=== PATIENT | female | born 1940 | race Caucasian/White ===

== ENCOUNTER 2018-02-12 17:56 | Inpatient (IN) | payer MEDICARE, OTHER, SELFPAY ==
[2018-02-12] VITALS (13 sets, daily range): BP systolic 105–141; BP diastolic 67–119; PULSE 105–130; RESP 20–29; TEMP 37.1–37.7; O2SAT 89–95; BMI 38.4; BMI 40.6
--- NOTE | 2018-02-12 18:29 | EKG12_ITS ---
Test Reason : SOB Blood Pressure : / mmHG Vent. Rate : 109 BPM Atrial Rate : 109 BPM P-R Int : 156 ms QRS Dur : 064 ms QT Int : 320 ms P-R-T Axes : 066 011 048 degrees QTc Int : 430 ms Sinus tachycardia Otherwise normal ECG Confirmed by SHELLEY CLEMENTE, PITO ([id number]), editor magazine DESMOND PEDROZA ([id number]) on 02/17/2018 3:36:40 PM Referred By: Francisco Javier Ford Confirmed By:PITO ROSA MD
--- NOTE | 2018-02-12 18:50 | RAD_ITS ---
STUDY: X-RAY CHEST REASON FOR EXAM: Female, 77 years old. Shortness of breath. TECHNIQUE: PA and lateral views of the chest. COMPARISON: Portable AP upright chest x-ray November 23, 2015. FINDINGS: The lungs are not as fully expanded today. The segmental/subsegmental density in the medial right base is mildly more confluent in the frontal view, likely due to crowding. This is difficult to identify on the lateral image, possibly in the anteromedial right middle lobe. Linear/peribronchial scarring and/or subsegmental volume loss in the medial left base grossly unchanged. No new infiltrate There is no demonstrated pleural abnormality. Normal size heart. Normal mediastinum and elio. Normal visualized pulmonary arteries. There is a stable faint atherosclerotic calcification of the aortic arch. There are stable degenerative changes and minor dextroscoliosis of the visualized thoracic spine. Normal visualized ribs, clavicles, and shoulders. There is no demonstrated abnormality of the visualized soft tissue structures of the upper abdomen. RAD/Chest PA and Lateral IMPRESSION: Chronic subsegmental parenchymal changes in the medial lung bases. No acute infiltrate or CHF. Electronically Signed: Miky Hyman MD at 19:05 EST , Service support ,
[2018-02-12 18:58] LABS: Absolute Lymphocyte Count 1.08 X10^3/ul (0.83-4.51); Absolute Neutrophil Count 10.6 X10^3/uL (2.0-7.7); Basophil# 0.01 X10^3/uL; Basophil% 0.1 % (0-1); Eosinophil# 0.02 X10^3/uL; Eosinophils% 0.2 % (0-5); Hemoglobin 14.3 g/dl (12.0-15.0); Lymphocyte # 1.08 X10^3/ul (4.0); Lymphocyte % 8.2 % (19-41); Mean Corp Hgb Conc 33.3 g/gl (32-36); Mean Corpuscular Hgb 31.7 pg (27.0-32.0); Mean Corpuscular Volume 95.3 fL (81-99); Monocyte% 11.4 % (0-10); Neutrophil # 10.58 X10^3/uL (2.7-7.7); Neutrophil % 79.9 % (47-70); Platelet Count 182 K/mm3 (150-450); RBC Distribution Width CV 13.3 % (11.6-14.6); RBC Distribution Width SD 46.8 fl (35.1-43.9); Red Blood Count 4.51 M/mm3 (4.2-5.4); White Blood Count 13.2 K/mm3 (4.4-11.0)
[2018-02-12 18:59] LABS: POSITIVE COUNT NO; POSITIVE DIFFERENTIAL NO; POSITIVE MORPHOLOGY NO
[2018-02-12] MEDS: Ipratropium/Albuterol Sulfate 3 ML AMPUL.NEB INHALATION (19:02)
[2018-02-12] MEDS: Albuterol 2.5 MG/3 ML VIAL.NEB. INHALATION ×3 (19:02→19:21)
[2018-02-12 19:06] LABS: International Normalized Ratio 1.1; Prothrombin Time (Protime)PT. 13.9 SECONDS (11.7-14.9)
[2018-02-12 19:07] LABS: Partial Thromboplast Time 29.2 Seconds (24.1-36.2)
[2018-02-12 19:16] LABS: AST(SGOT) 25 U/L (15-37); Alanine Aminotransfer ALT/SGPT 30 U/L (13-56); Albumin, Serum 3.1 g/dL (3.2-5.0); Alkaline Phosphatase 113 U/L (45-117); Anion Gap 7 (5-15); BUN 17 mg/dL (7-18); BUN/Creat Ratio 22.4 RATIO (10-20); Bilirubin, Direct 0.13 mg/dL (0.00-0.30); Calcium,Total 8.4 mg/dL (8.5-10.1); Chloride 106 mmol/L (98-107); Creatinine, Serum 0.76 mg/dL (0.55-1.02); EST Glomerular Filtration Rate 78 mL/min (>60); Est Glom Filt Rate - Afr Amer 94 mL/min (>60); Estimated Creatinine Clearance 36.08 ml/min; Glucose 104 mg/dL (74-106); Potassium 4.1 mmol/L (3.5-5.1); Protein, Total 7.1 g/dL (6.4-8.2); Sodium Level 139 mmol/L (136-145)
[2018-02-12 19:19] LABS: Lactic Acid 0.7 mmol/L (0.4-2.0)
[2018-02-12 19:26] LABS: BNP,B-Type NATRIURETIC PEPTIDE 34.3 pg/mL (0-100)
--- NOTE | 2018-02-12 20:25 | CT_ITS ---
STUDY: CTA CHEST REASON FOR EXAM: Female, 77 years old. Hypoxia and shortness of breath RADIATION DOSAGE (If Supplied By Facility): CTDIvol = ( 13.37 ) mGy, DLP = ( 539.43 ) mGycm TECHNIQUE: The examination was performed with the intravenous administration of 100 ml of Isovue 370 contrast material. Post-processing of the angiographic images was performed, with multiplanar reformation and 3D reconstruction. Individualized dose optimization techniques were used for this CT. COMPARISON: Chest radiograph of February 12, 2018 FINDINGS: Normal enhancement of the main pulmonary artery and right and left pulmonary arteries. Normal enhancement of the bilateral peripheral pulmonary arteries. There is no demonstrated pulmonary embolism. There is atherosclerotic calcification of the aortic arch with tortuosity. There is no demonstrated aortic dissection. Normal heart and pericardium. Coronary calcifications. Shotty subcentimeter mediastinal lymph nodes. Normal hilar regions. Bronchial thickening most notably in the right upper lobe and bilateral lower lobes. Generalized hyperexpansion. Areas of consolidation and evidence of volume loss in the medial right upper lobe associated with thickened bronchi. Broad band of parenchymal consolidation probably with volume loss in the anterior right upper lobe along the mediastinal border associated with bronchial thickening. Both areas are also associated with small multinodular infiltrates. Paramediastinal atelectasis and bronchial thickening of the right middle lobe. Bronchial thickening of the lower lobe associated with mild primarily linear atelectatic changes of the right lower lobe. Focal dense infiltrate or atelectasis of the lingula. Generalized atelectatic changes and bronchial thickening of the lower lobe but. Small multinodular parenchymal infiltrate in the posterior left lower lobe and anterior left upper lobe. Bolus of the left lower lobe. Negative for substantial pleural effusion. Normal chest wall structures. There are degenerative changes of thoracic spine with demineralized osseous structures and multiple midthoracic vertebral bodies reduced in height resulting in an increased thoracic kyphosis. Normal visualized upper abdomen. CT/CTA Chest W/WO Contrast IMPRESSION: Negative for pulmonary embolus. Atherosclerotic changes of the aorta without aneurysm or dissection. Coronary calcifications. Right upper lobe substantial bronchial thickening with a broad band of consolidation/volume loss in the medial right upper lobe along the border of the mediastinum. Both areas associated with multinodular infiltrates in the adjacent aerated portion of the lung concerning for inflammatory process. Right middle lobe atelectatic lung also bordering the mediastinum associated with bronchial thickening. Right lower lobe bronchial thickening with sporadic smaller areas of parenchymal atelectasis. Left upper lobe small multinodular infiltrate of the anterior left upper lobe. Consolidation/volume loss of the inferior lingula associated with bronchial thickening. Left lower lobe demonstrates generalized bronchial thickening and a small multinodular infiltrate in the posterior left lower lobe concerning for inflammatory disease. Generalized emphysematous and chronic interstitial changes. Negative for pleural effusion. Electronically Signed: Marina De La Garza MD at 21:34 EST , Service support ,
[2018-02-12] MEDS: levoFLOXacin IV 500 MG/100 ML BAG 100 MG IV (20:31)
--- NOTE | 2018-02-12 20:54 | ED.VISSUMM ---
- ER Visit Summary Date of Service: 02/12/18 Chief Complaint: Shortness of breath History of Present Illness: The patient is a 77 F who presents to the emergency department after being referred by the [facility]. Patient states she has had a URI for about 3 weeks. She has had cough congestion and rhinorrhea. She has a history of COPD and is a current smoker. She wears CPAP oxygen at night. For the past 3 days she has been more significantly short of breath. Was noted that her temperature was 100.6 at urgent care. Her pulse ox 88% on room air. Patient notes that ambulating is basically out of the question for her as she gets extremely labored. Physical Examination: Temperature 99.9 heart rate of 106 respirations are 28 pulse ox 88% on room air blood pressure 123/67 Gen: Well-nourished well-developed Head: Normocephalic atraumatic Eyes: Perrl EOMI ENT: TMs clear no rhinorrhea moist mucous membranes Neck: Supple no lymphadenopathy no JVD nontender CVS: Regular rate tachycardic rhythm no murmurs normal S1-S2 Respiratory: Patient is tachypneic. She has inspiratory and expiratory wheezes and rhonchi bilaterally chest nontender Abdomen: Soft nontender nondistended normal bowel sounds no masses Back: Nontender Extremity: Nontender 2+ lower extremity edema Skin: Normal color no rash Neuro: alert orientated ?3 CN II-XII intact normal strength sensation reflexes Psych: Normal affect normal mood Test Results: White count 13.2. Lactic acid is normal. Troponin is negative. BNP 34.3. EKG sinus at a rate of 109. Chest x-ray shows no infiltrate. Emergency Department Course and Treatment: Patient received breathing treatments and supplemental oxygen. Repeat examination patient states she does not really feel significantly improved. She is still Tachypneic. She attempted to ambulate to the bathroom and was immediately hypoxic at 85% on 2 L. She received Solu-Medrol and Levaquin. CTA of the chest was obtained. This demonstrated multiple areas of inflammation in the lungs. Please see the reading below. Patient continues to be tachypneic. The patient will be started on CPAP as she utilizes this at home and if no improvement is made she will be transitioned to BiPAP. Plan is admission into the hospital. Impression: 1. COPD exacerbation 2. Pneumonia 3. Hypoxemia CT/CTA Chest W/WO Contrast IMPRESSION: Negative for pulmonary embolus. Atherosclerotic changes of the aorta without aneurysm or dissection. Coronary calcifications. Right upper lobe substantial bronchial thickening with a broad band of consolidation/volume loss in the medial right upper lobe along the border of the mediastinum. Both areas associated with multinodular infiltrates in the adjacent aerated portion of the lung concerning for inflammatory process. Right middle lobe atelectatic lung also bordering the mediastinum associated with bronchial thickening. Right lower lobe bronchial thickening with sporadic smaller areas of parenchymal atelectasis. Left upper lobe small multinodular infiltrate of the anterior left upper lobe. Consolidation/volume loss of the inferior lingula associated with bronchial thickening. Left lower lobe demonstrates generalized bronchial thickening and a small multinodular infiltrate in the posterior left lower lobe concerning for inflammatory disease. Generalized emphysematous and chronic interstitial changes. Negative for pleural effusion. This note was generated with [employer] dictation software. It may contain incorrect words, spelling, and punctuation that were not noted in review of the chart prior to signing ED Disposition - Plan for ED Patient: Chief Complaint: Shortness of Breath Referrals: Barry Wooten MD [Primary Care Provider] -
--- NOTE | 2018-02-12 20:58 | ED.DCSUM_ITS ---
- ER Visit Summary Date of Service: 02/12/18 Chief Complaint: Shortness of breath History of Present Illness: The patient is a 77 F who presents to the emergency department after being referred by the [facility]. Patient states she has had a URI for about 3 weeks. She has had cough congestion and rhinorrhea. She has a history of COPD and is a current smoker. She wears CPAP oxygen at night. For the past 3 days she has been more significantly short of breath. Was noted that her temperature was 100.6 at urgent care. Her pulse ox 88% on room air. Patient notes that ambulating is basically out of the question for her as she gets extremely labored. Physical Examination: Temperature 99.9 heart rate of 106 respirations are 28 pulse ox 88% on room air blood pressure 123/67 Gen: Well-nourished well-developed Head: Normocephalic atraumatic Eyes: Perrl EOMI ENT: TMs clear no rhinorrhea moist mucous membranes Neck: Supple no lymphadenopathy no JVD nontender CVS: Regular rate tachycardic rhythm no murmurs normal S1-S2 Respiratory: Patient is tachypneic. She has inspiratory and expiratory wheezes and rhonchi bilaterally chest nontender Abdomen: Soft nontender nondistended normal bowel sounds no masses Back: Nontender Extremity: Nontender 2+ lower extremity edema Skin: Normal color no rash Neuro: alert orientated ?3 CN II-XII intact normal strength sensation reflexes Psych: Normal affect normal mood Test Results: White count 13.2. Lactic acid is normal. Troponin is negative. BNP 34.3. EKG sinus at a rate of 109. Chest x-ray shows no infiltrate. Emergency Department Course and Treatment: Patient received breathing treatments and supplemental oxygen. Repeat examination patient states she does not really feel significantly improved. She is still Tachypneic. She attempted to ambulate to the bathroom and was immediately hypoxic at 85% on 2 L. She received Solu-Medrol and Levaquin. CTA of the chest was obtained. This demons trated multiple areas of inflammation in the lungs. Please see the reading below. Patient continues to be tachypneic. The patient will be started on CPAP as she utilizes this at home and if no improvement is made she will be transitioned to BiPAP. Plan is admission into the hospital. Impression: 1. COPD exacerbation 2. Pneumonia 3. Hypoxemia CT/CTA Chest W/WO Contrast IMPRESSION: Negative for pulmonary embolus. Atherosclerotic changes of the aorta without aneurysm or dissection. Coronary calcifications. Right upper lobe substantial bronchial thickening with a broad band of consolidation/volume loss in the medial right upper lobe along the border of the mediastinum. Both areas associated with multinodular infiltrates in the adjacent aerated portion of the lung concerning for inflammatory process. Right middle lobe atelectatic lung also bordering the mediastinum associated with bronchial thickening. Right lower lobe bronchial thickening with sporadic smaller areas of parenchymal atelectasis. Left upper lobe small multinodular infiltrate of the anterior left upper lobe. Consolidation/volume loss of the inferior lingula associated with bronchial thickening. Left lower lobe demonstrates generalized bronchial thickening and a small multinodular infiltrate in the posterior left lower lobe concerning for inflammatory disease. Generalized emphysematous and chronic interstitial changes. Negative for pleural effusion. This note was generated with [employer] dictation software. It may contain incorrect words, spelling, and punctuation that were not noted in review of the chart prior to signing ED Disposition - Plan for ED Patient: Chief Complaint: Shortness of Breath Referrals: Barry Wooten MD [Primary Care Provider] -
[2018-02-12 21:11] LABS: Allen Test POS; Base Excess -1 mmol/L (-2 to +2); Bicarbonate 24.6 mmol/L (22-26); Blood Gas Specimen Type ART; O2 Delivery Device Nasal Can; PO2 68 mmHG (75-100); SITE L Radial; SO2 92 % (95-99); Time Given 2105; Total Carbon Dioxide 26 mmol/L; pCO2 46.5 mmHg (35-45); pH 7.33 (7.35-7.45)
--- NOTE | 2018-02-12 21:47 | PCM.HP.STD ---
Problem List (1) Acute and chronic respiratory failure Status: Acute (2) Sepsis due to pneumonia Status: Acute History of Present Illness Date of Admission: 02/12/18 Chief Complaint: shortness of breath The patient is a 77 year old F with a significant history of COPD; hyperlipidemia; obstructive sleep apnea on home CPAP with 4 L oxygen nightly; who presented because of 3-day history of progressively worsening shortness of breath. Associated with her symptoms is productive cough of thick yellowish green sputum. Her shortness of breath increases with coughing and with exertion. She tried using at home rescue inhalers without any real relief. Further, she has rhinorrhea and wheezes. Also patient has had cold symptoms for 3 weeks. She went to the urgent care where her temperature was found to be 100.3-100.6 F. Also her oxygen saturation was 88% on room air. At the emergency department her highest temperature was 99.3. She had tachycardia and tachypnea and elevated white count. Past Medical History Allergies No Known Allergies Allergy (Verified 02/12/18 18:01) Home Medications: Ambulatory Orders Medication Instructions Recorded Aspirin [Aspirin, Baby] 81 mg PO DAILY@199911/13/15 Furosemide [Lasix] 20 mg PO PRN PRN 11/13/15 Cholecalciferol (VIT D3) [Vitamin 1,000 unit PO DAILY 11/22/15 D] Umeclidinium Brm/Vilanterol Tr 1 puff INHALATION DAILY@0800 11/22/15 [Anoro Ellipta 62.5-25 Mcg INH] Calcium Carbonate 600 mg PO DAILY 02/12/18 Guaifenesin Dm [Robitussin Dm] 10 ml PO Q6H PRN PRN 02/12/18 Lovastatin [Mevacor] 40 mg PO QHS 02/12/18 Surgical History: hysterectomy, - - Tubal ligation; hemorrhoids removal Lives: With Family Smoking Status: Current every day smoker Tobacco Use: Cigarettes - *Family History Maternal Family History: Family History (Last Reviewed 02/13/18 @ 04:20 by Francisco Javier Ford MD) Father Pancreatic cancer Brother Pancreatic cancer Sister Lung cancer Brother Alcohol abuse Review of Systems Constitutional: Reports: Fever. Denies: Chills, Weight Change HEENT: Reports: Nasal Congestion. Denies: Head Aches, Sinus Congestion, Sinus Drainage Cardiovascular: Denies: Chest Pain, Palpitations Respiratory: Reports: Cough, Shortness of Breath, Shortness of breath at rest, Shortness of breath upon exertion, Sputum production Gastrointestinal: Denies: Abdominal Pain, Nausea, Vomiting Genitourinary: Denies: Dysuria Musculoskeletal: Denies: Joint Pain, Joint Tenderness Skin: Denies: Rash, Wounds Neurological: Denies: Numbness, Tingling, Focal weakness Psychiatric: Denies: Anxiety, Depression, Homicidal Ideations, Suicidal Ideations Hematologic/ Lymphatic: Denies: Easy Bruising, Easy Bleeding VTE Information - Inpt Only VTE Present on Admission: No VTE Mechan Device Prophylaxis: None VTE Pharm Prophylaxis ordered?: Yes Patient Problems: Active and Suspected Problems Acute and chronic respiratory failure (Acute) Sepsis due to pneumonia (Acute) - Physical Exam General: Alert, Oriented x3, Cooperative HEENT: Atraumatic, PERRLA, EOMI, Normocephalic Neck: Supple, No JVD, Negative Carotid Bruits Lungs: Rhonchi, Tachypneic, Wheezes Cardiovascular: No murmurs, Tachycardic Abdomen: Bowel Sounds Present, Soft, Non Tender Extremities: No edema, Capillary Refill Less than 3 Seconds Skin: No rashes, No breakdown Musculoskeletal: No Tenderness to Palpation of Joints or Extremities Neurological: Neuro grossly intact Psych/Mental Status: Normal Affect, Appropriate Vital Signs Temp Pulse Resp BP Pulse Ox 99.2 F H 108 H 22 H 121/88 H 92 02/12/18 21:36 02/12/18 21:44 02/12/18 21:44 02/12/18 21:44 02/12/18 21:44 Oxygen Flow Rate (L/min) 4 Oxygen Delivery Method Nasal Cannula Weight: 95.254 kg Body Mass Index (BMI) 38.4 Microbiology Past 72 Hours 02/12/18 19:38 Influenza Types A,B Direct FA (LIMA) - Final Mucosa - Nose Laboratory Tests Past 24 Hrs 02/12/18 02/12/18 02/12/18 18:40 18:40 18:40 WBC 13.2 H RBC 4.51 Hgb 14.3 Hct 43.0 MCV 95.3 MCH 31.7 MCHC 33.3 RDW 13.3 RDW Differential 46.8 H Plt Count 182 MPV 10.0 Immature Gran % (Auto) 0.200 Neut % (Auto) 79.9 H Lymph % (Auto) 8.2 L Bryan % (Auto) 11.4 H Eos % (Auto) 0.2 Baso % (Auto) 0.1 Absolute Neuts (auto) 10.6 H Absolute Lymphs (auto) 1.08 Total Counted Not Reportable PT INR APTT Specimen Type Sample Site pH Bicarbonate Actual POC Total CO2 Base Excess O2 Saturation ABG pCO2 ABG pO2 Edmundo Test O2 Delivery Device Liter Flow Blood Gas Notified Whom Blood Gas Notified Time Sodium 139 Potassium 4.1 Chloride 106 Carbon Dioxide 26.0 Anion Gap 7 BUN 17 Creatinine 0.76 Estim Creat Clear Calc 36.08 Est GFR (MDRD) Af Amer 94 Est GFR (MDRD) Non-Af 78 BUN/Creatinine Ratio 22.4 H Glucose 104 Lactic Acid 0.7 Calcium 8.4 L Total Bilirubin 0.40 Direct Bilirubin 0.13 AST 25 ALT 30 Alkaline Phosphatase 113 Troponin I < 0.015 B-Natriuretic Peptide Total Protein 7.1 Albumin 3.1 L Globulin 4.0 02/12/18 02/12/18 02/12/18 18:40 18:40 21:01 WBC RBC Hgb Hct MCV MCH MCHC RDW RDW Differential Plt Count MPV Immature Gran % (Auto) Neut % (Auto) Lymph % (Auto) Bryan % (Auto) Eos % (Auto) Baso % (Auto) Absolute Neuts (auto) Absolute Lymphs (auto) Total Counted PT 13.9 INR 1.1 APTT 29.2 Specimen Type ART Sample Site L Radial pH 7.33 L Bicarbonate Actual 24.6 POC Total CO2 26 Base Excess -1 O2 Saturation 92 L ABG pCO2 46.5 H ABG pO2 68 L Edmundo Test POS O2 Delivery Device Nasal Can Liter Flow 3.0 Blood Gas Notified Whom ED MD Blood Gas Notified Time 2104 Sodium Potassium Chloride Carbon Dioxide Anion Gap BUN Creatinine Estim Creat Clear Calc Est GFR (MDRD) Af Amer Est GFR (MDRD) Non-Af BUN/Creatinine Ratio Glucose Lactic Acid Calcium Total Bilirubin Direct Bilirubin AST ALT Alkaline Phosphatase Troponin I B-Natriuretic Peptide 34.3 Total Protein Albumin Globulin Assessment/Plan All Active Problems Acute and chronic respiratory failure (Acute) Sepsis due to pneumonia (Acute) The patient is a 77 year old F with a significant history of COPD; hyperlipidemia; obstructive sleep apnea on home CPAP with 4 L oxygen nightly; who presented because of 3-day history of progressively worsening shortness of breath; productive cough and found to have a fever; hypoxia and hypercapnia and with radiographic evidence of acute multilobular infiltrates consistent with sepsis secondary to multilobular pneumonia and with probable COPD exacerbation. Sepsis secondary to multilobular pneumonia Patient meets SIRS criteria with tachycardia, tachypnea and elevated white counts. Patient received Levaquin at emergency department. Due to many adverse effects of Levaquin especially in her age group will transition antibiotics to ceftriaxone and azithromycin. Lactic acid was unremarkable Blood cultures are pending Sputum cultures ordered. Scheduled DuoNeb ordered. Prn Albuterol. Incentives spirometer and acapella ordered Prednisone 40 mg x1. Evaluate for further need of steroids. Rapid influenza screen was negative. Legionella antigen and Streptococcus pneumonia antigen ordered. Mucinex ordered. Flonase for rhinorrhea. Probable COPD exacerbation Management as in sepsis secondary to multilobular pneumonia. Bilateral legs and ankle swelling. Patient takes Lasix as needed. No edema at this time. Lasix held. Obstructive sleep apnea CPAP with oxygen bled in; continued . Tobacco abuse Counseled Patient reported that she has tried Chantix; nicotine patch; and hypnosis without any relief. Patient is declining nicotine patch at this time. DVT prophylaxis Subcutaneous heparin. Code Visit Inpatient E&M: 97437 Init Hosp L3
--- NOTE | 2018-02-12 22:00 | CPS ---
Pt placed on home cpap with 4l bleed in. Pt tolerated well. Spo2 improved, RR, HR both decreased and pt appears to be more relaxed. no further needs at this time.
[2018-02-13] VITALS (13 sets, daily range): BP systolic 115–148; BP diastolic 65–94; PULSE 86–99; RESP 16–26; TEMP 36.4–37.4; O2SAT 91–97
[2018-02-13] MEDS: predniSONE 20 MG Tablet 40 MG PO (00:04)
[2018-02-13] MEDS: Zolpidem Tartrate 5 MG Tablet PO ×2 (00:04→21:48)
[2018-02-13] MEDS: Ceftriaxone 1 GM/50 ML BAG IV ×3 (00:06→21:14)
[2018-02-13] MEDS: 0.9% NaCl Peripheral Flush Adult/Peds IV ×5 (00:06→21:14)
[2018-02-13] MEDS: 0.9% NaCl IVPB Med Flush (250 mL) 15 ML IV (00:13)
[2018-02-13 07:06] LABS: Anion Gap 7 (5-15); BUN 15 mg/dL (7-18); BUN/Creat Ratio 20.8 RATIO (10-20); Calcium,Total 9.1 mg/dL (8.5-10.1); Chloride 109 mmol/L (98-107); Creatinine, Serum 0.72 mg/dL (0.55-1.02); EST Glomerular Filtration Rate 83 mL/min (>60); Est Glom Filt Rate - Afr Amer 100 mL/min (>60); Estimated Creatinine Clearance 36.08 ml/min; Glucose 150 mg/dL (74-106); Potassium 4.8 mmol/L (3.5-5.1); Sodium Level 141 mmol/L (136-145)
[2018-02-13 07:08] LABS: Absolute Lymphocyte Count 0.42 X10^3/ul (0.83-4.51); Absolute Neutrophil Count 11.6 X10^3/uL (2.0-7.7); Basophil# 0.01 X10^3/uL; Basophil% 0.1 % (0-1); Hematocrit 41.9 % (37-47); Hemoglobin 13.7 g/dl (12.0-15.0); Lymphocyte # 0.42 X10^3/ul (4.0); Lymphocyte % 3.4 % (19-41); Mean Corp Hgb Conc 32.7 g/gl (32-36); Mean Corpuscular Hgb 31.7 pg (27.0-32.0); Mean Platelet Vol. 10.6 fl (6.2-12.0); Monocyte# 0.45 X10^3/uL; Monocyte% 3.6 % (0-10); Neutrophil # 11.58 X10^3/uL (2.7-7.7); Neutrophil % 92.7 % (47-70); Platelet Count 173 K/mm3 (150-450); RBC Distribution Width CV 13.4 % (11.6-14.6); RBC Distribution Width SD 46.6 fl (35.1-43.9); Red Blood Count 4.32 M/mm3 (4.2-5.4); White Blood Count 12.5 K/mm3 (4.4-11.0)
[2018-02-13 07:15] LABS: Differential Indicated SCAN CRITERIA MET; POSITIVE COUNT NO; POSITIVE DIFFERENTIAL YES; POSITIVE MORPHOLOGY NO
--- NOTE | 2018-02-13 07:45 | PN_ITS ---
Patient Problems: Active and Suspected Problems Acute and chronic respiratory failure (Acute) Sepsis due to pneumonia (Acute) Subjective: Patient was seen and examined. She feels slightly improved. No fevers. She is on 4L oxygen, wears oxygen at night with her CPAP. Admits to recent URI. Denies worsening SOB, chest pain or fever or chills. Vitals/I&O's: Vital Signs Temp Pulse Resp BP Pulse Ox 99.4 F H 97 26 H 126/68 H 95 02/13/18 03:25 02/13/18 03:30 02/13/18 05:31 02/13/18 03:25 02/13/18 05:31 Oxygen Flow Rate (L/min) 3 Oxygen Delivery Method Nasal Cannula Weight: 100.7 kg Body Mass Index (BMI) 40.6 Intake and Output for Last 24 Hours 02/11/18 02/12/18 02/13/18 23:59 23:59 23:59 Intake Total 412 / 412 Output Total 700 / 700 Balance -288 / -288 General: Alert, Oriented x3, Cooperative, No apparent distress, - - on 4L oxygen HEENT: Atraumatic, PERRLA, EOMI, Normocephalic Oral: Moist Mucosa Neck: Supple, No JVD, Negative Carotid Bruits Lungs: Normal air movement, Diminished Cardiovascular: Regular rate, No murmurs Abdomen: Bowel Sounds Present, Soft, Non Tender, Non-Distended, No Hepato- splenomegaly Extremities: No edema, Capillary Refill Less than 3 Seconds Skin: No rashes, No breakdown Musculoskeletal: No Tenderness to Palpation of Joints or Extremities Lymphatic: No Cervical, Supraclavicular, or Inguinal Adenopathy Neurological: Cranial nerves II-XII grossly intact, Neuro grossly intact Psych/Mental Status: Normal Affect, Appropriate Microbiology Past 72 Hours 02/12/18 18:44 Blood Culture (Wb) #2 - Anticubital Right Blood Culture - Preliminary 02/13/18 03:00 Urine, Clean Catch Legionella Antigen - Final 02/13/18 03:00 Urine, Clean Catch Streptococcus pneumoniae Antigen (M - Final 02/12/18 19:38 Mucosa - Nose Influenza Types A,B Direct FA ([facility]) - Final Laboratory Results 02/12/18 18:40: WBC 13.2 H, RBC 4.51, Hgb 14.3, Hct 43.0, MCV 95.3, MCH 31.7, MCHC 33.3, RDW 13.3, RDW Differential 46.8 H, Plt Count 182, MPV 10.0, Immature Gran % (Auto) 0.200, Neut % (Auto) 79.9 H, Lymph % (Auto) 8.2 L, [place] % (Auto) 11.4 H, Eos % (Auto) 0.2, Baso % (Auto) 0.1, Absolute Neuts (auto) 10.6 H, Absolute Lymphs (auto) 1.08, Total Counted Not Reportable 02/12/18 18:40: Sodium 139, Potassium 4.1, Chloride 106, Carbon Dioxide 26.0, Anion Gap 7, BUN 17, Creatinine 0.76, Estim Creat Clear Calc 36.08, Est GFR (MDRD) Af Amer 94, Est GFR (MDRD) Non-Af 78, BUN/Creatinine Ratio 22.4 H, Glucose 104, Calcium 8.4 L, Total Bilirubin 0.40, Direct Bilirubin 0.13, AST 25, ALT 30, Alkaline Phosphatase 113, Troponin I < 0.015, Total Protein 7.1, Albumin 3.1 L, Globulin 4.0 02/12/18 18:40: Lactic Acid 0.7 02/12/18 18:40: B-Natriuretic Peptide 34.3 02/12/18 18:40: PT 13.9, INR 1.1, APTT 29.2 02/12/18 21:01: Specimen Type ART, Sample Site L Radial, pH 7.33 L, Bicarbonate Actual 24.6, POC Total CO2 26, Base Excess -1, O2 Saturation 92 L, ABG pCO2 46.5 H, ABG pO2 68 L, Edmundo Test POS, O2 Delivery Device Nasal Can, Liter Flow 3.0, Blood Gas Notified Whom ED , Blood Gas Notified Time 8361 02/13/18 06:16: WBC 12.5 H, RBC 4.32, Hgb 13.7, Hct 41.9, MCV 97.0, MCH 31.7, MCHC 32.7, RDW 13.4, RDW Differential 46.6 H, Plt Count 173, MPV 10.6, Immature Gran % (Auto) 0.200, Neut % (Auto) 92.7 H, Lymph % (Auto) 3.4 L, [place] % (Auto) 3.6, Eos % (Auto) 0.0, Baso % (Auto) 0.1, Absolute Neuts (auto) 11.6 H, Absolute Lymphs (auto) 0.42 L, Total Counted Not Reportable 02/13/18 06:16: Sodium 141, Potassium 4.8, Chloride 109 H, Carbon Dioxide 25.0, Anion Gap 7, BUN 15, Creatinine 0.72, Estim Creat Clear Calc 36.08, Est GFR (MDRD) Af Amer 100, Est GFR (MDRD) Non-Af 83, BUN/Creatinine Ratio 20.8 H, Glucose 150 H, Calcium 9.1 Current Medications Acetaminophen (Tylenol) 650 mg PO Q6H PRN PRN PRN Reason: Mild Pain (scale 0-3)/T>100.7 Albuterol Sulfate (Ventolin Aerosols) 2.5 mg INHALATION Q2H PRN PRN PRN Reason: SHORTNESS OF BREATH Albuterol/Ipratropium (Duoneb) 3 ml INHALATION Q4HWA.RT [facility] Aspirin (Aspirin, Baby) 81 mg PO DAILY@2000 [facility] Atorvastatin Calcium (Lipitor) 10 mg PO QHS [facility] Calcium Carbonate (Tums) 500 mg PO DAILY [facility] Cholecalciferol (Vitamin D) 1,000 unit PO DAILY [facility] Fluticasone Propionate (Flonase Nasal [place]) 1 spray NASAL BID [facility] Guaifenesin (Mucinex) 1,200 mg PO BID [facility] Heparin Sodium (Porcine) (Heparin Na) 5,000 unit SC Q12 [facility] Azithromycin 500 mg/ Dextrose 255 mls @ 250 mls/hr IV Q24@2200 [facility] Stop: 02/14/18 23:02 Last Admin: 02/13/18 00:41 Dose: 250 mls/hr Ceftriaxone Sodium (Rocephin) 1 gm in 50 mls @ 100 mls/hr IV Q12 [facility] Last Admin: 02/13/18 00:06 Dose: 100 mls/hr Sodium Chloride () 250 mls @ 15 mls/hr IV .[id number] PRN PRN Reason: SALINE FLUSH Last Admin: 02/13/18 00:13 Dose: 15 mls/hr Magnesium Hydroxide (Milk Of Magnesia) 30 ml PO DAILY PRN PRN PRN Reason: Constipation Non-Formulary Medication (Umeclidinium Brm/Vilanterol Tr) 1 puff INHALATION DAILY@0800 [facility] Sodium Chloride () 5 - 15 ml IV UD PRN PRN Reason: SALINE FLUSH Last Admin: 02/13/18 00:12 Dose: 10 ml Zolpidem Tartrate (Ambien (Generic)) 5 mg PO QHS PRN PRN PRN Reason: SLEEP Last Admin: 02/13/18 00:04 Dose: 5 mg Medical Necessity - Tobacco Use Smoking Status: Current every day smoker Tobacco Use: Cigarettes Assessment/Plan All Active Problems Acute and chronic respiratory failure (Acute) Sepsis due to pneumonia (Acute) 77-year-old female with past medical history of COPD, NELLIE on CPAP with 4 L of oxygen at night, hyperlipidemia comes in with complaints of worsening shortness of breath and productive cough. Patient has had upper respiratory symptoms ongoing for 3 weeks. 1. Acute hypoxic respiratory failure secondary to multilobar pneumonia, patient appears stable, continue on oxygen, encouraged use of incentive spirometer, wean off for SPo2 more than 94%. 2. Sepsis secondary to multilobular pneumonia, preliminary blood culture shows gram-positive cocci in chains, Streptococcus, not-strep pneumo Urine surgical antigen as well as Legionella antigen is negative. Influenza screen is negative, respiratory panel is pending, continue on IV ceftriaxone and azithromycin. Will continue to monitor. Repeat blood cultures 3. COPD, not in acute exacerbation 4. NELLIE on CPAP 5. Nicotine dependence, refused nicotine replacement 6. DVT prophylaxis with heparin subcu Code Visit Inpatient E&M: 12442 Subs Hosp L2
[2018-02-13] MEDS: Ipratropium/Albuterol Sulfate 3 ML AMPUL.NEB INHALATION ×4 (07:46→19:00)
--- NOTE | 2018-02-13 07:50 | CPS ---
Patient has own CPAP unit set-up at bedside at 9 cm h2o with 4lpm bleed-in as at home.
[2018-02-13] MEDS: Calcium Carbonate 500 MG Tablet PO (09:46)
[2018-02-13] MEDS: Fluticasone 0.05% 1 SPRAY NASAL.SRY NASAL ×2 (09:46→21:47)
[2018-02-13] MEDS: guaiFENesin 1,200 MG Tablet 1200 MG PO ×2 (09:46→21:48)
[2018-02-13] MEDS: Heparin Injection (Vial) 5,000 UNIT/ML VIAL 5000 UNIT SC ×2 (09:46→21:48)
--- NOTE | 2018-02-13 11:34 | CM.UR ---
See plater printed circuit board panels. Met face to face with patient. Denies any needs anticipated. Possibly will need to remain on oxygen during day as well as night. Instructed to have the advance directives to be brought so they can be put in medical record. Instructed case management will remain available should any needs arise. Verb understanding. Maria Elena Castro RN, [facility].
--- NOTE | 2018-02-13 15:51 | CPS ---
Patient working on PEP therapy on own.
[2018-02-13 16:09] LABS: M R Staph aureus DNA By PCR Negative (Negative); Probe Check PASS; Specimen Processing Control PASS
[2018-02-13] MEDS: Aspirin 81 MG TAB.CHEW PO (20:11)
[2018-02-13] MEDS: Atorvastatin Calcium 10 MG Tablet PO (21:48)
[2018-02-14] VITALS (10 sets, daily range): BP systolic 128–146; BP diastolic 60–76; PULSE 86–104; RESP 16–20; TEMP 36.5–37.2; O2SAT 88–98
[2018-02-14 06:44] LABS: Absolute Neutrophil Count 6.1 X10^3/uL (2.0-7.7); Basophil# 0.03 X10^3/uL; Basophil% 0.3 % (0-1); Eosinophils% 1.1 % (0-5); Hematocrit 41.6 % (37-47); Hemoglobin 13.4 g/dl (12.0-15.0); Lymphocyte % 18.2 % (19-41); Mean Corp Hgb Conc 32.2 g/gl (32-36); Mean Corpuscular Hgb 31.3 pg (27.0-32.0); Mean Corpuscular Volume 97.2 fL (81-99); Mean Platelet Vol. 10.7 fl (6.2-12.0); Monocyte# 0.99 X10^3/uL; Monocyte% 11.3 % (0-10); Neutrophil # 6.05 X10^3/uL (2.7-7.7); Neutrophil % 68.8 % (47-70); Platelet Count 196 K/mm3 (150-450); RBC Distribution Width CV 13.6 % (11.6-14.6); RBC Distribution Width SD 47.2 fl (35.1-43.9); Red Blood Count 4.28 M/mm3 (4.2-5.4); White Blood Count 8.8 K/mm3 (4.4-11.0)
[2018-02-14 06:50] LABS: BUN 19 mg/dL (7-18); Creatinine, Serum 0.77 mg/dL (0.55-1.02); Estimated Creatinine Clearance 36.08 ml/min; Glucose 101 mg/dL (74-106); POSITIVE COUNT NO; POSITIVE DIFFERENTIAL NO; POSITIVE MORPHOLOGY NO
[2018-02-14 06:51] LABS: Anion Gap 6 (5-15); BUN/Creat Ratio 24.8 RATIO (10-20); Calcium,Total 9.2 mg/dL (8.5-10.1); Chloride 110 mmol/L (98-107); EST Glomerular Filtration Rate 77 mL/min (>60); Est Glom Filt Rate - Afr Amer 93 mL/min (>60); Sodium Level 143 mmol/L (136-145)
[2018-02-14] MEDS: Ipratropium/Albuterol Sulfate 3 ML AMPUL.NEB INHALATION ×4 (07:19→19:30)
--- NOTE | 2018-02-14 10:20 | PN_ITS ---
Patient Problems: Active and Suspected Problems Acute and chronic respiratory failure (Acute) Sepsis due to pneumonia (Acute) Subjective: Patient was seen and examined. Complains of feeling improved. Denied any chest pain or dizziness. Been producing yellowish sputum. Remains on 4 L of oxygen [id number]. Objective: General: Alert, Oriented x3, Cooperative, No apparent distress, - - on 4L oxygen HEENT: Atraumatic, PERRLA, EOMI, Normocephalic Oral: Moist Mucosa Neck: Supple, No JVD, Negative Carotid Bruits Lungs: Normal air movement, Diminished Cardiovascular: Regular rate, No murmurs Abdomen: Bowel Sounds Present, Soft, Non Tender, Non-Distended, No Hepato- splenomegaly Extremities: No edema, Capillary Refill Less than 3 Seconds Skin: No rashes, No breakdown Musculoskeletal: No Tenderness to Palpation of Joints or Extremities Lymphatic: No Cervical, Supraclavicular, or Inguinal Adenopathy Neurological: Cranial nerves II-XII grossly intact, Neuro grossly intact Psych/Mental Status: Normal Affect, Appropriate Vitals/I&O's: Vital Signs Temp Pulse Resp BP Pulse Ox 97.7 F L 95 16 146/76 H 92 02/14/18 05:28 02/14/18 07:19 02/14/18 07:19 02/14/18 05:28 02/14/18 07:26 Oxygen Flow Rate (L/min) 3 Oxygen Delivery Method Nasal Cannula Weight: 100.7 kg Body Mass Index (BMI) 40.6 Intake and Output for Last 24 Hours 02/12/18 02/13/18 02/14/18 23:59 23:59 23:59 Intake Total 1403.5 / 1403.5 Output Total 1350 / 1350 Balance 53.5 / 53.5 Microbiology Past 72 Hours 02/12/18 18:44 Blood Culture (Wb) #2 - Anticubital Right Bacteria Detection (PCR) - Final 02/12/18 18:44 Blood Culture (Wb) #2 - Anticubital Right Blood Culture - Preliminary Strep not Strep pneumo 02/13/18 00:04 Sputum, Expectorated/Coughed Gram Stain - Final 02/13/18 03:00 Urine, Clean Catch Legionella Antigen - Final 02/13/18 03:00 Urine, Clean Catch Streptococcus pneumoniae Antigen (M - Final 02/12/18 19:38 Mucosa - Nose Influenza Types A,B Direct FA ([facility]) - Final Laboratory Results 02/13/18 14:10: MRSA (PCR) Negative 02/14/18 05:25: WBC 8.8, RBC 4.28, Hgb 13.4, Hct 41.6, MCV 97.2, MCH 31.3, MCHC 32.2, RDW 13.6, RDW Differential 47.2 H, Plt Count 196, MPV 10.7, Immature Gran % (Auto) 0.300, Neut % (Auto) 68.8, Lymph % (Auto) 18.2 L, [place] % (Auto) 11.3 H, Eos % (Auto) 1.1, Baso % (Auto) 0.3, Absolute Neuts (auto) 6.1, Absolute Lymphs (auto) 1.60, Total Counted Not Reportable 02/14/18 05:25: Sodium 143, Potassium 4.0, Chloride 110 H, Carbon Dioxide 27.0, Anion Gap 6, BUN 19 H, Creatinine 0.77, Estim Creat Clear Calc 36.08, Est GFR (MDRD) Af Amer 93, Est GFR (MDRD) Non-Af 77, BUN/Creatinine Ratio 24.8 H, Glucose 101, Calcium 9.2 Current Medications Acetaminophen (Tylenol) 650 mg PO Q6H PRN PRN PRN Reason: Mild Pain (scale 0-3)/T>100.7 Albuterol Sulfate (Ventolin Aerosols) 2.5 mg INHALATION Q2H PRN PRN PRN Reason: SHORTNESS OF BREATH Albuterol/Ipratropium (Duoneb) 3 ml INHALATION Q4HWA.RT [facility] Last Admin: 02/14/18 07:19 Dose: 3 ml Aspirin (Aspirin, Baby) 81 mg PO DAILY@1999 [facility] Last Admin: 02/13/18 20:11 Dose: 81 mg Atorvastatin Calcium (Lipitor) 10 mg PO QHS [facility] Last Admin: 02/13/18 21:48 Dose: 10 mg Calcium Carbonate (Tums) 500 mg PO DAILY [facility] Last Admin: 02/13/18 09:46 Dose: 500 mg Cholecalciferol (Vitamin D) 1,000 unit PO DAILY [facility] Last Admin: 02/13/18 09:46 Dose: 1,000 unit Fluticasone Propionate (Flonase Nasal [place]) 1 spray NASAL BID [facility] Last Admin: 02/13/18 21:47 Dose: 1 spray Guaifenesin (Mucinex) 1,200 mg PO BID [facility] Last Admin: 02/13/18 21:48 Dose: 1,200 mg Heparin Sodium (Porcine) (Heparin Na) 5,000 unit SC Q12 [facility] Last Admin: 02/13/18 21:48 Dose: 5,000 unit Azithromycin 500 mg/ Dextrose 255 mls @ 250 mls/hr IV Q24@2200 [facility] Stop: 02/14/18 23:02 Last Admin: 02/13/18 21:48 Dose: 250 mls/hr Ceftriaxone Sodium (Rocephin) 1 gm in 50 mls @ 100 mls/hr IV Q12 [facility] Last Admin: 02/13/18 21:14 Dose: 100 mls/hr Sodium Chloride () 250 mls @ 15 mls/hr IV .[id number] PRN PRN Reason: SALINE FLUSH Last Admin: 02/13/18 00:13 Dose: 15 mls/hr Magnesium Hydroxide (Milk Of Magnesia) 30 ml PO DAILY PRN PRN PRN Reason: Constipation Sodium Chloride () 5 - 15 ml IV UD PRN PRN Reason: SALINE FLUSH Last Admin: 02/13/18 21:14 Dose: 10 ml Zolpidem Tartrate (Ambien (Generic)) 5 mg PO QHS PRN PRN PRN Reason: SLEEP Last Admin: 02/13/18 21:48 Dose: 5 mg Medical Necessity - Tobacco Use Smoking Status: Current every day smoker Tobacco Use: Cigarettes Assessment/Plan All Active Problems Acute and chronic respiratory failure (Acute) Sepsis due to pneumonia (Acute) 77-year-old female with past medical history of COPD, NELLIE on CPAP with 4 L of oxygen at night, hyperlipidemia comes in with complaints of worsening shortness of breath and productive cough. Patient has had upper respiratory symptoms ongoing for 3 weeks. 1. Acute hypoxic respiratory failure secondary to multilobar pneumonia, unchanged, still on 4 L of oxygen [id number], continue on oxygen, encouraged use of incentive spirometer, wean off for SPo2 more than 94%. 2. Sepsis secondary to multilobular pneumonia, likely multifactorial in etiology, Started with an upper respiratory infection, likely etiology is mixed with rhinovirus positive on respiratory panel, also with likely gram-positive and gram-negative organisms, blood cultures times 1 out of 2 Streptococcus, not-strep pneumo, repeat blood cultures pending. No fevers seen here. No worsening leukocytosis Urine streptococcal antigen and Legionella antigen is negative. MRSA PCR is negative Influenza screen is negative, respiratory panel shows rhinovirus Sputum cultures are pending. Continue on IV ceftriaxone and azithromycin( DAY 3). 3. COPD, not in acute exacerbation 4. NELLIE on CPAP 5. Nicotine dependence, refused nicotine replacement 6. DVT prophylaxis with heparin subcu Code Visit Inpatient E&M: 18398 Subs Hosp L2
[2018-02-14] MEDS: Fluticasone 0.05% 1 SPRAY NASAL.SRY NASAL ×2 (11:05→21:56)
[2018-02-14] MEDS: Calcium Carbonate 500 MG Tablet PO (11:05)
[2018-02-14] MEDS: Heparin Injection (Vial) 5,000 UNIT/ML VIAL 5000 UNIT SC ×2 (11:05→21:57)
[2018-02-14] MEDS: guaiFENesin 1,200 MG Tablet 1200 MG PO ×2 (11:05→21:57)
[2018-02-14] MEDS: Ceftriaxone 1 GM/50 ML BAG IV ×2 (12:19→21:56)
--- NOTE | 2018-02-14 12:36 | CPS ---
patient working on PEP therapy on own.
[2018-02-14] MEDS: Aspirin 81 MG TAB.CHEW PO (21:56)
[2018-02-14] MEDS: Atorvastatin Calcium 10 MG Tablet PO (21:57)
[2018-02-14] MEDS: 0.9% NaCl Peripheral Flush Adult/Peds IV ×2 (22:06→22:08)
[2018-02-14] MEDS: Zolpidem Tartrate 5 MG Tablet PO (22:07)
[2018-02-15] VITALS (10 sets, daily range): BP systolic 102–149; BP diastolic 51–75; PULSE 79–98; RESP 18–20; TEMP 36.3–37.2; O2SAT 86–98
[2018-02-15] MEDS: 0.9% NaCl Peripheral Flush Adult/Peds IV (05:56)
[2018-02-15] MEDS: Ipratropium/Albuterol Sulfate 3 ML AMPUL.NEB INHALATION ×3 (07:23→15:14)
[2018-02-15] MEDS: Ceftriaxone 1 GM/50 ML BAG IV (09:09)
[2018-02-15] MEDS: guaiFENesin 1,200 MG Tablet 1200 MG PO (09:10)
[2018-02-15] MEDS: Calcium Carbonate 500 MG Tablet PO (09:10)
[2018-02-15] MEDS: Fluticasone 0.05% 1 SPRAY NASAL.SRY NASAL (09:11)
[2018-02-15] MEDS: Heparin Injection (Vial) 5,000 UNIT/ML VIAL 5000 UNIT SC (09:12)
--- NOTE | 2018-02-15 11:48 | DCINST_ITS ---
- Discharge Diagnoses Current Active Problems: Current Active and Chronic Problems Acute and chronic respiratory failure (Acute) Sepsis due to pneumonia (Acute) You will use the following diet at home:: Cardiac Your food should be the consistency of: Regular Discharge Activity: May Not Drive Call your doctor if you observe: Fever of 101 or Higher, Inability to urinate, Inability to have a bowel movement, Shortness of breath, Fainting spells, Swelling in the ankles, Chest pain, Increased palpitations (irregular heartbeat) Allergies/Adverse Reactions: Allergies No Known Allergies Allergy (Verified 02/12/18 18:01) Medications to take at Discharge Aspirin [Aspirin, Baby] 81 mg PO DAILY@199911/13/15 Furosemide [Lasix] 20 mg PO PRN PRN 11/13/15 Cholecalciferol (VIT D3) [Vitamin D3] 1,000 unit PO DAILY 11/22/15 Umeclidinium Brm/Vilanterol Tr [Anoro Ellipta 62.5-25 Mcg INH] 1 puff INHALATION DAILY@0800 11/22/15 Calcium Carbonate 600 mg PO DAILY 02/12/18 Guaifenesin Dm [Robitussin Dm] 10 ml PO Q6H PRN PRN 02/12/18 Lovastatin [Mevacor] 40 mg PO QHS 02/12/18 Guaifenesin [Mucinex] 1,200 mg PO BID tablet 02/15/18 Levofloxacin [Levaquin] 500 mg PO DAILY #4 tablet 02/15/18 The following prescriptions were given: Levofloxacin [Levaquin] 500 mg PO DAILY #4 tablet Primary Care Physician: Barry Wooten MD [Primary Care Provider] - Please follow up with your Primary Care Physician in: in 1-2 weeks Test Results: Test results from this visit will be discussed in further detail at your follow- up appointment, if applicable. Please Follow Up With: Maurizio Hobbs MD When: in 2 weeks for multilobar pneumonia and hypoxia on 2 L of oxygen
--- NOTE | 2018-02-15 14:00 | CASEMGMT ---
ANGIE GOMEZ received update by nurse the patient qualifies for portable oxygen. Patient has oxygen at night with [facility]. Updated script for portability sent to [facility] and arranged for portable tank to be delivered by [facility] to hospital prior to patient's discharge.
--- NOTE | 2018-02-15 18:36 | PCM.DC.SUM ---
Discharge Date and Diagnosis Date of Admission: 02/12/18 Date of Discharge: 02/15/18 Hospital Course and Treatment Summary of Care Provided: The patient is a 77-year-old female with past medical history of COPD, NELLIE on CPAP with 4 L of oxygen at night, hyperlipidemia comes in with complaints of worsening shortness of breath and productive cough. Patient has had upper respiratory symptoms ongoing for 3 weeks. 1. Acute hypoxic respiratory failure secondary to multilobar pneumonia, unchanged, still on 4 L of oxygen [id number], continue on oxygen, encouraged use of incentive spirometer, was wean off for SPo2 more than 92%. Patient respiratory status got better. Oxygenation improved to 98% on 2 L of oxygen. Pulse ox 86% on ambulation at room air, 96% on 2 L of oxygen. At rest, 89% on room air. . Patient was discharged on oxygen. Patient requires home oxygen with portability and is ambulatory in home in the community. 2. Sepsis secondary to multilobular pneumonia, likely multifactorial in etiology, most probably secondary to Haemophilus influenzae, probably superinfection on rhinovirus: Started with an upper respiratory infection, likely etiology is mixed with rhinovirus positive on respiratory panel, also with likely gram-positive and gram-negative organisms, blood cultures times 1 out of 2 Streptococcus, not-strep pneumo, final culture showed Streptococcus mitis/oral is No fevers seen here. No worsening leukocytosis Urine streptococcal antigen and Legionella antigen is negative. MRSA PCR is negative Influenza screen is negative, respiratory panel shows rhinovirus Sputum cultures are pending. Continue on IV ceftriaxone and azithromycin( DAY 3). Patient has been discharged on Levaquin for 4 more days. Discussed with the patient's daughter present in the room 3. COPD, not in acute exacerbation 4. NELLIE on CPAP 5. Nicotine dependence, refused nicotine replacement 6. DVT prophylaxis with heparin subcut. Patient was discharged on Levaquin, Mucinex and no more oxygen. Patient has CPAP at home. Discharge medication reconciliation done. Discharge follow-up instructions completed. Discharge medication and follow-up instructions discussed with the patient and her daughter, present in the room. Subjective: Patient seen and examined. Patient was admitted with cough with productive yellow sputum. Was on 4 L of oxygen which is weaned to 2 L of oxygen. Patient is not short of breath. Denies chest pain. Blood culture showed a strep, not strep pneumo. On IV Rocephin and Zithromax. - Physical Exam General: Alert, Oriented x3, Cooperative HEENT: Atraumatic, PERRLA, EOMI, Normocephalic Neck: Supple, No JVD, Negative Carotid Bruits Lungs: Diminished - Air entry diminished in bilateral lung bases, Rhonchi, Wheezes Cardiovascular: Regular rate, Regular Rhythm, Normal S1, Normal S2, No murmurs Abdomen: Bowel Sounds Present, Soft, Non Tender, Non-Distended Extremities: Capillary Refill Less than 3 Seconds, Edema Skin: No rashes, No breakdown Musculoskeletal: No Tenderness to Palpation of Joints or Extremities, Arthritic Changes, Muscle Wasting Neurological: Cranial nerves II-XII grossly intact, Deep Tendon Reflexes 2+/4 and Symmetrical, Neuro grossly intact Psych/Mental Status: Normal Affect, Appropriate Vital Signs Temp Pulse Resp BP Pulse Ox 98.9 F 89 18 149/75 H 98 02/15/18 15:34 02/15/18 15:34 02/15/18 15:34 02/15/18 15:34 02/15/18 15:34 Oxygen Flow Rate (L/min) [ 2 AMBULATION with Oxygen] Oxygen Flow Rate (L/min) [ 0 AMBULATING on Room Air] Oxygen Flow Rate (L/min) [At 0 REST on Room Air] Oxygen Flow Rate (L/min) 2 Oxygen Delivery Method Nasal Cannula Weight: 222 lb 0.088 oz Body Mass Index (BMI) 40.6 Intake and Output for Last 24 Hours 02/13/18 02/14/18 02/15/18 23:59 23:59 23:59 Intake Total 1403.5 / 1403.5 536 / 536 1737.3 / 1737.3 Output Total 1350 / 1350 Balance 53.5 / 53.5 536 / 536 1737.3 / 1737.3 Microbiology Past 72 Hours 02/13/18 00:04 Gram Stain - Final Sputum, Expectorated/Coughed Respiratory Culture - Final Haemophilus influenzae 02/12/18 18:44 Bacteria Detection (PCR) - Final Blood Culture (Wb) #2 - Anticubital Right Blood Culture - Final Streptococcus mitis/ oralis 02/13/18 11:38 Blood Culture - Preliminary Blood Culture (Wb) - Left Hand No growth in 48 hours. 02/13/18 11:34 Blood Culture - Preliminary Blood Culture (Wb) - Right Hand No growth in 48 hours. 02/12/18 18:40 Blood Culture - Preliminary Blood Culture (Wb) - Anticubital Left No growth in 48 hours. 02/13/18 15:46 Respiratory Panel (PCR) - Final Mucosa - Nasopharyngeal Rhinovirus 02/13/18 03:00 Legionella Antigen - Final Urine, Clean Catch 02/13/18 03:00 Streptococcus pneumoniae Antigen (M - Final Urine, Clean Catch 02/12/18 19:38 Influenza Types A,B Direct FA ([facility]) - Final Mucosa - Nose Discharge Activity: May Not Drive Call your doctor if you observe: Fever of 101 or Higher, Inability to urinate, Inability to have a bowel movement, Shortness of breath, Fainting spells, Swelling in the ankles, Chest pain, Increased palpitations (irregular heartbeat) Home Medications: Medications to take at Discharge Aspirin [Aspirin, Baby] 81 mg PO DAILY@199911/13/15 Furosemide [Lasix] 20 mg PO PRN PRN 11/13/15 Cholecalciferol (VIT D3) [Vitamin D3] 1,000 unit PO DAILY 11/22/15 Umeclidinium Brm/Vilanterol Tr [Anoro Ellipta 62.5-25 Mcg INH] 1 puff INHALATION DAILY@0800 11/22/15 Calcium Carbonate 600 mg PO DAILY 02/12/18 Guaifenesin Dm [Robitussin Dm] 10 ml PO Q6H PRN PRN 02/12/18 Lovastatin [Mevacor] 40 mg PO QHS 02/12/18 Guaifenesin [Mucinex] 1,200 mg PO BID tablet 02/15/18 Levofloxacin [Levaquin] 500 mg PO DAILY #4 tablet 02/15/18 Following Prescrptions Were Given to Patient: Levofloxacin [Levaquin] 500 mg PO DAILY #4 tablet Primary Care Physician: Barry Wooten MD [Primary Care Provider] - Please follow up with your Primary Care Physician in: in 1-2 weeks Please Follow Up With: Maurizio Hobbs MD When: in 2 weeks for multilobar pneumonia and hypoxia on 2 L of oxygen Please Follow Up With: Barry Wooten MD When: TWO WEEKS Medical Necessity - Tobacco Use Smoking Status: Current every day smoker Tobacco Use: Cigarettes Meaningful Use Info Meaningful Use Diagnoses (Choose all that apply): None applicable Code Visit Inpatient E&M: 08013 Disch Hosp
--- NOTE | 2018-02-17 16:38 | CASEMGMT ---
ANGIE GOMEZ Discharge Follow-up Phone Call: GEREMIAS: Wil Strata: 3 Call Date: 02/17/18 Discharge Date: 02/15/18 Time of Call: 1635 Duration: 0 ? Admitting Diagnosis: Sepsis secondary to pneumonia, acute on chronic respiratory failure. This ANGIE GOMEZ attempted to contact pt for discharge follow-up. Voicemail received. Message left requesting a return call if pt has any questions or concerns. Jose Johns RN
--- OUTSIDE RECORDS SUMMARY | 2018-05-19 07:40 | XMS RPT_ITS ---
:1940 Author Organization OHIP Care Team Providers Name Role Phone ALLAN SUBRAMANIAN (JOSEP) Attending Unavailable ALLAN SUBRAMANIAN) Referring Unavailable JOSE CLEMENTS Attending Unavailable ALLAN SUBRAMANIAN (JOSEP) Attending Unavailable ALLAN SUBRAMANIAN (JOSEP) Attending Unavailable Jose Clements Primary Care Unavailable Francisco Javier Ford Admitting Unavailable Francisco Javier Ford Referring Unavailable Delgado Pina Attending Unavailable Francisco Javier Ford Admitting Unavailable Francisco Javier Ford Attending Unavailable Agyepong, Francisco Javier Referring Unavailable Elderbrock, Jose Primary Care Unavailable Agyepong, Francisco Javier Consulting Unavailable Agyepong, Francisco Javier Admitting Unavailable Paintsil, [place] Attending Unavailable Agyepong, Francisco Javier Referring Unavailable Elderbrock, Jose Primary Care Unavailable Paintsil, [place] Consulting Unavailable Agyepong, Francisco Javier Admitting Unavailable Paintsil, [place] Attending Unavailable Agyepong, Francisco Javier Referring Unavailable Elderbrock, Jose Primary Care Unavailable Paintsil, [place] Consulting Unavailable Agyepong, Francisco Javier Admitting Unavailable Yovani, Delgado Attending Unavailable Agyepong, Francisco Javier Referring Unavailable Elderbrock, Jose Primary Care Unavailable Yovani, Delgado Consulting Unavailable PROBLEMS PROBLEMS DATE TYPE CONDITION / CODE ATTENDING STATUS SOURCE 01/17/2016 Active Hyperlipidemia, NA Active [facility] unspecified / [facility] [place] E78.5(ICD-10) Repository 11/23/2013 Active Body mass index NA Active [facility] (bmi) 39.0-39.9, [facility] adult / Repository Z68.39(ICD-10) 10/30/2009 Active Vitamin D NA Active [facility] deficiency, [facility] unspecified / Repository E55.9(ICD-10) PROCEDURES PROCEDURES No Procedure Records FoundRESULTS RESULTS CNOV Observed: 02/22/2018 Status: COMPLETED Source: [place] 9:00 AM [facility] REPOSITORY Office Visit (FAMPWS) DWIGHT MEDEIROS ([id number]) 1940 F Date Time Provider Department 02/22/18 9:00 AM ALLAN SUBRAMANIAN (SERVICE STATION EQUIPMENT MECHANIC) FAMPWS During your visit today, we recorded the following information about you: Temperature Pulse Blood pressure Weight 98.1 degrees 96/minute 128/76 101.6 kg Allan Subramanian APRN.CNP 02/22/2018 9:27 AM Signed TRANSITION CARE MANAGEMENT (TCM) INITIAL CONTACT Receptionist/Telephone Operator Outreach ? Provider Action/FYI: ? - Pt overall reporting that she is feeling better since being d/c from the hospital. ? - Pt was d/c on constant oxygen, 2 liters vs previous therapy of oxygen at bedtime. Given Mucinex to help with congestion. ? - Pt's only question is if she can get an order for a portable oxygen machine, as she still lives a fairly active lifestyle and would prefer to have light portable tank. ? - Has f/u with Dr. Hobbs on 03/09/18 as he's out of town until that time. ? ? Initial contact with patient post discharge was on February 16, 2018, spoke to patient. Patient identified by name and . ? TRANSITION CARE MANAGEMENT INITIAL OUTREACH DOCUMENTATION: No flowsheet data found. ? SUMMARY: -Pt discharged from [facility] on 02/15/18. -Admitted on 02/12/18 for: ? 1.) Acute and Chronic Respiratory Failure 2.) Sepsis due to Pneumonia (Acute) ? 77 y/o female who presents to the ER after being referred by the [facility]. Pt states she has had a URI for about 3 weeks. She has had cough, congestion and rhinorrhea. She has a history of COPD and is a current smoker. She wears a CPAP w/oxygen at night. For the past 3 days she has been more significantly short of breath. Was noted that her temperature was 100.6 at . Her pulse ox 88% on room air. Pt notes that ambulating is basically out of the question for her as she gets extremely labored. Pt received breathing treatments and supplemental oxygen. Repeat examination pt states she does not really feel significantly improved. She is still tachypneic. She attempted to ambulate to the bathroom and was immediately hypoxic at 85% on 2 L. She received Solu-Medrol and Levaquin. CTA of the chest was obtained. This demonstrated multiple areas of inflammation in the lungs. Pt continues to be tachypneic, she will be started on CPAP as she utilizes this at home and if no improvement she will be transitioned into BiPAP. Plan to admit into hospital. ? Progress Note 02/13/18: ? Female pt with a PMH of COPD, NELLIE on CPAP with 4 L oxygen at night, hyperlipedmia comes in with complaints of worsening shortness of breath and productive cough. Pt has had upper respiratory symptoms ongoing for 3 weeks. ? 1.) Acute hypoxic respiratory failure secondary to multilobar pneumonia, pt appears stable, continue on oxygen, encouraged use of incentive spirometer, wean off for SPo2 more than 94%. ? 2.) Sepsis secondary to multilobular pneumonia, preliminary blood culture shows gram-positive cocci in chains, Streptococcus, not-strep pneumo. Urine streptococcal antigen as well as Legionella antigen is negative. Influenza screen is negative, respiratory panel is pending, sputum cultures are pending. Continue on IV Ceftriaxone and Azithromycin. Will continue to monitor. Repeat blood cultures, MRSA PCR on swab. ? 3.) COPD, not in acute exacerbation. ? 4.) NELLIE on CPAP. ? 5.) Nicotine dependence, refused nicotine replacement. ? 6.) DVT prophylaxis w/heparin subcu. ? Pt discharged on Levaquin 500 mg 1 tab po for 4 days and constant oxygen at 2 liters. ? All documentation has been typed from [facility] documents that have been received in Office. Indira Mary Ma ? Do you have a hospital follow up appointment with your PCP? Appointment on 02/22/18 with Allan Subramanian. ? MEDICATIONS: Many patients have questions or concerns about their medications once they are home. Were you prescribed any new medications? If yes, what are those medications? Mucinex ? Were you told to hold any medications? No Were any of your medications discontinued? No ? Do you have any questions about getting or taking your medications? Question on receiving portable oxygen tank since now having FT ? Your discharge instructions/After visit Summary (AVS) are important in guiding you through the recovery process. Is there anything I might help you understand? No ? Do you have all the necessary equipment and supplies at home? Yes ? Medical records from recent hospitalization: [facility] ? Hospital documents have been put on Allan Shields desk for review. ? Indira Mary Ma TRANSITION CARE MANAGEMENT (TCM): Provider Documentation. Chief Complaint Patient presents with: Hospital Follow Up HPI Dwight Medeiros is a 77 year old female who presents here today for Hospital Discharge Follow up.. Patient presents to the office for hospital follow up. Will be following up with Dr. Hobbs with pulmonology. Is currently on oxygen continuously at 2 L. Has a pulse oximeter at home. At rest, she has tested her O2 stat without oxygen at 91-94% but then will drop with ambulation into the 88% range with ambulation. Cough is improved. Very intermittent. Can produce some mucus with the assistance of mucinex. Does have some post-nasal drip. No wheezing. No fevers or chills since discharge. No syncope. No chest pain. No shortness of breath, even with long distances. States that she does become short of breath with long distances and no oxygen. She does have an appointment on March [address] Hobbs. She is requesting a light weight oxygen portable unit. She would like to continue with remain mobile outside of the home and is stating that the tank is too heavy for her. Is working on cutting back on smoking. Down to 5 cigs per day. She is 88% on room air today. Back up to 97% on 2 L NC. Past medical history, appointments, medications, allergies reviewed. Previous Medical History PAST MEDICAL HISTORY Diagnosis Date - Benign neoplasm of colon - Benign neoplasm of colon 03/04/2005 - Diverticulosis of colon (without mention of hemorrhage) - Internal hemorrhoids without mention of complication - Other and unspecified hyperlipidemia - Other and unspecified hyperlipidemia 03/04/2005 - Tobacco use disorder Previous Surgical History PAST SURGICAL HISTORY Procedure Laterality Date - COLONOSCOP W/ OR W/O [facility] SPEC 07/17/2003 Colonoscopy - COLONOSCOPY W/BX 05/30/07 - CYSTOSCOPY 11/27/2015 w/lithotripsy - DESTRUCTION HEMORRHOIDS,INT/THAW SHED HEATER TENDER 1974? - ESWL 1985 - TOTAL ABDOM HYSTERECTOMY 1980 Hysterectomy, WILLY Family History FAMILY HISTORY Problem Relation Age of Onset - Cancer Father pancreatic - Cancer Sister lung - Cancer Mother uterine - Heart Brother also alcoholic Patient Allergies ALLERGIES Allergen Reactions - Metal [Other] Hives, Itching such as jewelry Current Medications Current Outpatient Prescriptions on File Prior to Visit: albuterol sulfate/ipratropium(COMBIVENT 18 MCG-103 MCG/ACTUATION AEROSOL INHALER) Take two(2) puffs four(4) times a day as needed for wheezing and shortness of breath. aspirin(ECOTRIN LOW STRENGTH 81 MG TAB) Take one(1) tablet daily. calcium carbonate 600 mg-cholecalciferol 200 units (CALCIUM 600 + D,3,) 600 mg(1,500mg) -200 unit tab Take 1 tablet po once daily Cholecalciferol, Vitamin D3, 1,000 unit ORAL Cap Take 1 capsule by mouth once daily. COMPOUNDED PRESCRIPTION 1 Portable Oxygen unit and contents. 2 L NC continuous ICD-10 J96.11 furosemide (LASIX) 20 mg tablet Take 1 tablet by mouth once daily. Lovastatin (MEVACOR) 40 mg tablet Take 1 tablet by mouth daily at bedtime. umeclidinium-vilanterol (ANORO ELLIPTA) 62.5-25 mcg/actuation inhaler Inhale 1 Inhalation as instructed once daily. No current facility-administered medications on file prior to visit. 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 Reviewed relevant PMHx, PSHx, Social Hx, current medications and allergies. EXAM: BP 128/76 Pulse 96 Temp 36.7 ?C (98.1 ?F) (Tympanic) Wt 101.6 kg (224 lb) SpO2 97% BMI 40.64 kg/m? SpO2 88% on room air at rest. General Appearance: Well appearing, alert, in no acute distress, well-hydrated, well nourished. and Overweight. Head: Normocephalic, no masses, lesions, tenderness or abnormalities. Eyes: Anicteric sclera. Pupils are equally round and reactive to light. Extraocular movements are intact. . Ears: External ears normal, canals clear. Nose/Sinuses: Nares normal, septum midline, mucosa normal, no drainage or sinus tenderness. Oropharynx: Lips, mucosa, and tongue normal, teeth and gums normal, oropharynx normal. Neck: Supple, no adenopathy; thyroid symmetric, normal size. Lungs: lungs clear to auscultation. No wheezing, rhonchi, rales. Lung bases do sound diminished bilaterally. Heart: RRR without murmur, gallop, or rubs. No ectopy. Extremities: No deformities, edema. Health Maintenance List DTAP,TDAP,TD(2 - Tdap) due on 04/30/2012 COLORECTAL CANCER SCREENING,SEE MODIFIER due on 09/30/2018 DIABETES SCREEN due on 09/30/2020 LIPID SCREEN due on 09/30/2022 BONE DENSITY Completed ADULT PREVNAR-13 Completed INFLUENZA Completed PNEUMOVAX AGE 65 AND OVER WITH 5YR LOOKBACK Completed Data reviewed [facility] records reviewed. ASSESSMENT/PLAN: 1. Bacterial pneumonia - ICD9: 482.9, ICD10: J15.9 (primary diagnosis) - resolving. Continue oxygen use as prescribed. Continue with pulmonology appointment. - COMPOUNDED PRESCRIPTION 2. Acute on chronic respiratory failure with hypoxia (HCC) - ICD9: 518.84, 799.02, ICD10: J96.21 - Rx for light weight, portable oxygen concentrator provided to the patient. His beneficial for the patient to remain mobile outside of the household and the current oxygen tank is too heavy for her. Her SpO2 is 88% on room air. It is 97% with 2 L. we will fax this to having care along with the hospital documentation, this office note. Continue with follow-up with pulmonology as scheduled. - COMPOUNDED PRESCRIPTION 3. Smoker - ICD9: 305.1, ICD10: F17.200 - patient is working on a road to reduce cigarette use. She is down from a pack a day to 5 cigarettes per day. Is doing this in conjunction with her family member who is also trying to quit. Highly motivated. 4. Hospital discharge follow-up - ICD9: V67.59, ICD10: Z09 See above. follow-up as needed. Allan Subramanian APRN.SERVICE STATION EQUIPMENT MECHANIC Referring Provider: SELF [200] Allergies As of Date: 02/22/2018 Noted Allergy Reaction metal [Other] 02/17/2006 4 - Hives 9 - Itching Comments: such as jewelry Date Reviewed: 02/22/2018 Reviewed by: Amanda Urrutia Beekeeper - Fully Assessed Reason for Visit: Hospital Follow Up [177] Primary Visit Diagnosis:Bacterial pneumonia [J15.9] Other Visit Diagnoses:Acute on chronic respiratory failure with hypoxia (HCC) [J96.21] Smoker [F17.200] Hospital discharge follow-up [Z09] Order(s):COMPOUNDED PRESCRIPTIONPortable oxygen concentrator, light weight @ 2 L NC continuous, ICD-10 J96.21, J15.9Disp: 1 EachRfl: 0 Prescriptions as of 02/22/2018 Sig: COMBIVENT 18 MCG-103 MCG/ACTU* Take two(2) puffs four(4) ricardo* ECOTRIN LOW STRENGTH 81 MG TA* Take one(1) tablet daily. CALCIUM CARBONATE 600 MG (1,5* Take 1 tablet po once daily CHOLECALCIFEROL (VITAMIN D3) * Take 1 capsule by mouth once * COMPOUNDED PRESCRIPTION 1 Portable Oxygen unit and co* FUROSEMIDE 20 MG TABLET Take 1 tablet by mouth once d* LOVASTATIN 40 MG TABLET Take 1 tablet by mouth daily * UMECLIDINIUM 62.5 MCG-VILANTE* Inhale 1 Inhalation as instru* COMPOUNDED PRESCRIPTION Portable oxygen concentrator,* Problem List As Of Date 02/22/2018 Noted Resolved Hyperlipidemia [E78.5] INVALID FOR* BENIGN NEOPLASM LG BOWEL [D12.6] INVALID FOR* INT HEMORRHOID W/O COMPL [K64.8] INVALID FOR* DIVERTICULOSIS OF COLON W/O BLEED [K57.30] INVALID FOR* PERS HX COLONIC POLYPS [Z86.010] INVALID FOR* MITRAL INSUFFICIENCY [I05.9] INVALID FOR* RHINITIS CHRONIC [J31.0] INVALID FOR* TOBACCO USE DISORDER, quit Mar 02, 2007 [F17.200]INVALID FOR*07/08/2010 Vitamin D Deficiency [E55.9] INVALID FOR* Tobacco use disorder [F17.200] INVALID FOR* NELLIE on CPAP [G47.33, Z99.89] INVALID FOR* BMI 39.0-39.9,adult [Z68.39] INVALID FOR* Prescriptions ordered this encounter Disp Refills Start End COMPOUNDED PRESCRIPTION 1 Ea* 0 02/22/2018 Class: Print RX Sig: Portable oxygen concentrator, light weight @ 2 L NC continuous, ICD-10 J96.21, J15.9 Disposition: Return if symptoms worsen or fail to improve. Follow-up and Disposition History Recorded Encounter Status:Closed by ALLAN SUBRAMANIAN CNP on 02/22/18 PROGRESS Observed: 02/22/2018 Status: COMPLETED Source: [place] 8:59 AM [facility] [place] REPOSITORY [facility] ID: [id number] Author: Allan Thomas) Manas Service: (none) Author Type: Nurse Practitioner Type: Progress Notes Filed: 02/22/2018 9:27 AM Note Text: TRANSITION CARE MANAGEMENT (TCM) INITIAL CONTACT Receptionist/Telephone Operator Outreach ? Provider Action/FYI: ? - Pt overall reporting that she is feeling better since being d/c from the hospital. ? - Pt was d/c on constant oxygen, 2 liters vs previous therapy of oxygen at bedtime. Given Mucinex to help with congestion. ? - Pt's only question is if she can get an order for a portable oxygen machine, as she still lives a fairly active lifestyle and would prefer to have light portable tank. ? - Has f/u with Dr. Hobbs on 03/09/18 as he's out of town until that time. ? ? Initial contact with patient post discharge was on February 16, 2018, spoke to patient. Patient identified by name and . ? TRANSITION CARE MANAGEMENT INITIAL OUTREACH DOCUMENTATION: No flowsheet data found. ? SUMMARY: -Pt discharged from [facility] on 02/15/18. -Admitted on 02/12/18 for: ? 1.) Acute and Chronic Respiratory Failure 2.) Sepsis due to Pneumonia (Acute) ? 77 y/o female who presents to the ER after being referred by the [facility]. Pt states she has had a URI for about 3 weeks. She has had cough, congestion and rhinorrhea. She has a history of COPD and is a current smoker. She wears a CPAP w/oxygen at night. For the past 3 days she has been more significantly short of breath. Was noted that her temperature was 100.6 at . Her pulse ox 88% on room air. Pt notes that ambulating is basically out of the question for her as she gets extremely labored. Pt received breathing treatments and supplemental oxygen. Repeat examination pt states she does not really feel significantly improved. She is still tachypneic. She attempted to ambulate to the bathroom and was immediately hypoxic at 85% on 2 L. She received Solu-Medrol and Levaquin. CTA of the chest was obtained. This demonstrated multiple areas of inflammation in the lungs. Pt continues to be tachypneic, she will be started on CPAP as she utilizes this at home and if no improvement she will be transitioned into BiPAP. Plan to admit into hospital. ? Progress Note 02/13/18: ? Female pt with a PMH of COPD, NELLIE on CPAP with 4 L oxygen at night, hyperlipedmia comes in with complaints of worsening shortness of breath and productive cough. Pt has had upper respiratory symptoms ongoing for 3 weeks. ? 1.) Acute hypoxic respiratory failure secondary to multilobar pneumonia, pt appears stable, continue on oxygen, encouraged use of incentive spirometer, wean off for SPo2 more than 94%. ? 2.) Sepsis secondary to multilobular pneumonia, preliminary blood culture shows gram-positive cocci in chains, Streptococcus, not-strep pneumo. Urine streptococcal antigen as well as Legionella antigen is negative. Influenza screen is negative, respiratory panel is pending, sputum cultures are pending. Continue on IV Ceftriaxone and Azithromycin. Will continue to monitor. Repeat blood cultures, MRSA PCR on swab. ? 3.) COPD, not in acute exacerbation. ? 4.) NELLIE on CPAP. ? 5.) Nicotine dependence, refused nicotine replacement. ? 6.) DVT prophylaxis w/heparin subcu. ? Pt discharged on Levaquin 500 mg 1 tab po for 4 days and constant oxygen at 2 liters. ? All documentation has been typed from [facility] documents that have been received in Office. Indira Mary Ma ? Do you have a hospital follow up appointment with your PCP? Appointment on 02/22/18 with Allan Subramanian. ? MEDICATIONS: Many patients have questions or concerns about their medications once they are home. Were you prescribed any new medications? If yes, what are those medications? Mucinex ? Were you told to hold any medications? No Were any of your medications discontinued? No ? Do you have any questions about getting or taking your medications? Question on receiving portable oxygen tank since now having FT ? Your discharge instructions/After visit Summary (AVS) are important in guiding you through the recovery process. Is there anything I might help you understand? No ? Do you have all the necessary equipment and supplies at home? Yes ? Medical records from recent hospitalization: [facility] ? Hospital documents have been put on Allan Shields desk for review. ? Indira Mary Ma TRANSITION CARE MANAGEMENT (TCM): Provider Documentation. Chief Complaint Patient presents with: Hospital Follow Up HPI Dwight Medeiros is a 77 year old female who presents here today for Hospital Discharge Follow up.. Patient presents to the office for hospital follow up. Will be following up with Dr. Hobbs with pulmonology. Is currently on oxygen continuously at 2 L. Has a pulse oximeter at home. At rest, she has tested her O2 stat without oxygen at 91-94% but then will drop with ambulation into the 88% range with ambulation. Cough is improved. Very intermittent. Can produce some mucus with the assistance of mucinex. Does have some post-nasal drip. No wheezing. No fevers or chills since discharge. No syncope. No chest pain. No shortness of breath, even with long distances. States that she does become short of breath with long distances and no oxygen. She does have an appointment on March [address] Hobbs. She is requesting a light weight oxygen portable unit. She would like to continue with remain mobile outside of the home and is stating that the tank is too heavy for her. Is working on cutting back on smoking. Down to 5 cigs per day. She is 88% on room air today. Back up to 97% on 2 L NC. Past medical history, appointments, medications, allergies reviewed. Previous Medical History PAST MEDICAL HISTORY Diagnosis Date - Benign neoplasm of colon - Benign neoplasm of colon 03/04/2005 - Diverticulosis of colon (without mention of hemorrhage) - Internal hemorrhoids without mention of complication - Other and unspecified hyperlipidemia - Other and unspecified hyperlipidemia 03/04/2005 - Tobacco use disorder Previous Surgical History PAST SURGICAL HISTORY Procedure Laterality Date - COLONOSCOP W/ OR W/O [facility] SPEC 07/17/2003 Colonoscopy - COLONOSCOPY W/BX 05/30/07 - CYSTOSCOPY 11/27/2015 w/lithotripsy - DESTRUCTION HEMORRHOIDS,INT/THAW SHED HEATER TENDER 1974? - ESWL 1985 - TOTAL ABDOM HYSTERECTOMY 1979 Hysterectomy, WILLY Family History FAMILY HISTORY Problem Relation Age of Onset - Cancer Father pancreatic - Cancer Sister lung - Cancer Mother uterine - Heart Brother also alcoholic Patient Allergies ALLERGIES Allergen Reactions - Metal [Other] Hives, Itching such as jewelry Current Medications Current Outpatient Prescriptions on File Prior to Visit: albuterol sulfate/ipratropium(COMBIVENT 18 MCG-103 MCG/ACTUATION AEROSOL INHALER) Take two(2) puffs four(4) times a day as needed for wheezing and shortness of breath. aspirin(ECOTRIN LOW STRENGTH 81 MG TAB) Take one(1) tablet daily. calcium carbonate 600 mg-cholecalciferol 200 units (CALCIUM 600 + D,3,) 600 mg(1,500mg) -200 unit tab Take 1 tablet po once daily Cholecalciferol, Vitamin D3, 1,000 unit ORAL Cap Take 1 capsule by mouth once daily. COMPOUNDED PRESCRIPTION 1 Portable Oxygen unit and contents. 2 L NC continuous ICD-10 J96.11 furosemide (LASIX) 20 mg tablet Take 1 tablet by mouth once daily. Lovastatin (MEVACOR) 40 mg tablet Take 1 tablet by mouth daily at bedtime. umeclidinium-vilanterol (ANORO ELLIPTA) 62.5-25 mcg/actuation inhaler Inhale 1 Inhalation as instructed once daily. No current facility-administered medications on file prior to visit. Social History Social History Marital status: Spouse name: Years of education: Number of children: 2 Occupational History Occupation Employer Comment RETIRED [employer] Social History Main Topics Smoking status: Current Every Day Smoker Packs/day: 1.00 Years: 52.00 Types: Cigarettes Smokeless tobacco: Never Used Alcohol use: No Drug use: No Social History Narrative years Lives, [place] Retired [employer] 2 children REVIEW OF SYSTEMS: as above ? Reviewed relevant PMHx, PSHx, Social Hx, current medications and allergies. EXAM: BP 128/76 Pulse 96 Temp 36.7 ?C (98.1 ?F) (Tympanic) Wt 101.6 kg (224 lb) SpO2 97% BMI 40.64 kg/m? SpO2 88% on room air at rest. General Appearance: Well appearing, alert, in no acute distress, well-hydrated, well nourished. and Overweight. Head: Normocephalic, no masses, lesions, tenderness or abnormalities. Eyes: Anicteric sclera. Pupils are equally round and reactive to light. Extraocular movements are intact. . Ears: External ears normal, canals clear. Nose/Sinuses: Nares normal, septum midline, mucosa normal, no drainage or sinus tenderness. Oropharynx: Lips, mucosa, and tongue normal, teeth and gums normal, oropharynx normal. Neck: Supple, no adenopathy; thyroid symmetric, normal size. Lungs: lungs clear to auscultation. No wheezing, rhonchi, rales. Lung bases do sound diminished bilaterally. Heart: RRR without murmur, gallop, or rubs. No ectopy. Extremities: No deformities, edema. Health Maintenance List DTAP,TDAP,TD(2 - Tdap) due on 04/30/2012 COLORECTAL CANCER SCREENING,SEE MODIFIER due on 09/30/2018 DIABETES SCREEN due on 09/30/2020 LIPID SCREEN due on 09/30/2022 BONE DENSITY Completed ADULT PREVNAR-13 Completed INFLUENZA Completed PNEUMOVAX AGE 65 AND OVER WITH 5YR LOOKBACK Completed Data reviewed [facility] records reviewed. ASSESSMENT/PLAN: 1. Bacterial pneumonia - ICD9: 482.9, ICD10: J15.9 (primary diagnosis) - resolving. Continue oxygen use as prescribed. Continue with pulmonology appointment. - COMPOUNDED PRESCRIPTION 2. Acute on chronic respiratory failure with hypoxia (HCC) - ICD9: 518.84, 799.02, ICD10: J96.21 - Rx for light weight, portable oxygen concentrator provided to the patient. His beneficial for the patient to remain mobile outside of the household and the current oxygen tank is too heavy for her. Her SpO2 is 88% on room air. It is 97% with 2 L. we will fax this to [facility] care along with the hospital documentation, this office note. Continue with follow-up with pulmonology as scheduled. - COMPOUNDED PRESCRIPTION 3. Smoker - ICD9: 305.1, ICD10: F17.200 - patient is working on a road to reduce cigarette use. She is down from a pack a day to 5 cigarettes per day. Is doing this in conjunction with her family member who is also trying to quit. Highly motivated. 4. Hospital discharge follow-up - ICD9: V67.59, ICD10: Z09 See above. follow-up as needed. Allan Subramanian APRN.[facility] DISCHARGE SUMMARY Observed: 02/17/2018 Status: F Source: [place] 4:32 PM [facility] [place] [facility] Medical Records Department [address] [place] [address] Discharge Summary 02/15/18 1836 MR#: [id number] Acct: [id number] Name: DWIGHT MEDEIROS Carmelina Rep #: [id number] : 1940 77 From: Delgado Pina MD PCP: Je CLEMENTE,Jose Status: DIS IN Y [facility] Date and Diagnosis Date of Admission: 02/12/18 Date of Discharge: 02/15/18 Hospital Course and Treatment Summary of Care Provided: The patient is a 77-year-old female with past medical history of COPD, NELLIE on CPAP with 4 L of oxygen at night, hyperlipidemia comes in with complaints of worsening shortness of breath and productive cough. Patient has had upper respiratory symptoms ongoing for 3 weeks. 1. Acute hypoxic respiratory failure secondary to multilobar pneumonia, unchanged, still on 4 L of oxygen [id number], continue on oxygen, encouraged use of incentive spirometer, was wean off for SPo2 more than 92%. Patient respiratory status got better. Oxygenation improved to 98% on 2 L of oxygen. Pulse ox 86% on ambulation at room air, 96% on 2 L of oxygen. At rest, 89% on room air. . Patient was discharged on oxygen. Patient requires home oxygen with portability and is ambulatory in home in the community. 2. Sepsis secondary to multilobular pneumonia, likely multifactorial in etiology, most probably secondary to Haemophilus influenzae, probably superinfection on rhinovirus: Started with an upper respiratory infection, likely etiology is mixed with rhinovirus positive on respiratory panel, also with likely gram-positive and gram- negative organisms, blood cultures times 1 out of 2 Streptococcus, not-strep pneumo, final culture showed Streptococcus mitis/oral is No fevers seen here. No worsening leukocytosis Urine streptococcal antigen and Legionella antigen is negative. MRSA PCR is negative Influenza screen is negative, respiratory panel shows rhinovirus Sputum cultures are pending. Continue on IV ceftriaxone and azithromycin( DAY 3). Patient has been discharged on Levaquin for 4 more days. Discussed with the patient's daughter present in the room 3. COPD, not in acute exacerbation 4. NELLIE on CPAP 5. Nicotine dependence, refused nicotine replacement 6. DVT prophylaxis with heparin subcut. Patient was discharged on Levaquin, Mucinex and no more oxygen. Patient has CPAP at home. Discharge medication reconciliation done. Discharge follow- up instructions completed. Discharge medication and follow-up instructions discussed with the patient and her daughter, present in the room. Subjective: Patient seen and examined. Patient was admitted with cough with productive yellow sputum. Was on 4 L of oxygen which is weaned to 2 L of oxygen. Patient is not short of breath. Denies chest pain. Blood culture showed a strep, not strep pneumo. On IV Rocephin and Zithromax. - Physical Exam General: Alert, Oriented x3, Cooperative HEENT: Atraumatic, PERRLA, EOMI, Normocephalic Neck: Supple, No JVD, Negative Carotid Bruits Lungs: Diminished - Air entry diminished in bilateral lung bases, Rhonchi, Wheezes Cardiovascular: Regular rate, Regular Rhythm, Normal S1, Normal S2, No murmurs Abdomen: Bowel Sounds Present, Soft, Non Tender, Non-Distended Extremities: Capillary Refill Less than 3 Seconds, Edema Skin: No rashes, No breakdown Musculoskeletal: No Tenderness to Palpation of Joints or Extremities, Arthritic Changes, Muscle Wasting Neurological: Cranial nerves II-XII grossly intact, Deep Tendon Reflexes 2+/4 and Symmetrical, Neuro grossly intact Psych/Mental Status: Normal Affect, Appropriate Vital Signs Temp Pulse Resp BP Pulse Ox 98.9 F 89 18 149/75 H 98 02/15/18 15:34 02/15/18 15:34 02/15/18 15:34 02/15/18 15:34 02/15/18 15:34 Oxygen Flow Rate (L/min) [ 2 AMBULATION with Oxygen] Oxygen Flow Rate (L/min) [ 0 AMBULATING on Room Air] Oxygen Flow Rate (L/min) [At 0 REST on Room Air] Oxygen Flow Rate (L/min) 2 Oxygen Delivery Method Nasal Cannula Weight: 222 lb 0.088 oz Body Mass Index (BMI) 40.6 Intake and Output for Last 24 Hours Intake Total 1403.5 / 1403.5 536 / 536 1737.3 / 1737.3 Output Total 1350 / 1350 Balance 53.5 / 53.5 536 / 536 1737.3 / 1737.3 Microbiology Past 72 Hours 02/13/18 00:04 Gram Stain - Final Sputum, Expectorated/Coughed Respiratory Culture - Final Discharge Activity: May Not Drive Call your doctor if you observe: Fever of 101 or Higher, Inability to urinate, Inability to have a bowel movement, Shortness of breath, Fainting spells, Swelling in the ankles, Chest pain, Increased palpitations (irregular heartbeat) Home Medications: Medications to take at Discharge Aspirin [Aspirin, Baby] 81 mg PO DAILY@199911/13/15 Furosemide [Lasix] 20 mg PO PRN PRN 11/13/15 Cholecalciferol (VIT D3) [Vitamin D3] 1,000 unit PO DAILY 11/22/15 Umeclidinium Brm/Vilanterol Tr [Anoro Ellipta 62.5-25 Mcg INH] 1 puff INHALATION DAILY@0800 11/22/15 Calcium Carbonate 600 mg PO DAILY 02/12/18 Guaifenesin Dm [Robitussin Dm] 10 ml PO Q6H PRN PRN 02/12/18 Lovastatin [Mevacor] 40 mg PO QHS 02/12/18 Guaifenesin [Mucinex] 1,200 mg PO BID tablet 02/15/18 Levofloxacin [Levaquin] 500 mg PO DAILY #4 tablet 02/15/18 Following Prescrptions Were Given to Patient: Levofloxacin [Levaquin] 500 mg PO DAILY #4 tablet Primary Care Physician: Jose Clements MD [Primary Care Provider] - Please follow up with your Primary Care Physician in: in 1- 2 weeks Please Follow Up With: Maurizio Hobbs MD When: in 2 weeks for multilobar pneumonia and hypoxia on 2 L of oxygen Please Follow Up With: Jose Clements MD When: TWO WEEKS Medical Necessity - Tobacco Use Smoking Status: Current every day smoker Tobacco Use: Cigarettes Meaningful Use Info Meaningful Use Diagnoses (Choose all that apply): None applicable Code Visit Inpatient E AND M: 81151 Disch Hosp 02/17/18 1632 <Electronically signed by Delgado Pina MD> Date Delgado Pina MD Cosigner Signature (if applicable): Date CC: Jose Clements MD; Delgado Pina MD Signed 12 LEAD ELECTROCARDIOGRAM Observed: 02/17/2018 Status: F Source: [place] 3:37 PM [facility] [place] [facility] Cardiovascular Services [address] [place] [address] 12 Lead EKG 02/12/18 1908 MR#: [id number] Acct: [id number] Name: DWIGHT MEDEIROS Rep #: [id number] : 1940 77 From: Mustapha Contreras MD Attending Dr: Delgado Pina MD Status: DIS IN Ordering Dr: Kiko Tony DO Date: 02/12/18 Location: [facility] Sex: F C Admitted: 02/12/18 Test Reason : SOB Blood Pressure : / mmHG Vent. Rate : 109 BPM Atrial Rate : 109 BPM P-R Int : 156 ms QRS Dur : 064 ms QT Int : 320 ms P-R-T Axes : 066 011 048 degrees QTc Int : 430 ms Sinus tachycardia Otherwise normal ECG Confirmed by SHELLEY CLEMENTE, MUSTAPHA ([id number]), editor at large DESMOND PEDROZA ([id number]) on 02/17/2018 3:36:40 PM Referred By: Francisco Javier Ford Confirmed By:MUSTAPHA CONTRERAS MD 02/17/18 1536 Date Mustapha Contreras MD CC: Kiko Tony DO; Francisco Javier Ford MD; Jose Clements MD; Delgado Pina MD Signed PROGRESS Observed: 02/17/2018 Status: COMPLETED Source: [place] 10:04 AM [facility] REPOSITORY HNO ID: [id number] Author: Indira Mary Ma Service: (none) Author Type: (none) Type: Progress Notes Filed: 02/17/2018 10:04 AM Note Text: I'm attaching Rx to upcoming appt as usually they will need OV notes with Rx. Indira Mary Ma PROGRESS Observed: 02/17/2018 Status: COMPLETED Source: [place] 9:56 AM [facility] REPOSIT[facility] HNO ID: [id number] Author: Allan Subramanian Service: (none) Author Type: Nurse Practitioner Type: Progress Notes Filed: 02/17/2018 10:04 AM Note Text: Order for portable oxygen ordered. Not sure if she wanted a concentrator or not? Allan Subramanian APRN.CNP PROGRESS Observed: 02/16/2018 Status: COMPLETED Source: [place] 12:52 PM [facility] REPOS[facility] HNO ID: [id number] Author: Indira Mary Ma Service: (none) Author Type: (none) Type: Progress Notes Filed: 02/17/2018 10:04 AM Note Text: TRANSITION CARE MANAGEMENT (TCM) INITIAL CONTACT Receptionist/Telephone Operator Outreach Provider Action/FYI: - Pt overall reporting that she is feeling better since being d/c from the hospital. - Pt was d/c on constant oxygen, 2 liters vs previous therapy of oxygen at bedtime. Given Mucinex to help with congestion. - Pt's only question is if she can get an order for a portable oxygen machine, as she still lives a fairly active lifestyle and would prefer to have light portable tank. - Has f/u with Dr. Hobbs on 03/09/18 as he's out of town until that time. Initial contact with patient post discharge was on February 16, 2018, spoke to patient. Patient identified by name and . TRANSITION CARE MANAGEMENT INITIAL OUTREACH DOCUMENTATION: No flowsheet data found. SUMMARY: -Pt discharged from [facility] on 02/15/18. -Admitted on 02/12/18 for: 1.) Acute and Chronic Respiratory Failure 2.) Sepsis due to Pneumonia (Acute) 77 y/o female who presents to the ER after being referred by the [facility]. Pt states she has had a URI for about 3 weeks. She has had cough, congestion and rhinorrhea. She has a history of COPD and is a current smoker. She wears a CPAP w/oxygen at night. For the past 3 days she has been more significantly short of breath. Was noted that her temperature was 100.6 at . Her pulse ox 88% on room air. Pt notes that ambulating is basically out of the question for her as she gets extremely labored. Pt received breathing treatments and supplemental oxygen. Repeat examination pt states she does not really feel significantly improved. She is still tachypneic. She attempted to ambulate to the bathroom and was immediately hypoxic at 85% on 2 L. She received Solu-Medrol and Levaquin. CTA of the chest was obtained. This demonstrated multiple areas of inflammation in the lungs. Pt continues to be tachypneic, she will be started on CPAP as she utilizes this at home and if no improvement she will be transitioned into BiPAP. Plan to admit into hospital. Progress Note 02/13/18: Female pt with a PMH of COPD, NELLIE on CPAP with 4 L oxygen at night, hyperlipedmia comes in with complaints of worsening shortness of breath and productive cough. Pt has had upper respiratory symptoms ongoing for 3 weeks. 1.) Acute hypoxic respiratory failure secondary to multilobar pneumonia, pt appears stable, continue on oxygen, encouraged use of incentive spirometer, wean off for SPo2 more than 94%. 2.) Sepsis secondary to multilobular pneumonia, preliminary blood culture shows gram-positive cocci in chains, Streptococcus, not-strep pneumo. Urine streptococcal antigen as well as Legionella antigen is negative. Influenza screen is negative, respiratory panel is pending, sputum cultures are pending. Continue on IV Ceftriaxone and Azithromycin. Will continue to monitor. Repeat blood cultures, MRSA PCR on swab. 3.) COPD, not in acute exacerbation. 4.) NELLIE on CPAP. 5.) Nicotine dependence, refused nicotine replacement. 6.) DVT prophylaxis w/heparin subcu. Pt discharged on Levaquin 500 mg 1 tab po for 4 days and constant oxygen at 2 liters. All documentation has been typed from [facility] documents that have been received in Office. Indira Mary Ma Do you have a hospital follow up appointment with your PCP? Appointment on 02/22/18 with Allan Subramanian. MEDICATIONS: Many patients have questions or concerns about their medications once they are home. Were you prescribed any new medications? If yes, what are those medications? Mucinex Were you told to hold any medications? No Were any of your medications discontinued? No Do you have any questions about getting or taking your medications? Question on receiving portable oxygen tank since now having FT Your discharge instructions/After visit Summary (AVS) are important in guiding you through the recovery process. Is there anything I might help you understand? No Do you have all the necessary equipment and supplies at home? Yes Medical records from recent hospitalization: [facility] documents have been put on Allan Shields desk for review. Indira Mary Ma CNPTOUTREACH Observed: 02/16/2018 Status: COMPLETED Source: [place] 12:00 AM [facility] REPOSITORY Patient Outreach (FAMPWS) DWIGHT MEDEIROS ([id number]) 1940 F Date Time Provider Department 02/16/18 JOSE CLEMENTS FAMPWS During your visit today, we recorded the following information about you: Indira Mary Hamilton 02/17/2018 10:04 AM Signed TRANSITION CARE MANAGEMENT (TCM) INITIAL CONTACT Receptionist/Telephone Operator Outreach Provider Action/FYI: - Pt overall reporting that she is feeling better since being d/c from the hospital. - Pt was d/c on constant oxygen, 2 liters vs previous therapy of oxygen at bedtime. Given Mucinex to help with congestion. - Pt's only question is if she can get an order for a portable oxygen machine, as she still lives a fairly active lifestyle and would prefer to have light portable tank. - Has f/u with Dr. Hobbs on 03/09/18 as he's out of town until that time. Initial contact with patient post discharge was on February 16, 2018, spoke to patient. Patient identified by name and . TRANSITION CARE MANAGEMENT INITIAL OUTREACH DOCUMENTATION: No flowsheet data found. SUMMARY: -Pt discharged from [facility] on 02/15/18. -Admitted on 02/12/18 for: 1.) Acute and Chronic Respiratory Failure 2.) Sepsis due to Pneumonia (Acute) 77 y/o female who presents to the ER after being referred by the [facility]. Pt states she has had a URI for about 3 weeks. She has had cough, congestion and rhinorrhea. She has a history of COPD and is a current smoker. She wears a CPAP w/oxygen at night. For the past 3 days she has been more significantly short of breath. Was noted that her temperature was 100.6 at UC. Her pulse ox 88% on room air. Pt notes that ambulating is basically out of the question for her as she gets extremely labored. Pt received breathing treatments and supplemental oxygen. Repeat examination pt states she does not really feel significantly improved. She is still tachypneic. She attempted to ambulate to the bathroom and was immediately hypoxic at 85% on 2 L. She received Solu-Medrol and Levaquin. CTA of the chest was obtained. This demonstrated multiple areas of inflammation in the lungs. Pt continues to be tachypneic, she will be started on CPAP as she utilizes this at home and if no improvement she will be transitioned into BiPAP. Plan to admit into hospital. Progress Note 02/13/18: Female pt with a PMH of COPD, NELLIE on CPAP with 4 L oxygen at night, hyperlipedmia comes in with complaints of worsening shortness of breath and productive cough. Pt has had upper respiratory symptoms ongoing for 3 weeks. 1.) Acute hypoxic respiratory failure secondary to multilobar pneumonia, pt appears stable, continue on oxygen, encouraged use of incentive spirometer, wean off for SPo2 more than 94%. 2.) Sepsis secondary to multilobular pneumonia, preliminary blood culture shows gram-positive cocci in chains, Streptococcus, not-strep pneumo. Urine streptococcal antigen as well as Legionella antigen is negative. Influenza screen is negative, respiratory panel is pending, sputum cultures are pending. Continue on IV Ceftriaxone and Azithromycin. Will continue to monitor. Repeat blood cultures, MRSA PCR on swab. 3.) COPD, not in acute exacerbation. 4.) NELLIE on CPAP. 5.) Nicotine dependence, refused nicotine replacement. 6.) DVT prophylaxis w/heparin subcu. Pt discharged on Levaquin 500 mg 1 tab po for 4 days and constant oxygen at 2 liters. All documentation has been typed from [facility] documents that have been received in Office. Indira Mary Ma Do you have a hospital follow up appointment with your PCP? Appointment on 02/22/18 with Allan Subramanian. MEDICATIONS: Many patients have questions or concerns about their medications once they are home. Were you prescribed any new medications? If yes, what are those medications? Mucinex Were you told to hold any medications? No Were any of your medications discontinued? No Do you have any questions about getting or taking your medications? Question on receiving portable oxygen tank since now having FT Your discharge instructions/After visit Summary (AVS) are important in guiding you through the recovery process. Is there anything I might help you understand? No Do you have all the necessary equipment and supplies at home? Yes Medical records from recent hospitalization: [facility] documents have been put on Allan Shields desk for review. Indira Subramanian APRN.CNP 02/17/2018 10:04 AM Signed Order for portable oxygen ordered. Not sure if she wanted a concentrator or not? Allan Subramanian APRN.JOSEP Mary Ma 02/17/2018 10:04 AM Signed I'm attaching Rx to upcoming appt as usually they will need OV notes with Rx. Indira Mary Ma Allergies As of Date: 02/16/2018 Noted Allergy Reaction metal [Other] 02/17/2006 4 - Hives 9 - Itching Comments: such as jewelry Date Reviewed: 02/12/2018 Reviewed by: Ekaterina ([facility]) Jamila - Fully Assessed Reason for Visit: Transition Of Care [4074] Cmt: Hospital f/u [facility] admitted 02/12/18 - 02/15/18 Primary Visit Diagnosis:Chronic respiratory failure with hypoxia (HCC) [J96.11] Order(s):COMPOUNDED PRESCRIPTION1 Portable Oxygen unit and contents. 2 L NC continuous ICD-10 J96.11Disp: 1 EachRfl: 0 Prescriptions as of 02/16/2018 Sig: COMBIVENT 18 MCG-103 MCG/ACTU* Take two(2) puffs four(4) ricardo* ECOTRIN LOW STRENGTH 81 MG TA* Take one(1) tablet daily. 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 2 L NC continuous ICD-10 J96.11 Encounter Status:Closed by INDIRA MARY MA on 02/17/18 DISCHARGE INSTRUCTION Observed: 02/15/2018 Status: F Source: [place] 11:48 AM [facility] [place] [facility] Medical Records Department [address] [place] [address] Instructions for Home/Discharge Instructions 02/15/18 1144 MR#: [id number] Acct: [id number] Name: DWIGHT MEDEIROS Rep #: [id number] : 1940 77 From: Delgado Pina MD PCP: Jose Clements MD Status: ADM IN - Discharge Diagnoses Current Active Problems: Current Active and Chronic Problems Acute and chronic respiratory failure (Acute) Sepsis due to pneumonia (Acute) You will use the following diet at home:: Cardiac Your food should be the consistency of: Regular Discharge Activity: May Not Drive Call your doctor if you observe: Fever of 101 or Higher, Inability to urinate, Inability to have a bowel movement, Shortness of breath, Fainting spells, Swelling in the ankles, Chest pain, Increased palpitations (irregular heartbeat) Allergies/Adverse Reactions: Allergies No Known Allergies Allergy (Verified 02/12/18 18:01) Medications to take at Discharge Aspirin [Aspirin, Baby] 81 mg PO DAILY@199911/13/15 Furosemide [Lasix] 20 mg PO PRN PRN 11/13/15 Cholecalciferol (VIT D3) [Vitamin D3] 1,000 unit PO DAILY 11/22/15 Umeclidinium Brm/Vilanterol Tr [Anoro Ellipta 62.5-25 Mcg INH] 1 puff INHALATION DAILY@0811/22/15 Calcium Carbonate 600 mg PO DAILY 02/12/18 Guaifenesin Dm [Robitussin Dm] 10 ml PO Q6H PRN PRN 02/12/18 Lovastatin [Mevacor] 40 mg PO QHS 02/12/18 Guaifenesin [Mucinex] 1,200 mg PO BID tablet 02/15/18 Levofloxacin [Levaquin] 500 mg PO DAILY #4 tablet 02/15/18 The following prescriptions were given: Levofloxacin [Levaquin] 500 mg PO DAILY #4 tablet Primary Care Physician: Jose Clements MD [Primary Care Provider] - Please follow up with your Primary Care Physician in: in 1- 2 weeks Test Results: Test results from this visit will be discussed in further detail at your follow-up appointment, if applicable. Please Follow Up With: Maurizio Hobbs MD When: in 2 weeks for multilobar pneumonia and hypoxia on 2 L of oxygen 02/15/18 1148 <Electronically signed by eDlgado Pina MD> Date Delgado Pina MD CC: Jose Clements MD CBC W/DIFF, AUTOMATED Collected: 02/14/2018 Status: F Source: [place] 5:25 AM [facility] [place] [facility] TYPE CODE TESTS RESULT OUT OF RANGE REFERENCE UNITS LAB L100.1000 4.4-11.0 K/mm3 Normal WBC 8.8 LAB L100.1200 4.2-5.4 M/mm3 Normal RBC 4.28 LAB L100.1300 12.0-15.0 g/dl Normal HGB 13.4 LAB L100.1400 37-47 % Normal HCT 41.6 LAB L100.1500 81-99 fL Normal MCV 97.2 LAB L100.1600 27.0-32.0 pg Normal MCH 31.3 LAB L100.1700 32-36 g/gl Normal MCHC 32.2 LAB L100.1810 11.6-14.6 % Normal RDW CV 13.6 LAB L100.1820 35.1-43.9 fl High RDW SD 47.2 LAB L100.1900 150-450 K/mm3 Normal PLT 196 LAB L100.2000 6.2-12.0 fl Normal MPV 10.7 LAB L100.2100 47-70 % Normal NEUT% 68.8 LAB L100.2200 19-41 % Low LY% 18.2 LAB L100.2300 0-10 % High MONO% 11.3 LAB L100.2400 0-5 % Normal EO% 1.1 LAB L100.2500 0-1 % Normal BASO% 0.3 LAB L100.2550 0.0-0.9 % Normal IM GRAN % 0.300 Result Comment: IG% - Immature Granulocytes (promyelocytes, myelocytes and metamyelocytes) > 1% indicates that a LEFT SHIFT is Present. LAB L100.2620 2.0-7.7 X10 3/uL Normal Absolute Neut 6.1 LAB L100.2720 0.83-4.51 X10 3/ul Normal Absolute Lymph 1.60 Performed By: #### L100.0100 #### [facility] [address] [place], [place], [address] BASIC METABOLIC Collected: 02/14/2018 Status: F Source: [place] PROFILE (BMP) 5:25 AM [facility] [place] [facility] TYPE CODE TESTS RESULT OUT OF RANGE REFERENCE UNITS LAB L501.0100 74-106 mg/dL Normal GLU 101 Result Comment: Fasting Glucose result from 100 to 125 mg/dL suggests IMPAIRED HOMEOSTASIS per A.D.A. criteria. Please note revised GLUCOSE reference range effective 2017. LAB L501.1000 7-18 mg/dL High BUN 19 LAB L501.1100 0.55-1.02 mg/dL Normal CREAT,SERUM 0.77 Result Comment: The validity of the calculated GFR AND GFRAA in patients over 70 years has not been determined. Clinical correlation is essential. LAB L501.1110 >60 mL/min Normal EST GFR 77 Result Comment: Non- GFR Calc LAB L501.1115 >60 mL/min Normal EST GFR - AA 93 Result Comment: GFR Calc LAB L501.1255 ml/min Normal Estimated CRCL 36.08 LAB L501.1300 10-20 RATIO High BUN/CRE 24.8 LAB L501.2200 8.5-10 mg/dL Normal .1 CA 9.2 LAB L501.5300 136-14 mmol/L Normal 5 NA 143 LAB L501.5600 3.5-5. mmol/L Normal 1 K 4.0 LAB L501.5900 98-107 mmol/L High CL 110 LAB L501.6100 21.0-3 mmol/L Normal 2.0 CO2 27.0 LAB L501.6200 5-15 Normal GAP 6 Performed By: #### L500.2500 #### [facility] [address] [facility] [place], [address] Observed: 02/13/2018 Status: F Source: MELONIE RESPIRATORY PANEL 3:46 PM [facility] [place] [facility] RP PANEL Normal Reference Range = Not Detected RESULTS CALLED TO SABIHA 02/14/18 1035 Karen Kunz. REPORT READ BACK BY CLOTILDE. Copy of report sent to Infection Control Printer [id number] 02/14/18 1035 CHRISTIN. ADENOVIRUS Not Detected HUMAN METAPHNEUMO Not Detected INFLUENZA A Not Detected INFLUENZA A (SUBTYPE H1) Not Detected INFLUENZA A (SUBTYPE H3) Not Detected INFLUENZA B Not Detected PARAINFLUENZA 1 Not Detected PARAINFLUENZA 2 Not Detected PARAINFLUENZA 3 Not Detected PARAINFLUENZA 4 Not Detected RHINOVIRUS Positive for RHINOVIRUS by NAAT technology RSV A Not Detected RSV B Not Detected NAAT METHOD Testing was performed using nucleic acid amplification ORGANISM 1: RHINOVIRUS Performed By: #### M100.638 #### [facility] [address] [place] [address]. [place], [place], [id number] M R STAPH AUREUS Collected: 02/13/2018 Status: F Source: MELONIE DNA BY PCR 2:10 PM [facility] [place] [facility] TYPE CODE TESTS RESULT OUT OF RANGE REFERENCE UNITS LAB L8200.1100 Negative Normal MRSA Negative RESULT Performed By: #### L8200.1000 #### [facility] [address] [place] [address]. [place], [address] Observed: 02/13/2018 Status: F Source: MELONIE CULTURE, BLOOD (WB) 11:38 AM [facility] Has pt arrived? Y BC No growth in 5 days. Performed By: #### M200.1000 #### [facility] [address] [place], [place] [address]. [place], [place], [id number] Observed: 02/13/2018 Status: F Source: MELONIE CULTURE, BLOOD (WB) 11:34 AM [facility] Has pt arrived? Y BC No growth in 5 days. Performed By: #### M200.1000 #### [facility] [address] [place], [place], [address] BASIC METABOLIC Collected: 02/13/2018 Status: F Source: MELONIE PROFILE (BMP) 6:16 AM [facility] [place] [facility] TYPE CODE TESTS RESULT OUT OF RANGE REFERENCE UNITS LAB L501.0100 74-106 mg/dL High GLU 150 Result Comment: Fasting Glucose result greater than or equal to 126 mg/dL suggests DIABETES MELLITUS per A.D.A. criteria. Please note revised GLUCOSE reference range effective 2017. LAB L501.1000 7-18 mg/dL Normal BUN 15 LAB L501.1100 0.55-1.02 mg/dL Normal CREAT,SERUM 0.72 Result Comment: The validity of the calculated GFR AND GFRAA in patients over 70 years has not been determined. Clinical correlation is essential. LAB L501.1110 >60 mL/min Normal EST GFR 83 Result Comment: Non- GFR Calc LAB L501.1115 >60 mL/min Normal EST GFR - AA 100 Result Comment: GFR Calc LAB L501.1255 ml/min Normal Estimated CRCL 36.08 LAB L501.1300 10-20 RATIO High BUN/CRE 20.8 LAB L501.2200 8.5-10 mg/dL Normal .1 CA 9.1 LAB L501.5300 136-14 mmol/L Normal 5 NA 141 LAB L501.5600 3.5-5. mmol/L Normal 1 K 4.8 LAB L501.5900 98-107 mmol/L High CL 109 LAB L501.6100 21.0-3 mmol/L Normal 2.0 CO2 25.0 LAB L501.6200 5-15 Normal GAP 7 Performed By: #### L500.2500 #### [facility] [address] [place], [place] [address]all [facility]. [place], [place], [id number] CBC W/DIFF, AUTOMATED Collected: 02/13/2018 Status: F Source: IVANHOE 6:16 AM [facility] [place] TYPE CODE TESTS RESULT OUT OF RANGE REFERENCE UNITS LAB L100.1000 4.4-11.0 K/mm3 High WBC 12.5 LAB L100.1200 4.2-5.4 M/mm3 Normal RBC 4.32 LAB L100.1300 12.0-15.0 g/dl Normal HGB 13.7 LAB L100.1400 37-47 % Normal HCT 41.9 LAB L100.1500 81-99 fL Normal MCV 97.0 LAB L100.1600 27.0-32.0 pg Normal MCH 31.7 LAB L100.1700 32-36 g/gl Normal MCHC 32.7 LAB L100.1810 11.6-14.6 % Normal RDW CV 13.4 LAB L100.1820 35.1-43.9 fl High RDW SD 46.6 LAB L100.1900 150-450 K/mm3 Normal PLT 173 LAB L100.2000 6.2-12.0 fl Normal MPV 10.6 LAB L100.2100 47-70 % High NEUT% 92.7 LAB L100.2200 19-41 % Low LY% 3.4 LAB L100.2300 0-10 % Normal MONO% 3.6 LAB L100.2400 0-5 % Normal EO% 0.0 LAB L100.2500 0-1 % Normal BASO% 0.1 LAB L100.2550 0.0-0.9 % Normal IM GRAN % 0.200 Result Comment: IG% - Immature Granulocytes (promyelocytes, myelocytes and metamyelocytes) > 1% indicates that a LEFT SHIFT is Present. LAB L100.2620 2.0-7.7 X10 3/uL High Absolute Neut 11.6 LAB L100.2720 0.83-4.51 X10 3/ul Low Absolute Lymph 0.42 Performed By: #### L100.0100 #### [facility] [address] [facility] [place], [address] HISTORY AND PHYSICAL Observed: 02/13/2018 Status: F Source: IVANHOE EXAM 4:22 AM [facility] [place] Medical Records Department [address] [place] [address] History and Physical 02/12/182146 MR#: [id number] Acct: [id number] Name: DWIGHT MEDEIROS Rep #: [id number] : 1940 77 From: Francisco Javier Ford MD PCP: Je CLEMENTE,Jose Status: ADM IN Y Location: [facility] HQ234-4 Problem List (1) Acute and chronic respiratory failure Status: Acute (2) Sepsis due to pneumonia Status: Acute History of Present Illness Date of Admission: 02/12/18 Chief Complaint: shortness of breath The patient is a 77 year old F with a significant history of COPD; hyperlipidemia; obstructive sleep apnea on home CPAP with 4 L oxygen nightly; who presented because of 3-day history of progressively worsening shortness of breath. Associated with her symptoms is productive cough of thick yellowish green sputum. Her shortness of breath increases with coughing and with exertion. She tried using at home rescue inhalers without any real relief. Further, she has rhinorrhea and wheezes. Also patient has had cold symptoms for 3 weeks. She went to the urgent care where her temperature was found to be 100.3-100.6 F. Also her oxygen saturation was 88% on room air. At the emergency department her highest temperature was 99.3. She had tachycardia and tachypnea and elevated white count. Past Medical History Allergies No Known Allergies Allergy (Verified 02/12/18 18:01) Home Medications: Ambulatory Orders Medication Instructions Recorded Aspirin [Aspirin, Baby] 81 mg PO DAILY@199911/13/15 Surgical History: hysterectomy, - - Tubal ligation; hemorrhoids removal Lives: With Family Smoking Status: Current every day smoker Tobacco Use: Cigarettes - *Family History Maternal Family History: Family History (Last Reviewed 02/13/18 @ 04:20 by Francisco Javier Ford MD) Father Pancreatic cancer Brother Pancreatic cancer Sister Lung cancer Brother Alcohol abuse Review of Systems Constitutional: Reports: Fever. Denies: Chills, Weight Change HEENT: Reports: Nasal Congestion. Denies: Head Aches, Sinus Congestion, Sinus Drainage Cardiovascular: Denies: Chest Pain, Palpitations Respiratory: Reports: Cough, Shortness of Breath, Shortness of breath at rest, Shortness of breath upon exertion, Sputum production Gastrointestinal: Denies: Abdominal Pain, Nausea, Vomiting Genitourinary: Denies: Dysuria Musculoskeletal: Denies: Joint Pain, Joint Tenderness Skin: Denies: Rash, Wounds Neurological: Denies: Numbness, Tingling, Focal weakness Psychiatric: Denies: Anxiety, Depression, Homicidal Ideations, Suicidal Ideations Hematologic/ Lymphatic: Denies: Easy Bruising, Easy Bleeding VTE Information - Inpt Only VTE Present on Admission: No VTE Mechan Device Prophylaxis: None VTE Pharm Prophylaxis ordered?: Yes Patient Problems: Active and Suspected Problems Acute and chronic respiratory failure (Acute) Sepsis due to pneumonia (Acute) - Physical Exam General: Alert, Oriented x3, Cooperative HEENT: Atraumatic, PERRLA, EOMI, Normocephalic Neck: Supple, No JVD, Negative Carotid Bruits Lungs: Rhonchi, Tachypneic, Wheezes Cardiovascular: No murmurs, Tachycardic Abdomen: Bowel Sounds Present, Soft, Non Tender Extremities: No edema, Capillary Refill Less than 3 Seconds Skin: No rashes, No breakdown Musculoskeletal: No Tenderness to Palpation of Joints or Extremities Neurological: Neuro grossly intact Psych/Mental Status: Normal Affect, Appropriate Vital Signs Temp Pulse Resp BP Pulse Ox 99.2 F H 108 H 22 H 121/88 H 92 02/12/18 21:36 02/12/18 21:44 02/12/18 21:44 02/12/18 21:44 02/12/18 21:44 Oxygen Flow Rate (L/min) 4 Oxygen Delivery Method Nasal Cannula Weight: 95.254 kg Body Mass Index (BMI) 38.4 Microbiology Past 72 Hours 02/12/18 19:38 Influenza Types A,B Direct FA (LIMA) - Final Mucosa - Nose Laboratory Tests Past 24 Hrs WBC 13.2 H RBC 4.51 Hgb 14.3 Hct 43.0 WBC RBC Hgb Hct MCV MCH MCHC RDW RDW Differential Plt Count MPV Immature Gran % (Auto) Assessment/Plan All Active Problems Acute and chronic respiratory failure (Acute) Sepsis due to pneumonia (Acute) The patient is a 77 year old F with a significant history of COPD; hyperlipidemia; obstructive sleep apnea on home CPAP with 4 L oxygen nightly; who presented because of 3-day history of progressively worsening shortness of breath; productive cough and found to have a fever; hypoxia and hypercapnia and with radiographic evidence of acute multilobular infiltrates consistent with sepsis secondary to multilobular pneumonia and with probable COPD exacerbation. Sepsis secondary to multilobular pneumonia Patient meets SIRS criteria with tachycardia, tachypnea and elevated white counts. Patient received Levaquin at emergency department. Due to many adverse effects of Levaquin especially in her age group will transition antibiotics to ceftriaxone and azithromycin. Lactic acid was unremarkable Blood cultures are pending Sputum cultures ordered. Scheduled DuoNeb ordered. Prn Albuterol. Incentives spirometer and acapella ordered Prednisone 40 mg x1. Evaluate for further need of steroids. Rapid influenza screen was negative. Legionella antigen and Streptococcus pneumonia antigen ordered. Mucinex ordered. Flonase for rhinorrhea. Probable COPD exacerbation Management as in sepsis secondary to multilobular pneumonia. Bilateral legs and ankle swelling. Patient takes Lasix as needed. No edema at this time. Lasix held. Obstructive sleep apnea CPAP with oxygen bled in; continued . Tobacco abuse Counseled Patient reported that she has tried Chantix; nicotine patch; and hypnosis without any relief. Patient is declining nicotine patch at this time. DVT prophylaxis Subcutaneous heparin. Code Visit Inpatient E AND M: [id number] Init Hosp L3 02/13/18 0422 <Electronically signed by Francisco Javier Ford MD> Date Francisco Javier Ford MD Cosigner Signature: Date (if applicable) CC: Francisco Javier Ford MD; Jose Clements MD Signed STREP Observed: 02/13/2018 Status: F Source: MELONIE PNEUMONIAE ANTIG(UR,CSF) 3:00 AM [facility] S pneumo Ag URINE INTERPRETATION Negative Urine Presumptive negative for pneumococcal pneumonia, suggesting no current or recent pneumococcal infection. Infection due to S pneumoniae cannot be ruled out since the antigen present in the sample may be below the detection limit of the test. Strep pneumo Test Negative URINE (See interpretation below) Performed By: #### M300.4600 #### [facility] [address] [facility] [place], [place], [address] Observed: 02/13/2018 Status: F Source: MELONIE LEGIONELLA ANTIGEN 3:00 AM [facility]IT[facility] Legionella, UR Legionella Antigen result interpretation: Negative Presumptive negative for Legionella pneumophila serogroup 1 antigen in urine, suggesting no recent or current infection. Legionella Ag, Urine Negative (See interpretation below) Performed By: #### M300.4500 #### [facility] [address] [facility] [place] [place], [address] Observed: 02/13/2018 Status: F Source: MLEONIE CULTURE, SPUTUM 12:04 AM [facility] Gram Stain Acceptable Specimen? Yes (<25 Epithelial cells per/lpf) Gram Stain 2+ White Blood Cells No Epithelial cells 1+ Gram positive cocci Resp. Culture Ampicillin can be used for Beta-Lactamase negative isolates. Trimeth/Sulfa, Chloramphenicol, Cefotaxime, Ciprofloxacin, Amoxicillin/Clavulanic Acid,and Oral 2nd/3rd Generation Cephlosporins are effective against both Beta-Lactamase positive and Beta-Lactamase negative isolates. RARE Mixed normal respiratory jurgen. No Streptococcus pneumoniae, beta-hemolytic Streptococcus or Staphylococcus aureus isolated. ORGANISM 1: Haemophilus influenzae Amount Growth 1+ Beta Lactamase Negative Performed By: #### M100.0800 #### [facility] [address] [facility] [place] [place], [address] EMERGENCY DEPARTMENT Observed: 02/12/2018 Status: F Source: IVANHOE SUMMARY 10:39 PM [facility] Medical Records Department [address] [place] [address] Emergency Department Summary 02/12/182053 MR#: [id number] Acct: [id number] Name: DWIGHT MEDEIROS Rep #: [id number] : 1940 77 From: Kiko Tony DO PCP: Je CLEMENTE,Jose Status: ADM IN - ER Visit Summary Date of Service: 02/12/18 Chief Complaint: Shortness of breath History of Present Illness: The patient is a 77 F who presents to the emergency department after being referred by the [facility]. Patient states she has had a URI for about 3 weeks. She has had cough congestion and rhinorrhea. She has a history of COPD and is a current smoker. She wears CPAP oxygen at night. For the past 3 days she has been more significantly short of breath. Was noted that her temperature was 100.6 at urgent care. Her pulse ox 88% on room air. Patient notes that ambulating is basically out of the question for her as she gets extremely labored. Physical Examination: Temperature 99.9 heart rate of 106 respirations are 28 pulse ox 88% on room air blood pressure 123/67 Gen: Well-nourished well-developed Head: Normocephalic atraumatic Eyes: Perrl EOMI ENT: TMs clear no rhinorrhea moist mucous membranes Neck: Supple no lymphadenopathy no JVD nontender CVS: Regular rate tachycardic rhythm no murmurs normal S1-S2 Respiratory: Patient is tachypneic. She has inspiratory and expiratory wheezes and rhonchi bilaterally chest nontender Abdomen: Soft nontender nondistended normal bowel sounds no masses Back: Nontender Extremity: Nontender 2+ lower extremity edema Skin: Normal color no rash Neuro: alert orientated 3 CN II-XII intact normal strength sensation reflexes Psych: Normal affect normal mood Test Results: White count 13.2. Lactic acid is normal. Troponin is negative. BNP 34.3. EKG sinus at a rate of 109. Chest x-ray shows no infiltrate. Emergency Department Course and Treatment: Patient received breathing treatments and supplemental oxygen. Repeat examination patient states she does not really feel significantly improved. She is still Tachypneic. She attempted to ambulate to the bathroom and was immediately hypoxic at 85% on 2 L. She received Solu-Medrol and Levaquin. CTA of the chest was obtained. This demonstrated multiple areas of inflammation in the lungs. Please see the reading below. Patient continues to be tachypneic. The patient will be started on CPAP as she utilizes this at home and if no improvement is made she will be transitioned to BiPAP. Plan is admission into the hospital. Impression: 1. COPD exacerbation 2. Pneumonia 3. Hypoxemia CT/CTA Chest W/WO Contrast IMPRESSION: Negative for pulmonary embolus. Atherosclerotic changes of the aorta without aneurysm or dissection. Coronary calcifications. Right upper lobe substantial bronchial thickening with a broad band of consolidation/volume loss in the medial right upper lobe along the border of the mediastinum. Both areas associated with multinodular infiltrates in the adjacent aerated portion of the lung concerning for inflammatory process. Right middle lobe atelectatic lung also bordering the mediastinum associated with bronchial thickening. Right lower lobe bronchial thickening with sporadic smaller areas of parenchymal atelectasis. Left upper lobe small multinodular infiltrate of the anterior left upper lobe. Consolidation/volume loss of the inferior lingula associated with bronchial thickening. Left lower lobe demonstrates generalized bronchial thickening and a small multinodular infiltrate in the posterior left lower lobe concerning for inflammatory disease. Generalized emphysematous and chronic interstitial changes. Negative for pleural effusion. This note was generated with Event[employer]amation software. It may contain incorrect words, spelling, and punctuation that were not noted in review of the chart prior to signing ED Disposition - Plan for ED Patient: Chief Complaint: Shortness of Breath Referrals: Jose Clements MD [Primary Care Provider] - What to do if you have Problems For any increased pain, shortness of breath, bleeding, nausea or vomiting, chest pain, or any unexpected problems, contact your Primary Care Provider. Call [facility] ([phone]) or report to the closest Emergency Room. Call 911 if necessary. 02/12/18 6459 <Electronically signed by Kiko Tony DO> Date Kiko Tony DO Cosigner Signature (If Indicated): Date CC: Jose Clements MD BLOOD GASES BY CPS Collected: 02/12/2018 Status: F Source: IVANHOE 9:01 PM [facility] [place] TYPE CODE TESTS RESULT OUT OF RANGE REFERENCE UNITS LAB L9000.9990 Normal BLD GAS TYPE ART LAB L9001.1000 Normal SITE L Radial LAB L9001.1010 Normal LUANNE TEST POS LAB L9001.1050 O2 Normal Delivery Dev Nasal Can LAB L9001.1055 /min Normal LPM 3.0 LAB L9001.1104 Normal Results To ED LAB L9001.1105 Normal Time Given 2105 LAB L9001.1110 7.35-7.45 Low pH - I-STAT 7.33 LAB L9001.1210 35-45 mmHg High pCO2 - ISTAT 46.5 LAB L9001.1310 75-100 mmHG Low PO2 I-STAT 68 LAB L9001.2300 22-26 mmol/L Normal HCO3 ISTAT 24.6 LAB L9001.2400 -2 to +2 mmol/L BE Normal ISTAT -1 LAB L9001.2415 mmol/L Normal TOTAL CO2 26 ISTAT LAB L9001.2425 95-99 % Low SO2 ISTAT 92 Performed By: #### L9000.0800 #### [facility] Point of Care [address] [place] [address] CTA CHEST W/WO Observed: 02/12/2018 Status: F Source: MELONIE CONTRAST 8:25 PM [facility] [place] Imaging Services [address] [place] [address] CTA Chest W/WO Contrast MR#: [id number] Acct: [id number] Name: DWIGHT MEDEIROS Rep #: [id number] : 1940 F 77 From: Marina De La Garza MD PCP: Jose Clements MD Status: REG ER Study: CTA Chest W/WO Contrast Date of Exam: 02/12/18 Exam# [id number] Ordering Dr: Kiko Tony DO STUDY: CTA CHEST REASON FOR EXAM: Female, 77 years old. Hypoxia and shortness of breath RADIATION DOSAGE (If Supplied By Facility): CTDIvol = ( 13.37 ) mGy, DLP = ( 539.43 ) mGycm TECHNIQUE: The examination was performed with the intravenous administration of 100 ml of Isovue 370 contrast material. Post-processing of the angiographic images was performed, with multiplanar reformation and 3D reconstruction. Individualized dose optimization techniques were used for this CT. COMPARISON: Chest radiograph of February 12, 2018 FINDINGS: Normal enhancement of the main pulmonary artery and right and left pulmonary arteries. Normal enhancement of the bilateral peripheral pulmonary arteries. There is no demonstrated pulmonary embolism. There is atherosclerotic calcification of the aortic arch with tortuosity. There is no demonstrated aortic dissection. Normal heart and pericardium. Coronary calcifications. Shotty subcentimeter mediastinal lymph nodes. Normal hilar regions. Bronchial thickening most notably in the right upper lobe and bilateral lower lobes. Generalized hyperexpansion. Areas of consolidation and evidence of volume loss in the medial right upper lobe associated with thickened bronchi. Broad band of parenchymal consolidation probably with volume loss in the anterior right upper lobe along the mediastinal border associated with bronchial thickening. Both areas are also associated with small multinodular infiltrates. Paramediastinal atelectasis and bronchial thickening of the right middle lobe. Bronchial thickening of the lower lobe associated with mild primarily linear atelectatic changes of the right lower lobe. Focal dense infiltrate or atelectasis of the lingula. Generalized atelectatic changes and bronchial thickening of the lower lobe but. Small multinodular parenchymal infiltrate in the posterior left lower lobe and anterior left upper lobe. Bolus of the left lower lobe. Negative for substantial pleural effusion. Normal chest wall structures. There are degenerative changes of thoracic spine with demineralized osseous structures and multiple midthoracic vertebral bodies reduced in height resulting in an increased thoracic kyphosis. Normal visualized upper abdomen. CT/CTA Chest W/WO Contrast IMPRESSION: Negative for pulmonary embolus. Atherosclerotic changes of the aorta without aneurysm or dissection. Coronary calcifications. Right upper lobe substantial bronchial thickening with a broad band of consolidation/volume loss in the medial right upper lobe along the border of the mediastinum. Both areas associated with multinodular infiltrates in the adjacent aerated portion of the lung concerning for inflammatory process. Right middle lobe atelectatic lung also bordering the mediastinum associated with bronchial thickening. Right lower lobe bronchial thickening with sporadic smaller areas of parenchymal atelectasis. Left upper lobe small multinodular infiltrate of the anterior left upper lobe. Consolidation/volume loss of the inferior lingula associated with bronchial thickening. Left lower lobe demonstrates generalized bronchial thickening and a small multinodular infiltrate in the posterior left lower lobe concerning for inflammatory disease. Generalized emphysematous and chronic interstitial changes. Negative for pleural effusion. Electronically Signed: Marina De La Garza MD at 21:34 EST , Service support , CC: Kiko Tony DO; Jose Clements MD Ribbon Inker: Signed Observed: 02/12/2018 Status: F Source: MELONIE INFLUENZA A+B (RAPID 7:38 PM [facility]) REPOSITORY Has pt arrived? Y FLU A/B Rapid Negative test results should be confirmed by culture. Order Rapid Viral Culture for Influenzae A+B ([id number]) if clinically indicated. Influenza Ag, Direct Presumptive NEGATIVE for Influenza A/B Antigen (See Note) Performed By: #### M101.0101 #### [facility] [address] [facility] [place], [address] Observed: 02/12/2018 Status: F Source: IVANHOE CULTURE, BLOOD (WB) 6:44 PM [facility] BC GRAM STAIN = GRAM POSITIVE COCCI IN CHAINS IN BOTH BOTTLES RESULTS CALLED TO GUANAKO SARAH 02/13/18 0729 Nayely Hartmann.REPORT READ BACK BY SAME ORGANISM 1: Streptococcus mitis/ oralis Amount Growth Growth Streptococcus mitis/ oralis: REACTION Ampicillin $ 0.50 I Clindamycin $$ <=0.25 S Erythromycin $ 2 R Tigecycline $$$$ <=0.06 S Vancomycin $ 0.25 S (NF) indicates non-formulary drug at [facility]. Approval by Infectious Disease Specialist required before non-formulary drugs may be ordered and/or dispensed. * CLSI guidelines does not recommend testing of cephalosporins. This interpretation is deduced from Beta-lactam/penicillin results. Performed By: #### M200.1000, M100.636 #### [facility] [place], [address] Observed: 02/12/2018 Status: F Source: [facility] GPC ID 6:44 PM [facility] [place] [facility] GPC ID Staphylococcus sp. Not Detected Enterococcus sp. Not Detected Streptococcus spp. Streptococcus sp. (NOT S. pneumoniae) Listeria spp Not Detected Denise/vanB Not Detected mecA Not Detected NAAT METHOD Testing was performed using nucleic acid amplification Performed By: #### M200.1000, M100.636 #### [facility] [place], [address] CBC W/DIFF, AUTOMATED Collected: 02/12/2018 Status: F Source: [place] 6:40 PM [facility] [place] [facility] TYPE CODE TESTS RESULT OUT OF RANGE REFERENCE UNITS LAB L100.1000 4.4-11.0 K/mm3 High WBC 13.2 LAB L100.1200 4.2-5.4 M/mm3 Normal RBC 4.51 LAB L100.1300 12.0-15.0 g/dl Normal HGB 14.3 LAB L100.1400 37-47 % Normal HCT 43.0 LAB L100.1500 81-99 fL Normal MCV 95.3 LAB L100.1600 27.0-32.0 pg Normal MCH 31.7 LAB L100.1700 32-36 g/gl Normal MCHC 33.3 LAB L100.1810 11.6-14.6 % Normal RDW CV 13.3 LAB L100.1820 35.1-43.9 fl High RDW SD 46.8 LAB L100.1900 150-450 K/mm3 Normal PLT 182 LAB L100.2000 6.2-12.0 fl Normal MPV 10.0 LAB L100.2100 47-70 % High NEUT% 79.9 LAB L100.2200 19-41 % Low LY% 8.2 LAB L100.2300 0-10 % High MONO% 11.4 LAB L100.2400 0-5 % Normal EO% 0.2 LAB L100.2500 0-1 % Normal BASO% 0.1 LAB L100.2550 0.0-0.9 % Normal IM GRAN % 0.200 Result Comment: IG% - Immature Granulocytes (promyelocytes, myelocytes and metamyelocytes) > 1% indicates that a LEFT SHIFT is Present. LAB L100.2620 2.0-7.7 X10 3/uL High Absolute Neut 10.6 LAB L100.2720 0.83-4.51 X10 3/ul Normal Absolute Lymph 1.08 Performed By: #### L100.0100 #### [facility] [address] [place], [place], [address] BASIC METABOLIC Collected: 02/12/2018 Status: F Source: [place] PROFILE (BMP) 6:40 PM [facility] [place] [facility] TYPE CODE TESTS RESULT OUT OF RANGE REFERENCE UNITS LAB L501.0100 74-106 mg/dL Normal GLU 104 Result Comment: Fasting Glucose result from 100 to 125 mg/dL suggests IMPAIRED HOMEOSTASIS per A.D.A. criteria. Please note revised GLUCOSE reference range effective 2017. LAB L501.1000 7-18 mg/dL Normal BUN 17 LAB L501.1100 0.55-1.02 mg/dL Normal CREAT,SERUM 0.76 Result Comment: The validity of the calculated GFR AND GFRAA in patients over 70 years has not been determined. Clinical correlation is essential. LAB L501.1110 >60 mL/min Normal EST GFR 78 Result Comment: Non- GFR Calc LAB L501.1115 >60 mL/min Normal EST GFR - AA 94 Result Comment: GFR Calc LAB L501.1255 ml/min Normal Estimated CRCL 36.08 LAB L501.1300 10-20 RATIO High BUN/CRE 22.4 LAB L501.2200 8.5-10 mg/dL Low .1 CA 8.4 LAB L501.5300 136-14 mmol/L Normal 5 NA 139 LAB L501.5600 3.5-5. mmol/L Normal 1 K 4.1 LAB L501.5900 98-107 mmol/L Normal CL 106 LAB L501.6100 21.0-3 mmol/L Normal 2.0 CO2 26.0 LAB L501.6200 5-15 Normal GAP 7 Performed By: #### L500.2500, L500.3400, L501.4010 #### [facility] [address] [place], [place], [id number] LIVER PROFILE Collected: 02/12/2018 Status: F Source: [place] 6:40 PM [facility] [place] [facility] TYPE CODE TESTS RESULT OUT OF RANGE REFERENCE UNITS LAB L501.1500 6.4-8.2 g/dL Normal T PROT 7.1 LAB L501.1800 3.2-5.0 g/dL Low ALB 3.1 LAB L501.1950 2.2-4.2 g/dL Normal GLOB 4.0 LAB L501.4100 15-37 U/L Normal AST 25 LAB L501.4305 45-117 U/L Normal ALK P 113 LAB L501.4405 13-56 U/L Normal ALT 30 LAB L501.4600 0.20-1.00 mg/dL Normal T BILI 0.40 LAB L501.4700 0.00-0.30 mg/dL Normal D BILI 0.13 Performed By: #### L500.2500, L500.3400, L501.4010 #### [facility] [address] [place], [address] TROPONIN-I Collected: 02/12/2018 Status: F Source: [place] 6:40 PM [facility] [place] [facility] TYPE CODE TESTS RESULT OUT OF RANGE REFERENCE UNITS LAB L501.4010 <0.045 ng/mL Normal < 0.015 TROPONIN-I Result Comment: TROPONIN-I EXPECTED VALUES <0.045 Negative 0.045 - 0.590 Consistent with Cardiac Damage > OR = 0.600 Critical Value Not every elevated troponin is indicative of ME. These values should be used with clinical judgement in examining the patient's clinical picture for diagnosis. To establish a diagnosis of ME versus myocardial injury, there must be a demonstrated rise and/or fall in the troponin values, in addition to ischemic symptoms, EKG changes, new regional wall motion abnormality, and/or angiographical evidence. PLEASE NOTE: REFERENCE RANGES EDITED 17 Performed By: #### L500.2500, L500.3400, L501.4010 #### [facility] [address] [place], [place], [id number] PROTHROMBIN TIME W/INR Collected: 02/12/2018 Status: F Source: [place] 6:40 PM [facility] [place] [facility] TYPE CODE TESTS RESULT OUT OF RANGE REFERENCE UNITS LAB L300.4150 11.7-14.9 SECONDS Normal PROTIME 13.9 LAB L300.4200 Normal INR 1.1 Performed By: #### L300.3900, L300.4310 #### [facility] [address] [place], [address] PARTIAL THROMBOPLAST Collected: 02/12/2018 Status: F Source: [place] TIME 6:40 PM [facility] [place] [facility] TYPE CODE TESTS RESULT OUT OF RANGE REFERENCE UNITS LAB L300.4310 24.1-36.2 Seconds Normal PTT 29.2 Performed By: #### L300.3900, L300.4310 #### [facility] [address] [place], [address] LACTIC ACID Collected: 02/12/2018 Status: F Source: [place] 6:40 PM [facility] [place] [facility] Order Comment: Yes/No query for Sepsis Lactate Rule Y TYPE CODE TESTS RESULT OUT OF RANGE REFERENCE UNITS LAB L503.6005 0.4-2.0 mmol/L Normal LACTIC ACID 0.7 Performed By: #### L503.6005 #### [facility] [address] [place], [address] BNP,B-TYPE NATRIURETIC Collected: 02/12/2018 Status: F Source: [place] PEPTIDE 6:40 PM [facility] [place] [facility] TYPE CODE TESTS RESULT OUT OF RANGE REFERENCE UNITS LAB L503.6620 0-100 pg/mL Normal B-TYPE 34.3 ROSA MARIA PEP Performed By: #### L503.6620 #### [facility] [address] [place], [address] Observed: 02/12/2018 Status: F Source: [place]IE CULTURE, BLOOD (WB) 6:40 PM [facility] [place] [facility] BC No growth in 5 days. Performed By: #### M200.1000 #### [facility] [address] [place], [place], [address] CHEST PA AND LATERAL Observed: 02/12/2018 Status: F Source: [place] 6:31 PM [facility] [place] [facility] [address] [place] [address] Chest PA and Lateral MR#: [id number] Acct: [id number] Name: DWIGHT MEDEIROS Rep #: [id number] : 1940 F 77 From: Adria Hyman MD PCP: Je CLEMENTE,Jose Status: REG ER Study: Chest PA and Lateral Date of Exam: 02/12/18 Exam# [id number] Ordering Dr: Kiko Tony DO STUDY: X-RAY CHEST REASON FOR EXAM: Female, 77 years old. Shortness of breath. TECHNIQUE: PA and lateral views of the chest. COMPARISON: Portable AP upright chest x-ray November 23, 2015. FINDINGS: The lungs are not as fully expanded today. The segmental/subsegmental density in the medial right base is mildly more confluent in the frontal view, likely due to crowding. This is difficult to identify on the lateral image, possibly in the anteromedial right middle lobe. Linear/peribronchial scarring and/or subsegmental volume loss in the medial left base grossly unchanged. No new infiltrate There is no demonstrated pleural abnormality. Normal size heart. Normal mediastinum and elio. Normal visualized pulmonary arteries. There is a stable faint atherosclerotic calcification of the aortic arch. There are stable degenerative changes and minor dextroscoliosis of the visualized thoracic spine. Normal visualized ribs, clavicles, and shoulders. There is no demonstrated abnormality of the visualized soft tissue structures of the upper abdomen. RAD/Chest PA and Lateral IMPRESSION: Chronic subsegmental parenchymal changes in the medial lung bases. No acute infiltrate or CHF. Electronically Signed: Miky Hyman MD at 19:05 EST , Service support , CC: Kiko Tony DO; Jose Clements MD Ribbon Inker: Signed PROGRESS Observed: 02/12/2018 Status: COMPLETED Source: [place] 5:22 PM [facility] [place] RE[facility] HNO ID: [id number] Author: Ekaterina (Josep) Jamila Service: (none) Author Type: Nurse Practitioner Type: Progress Notes Filed: 02/12/2018 5:43 PM Note Text: Subjective HPI Dwight Medeiros is a 77 year old female who presents with head and chest congestion for the past 3 weeks. She states it is getting worse and she is now short of breath. She has been taking Robitussin without relief. She denies any ankle swelling. She wears oxygen at night. Review of Systems Constitutional: Positive for fever and malaise/fatigue. HENT: Positive for congestion. Respiratory: Positive for cough, sputum production (yellow/green phlegm), shortness of breath and wheezing. Cardiovascular: Negative. Negative for chest pain and leg swelling. Musculoskeletal: Positive for myalgias. BP 132/60 (BP Site: Left Arm, BP Position: Sitting, BP Cuff Size: Large Adult) Pulse (!) 121 Temp (!) 38.1 ?C (100.6 ?F) (Tympanic) Wt 100.2 kg (221 lb) SpO2 88% BMI 40.10 kg/m? Objective Physical Exam Appointment cancelled and patient advised to seek care in ER. Offered ambulance transport- patient refused. Assisted to care via wheelchair and will be transported to [facility] via granddaughter. Report called to attending MD at [facility]. ASSESSMENT/PLAN: 1. APPOINTMENT CANCELLED - ICD9: , ICD10: Ekaterina Marino APRN.CNP CNOV Observed: 02/12/2018 Status: COMPLETED Source: [place] 5:15 PM [facility] REPOSITORY Office Visit ([facility]) DWIGHT MEDEIROS ([id number]) 1940 F Date Time Provider Department 02/12/18 5:15 PM EKATERINA MARINO (JOSEP) [facility] During your visit today, we recorded the following information about you: Temperature Pulse Blood pressure Weight 100.6 degrees 121/minute 132/60 100.2 kg Ekaterina Marino APRN.CNP 02/12/2018 5:43 PM Signed Subjective HPI Dwightmarc Medeiros is a 77 year old female who presents with head and chest congestion for the past 3 weeks. She states it is getting worse and she is now short of breath. She has been taking Robitussin without relief. She denies any ankle swelling. She wears oxygen at night. Review of Systems Constitutional: Positive for fever and malaise/fatigue. HENT: Positive for congestion. Respiratory: Positive for cough, sputum production (yellow/green phlegm), shortness of breath and wheezing. Cardiovascular: Negative. Negative for chest pain and leg swelling. Musculoskeletal: Positive for myalgias. BP 132/60 (BP Site: Left Arm, BP Position: Sitting, BP Cuff Size: Large Adult) Pulse (!) 121 Temp (!) 38.1 ?C (100.6 ?F) (Tympanic) Wt 100.2 kg (221 lb) SpO2 88% BMI 40.10 kg/m? Objective Physical Exam Appointment cancelled and patient advised to seek care in ER. Offered ambulance transport- patient refused. Assisted to care via wheelchair and will be transported to [facility] via granddaughter. Report called to attending MD at [facility]. ASSESSMENT/PLAN: 1. APPOINTMENT CANCELLED - ICD9: , ICD10: Ekaterina Marino APRN.JOSEP Referring Provider: SELF [200] Allergies As of Date: 02/12/2018 Noted Allergy Reaction metal [Other] 02/17/2006 4 - Hives 9 - Itching Comments: such as jewelry Date Reviewed: 02/12/2018 Reviewed by: Ekaterina (Tie Layer) Jamila - Fully Assessed Reason for Visit: Cough [28] Nasal Congestion [235] Chest Congestion [236] Shortness of Breath [227] Primary Visit Diagnosis:APPOINTMENT CANCELLED Prescriptions as of 02/12/2018 Sig: COMBIVENT 18 MCG-103 MCG/ACTU* Take two(2) puffs four(4) ricardo* ECOTRIN LOW STRENGTH 81 MG TA* Take one(1) tablet daily. CALCIUM CARBONATE 600 MG (1,5* Take 1 tablet po once daily CHOLECALCIFEROL (VITAMIN D3) * Take 1 capsule by mouth once * FUROSEMIDE 20 MG TABLET Take 1 tablet by mouth once d* LOVASTATIN 40 MG TABLET Take 1 tablet by mouth daily * UMECLIDINIUM 62.5 MCG-VILANTE* Inhale 1 Inhalation as instru* Problem List As Of Date 02/12/2018 Noted Resolved Hyperlipidemia [E78.5] INVALID FOR* BENIGN NEOPLASM LG BOWEL [D12.6] INVALID FOR* INT HEMORRHOID W/O COMPL [K64.8] INVALID FOR* DIVERTICULOSIS OF COLON W/O BLEED [K57.30] INVALID FOR* PERS HX COLONIC POLYPS [Z86.010] INVALID FOR* MITRAL INSUFFICIENCY [I05.9] INVALID FOR* RHINITIS CHRONIC [J31.0] INVALID FOR* TOBACCO USE DISORDER, quit Mar 02, 2007 [F17.200]INVALID FOR*07/08/2010 Vitamin D Deficiency [E55.9] INVALID FOR* Tobacco use disorder [F17.200] INVALID FOR* NELLIE on CPAP [G47.33, Z99.89] INVALID FOR* BMI 39.0-39.9,adult [Z68.39] INVALID FOR* Encounter Status:Closed by EKATERINA MARINO on 02/12/18 PROGRESS Observed: 12/17/2017 Status: COMPLETED Source: [place] 7:41 AM [facility] [place] [facility] O ID: [id number] Author: Allan Subramanian Service: (none) Author Type: Nurse Practitioner Type: Progress Notes Filed: 12/17/2017 7:55 AM Note Text: Chief Complaint Patient presents with: Mass: right elbow HPI Dwight Medeiros is a 77 year old female who presents here today for Above Complaints. patient presents to the office today for complaints of swelling of her elbow. Location is right elbow. was in the office to see Dr. Mcginnis on November 19 and had commented that she had this swelling for 3-4 days at that time period. at this time, she denies any pain. States that it is getting irritated. States that she woke up to being swollen and spongy. Does mention that she has a tendency to lean on her elbows due to back pain. At home treatments include applying an DOMINGA wrap for 3-4 hours, applying ice, which did not assist with reduction in size. Past medical history, appointments, medications, allergies reviewed. Previous Medical History PAST MEDICAL HISTORY Diagnosis Date - Benign neoplasm of colon - Benign neoplasm of colon 03/04/2005 - Diverticulosis of colon (without mention of hemorrhage) - Internal hemorrhoids without mention of complication - Other and unspecified hyperlipidemia - Other and unspecified hyperlipidemia 03/04/2005 - Tobacco use disorder Previous Surgical History PAST SURGICAL HISTORY Procedure Laterality Date - COLONOSCOP W/ OR W/O BRSH SPEC 07/17/2003 Colonoscopy - COLONOSCOPY W/BX 05/30/07 - CYSTOSCOPY 11/27/2015 w/lithotripsy - DESTRUCTION HEMORRHOIDS,INT/THAW SHED HEATER TENDER 1975? - ESWL 1985 - TOTAL ABDOM HYSTERECTOMY 1980 Hysterectomy, WILLY Family History FAMILY HISTORY Problem Relation Age of Onset - Cancer Father pancreatic - Cancer Sister lung - Cancer Mother uterine - Heart Brother also alcoholic Patient Allergies ALLERGIES Allergen Reactions - Metal [Other] Hives, Itching such as jewelry Current Medications Current Outpatient Prescriptions on File Prior to Visit: calcium carbonate 600 mg-cholecalciferol 200 units (CALCIUM 600 + D,3,) 600 mg(1,500mg) -200 unit tab Take 1 tablet po once daily furosemide (LASIX) 20 mg tablet Take 1 tablet by mouth once daily. Lovastatin (MEVACOR) 40 mg tablet Take 1 tablet by mouth daily at bedtime. umeclidinium-vilanterol (ANORO ELLIPTA) 62.5-25 mcg/actuation inhaler Inhale 1 Inhalation as instructed once daily. Cholecalciferol, Vitamin D3, 1,000 unit ORAL Cap Take 1 capsule by mouth once daily. aspirin(ECOTRIN LOW STRENGTH 81 MG TAB) Take one(1) tablet daily. albuterol sulfate/ipratropium(COMBIVENT 18 MCG-103 MCG/ACTUATION AEROSOL INHALER) Take two(2) puffs four(4) times a day as needed for wheezing and shortness of breath. No current facility-administered medications on file prior to visit. 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 Reviewed relevant PMHx, PSHx, Social Hx, current medications and allergies. EXAM: BP 128/70 Pulse 96 Wt 102.5 kg (226 lb) BMI 41.00 kg/m? General Appearance: Well appearing, alert, in no acute distress, well-hydrated, well nourished.. Lungs: Lungs clear to auscultation. No wheezing, rhonchi, rales. Heart: RRR without murmur, gallop, or rubs. No ectopy. Musculoskeletal: Right elbow bursa sack swollen, without no erythema or warmth. Health Maintenance List PAP EVERY 3 YEARS (65-80 YEARS OLD) due on 05/20/2003 DTAP,TDAP,TD(2 - Tdap) due on 04/30/2012 COLORECTAL CANCER SCREENING,SEE MODIFIER due on 09/30/2018 DIABETES SCREEN due on 09/30/2020 LIPID SCREEN due on 09/30/2022 BONE DENSITY Completed ADULT PREVNAR-13 Completed INFLUENZA Completed PNEUMOVAX AGE 65 AND OVER WITH 5YR LOOKBACK Completed Data reviewed Component Latest Ref Rng AND Units 09/30/2017 Protein, Total 6.3 - 8.0 g/dL 7.0 Albumin 3.9 - 4.9 g/dL 4.2 Calcium 8.5 - 10.2 mg/dL 9.7 Bilirubin, Total 0.2 - 1.3 mg/dL 0.3 Alkaline Phosphatase 32 - 117 U/L 98 AST 13 - 35 U/L 16 Glucose 74 - 99 mg/dL 90 BUN 7 - 21 mg/dL 15 Creatinine 0.58 - 0.96 mg/dL 0.87 Sodium 136 - 144 mmol/L 142 Potassium 3.7 - 5.1 mmol/L 4.6 Chloride 97 - 105 mmol/L 101 CO2 22 - 30 mmol/L 30 Anion Gap 9 - 18 mmol/L 11 ALT 7 - 38 U/L 13 eGFR- >60 eGFR-All Other Races . >60 Cholesterol, Total <200 mg/dL 175 Triglyceride <150 mg/dL 58 HDL Cholesterol >39 mg/dL 49 LDL Cholesterol <100 mg/dL 114 (H) Non HDL Cholesterol <130 mg/dL 126 Fasting Time hrs 18 VLDL Cholesterol <30 mg/dL 12 TC:HDL Ratio <5.10 3.57 LDL:HDL Ratio <2.54 2.33 Vitamin D 25 Hydroxy 31.0 - 80.0 ng/mL 53.5 ASSESSMENT/PLAN: 1. Olecranon bursitis of right elbow - ICD9: 726.33, ICD10: M70.21 - Right elbow was wrapped with an DOMINGA wrap. patient was instructed to keep the Dominga wrap in place for a majority of the day. Remove once today to check on the status of the swollen area. Was also advised to get a elbow protector to decrease trauma. She was insistent on wanting the area drained. I instructed her that I do not have the credentials to perform this procedure. - CONSULT TO ORTHOPAEDICS Follow up as needed Allan Subramanian APRN.SERVICE STATION EQUIPMENT MECHANIC CNOV Observed: 12/17/2017 Status: COMPLETED Source: [place] 7:40 AM [facility] REPOSITORY [facility] DWIGHT MEDEIROS ([id number]) 1940 F Date Time Provider Department 12/17/17 7:40 AM ALLAN SUBRMAANIAN (JOSEP) [facility] During your visit today, we recorded the following information about you: Pulse Blood pressure Weight 96/minute 128/70 102.5 kg Allan Subramanian APRN.CNP 12/17/2017 7:55 AM Signed Chief Complaint Patient presents with: Mass: right elbow HPI Dwight Medeiros is a 77 year old female who presents here today for Above Complaints. patient presents to the office today for complaints of swelling of her elbow. Location is right elbow. was in the office to see Dr. Mcginnis on November 19 and had commented that she had this swelling for 3-4 days at that time period. at this time, she denies any pain. States that it is getting irritated. States that she woke up to being swollen and spongy. Does mention that she has a tendency to lean on her elbows due to back pain. At home treatments include applying an DOMINGA wrap for 3-4 hours, applying ice, which did not assist with reduction in size. Past medical history, appointments, medications, allergies reviewed. Previous Medical History PAST MEDICAL HISTORY Diagnosis Date - Benign neoplasm of colon - Benign neoplasm of colon 03/04/2005 - Diverticulosis of colon (without mention of hemorrhage) - Internal hemorrhoids without mention of complication - Other and unspecified hyperlipidemia - Other and unspecified hyperlipidemia 03/04/2005 - Tobacco use disorder Previous Surgical History PAST SURGICAL HISTORY Procedure Laterality Date - COLONOSCOP W/ OR W/O BRSH SPEC 07/17/2003 Colonoscopy - COLONOSCOPY W/BX 05/30/07 - CYSTOSCOPY 11/27/2015 w/lithotripsy - DESTRUCTION HEMORRHOIDS,INT/THAW SHED HEATER TENDER 1974? - ESWL 1985 - TOTAL ABDOM HYSTERECTOMY 1980 Hysterectomy, WILLY Family History FAMILY HISTORY Problem Relation Age of Onset - Cancer Father pancreatic - Cancer Sister lung - Cancer Mother uterine - Heart Brother also alcoholic Patient Allergies ALLERGIES Allergen Reactions - Metal [Other] Hives, Itching such as jewelry Current Medications Current Outpatient Prescriptions on File Prior to Visit: calcium carbonate 600 mg-cholecalciferol 200 units (CALCIUM 600 + D,3,) 600 mg(1,500mg) -200 unit tab Take 1 tablet po once daily furosemide (LASIX) 20 mg tablet Take 1 tablet by mouth once daily. Lovastatin (MEVACOR) 40 mg tablet Take 1 tablet by mouth daily at bedtime. umeclidinium-vilanterol (ANORO ELLIPTA) 62.5-25 mcg/actuation inhaler Inhale 1 Inhalation as instructed once daily. Cholecalciferol, Vitamin D3, 1,000 unit ORAL Cap Take 1 capsule by mouth once daily. aspirin(ECOTRIN LOW STRENGTH 81 MG TAB) Take one(1) tablet daily. albuterol sulfate/ipratropium(COMBIVENT 18 MCG-103 MCG/ACTUATION AEROSOL INHALER) Take two(2) puffs four(4) times a day as needed for wheezing and shortness of breath. No current facility-administered medications on file prior to visit. 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 Reviewed relevant PMHx, PSHx, Social Hx, current medications and allergies. EXAM: BP 128/70 Pulse 96 Wt 102.5 kg (226 lb) BMI 41.00 kg/m? General Appearance: Well appearing, alert, in no acute distress, well-hydrated, well nourished.. Lungs: Lungs clear to auscultation. No wheezing, rhonchi, rales. Heart: RRR without murmur, gallop, or rubs. No ectopy. Musculoskeletal: Right elbow bursa sack swollen, without no erythema or warmth. Health Maintenance List PAP EVERY 3 YEARS (65-80 YEARS OLD) due on 05/20/2003 DTAP,TDAP,TD(2 - Tdap) due on 04/30/2012 COLORECTAL CANCER SCREENING,SEE MODIFIER due on 09/30/2018 DIABETES SCREEN due on 09/30/2020 LIPID SCREEN due on 09/30/2022 BONE DENSITY Completed ADULT PREVNAR-13 Completed INFLUENZA Completed PNEUMOVAX AGE 65 AND OVER WITH 5YR LOOKBACK Completed Data reviewed Component Latest Ref Rng AND Units 09/30/2017 Protein, Total 6.3 - 8.0 g/dL 7.0 Albumin 3.9 - 4.9 g/dL 4.2 Calcium 8.5 - 10.2 mg/dL 9.7 Bilirubin, Total 0.2 - 1.3 mg/dL 0.3 Alkaline Phosphatase 32 - 117 U/L 98 AST 13 - 35 U/L 16 Glucose 74 - 99 mg/dL 90 BUN 7 - 21 mg/dL 15 Creatinine 0.58 - 0.96 mg/dL 0.87 Sodium 136 - 144 mmol/L 142 Potassium 3.7 - 5.1 mmol/L 4.6 Chloride 97 - 105 mmol/L 101 CO2 22 - 30 mmol/L 30 Anion Gap 9 - 18 mmol/L 11 ALT 7 - 38 U/L 13 eGFR- >60 eGFR-All Other Races . >60 Cholesterol, Total <200 mg/dL 175 Triglyceride <150 mg/dL 58 HDL Cholesterol >39 mg/dL 49 LDL Cholesterol <100 mg/dL 114 (H) Non HDL Cholesterol <130 mg/dL 126 Fasting Time hrs 18 VLDL Cholesterol <30 mg/dL 12 TC:HDL Ratio <5.10 3.57 LDL:HDL Ratio <2.54 2.33 Vitamin D 25 Hydroxy 31.0 - 80.0 ng/mL 53.5 ASSESSMENT/PLAN: 1. Olecranon bursitis of right elbow - ICD9: 726.33, ICD10: M70.21 - Right elbow was wrapped with an DOMINGA wrap. patient was instructed to keep the Dominga wrap in place for a majority of the day. Remove once today to check on the status of the swollen area. Was also advised to get a elbow protector to decrease trauma. She was insistent on wanting the area drained. I instructed her that I do not have the credentials to perform this procedure. - CONSULT TO ORTHOPAEDICS Follow up as needed TROY Montesinos APRN.CNP 12/17/2017 7:46 AM Signed You can picking belt operator a elastic elbow pad at your local pharmacy to protect your elbow from trauma. Allan Subramanian APRN.JOSEP Referring Provider: SELF [[id number]] Allergies As of Date: 12/17/2017 Noted Allergy Reaction metal [Other] 02/17/2006 4 - Hives 9 - Itching Comments: such as jewelry Date Reviewed: 12/17/2017 Reviewed by: Amanda Urrutia Beekeeper - Fully Assessed Reason for Visit: Mass [64] Cmt: right elbow Primary Visit Diagnosis:Olecranon bursitis of right elbow [M70.21] Order(s):CONSULT TO ORTHOPAEDICS [9026] Order #: [id number]: 1 Prescriptions as of 12/17/2017 Sig: CALCIUM CARBONATE 600 MG (1,5* Take 1 tablet po once daily FUROSEMIDE 20 MG TABLET Take 1 tablet by mouth once d* LOVASTATIN 40 MG TABLET Take 1 tablet by mouth daily * UMECLIDINIUM 62.5 MCG-VILANTE* Inhale 1 Inhalation as instru* CHOLECALCIFEROL (VITAMIN D3) * Take 1 capsule by mouth once * ECOTRIN LOW STRENGTH 81 MG TA* Take one(1) tablet daily. COMBIVENT 18 MCG-103 MCG/ACTU* Take two(2) puffs four(4) ricardo* Problem List As Of Date 12/17/2017 Noted Resolved Hyperlipidemia [E78.5] INVALID FOR* BENIGN NEOPLASM LG BOWEL [D12.6] INVALID FOR* INT HEMORRHOID W/O COMPL [K64.8] INVALID FOR* DIVERTICULOSIS OF COLON W/O BLEED [K57.30] INVALID FOR* PERS HX COLONIC POLYPS [Z86.010] INVALID FOR* MITRAL INSUFFICIENCY [I05.9] INVALID FOR* RHINITIS CHRONIC [J31.0] INVALID FOR* TOBACCO USE DISORDER, quit Mar 02, 2007 [F17.200]INVALID FOR*07/08/2010 Vitamin D Deficiency [E55.9] INVALID FOR* Tobacco use disorder [F17.200] INVALID FOR* NELLIE on CPAP [G47.33, Z99.89] INVALID FOR* BMI 39.0-39.9,adult [Z68.39] INVALID FOR* Other instructions from your clinician: You can picking belt operator a elastic elbow pad at your local pharmacy to protect your elbow from trauma. Allan Subramanian APRN.JOSEP Disposition: Return if symptoms worsen or fail to improve. Follow-up and Disposition History Recorded Encounter Status:Closed by ALLAN SUBRAMANIAN CNP on 12/17/17 PROGRESS Observed: 11/19/2017 Status: COMPLETED Source: [place] 10:30 AM [facility] HNO ID: [id number] Author: Jose Jacobson [facility] Service: (none) Author Type: Physician Type: Progress Notes Filed: 11/20/2017 5:19 PM Note Text: Chief Complaint Patient presents with: Establish Care HPI Dwight Medeiros is a 77 year old female who presents here today to Establish Care. Former patient of Dr. Nan Loyd and seen once by Dr. Gifty Mead. Doesn't like coming in often, once a year maybe. Recently seen by Allan Subramanian CNP to have medications refilled. Patient has been a 1 ppd smoker since age 13, no plans on quitting. Previously worked for [employer] and took early alf. Pt has 2 children, 4 grandchildren and 5 great-grandchildren. Most of them locally. Cardio - Denies any chest pain or dizziness. Admits to sob with exertion or with too much activity due to breathing issues. Edema - Bilateral foot/ankle swelling R>L and worse with humidity. Uses Lasix 20 mg prn for symptom control. NELLIE/COPD - Follows with Dr. Hobbs, with most recent visit being a couple weeks ago and everything looking good, per patient. Has been on CPAP with oxygen for the last 8 years. Notes that machine is beneficial. Admits to having apnea events before machine and would wake up with SANTO. Uses Anora Ellipta 62.5-25 mcg inhaler once daily and Combivent 2 puffs rarely. Breathing worse and tends to use in hot weather. Lipids - Does try to watch some of her diet, but she does like mocha frappes. Parents tended to be on the larger side, so always tried to watch her weight. Unable to exercise much due to back issue. States that her mid upper back has a curvature. Currently taking Lovastatin 40 mg once daily. Bursa - Located in R elbow and started 3-4 days ago. Jose any pain and woke up with it being swollen spongey. Has a tendency to lean on her elbows due to back pain. Back pain - Chronic back pain due to curvature in her spine. Patient purchased a tens unit which has given her good relief. Past medical history, appointments, medications, allergies reviewed. Previous Medical History PAST MEDICAL HISTORY Diagnosis Date - Benign neoplasm of colon - Benign neoplasm of colon 03/04/2005 - Diverticulosis of colon (without mention of hemorrhage) - Internal hemorrhoids without mention of complication - Other and unspecified hyperlipidemia - Other and unspecified hyperlipidemia 03/04/2005 - Tobacco use disorder Previous Surgical History PAST SURGICAL HISTORY Procedure Laterality Date - COLONOSCOP W/ OR W/O [facility] SPEC 07/17/2003 Colonoscopy - COLONOSCOPY W/BX 05/30/07 - CYSTOSCOPY 11/27/2015 w/lithotripsy - DESTRUCTION HEMORRHOIDS,INT/THAW SHED HEATER TENDER 1975? - ESWL 1985 - TOTAL ABDOM HYSTERECTOMY 1980 Hysterectomy, WILLY Family History FAMILY HISTORY Problem Relation Age of Onset - Cancer Father pancreatic - Cancer Sister lung - Cancer Mother uterine - Heart Brother also alcoholic Patient Allergies ALLERGIES Allergen Reactions - Metal [Other] Hives, Itching such as jewelry Current Medications Current Outpatient Prescriptions on File Prior to Visit: furosemide (LASIX) 20 mg tablet Take 1 tablet by mouth once daily. Lovastatin (MEVACOR) 40 mg tablet Take 1 tablet by mouth daily at bedtime. umeclidinium-vilanterol (ANORO ELLIPTA) 62.5-25 mcg/actuation inhaler Inhale 1 Inhalation as instructed once daily. Cholecalciferol, Vitamin D3, 1,000 unit ORAL Cap Take 1 capsule by mouth once daily. aspirin(ECOTRIN LOW STRENGTH 81 MG TAB) Take one(1) tablet daily. albuterol sulfate/ipratropium(COMBIVENT 18 MCG-103 MCG/ACTUATION AEROSOL INHALER) Take two(2) puffs four(4) times a day as needed for wheezing and shortness of breath. No current facility-administered medications on file prior to visit. 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 General Appearance: Well appearing, alert, in no acute distress, well-hydrated, well nourished. and Overweight. Neck: Supple, no adenopathy; thyroid symmetric, normal size, no bruits. Lungs: Lungs clear to auscultation. No wheezing, rhonchi, rales. Heart: RRR without murmur, gallop, or rubs. No ectopy. Abdomen: Normal abdominal exam Extremities: Slight edema. Health Maintenance List DTAP,TDAP,TD(2 - Tdap) due on 04/30/2012 INFLUENZA(1) due on 10/31/2017 COLORECTAL CANCER SCREENING,SEE MODIFIER due on 09/30/2018 DIABETES SCREEN due on 09/30/2020 LIPID SCREEN due on 09/30/2022 BONE DENSITY Completed ADULT PREVNAR-13 Completed PNEUMOVAX AGE 65 AND OVER WITH 5YR LOOKBACK Completed Data reviewed Office Visit on 10/27/2017 Component Date Value - Specimen Request 10/27/2017 Swab - Smear Result 10/27/2017 No organisms seen - Smear Result 10/27/2017 Value:Rare Polymorphonuclear leukocytes - Culture 10/27/2017 * Value:One colony. Apurva parapsilosis No further workup Appointment on 09/30/2017 Component Date Value - Protein, Total 09/30/2017 7.0 - Albumin 09/30/2017 4.2 - Calcium 09/30/2017 9.7 - Bilirubin, Total 09/30/2017 0.3 - Alkaline Phosphatase 09/30/2017 98 - AST 09/30/2017 16 - Glucose 09/30/2017 90 - BUN 09/30/2017 15 - Creatinine 09/30/2017 0.87 - Sodium 09/30/2017 142 - Potassium 09/30/2017 4.6 - Chloride 09/30/2017 101 - CO2 09/30/2017 30 - Anion Gap 09/30/2017 11 - ALT 09/30/2017 13 - eGFR- 09/30/2017 >60 - eGFR-All Other Races 09/30/2017 >60 - Cholesterol, Total 09/30/2017 175 - Triglyceride 09/30/2017 58 - HDL Cholesterol 09/30/2017 49 - LDL Cholesterol 09/30/2017 114* - Non HDL Cholesterol 09/30/2017 126 - Fasting Time 09/30/2017 18 - VLDL Cholesterol 09/30/2017 12 - TC:HDL Ratio 09/30/2017 3.57 - LDL:HDL Ratio 09/30/2017 2.33 - Vitamin D 25 Hydroxy 09/30/2017 53.5 ASSESSMENT/PLAN: 1. Encounter to establish care - ICD9: V65.8, ICD10: Z76.89 (primary diagnosis) - Est, f/u in 1 year 2. Hyperlipidemia, unspecified hyperlipidemia type - ICD9: 272.4, ICD10: E78.5 - good control - Continue current medication. 3. NELLIE on CPAP - ICD9: 327.23, V46.8, ICD10: G47.33, Z99.89 - Stable - Follow up with Dr. Hobbs 4. Bursitis of right elbow, unspecified bursa - ICD9: 726.33, ICD10: M70.31 - ice 5. Tobacco use disorder - ICD9: 305.1, ICD10: F17.200 - Cessation encouraged. - Physiologic and physical aspects of tobacco addiction as well as strategies for quitting were discussed. - Counseling was given focusing on the harmful effects of this addiction especially given the patient's medical condition(s) which will be worsened because of the chemicals in tobacco. 6. Chronic midline low back pain without sciatica - ICD9: 724.2, 338.29, ICD10: M54.5, G89.29 Chronic, use tens unit 7. Chronic obstructive pulmonary disease, unspecified COPD type (HCC) - ICD9: 496, ICD10: J44.9 - Follow with Dr. Hobbs -Continue current medication regimen. 8. Need for vaccination - ICD9: V05.9, ICD10: Z23 - ADMIN OF INFLUENZA VACCINE - INFLUENZA SEASONAL HIGH DOSE AGE 65+ Follow up in 1 year I agree with the Chief Complaint, ROS, and Past Histories independently gathered by the clinical application support analyst and the remaining scribed note accurately describes my personal service to the patient. Jose Clements MD The documentation for this note was completed by Indira Mary Ma acting as scribe for Jose Clements MD. November 19, 2017 10:30 AM. Influenza Vaccine Documentation: ? Patient is identified by name and date of : Yes ? Patient is older than 6 months of age: Yes ? Patient denies a severe allergy to any vaccine component or to a previous dose of influenza vaccine: Yes FOR EGG ALLERGY CONCERNS, REFER TO PROVIDER. ? Denies allergy to gelatin, formaldehyde, thimerosol :Yes ? Patient is afebrile and not moderately or severely ill: Yes ? Does the patient have a history of Guillain ?Phil[place] Syndrome (a severe paralytic illness): No ? Denies bone marrow transplant prior 6 months or solid organ transplant prior 3 months: Yes ? Denies a history of fainting after a prior injection or medical procedure? Yes If patient has fainted in the past, the CDC recommends sitting or lying down for 15 minutes after the vaccination. ? VIS sheet provided: Yes ? See Immunization Form in EpicCare for details of immunizations administered today. If patient reports dizziness, vision changes or ringing in the ears post vaccination ? please have patient sit or lie down for 15 minutes. CNOV Observed: 11/19/2017 Status: COMPLETED Source: [place] 10:20 AM [facility] DWIGHT MEDEIROS ([id number]) 1940 F ISAC Date Time Provider Department 11/19/17 10:20 AM JOSE CLEMENTS During your visit today, we recorded the following information about you: Pulse Respiration Blood pressure Weight 80/minute 24/minute 138/78 101.8 kg Height 1.581 m Jose Clements MD 11/20/2017 5:19 PM Signed Chief Complaint Patient presents with: Establish Care HPI Dwight Medeiros is a 77 year old female who presents here today to Establish Care. Former patient of Dr. Nan Loyd and seen once by Dr. Gifty Mead. Doesn't like coming in often, once a year maybe. Recently seen by Allan Subramanian CNP to have medications refilled. Patient has been a 1 ppd smoker since age 13, no plans on quitting. Previously worked for [employer] and took early alf. Pt has 2 children, 4 grandchildren and 5 great- grandchildren. Most of them locally. Cardio - Denies any chest pain or dizziness. Admits to sob with exertion or with too much activity due to breathing issues. Edema - Bilateral foot/ankle swelling R>L and worse with humidity. Uses Lasix 20 mg prn for symptom control. NELLIE/COPD - Follows with Dr. Hobbs, with most recent visit being a couple weeks ago and everything looking good, per patient. Has been on CPAP with oxygen for the last 8 years. Notes that machine is beneficial. Admits to having apnea events before machine and would wake up with SANTO. Uses Anora Ellipta 62.5-25 mcg inhaler once daily and Combivent 2 puffs rarely. Breathing worse and tends to use in hot weather. Lipids - Does try to watch some of her diet, but she does like [employer] frappes. Parents tended to be on the larger side, so always tried to watch her weight. Unable to exercise much due to back issue. States that her mid upper back has a curvature. Currently taking Lovastatin 40 mg once daily. Bursa - Located in R elbow and started 3-4 days ago. Jose any pain and woke up with it being swollen spongey. Has a tendency to lean on her elbows due to back pain. Back pain - Chronic back pain due to curvature in her spine. Patient purchased a tens unit which has given her good relief. Past medical history, appointments, medications, allergies reviewed. Previous Medical History PAST MEDICAL HISTORY Diagnosis Date - Benign neoplasm of colon - Benign neoplasm of colon 03/04/2005 - Diverticulosis of colon (without mention of hemorrhage) - Internal hemorrhoids without mention of complication - Other and unspecified hyperlipidemia - Other and unspecified hyperlipidemia 03/04/2005 - Tobacco use disorder Previous Surgical History PAST SURGICAL HISTORY Procedure Laterality Date - COLONOSCOP W/ OR W/O [facility] 07/17/2003 Colonoscopy - COLONOSCOPY W/BX 05/30/07 - CYSTOSCOPY 11/27/2015 w/lithotripsy - DESTRUCTION HEMORRHOIDS,INT/THAW SHED HEATER TENDER 1974? - ESWL 1985 - TOTAL ABDOM HYSTERECTOMY 1979 Hysterectomy, WILLY Family History FAMILY HISTORY Problem Relation Age of Onset - Cancer Father pancreatic - Cancer Sister lung - Cancer Mother uterine - Heart Brother also alcoholic Patient Allergies ALLERGIES Allergen Reactions - Metal [Other] Hives, Itching such as jewelry Current Medications Current Outpatient Prescriptions on File Prior to Visit: furosemide (LASIX) 20 mg tablet Take 1 tablet by mouth once daily. Lovastatin (MEVACOR) 40 mg tablet Take 1 tablet by mouth daily at bedtime. umeclidinium-vilanterol (ANORO ELLIPTA) 62.5-25 mcg/actuation inhaler Inhale 1 Inhalation as instructed once daily. Cholecalciferol, Vitamin D3, 1,000 unit ORAL Cap Take 1 capsule by mouth once daily. aspirin(ECOTRIN LOW STRENGTH 81 MG TAB) Take one(1) tablet daily. albuterol sulfate/ipratropium(COMBIVENT 18 MCG-103 MCG/ACTUATION AEROSOL INHALER) Take two(2) puffs four(4) times a day as needed for wheezing and shortness of breath. No current facility-administered medications on file prior to visit. 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 General Appearance: Well appearing, alert, in no acute distress, well-hydrated, well nourished. and Overweight. Neck: Supple, no adenopathy; thyroid symmetric, normal size, no bruits. Lungs: Lungs clear to auscultation. No wheezing, rhonchi, rales. Heart: RRR without murmur, gallop, or rubs. No ectopy. Abdomen: Normal abdominal exam Extremities: Slight edema. Health Maintenance List DTAP,TDAP,TD(2 - Tdap) due on 04/30/2012 INFLUENZA(1) due on 10/31/2017 COLORECTAL CANCER SCREENING,SEE MODIFIER due on 09/30/2018 DIABETES SCREEN due on 09/30/2020 LIPID SCREEN due on 09/30/2022 BONE DENSITY Completed ADULT PREVNAR-13 Completed PNEUMOVAX AGE 65 AND OVER WITH 5YR LOOKBACK Completed Data reviewed Office Visit on 10/27/2017 Component Date Value - Specimen Request 10/27/2017 Swab - Smear Result 10/27/2017 No organisms seen - Smear Result 10/27/2017 Value:Rare Polymorphonuclear leukocytes - Culture 10/27/2017 * Value:One colony. Apurva parapsilosis No further workup Appointment on 09/30/2017 Component Date Value - Protein, Total 09/30/2017 7.0 - Albumin 09/30/2017 4.2 - Calcium 09/30/2017 9.7 - Bilirubin, Total 09/30/2017 0.3 - Alkaline Phosphatase 09/30/2017 98 - AST 09/30/2017 16 - Glucose 09/30/2017 90 - BUN 09/30/2017 15 - Creatinine 09/30/2017 0.87 - Sodium 09/30/2017 142 - Potassium 09/30/2017 4.6 - Chloride 09/30/2017 101 - CO2 09/30/2017 30 - Anion Gap 09/30/2017 11 - ALT 09/30/2017 13 - eGFR- 09/30/2017 >60 - eGFR-All Other Races 09/30/2017 >60 - Cholesterol, Total 09/30/2017 175 - Triglyceride 09/30/2017 58 - HDL Cholesterol 09/30/2017 49 - LDL Cholesterol 09/30/2017 114* - Non HDL Cholesterol 09/30/2017 126 - Fasting Time 09/30/2017 18 - VLDL Cholesterol 09/30/2017 12 - TC:HDL Ratio 09/30/2017 3.57 - LDL:HDL Ratio 09/30/2017 2.33 - Vitamin D 25 Hydroxy 09/30/2017 53.5 ASSESSMENT/PLAN: 1. Encounter to establish care - ICD9: V65.8, ICD10: Z76.89 (primary diagnosis) - Est, f/u in 1 year 2. Hyperlipidemia, unspecified hyperlipidemia type - ICD9: 272.4, ICD10: E78.5 - good control - Continue current medication. 3. NELLIE on CPAP - ICD9: 327.23, V46.8, ICD10: G47.33, Z99.89 - Stable - Follow up with Dr. Hobbs 4. Bursitis of right elbow, unspecified bursa - ICD9: 726.33, ICD10: M70.31 - ice 5. Tobacco use disorder - ICD9: 305.1, ICD10: F17.200 - Cessation encouraged. - Physiologic and physical aspects of tobacco addiction as well as strategies for quitting were discussed. - Counseling was given focusing on the harmful effects of this addiction especially given the patient's medical condition(s) which will be worsened because of the chemicals in tobacco. 6. Chronic midline low back pain without sciatica - ICD9: 724.2, 338.29, ICD10: M54.5, G89.29 Chronic, use tens unit 7. Chronic obstructive pulmonary disease, unspecified COPD type (HCC) - ICD9: 496, ICD10: J44.9 - Follow with Dr. Hobbs -Continue current medication regimen. 8. Need for vaccination - ICD9: V05.9, ICD10: Z23 - ADMIN OF INFLUENZA VACCINE - INFLUENZA SEASONAL HIGH DOSE AGE 65+ Follow up in 1 year I agree with the Chief Complaint, ROS, and Past Histories independently gathered by the clinical application support analyst and the remaining scribed note accurately describes my personal service to the patient. Jose Clements MD The documentation for this note was completed by Indira Mary Ma acting as scribe for Jose Clements MD. November 19, 2017 10:30 AM. Influenza Vaccine Documentation: ? Patient is identified by name and date of : Yes ? Patient is older than 6 months of age: Yes ? Patient denies a severe allergy to any vaccine component or to a previous dose of influenza vaccine: Yes FOR EGG ALLERGY CONCERNS, REFER TO PROVIDER. ? Denies allergy to gelatin, formaldehyde, thimerosol :Yes ? Patient is afebrile and not moderately or severely ill: Yes ? Does the patient have a history of Guillain ?Philadelphia Syndrome (a severe paralytic illness): No ? Denies bone marrow transplant prior 6 months or solid organ transplant prior 3 months: Yes ? Denies a history of fainting after a prior injection or medical procedure? Yes If patient has fainted in the past, the CDC recommends sitting or lying down for 15 minutes after the vaccination. ? VIS sheet provided: Yes ? See Immunization Form in EpicCare for details of immunizations administered today. If patient reports dizziness, vision changes or ringing in the ears post vaccination ? please have patient sit or lie down for 15 minutes. Referring Provider: SELF [200] Allergies As of Date: 11/19/2017 Noted Allergy Reaction metal [Other] 02/17/2006 4 - Hives 9 - Itching Comments: such as jewelry Date Reviewed: 11/19/2017 Reviewed by: Indira Mary Ma - Fully Assessed Reason for Visit: Establish Care [42] Primary Visit Diagnosis:Encounter to establish care [Z76.89] Other Visit Diagnoses:Hyperlipidemia, unspecified hyperlipidemia type [E78.5] NELLIE on CPAP [G47.33, Z99.89] Bursitis of right elbow, unspecified bursa [M70.31] Tobacco use disorder [F17.200] Chronic midline low back pain without sciatica [M54.5, G89.29] Chronic obstructive pulmonary disease, unspecified COPD type (HCC) [J44.9] Need for vaccination [Z23] Order(s):ADMIN OF INFLUENZA VACCINE [[id number]] Order #: [id number]: 1 INFLUENZA SEASONAL HIGH DOSE AGE 65+ [[id number]] Order #: [id number] Prescriptions as of 11/19/2017 Sig: CALCIUM CARBONATE 600 MG (1,5* Take 1 tablet po once daily FUROSEMIDE 20 MG TABLET Take 1 tablet by mouth once d* LOVASTATIN 40 MG TABLET Take 1 tablet by mouth daily * UMECLIDINIUM 62.5 MCG-VILANTE* Inhale 1 Inhalation as instru* CHOLECALCIFEROL (VITAMIN D3) * Take 1 capsule by mouth once * ECOTRIN LOW STRENGTH 81 MG TA* Take one(1) tablet daily. COMBIVENT 18 MCG-103 MCG/ACTU* Take two(2) puffs four(4) ricardo* Problem List As Of Date 11/19/2017 Noted Resolved Hyperlipidemia [E78.5] INVALID FOR* BENIGN NEOPLASM LG BOWEL [D12.6] INVALID FOR* INT HEMORRHOID W/O COMPL [K64.8] INVALID FOR* DIVERTICULOSIS OF COLON W/O BLEED [K57.30] INVALID FOR* PERS HX COLONIC POLYPS [Z86.010] INVALID FOR* MITRAL INSUFFICIENCY [I05.9] INVALID FOR* RHINITIS CHRONIC [J31.0] INVALID FOR* TOBACCO USE DISORDER, quit Mar 02, 2007 [F17.200]INVALID FOR*07/08/2010 Vitamin D Deficiency [E55.9] INVALID FOR* Tobacco use disorder [F17.200] INVALID FOR* NELLIE on CPAP [G47.33, Z99.89] INVALID FOR* BMI 39.0-39.9,adult [Z68.39] INVALID FOR* Disposition: Return in about 1 year (around 11/19/2018), or if symptoms worsen or fail to improve. Follow-up and Disposition History Recorded Encounter Status:Closed by JOSE CLEMENTS MD on 11/20/17 WOUND Observed: 10/27/2017 Status: F Source: [place] CULTURE/STAIN 10:30 AM [facility] Sp. Request/Comment: - Swab Smear Result - No organisms seen Rare Polymorphonuclear leukocytes Culture Result - One colony. Apurva parapsilosis --> ABNORMAL ALERT No further workup --> ABNORMAL ALERT Performed By: #### WCUL #### [facility] [address] [place], [place] [address] PROGRESS Observed: 10/27/2017 Status: COMPLETED Source: [place] 9:07 AM [facility] HNO ID: [id number] Author: [place]) Ot[place] Service: (none) Author Type: Physician Medical Appointment Scheduler Type: Progress Notes Filed: 10/27/2017 9:11 AM Note Text: Subjective HPI Pt presents with right leg redness x 5 days. She had scraped her leg 5 days ago on the corner of a chair she was carrying. Since then it has becomes red and had some drainage from the center. She had been putting bacitracin on it without improvement. No fever or chills. She denies history of MRSA. She did have cellulitis in her chart in 2012. Review of Systems Skin: Right leg redness All other systems reviewed and are negative. PAST MEDICAL HISTORY Diagnosis Date - Benign neoplasm of colon - Benign neoplasm of colon 03/04/2005 - Diverticulosis of colon (without mention of hemorrhage) - Internal hemorrhoids without mention of complication - Other and unspecified hyperlipidemia - Other and unspecified hyperlipidemia 03/04/2005 - Tobacco use disorder Current Outpatient Prescriptions: Lovastatin (MEVACOR) 40 mg tablet Take 1 tablet by mouth daily at bedtime. Disp: 90 tablet Rfl: 3 umeclidinium-vilanterol (ANORO ELLIPTA) 62.5-25 mcg/actuation inhaler Inhale 1 Inhalation as instructed once daily. Disp: Rfl: furosemide (LASIX) 20 mg tablet Take 1 tablet by mouth once daily. Disp: 90 tablet Rfl: 3 Cholecalciferol, Vitamin D3, 1,000 unit ORAL Cap Take 1 capsule by mouth once daily. Disp: Rfl: 0 aspirin(ECOTRIN LOW STRENGTH 81 MG TAB) Take one(1) tablet daily. Disp: Rfl: 0 albuterol sulfate/ipratropium(COMBIVENT 18 MCG-103 MCG/ACTUATION AEROSOL INHALER) Take two(2) puffs four(4) times a day as needed for wheezing and shortness of breath. Disp: 1 Rfl: 2 sulfamethoxazole-trimethoprim (BACTRIM DS) 800-160 mg per tablet Take 1 tablet by mouth twice daily for 10 days. Disp: 20 tablet Rfl: 0 mupirocin (BACTROBAN) 2 % cream Apply 1 application to affected area three times daily for 10 days. Location: right leg Disp: 15 g Rfl: 0 No current facility-administered medications for this visit. PAST SURGICAL HISTORY Procedure Laterality Date - COLONOSCOP W/ OR W/O BRSH SPEC 07/17/2003 Colonoscopy - COLONOSCOPY W/BX 05/30/07 - CYSTOSCOPY 11/27/2015 w/lithotripsy - DESTRUCTION HEMORRHOIDS,INT/THAW SHED HEATER TENDER 1974? - ESWL 1985 - TOTAL ABDOM HYSTERECTOMY 1979 Hysterectomy, [facility] FAMILY HISTORY Problem Relation Age of Onset - Cancer Father pancreatic - Cancer Sister lung - Cancer Mother uterine - Heart Brother also alcoholic Social History Substance Use Topics - Smoking status: Current Every Day Smoker Packs/day: 1.00 Years: 52.00 Types: Cigarettes - Smokeless tobacco: Never Used - Alcohol use Not on file BP 136/70 Pulse 88 Temp 36.6 ?C (97.8 ?F) (Tympanic) Resp 22 Wt 101.6 kg (224 lb) BMI 40.97 kg/m? Objective Physical Exam Constitutional: She is oriented to person, place, and time and well-developed, well-nourished, and in no distress. HENT: Head: Normocephalic and atraumatic. Cardiovascular: Normal rate, regular rhythm and normal heart sounds. Pulmonary/Chest: Effort normal and breath sounds normal. Musculoskeletal: Legs: Pt has area or redness with central drainage on the lateral mid right lower leg. No streaking. Warm to touch. No fluctuance or sign of abscess. Neurological: She is alert and oriented to person, place, and time. Skin: Skin is warm. Psychiatric: Affect and judgment normal. Nursing note and vitals reviewed. ASSESSMENT/PLAN: 1. Cellulitis of right leg - ICD9: 682.6, ICD10: L03.115 - Begin treatment with Trimethoprim-sulfamethozazole (Bactrim) DS PO BID and bactroban. Wound culture obtained. - No lymphangetic streaking, this was defined for patient to watch for and to seek medical care immediately if appears - Follow up for recheck in three days - SULFAMETHOXAZOLE 800 MG-TRIMETHOPRIM 160 MG TABLET - MUPIROCIN 2 % TOPICAL CREAM - WOUND CULTURE AND GRAM STAIN Mague Alcazar PA-C CNOV Observed: 10/27/2017 Status: COMPLETED Source: [place] 8:45 AM [facility] REPOSITORY Office Visit ([facility]) DWIGHT MEDEIROS ([id number]) 1940 F [facility]AC Date Time Provider Department 10/27/17 8:45 AM MAGUE ALCAZAR) WSTR During your visit today, we recorded the following information about you: Temperature Pulse Respiration Blood pressure 97.8 degrees 88/minute 22/minute 136/70 Weight 101.6 kg Mague Alcazar PA-C 10/27/2017 9:11 AM Signed Subjective HPI Pt presents with right leg redness x 5 days. She had scraped her leg 5 days ago on the corner of a chair she was carrying. Since then it has becomes red and had some drainage from the center. She had been putting bacitracin on it without improvement. No fever or chills. She denies history of MRSA. She did have cellulitis in her chart in 2012. Review of Systems Skin: Right leg redness All other systems reviewed and are negative. PAST MEDICAL HISTORY Diagnosis Date - Benign neoplasm of colon - Benign neoplasm of colon 03/04/2005 - Diverticulosis of colon (without mention of hemorrhage) - Internal hemorrhoids without mention of complication - Other and unspecified hyperlipidemia - Other and unspecified hyperlipidemia 03/04/2005 - Tobacco use disorder Current Outpatient Prescriptions: Lovastatin (MEVACOR) 40 mg tablet Take 1 tablet by mouth daily at bedtime. Disp: 90 tablet Rfl: 3 umeclidinium-vilanterol (ANORO ELLIPTA) 62.5-25 mcg/actuation inhaler Inhale 1 Inhalation as instructed once daily. Disp: Rfl: furosemide (LASIX) 20 mg tablet Take 1 tablet by mouth once daily. Disp: 90 tablet Rfl: 3 Cholecalciferol, Vitamin D3, 1,000 unit ORAL Cap Take 1 capsule by mouth once daily. Disp: Rfl: 0 aspirin(ECOTRIN LOW STRENGTH 81 MG TAB) Take one(1) tablet daily. Disp: Rfl: 0 albuterol sulfate/ipratropium(COMBIVENT 18 MCG-103 MCG/ACTUATION AEROSOL INHALER) Take two(2) puffs four(4) times a day as needed for wheezing and shortness of breath. Disp: 1 Rfl: 2 sulfamethoxazole-trimethoprim (BACTRIM DS) 800-160 mg per tablet Take 1 tablet by mouth twice daily for 10 days. Disp: 20 tablet Rfl: 0 mupirocin (BACTROBAN) 2 % cream Apply 1 application to affected area three times daily for 10 days. Location: right leg Disp: 15 g Rfl: 0 No current facility-administered medications for this visit. PAST SURGICAL HISTORY Procedure Laterality Date - COLONOSCOP W/ OR W/O BRSH SPEC 07/17/2003 Colonoscopy - COLONOSCOPY W/BX 05/30/07 - CYSTOSCOPY 11/27/2015 w/lithotripsy - DESTRUCTION HEMORRHOIDS,INT/THAW SHED HEATER TENDER 1975? - ESWL 1985 - TOTAL ABDOM HYSTERECTOMY 1980 Hysterectomy, [place] FAMILY HISTORY Problem Relation Age of Onset - Cancer Father pancreatic - Cancer Sister lung - Cancer Mother uterine - Heart Brother also alcoholic Social History Substance Use Topics - Smoking status: Current Every Day Smoker Packs/day: 1.00 Years: 52.00 Types: Cigarettes - Smokeless tobacco: Never Used - Alcohol use Not on file BP 136/70 Pulse 88 Temp 36.6 ?C (97.8 ?F) (Tympanic) Resp 22 Wt 101.6 kg (224 lb) BMI 40.97 kg/m? Objective Physical Exam Constitutional: She is oriented to person, place, and time and well-developed, well-nourished, and in no distress. HENT: Head: Normocephalic and atraumatic. Cardiovascular: Normal rate, regular rhythm and normal heart sounds. Pulmonary/Chest: Effort normal and breath sounds normal. Musculoskeletal: Legs: Pt has area or redness with central drainage on the lateral mid right lower leg. No streaking. Warm to touch. No fluctuance or sign of abscess. Neurological: She is alert and oriented to person, place, and time. Skin: Skin is warm. Psychiatric: Affect and judgment normal. Nursing note and vitals reviewed. ASSESSMENT/PLAN: 1. Cellulitis of right leg - ICD9: 682.6, ICD10: L03.115 - Begin treatment with Trimethoprim-sulfamethozazole (Bactrim) DS PO BID and bactroban. Wound culture obtained. - No lymphangetic streaking, this was defined for patient to watch for and to seek medical care immediately if appears - Follow up for recheck in three days - SULFAMETHOXAZOLE 800 MG-TRIMETHOPRIM 160 MG TABLET - MUPIROCIN 2 % TOPICAL CREAM - WOUND CULTURE AND GRAM STAIN Mague Alcazar PA-C Referring Provider: SELF [200] Allergies As of Date: 10/27/2017 Noted Allergy Reaction metal [Other] 02/17/2006 4 - Hives 9 - Itching Comments: such as jewelry Date Reviewed: 10/27/2017 Reviewed by: Edna Carlin LPN - Fully Assessed Reason for Visit: Derm Problem [33] Cmt: sore on lower right leg, hit leg onto chair leg 5 days ago Primary Visit Diagnosis:Cellulitis of right leg [L03.115] Order(s):sulfamethoxazole-trimethoprim (BACTRIM DS) 800-160 mg per tabletTake 1 tablet by mouth twice daily for 10 days.Disp: 20 tabletRfl: 0 mupirocin (BACTROBAN) 2 % creamApply 1 application to affected area three times daily for 10 days. Location: right legDisp: 15 gRfl: 0 WOUND CULTURE AND GRAM STAIN [SQWCUL] Order #: [id number] Prescriptions as of 10/27/2017 Sig: LOVASTATIN 40 MG TABLET Take 1 tablet by mouth daily * UMECLIDINIUM 62.5 MCG-VILANTE* Inhale 1 Inhalation as instru* FUROSEMIDE 20 MG TABLET Take 1 tablet by mouth once d* CHOLECALCIFEROL (VITAMIN D3) * Take 1 capsule by mouth once * ECOTRIN LOW STRENGTH 81 MG TA* Take one(1) tablet daily. COMBIVENT 18 MCG-103 MCG/ACTU* Take two(2) puffs four(4) ricardo* SULFAMETHOXAZOLE 800 MG-TRIME* Take 1 tablet by mouth twice * MUPIROCIN 2 % TOPICAL CREAM Apply 1 application to affect* Problem List As Of Date 10/27/2017 Noted Resolved Hyperlipidemia [E78.5] INVALID FOR* BENIGN NEOPLASM LG BOWEL [D12.6] INVALID FOR* INT HEMORRHOID W/O COMPL [K64.8] INVALID FOR* DIVERTICULOSIS OF COLON W/O BLEED [K57.30] INVALID FOR* PERS HX COLONIC POLYPS [Z86.010] INVALID FOR* MITRAL INSUFFICIENCY [I05.9] INVALID FOR* RHINITIS CHRONIC [J31.0] INVALID FOR* TOBACCO USE DISORDER, quit Mar 02, 2007 [F17.200]INVALID FOR*07/08/2010 Vitamin D Deficiency [E55.9] INVALID FOR* Tobacco use disorder [F17.200] INVALID FOR* NELLIE on CPAP [G47.33, Z99.89] INVALID FOR* BMI 39.0-39.9,adult [Z68.39] INVALID FOR* Prescriptions ordered this encounter Disp Refills Start End SULFAMETHOXAZOLE 800 MG-TRIMETHOPRIM* 20 t* 0 10/27/2017 11/06/2017 Cmt: Ok to give generic equivalent Route: ORAL Sig: Take 1 tablet by mouth twice daily for 10 days. MUPIROCIN 2 % TOPICAL CREAM 15 g 0 10/27/2017 11/06/2017 Route: TOPICAL Sig: Apply 1 application to affected area three times daily for 10 days. Location: right leg Encounter Status:Closed by MAGUE ALCAZAR PA-C on 10/27/17 COMP METABOLIC PANEL Collected: 09/30/2017 Status: F Source: [place] 11:23 AM [facility] TYPE CODE TESTS RESULT OUT OF REFERENCE UNITS RANGE LAB TP 6.3-8.0 g/dL Protein, Total 7.0 LAB ALB 3.9-4.9 g/dL Albumin 4.2 LAB CA 8.5-10.2 mg/dL Calcium, Total 9.7 LAB TBIL 0.2-1.3 mg/dL Bilirubin, Total 0.3 LAB ALKP 32-117 U/L Alkaline Phosphatase 98 LAB AST 13-35 U/L AST 16 LAB GLU 74-99 mg/dL Glucose 90 Result Comment: The [place] [employer] (ADA) provides guidance for cutoff values for fasting glucose and random glucose. The ADA defines fasting as no caloric intake for at least 8 hours. Fas ting plasma glucose results between 100 to 125 mg/dL indicate increased risk for diabetes (prediabetes). Fasting plasma glucose results greater than or equal to 126 mg/dL meet the criteria for diagnosis of diabetes. In the absence of unequivocal hyperglycemia, results should be confirmed by repeat testing. In a patient with classic symptoms of hyperglycemia or hyperglycemic crisis, random plasma glucose results greater than or equal to 200 mg/dL meet the criteria for diagnosis of diabetes. Reference: Standards of Medical Care in Diabetes 2016, [place] [employer]. Diabetes Care. 2016.39(Suppl 1). LAB BUN 7-21 mg/dL BUN 15 LAB CRET 0.58-0.96 mg/dL Creatinine 0.87 LAB NA 136-144 mmol/L Sodium 142 LAB K 3.7-5.1 mmol/L Potassium 4.6 LAB CL 97-105 mmol/L Chloride 101 LAB CO2 22-30 mmol/L CO2 30 LAB AGAP 9-18 mmol/L Anion Gap 11 LAB ALT 7-38 U/L ALT 13 LAB GFRAA eGFR- Amer. >60 LAB GFRNAA . eGFR-All Other Races >60 Result Comment: eGFR (Estimated GFR) Units of measure: mL/min/1.73 meters squared eGFR is derived from the reexpressed MDRD Study equation using the following parameters: serum creatinine, age, gender and race. The creatinine assay has been calibrated to be traceable to IDMS. An eGFR <60 mL/min/1.73m2 for >3 months is consistent with chronic kidney disease. Refer to KDOQI guidelines for clinical interpretation. In patients with unstable renal function, e.g. those with acute kidney injury, the eGFR may not accurately reflect actual GFR. Performed By: #### CMP, LIPB, VITD #### [facility] [address] [place], [place] [address] LIPID PANEL, BASIC Collected: 09/30/2017 Status: F Source: [place] 11:23 AM [facility] REPOSITORY TYPE CODE TESTS RESULT OUT OF REFERENCE UNITS RANGE LAB CHOL <200 mg/dL Cholesterol 175 Result Comment: <200 mg/dL, Desirable 200-239 mg/dL, Borderline high >239 mg/dL, High LAB TRIGLY <150 mg/dL Triglyceride 58 Result Comment: <150 mg/dL, Normal 150-199 mg/dL, Borderline high 200-499 mg/dL, High >499 mg/dL, Very high LAB HDL >39 mg/dL HDL-Cholesterol 49 Result Comment: 40-59 mg/dL, Acceptable >59 mg/dL, High: Negative risk factor for coronary heart disease <40 mg/dL, Low: Positive risk factor for coronary heart disease LAB LDL <100 mg/dL LDL-Cholesterol High 114 Result Comment: <100 mg/dL, Optimal 100-129 mg/dL, Near optimal/above optimal 130-159 mg/dL, Borderline high 160-189 mg/dL, High >189 mg/dL, Very high Secondary prevention optimal LDL Cholesterol levels are recommended to be < 70 mg/dL LAB NONHDL <130 mg/dL Non HDL Cholesterol 126 Result Comment: <130 mg/dL, Optimal 130-159 mg/dL, Near optimal/above optimal 160-189 mg/dL, Borderline high 190-219 mg/dL, High >219 mg/dL, Very high Secondary prevention optimal non HDL Cholesterol levels are recommended to be < 100 mg/dL LAB FT hrs Fasting Time 18 LAB VLDL <30 mg/dL VLDL Cholesterol 12 LAB TCHDL <5.10 TC:HDL Ratio 3.57 LAB LDLHDL <2.54 LDL:HDL Ratio 2.33 Result Comment: Reference: 1. National Cholesterol Education Program ATP III Guideline At-A-Glance Quick Desk Reference: National Heart, Lung, and Blood [place]. National Institutes of Health. 2001: NIH Publication No. 01-3305. 2. An International Atherosclerosis Society position paper: global recommendations for the management of dyslipidemia: executive summary, Atherosclerosis. 2014: 232(2):410-413. Performed By: #### CMP, LIPB, VITD #### [facility] [address] [place], [place] [address] VITAMIN D 25 HYDROXY Collected: 09/30/2017 Status: F Source: [place] 11:23 AM [facility] REPOSITORY TYPE CODE TESTS RESULT OUT OF REFERENCE UNITS RANGE LAB VITD 31.0-80.0 ng/mL Vitamin D 25 53.5 Hydroxy Result Comment: Classification of 25 [place] Vitamin D status: Insufficiency/Moderate Deficiency: < or = 30 ng/mL Sufficiency/Optimal Levels: 31 to 80 ng/mL Toxicity: > 100 ng/mL Test performed by chemiluminescent immunoassay. Performed By: #### CMP, LIPB, VITD #### [facility] [address] [place] [id number] ELAINE Observed: 09/30/2017 Status: COMPLETED Source: [place] 11:00 AM [facility] REPOSITORY Office Visit (FAMPWS) DWIGHT MEDERIOS ([id number]) 1940 F ISAC Date Time Provider Department 09/30/17 11:00 AM ALLAN SUBRAMANIAN ([facility]) FAMPWS During your visit today, we recorded the following information about you: Temperature Pulse Respiration Blood pressure 98.1 degrees 76/minute 20/minute 130/80 Weight 100.2 kg Allan Subramanian APRN.CNP 09/30/2017 11:21 AM Addendum Chief Complaint Patient presents with: Refill Request HPI Dwight Medeiros is a 77 year old female who presents here today for Above Complaints. Patient presents to the office for refill request. Former patient of Dr. Mead. Will be establishing with Dr. Clements in the fall. Requesting refill of Lovastatin 40 mg daily for hyperlipidemia. Also on low dose aspirin. Also has history of vitamin D deficiency, taking 1,000 units of vitamin D3 daily. Also takes a calcium tablet daily. Follows with Dr. Hobbs for COPD, NELLIE with CPAP use. Is prescribed Anoro Ellipta daily. Feels that breathing has been stable. No wheezing, shortness of breath. No fevers or chills. No chest pain. Some dyspnea with longer walks. She is prescribed rescue inhaler and does not use ever. Patient is a current smoker since age 13, expresses no current want to quit. Overall, doing okay. Denies wanting any further screening for colon cancer as she states that she would not follow through with treatment if something was found. She does uses Lasix 20 mg on occasions with lower foot swelling. Very infrequently, approximates 2 days every couple months. Usually with hot weather. Past medical history, appointments, medications, allergies reviewed. Previous Medical History PAST MEDICAL HISTORY Diagnosis Date - Benign neoplasm of colon - Benign neoplasm of colon 03/04/2005 - Diverticulosis of colon (without mention of hemorrhage) - Internal hemorrhoids without mention of complication - Other and unspecified hyperlipidemia - Other and unspecified hyperlipidemia 03/04/2005 - Tobacco use disorder Previous Surgical History PAST SURGICAL HISTORY Procedure Laterality Date - COLONOSCOP W/ OR W/O BRSH SPEC 07/17/2003 Colonoscopy - COLONOSCOPY W/BX 05/30/07 - CYSTOSCOPY 11/27/2015 w/lithotripsy - DESTRUCTION HEMORRHOIDS,INT/THAW SHED HEATER TENDER 1974? - ESWL 1985 - TOTAL ABDOM HYSTERECTOMY 1979 Hysterectomy, [place] Family History FAMILY HISTORY Problem Relation Age of Onset - Cancer Father pancreatic - Cancer Sister lung - Cancer Mother uterine - Heart Brother also alcoholic Patient Allergies ALLERGIES Allergen Reactions - Metal [Other] Hives, Itching such as jewelry Current Medications Current Outpatient Prescriptions on File Prior to Visit: Lovastatin (MEVACOR) 40 mg tablet Take 1 tablet by mouth daily at bedtime. umeclidinium-vilanterol (ANORO ELLIPTA) 62.5-25 mcg/actuation inhaler Inhale 1 Inhalation as instructed once daily. furosemide (LASIX) 20 mg tablet Take 1 tablet by mouth once daily. Cholecalciferol, Vitamin D3, 1,000 unit ORAL Cap Take 1 capsule by mouth once daily. aspirin(ECOTRIN LOW STRENGTH 81 MG TAB) Take one(1) tablet daily. albuterol sulfate/ipratropium(COMBIVENT 18 MCG-103 MCG/ACTUATION AEROSOL INHALER) Take two(2) puffs four(4) times a day as needed for wheezing and shortness of breath. No current facility-administered medications on file prior to visit. 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 Reviewed relevant PMHx, PSHx, Social Hx, current medications and allergies. EXAM: BP 130/80 Pulse 76 Temp 36.7 ?C (98.1 ?F) (Tympanic) Resp 20 Wt 100.2 kg (221 lb) BMI 40.42 kg/m? General Appearance: Well appearing, alert, in no acute distress, well-hydrated, well nourished.. Head: Normocephalic, no masses, lesions, tenderness or abnormalities. Eyes: Anicteric sclera. Pupils are equally round and reactive to light. Extraocular movements are intact. . Ears: External ears normal, canals clear. Nose/Sinuses: Nares normal, septum midline, mucosa normal, no drainage or sinus tenderness. Oropharynx: Lips, mucosa, and tongue normal, teeth and gums normal, oropharynx normal. Lungs: Positive findings: Coarse lung sounds throughout. Heart: RRR without murmur, gallop, or rubs. No ectopy. Extremities: No deformities, trace pitting edema in bilateral lower extremities. Health Maintenance List DTAP,TDAP,TD(2 - Tdap) due on 04/30/2012 COLORECTAL CANCER SCREENING,SEE MODIFIER due on 05/29/2016 INFLUENZA(1) due on 10/31/2017 LIPID SCREEN due on 11/23/2018 DIABETES SCREEN due on 01/16/2019 BONE DENSITY Completed ADULT PREVNAR-13 Completed PNEUMOVAX AGE 65 AND OVER WITH 5YR LOOKBACK Completed Data reviewed Component Latest Ref Rng AND Units 11/23/2013 12/09/2014 12/14/2014 11/13/2015 01/17/2016 Glucose, Urine Neg mg/dL neg Bilirubin, Urine Neg neg Ketones, Urine Neg trace Specific [place], Ur 1.005 - 1.030 1.010 Hemoglobin/Blood,Ur Neg large pH, Urine 4.5 - 8.0 5.0 Protein, Urine Neg mg/dL 100 Urobilinogen, Urine Normal (<1.1) EU 0.2 Nitrites Neg neg Leukocytes Neg small Color/Appearance comment: paul Quality Check yes/no Yes Glucose 74 - 99 mg/dL 135 (H) BUN 7 - 21 mg/dL 18 Creatinine 0.58 - 0.96 mg/dL 0.81 Sodium 136 - 144 mmol/L 144 Potassium 3.7 - 5.1 mmol/L 4.1 Chloride 97 - 105 mmol/L 104 CO2 22 - 30 mmol/L 27 Anion Gap 9 - 18 mmol/L 13 Calcium 8.6 - 10.0 mg/dL 9.4 eGFR- >60 eGFR-All Other Races . >60 Triglyceride 30 - 149 mg/dL 73 Cholesterol, Total 100 - 199 mg/dL 168 HDL Cholesterol >55 mg/dL 51 (L) VLDL Cholesterol 6 - 40 mg/dL 15 LDL Cholesterol 60 - 129 mg/dL 102 Fasting Time hrs FASTING TC:HDL Ratio 1.00 - 5.00 3.29 LDL:HDL Ratio 0.50 - 3.55 2.00 Non HDL Cholesterol 90 - 159 mg/dL 117 Specimen Request Specimen received in preservative Specimen received in preservative Culture 50,000 - <100,000 CFU/ml . . . 10,000 - <50,000 CFU/ml . . . Creatinine, [place] 0.7 - 1.4 mg/dL 0.9 Vitamin D 25 Hydroxy 31.0 - 80.0 ng/mL 53.2 ASSESSMENT/PLAN: 1. Hyperlipidemia, unspecified hyperlipidemia type - ICD9: 272.4, ICD10: E78.5 (primary diagnosis) - to be determined upon return of lab results - Continue current medication. - Discussed the benefits of regular aerobic exercise and weight loss. - LOVASTATIN 40 MG TABLET - LIPID PANEL BASIC 2. Vitamin D deficiency - ICD9: 268.9, ICD10: E55.9 - Continue current supplements - VITAMIN D 25 HYDROXY 3. BMI 39.0-39.9,adult - ICD9: V85.39, ICD10: Z68.39 - COMP METABOLIC PANEL 4. NELLIE on CPAP - ICD9: 327.23, V46.8, ICD10: G47.33, Z99.89 - Continue current care through Dr. Hobbs. 5. Tobacco use disorder - ICD9: 305.1, ICD10: F17.200 - Cessation encouraged. - Physiologic and physical aspects of tobacco addiction as well as strategies for quitting were discussed. - Counseling was given focusing on the harmful effects of this addiction especially given the patient's medical condition(s) which will be worsened because of the chemicals in tobacco. - Counseling was given 3-4 minutes. F/u as needed. Get labs today, continue with plan to establish with Dr. Clements. Allan Subramanian, COMPOSING ROOM MACHINIST.SERVICE STATION EQUIPMENT MECHANIC Referring Provider: SELF [200] Allergies As of Date: 09/30/2017 Noted Allergy Reaction metal [Other] 02/17/2006 4 - Hives 9 - Itching Comments: such as jewelry Date Reviewed: 09/30/2017 Reviewed by: Allan (Tie Layer) Manas - Fully Assessed Reason for Visit: Refill Request [508] Primary Visit Diagnosis:Hyperlipidemia, unspecified hyperlipidemia type [E78.5] Other Visit Diagnoses:Vitamin D deficiency [E55.9] BMI 39.0-39.9,adult [Z68.39] NELLIE on CPAP [G47.33, Z99.89] Tobacco use disorder [F17.200] Order(s):Lovastatin (MEVACOR) 40 mg tabletTake 1 tablet by mouth daily at bedtime.Disp: 90 tabletRfl: 3 COMP METABOLIC PANEL [SQCMP] Order #: [id number] FUTURE LIPID PANEL BASIC [SQLIPB] Order #: [id number] FUTURE VITAMIN D 25 HYDROXY [SQVITD] Order #: [id number] FUTURE Prescriptions as of 09/30/2017 Sig: LOVASTATIN 40 MG TABLET Take 1 tablet by mouth daily * UMECLIDINIUM 62.5 MCG-VILANTE* Inhale 1 Inhalation as instru* FUROSEMIDE 20 MG TABLET Take 1 tablet by mouth once d* CHOLECALCIFEROL (VITAMIN D3) * Take 1 capsule by mouth once * ECOTRIN LOW STRENGTH 81 MG TA* Take one(1) tablet daily. COMBIVENT 18 MCG-103 MCG/ACTU* Take two(2) puffs four(4) ricardo* Problem List As Of Date 09/30/2017 Noted Resolved Hyperlipidemia [E78.5] INVALID FOR* BENIGN NEOPLASM LG BOWEL [D12.6] INVALID FOR* INT HEMORRHOID W/O COMPL [K64.8] INVALID FOR* DIVERTICULOSIS OF COLON W/O BLEED [K57.30] INVALID FOR* PERS HX COLONIC POLYPS [Z86.010] INVALID FOR* MITRAL INSUFFICIENCY [I05.9] INVALID FOR* RHINITIS CHRONIC [J31.0] INVALID FOR* TOBACCO USE DISORDER, quit Mar 02, 2007 [F17.200]INVALID FOR*07/08/2010 Vitamin D Deficiency [E55.9] INVALID FOR* Tobacco use disorder [F17.200] INVALID FOR* NELLIE on CPAP [G47.33, Z99.89] INVALID FOR* BMI 39.0-39.9,adult [Z68.39] INVALID FOR* Prescriptions ordered this encounter Disp Refills Start End LOVASTATIN 40 MG TABLET 90 t* 3 09/30/2017 Class: Print RX Route: ORAL Sig: Take 1 tablet by mouth daily at bedtime. Medications Discontinued During This Encounter Lovastatin (MEVACOR) 40 mg tablet 90 t* 3 09/30/2016 09/30/2017 Class: Print RX Route: ORAL Sig: Take 1 tablet by mouth daily at bedtime. Disc: Reason for discontinue is not on file. Disposition: Return if symptoms worsen or fail to improve. Follow-up and Disposition History Recorded Encounter Status:Closed by ALLAN SUBRAMANIAN CNP on 09/30/17 PROGRESS Observed: 09/30/2017 Status: COMPLETED Source: [place] 10:57 AM [facility] [place] REPOSITORY O ID: [id number] Author: Allan Thomas) Manas Service: (none) Author Type: Nurse Practitioner Type: Progress Notes Filed: 09/30/2017 11:21 AM Note Text: Chief Complaint Patient presents with: Refill Request HPI Dwight Medeiros is a 77 year old female who presents here today for Above Complaints. Patient presents to the office for refill request. Former patient of Dr. Mead. Will be establishing with Dr. Clements in the fall. Requesting refill of Lovastatin 40 mg daily for hyperlipidemia. Also on low dose aspirin. Also has history of vitamin D deficiency, taking 1,000 units of vitamin D3 daily. Also takes a calcium tablet daily. Follows with Dr. Hobbs for COPD, NELLIE with CPAP use. Is prescribed Anoro Ellipta daily. Feels that breathing has been stable. No wheezing, shortness of breath. No fevers or chills. No chest pain. Some dyspnea with longer walks. She is prescribed rescue inhaler and does not use ever. Patient is a current smoker since age 13, expresses no current want to quit. Overall, doing okay. Denies wanting any further screening for colon cancer as she states that she would not follow through with treatment if something was found. She does uses Lasix 20 mg on occasions with lower foot swelling. Very infrequently, approximates 2 days every couple months. Usually with hot weather. Past medical history, appointments, medications, allergies reviewed. Previous Medical History PAST MEDICAL HISTORY Diagnosis Date - Benign neoplasm of colon - Benign neoplasm of colon 03/04/2005 - Diverticulosis of colon (without mention of hemorrhage) - Internal hemorrhoids without mention of complication - Other and unspecified hyperlipidemia - Other and unspecified hyperlipidemia 03/04/2005 - Tobacco use disorder Previous Surgical History PAST SURGICAL HISTORY Procedure Laterality Date - COLONOSCOP W/ OR W/O BRSH SPEC 07/17/2003 Colonoscopy - COLONOSCOPY W/BX 05/30/07 - CYSTOSCOPY 11/27/2015 w/lithotripsy - DESTRUCTION HEMORRHOIDS,INT/THAW SHED HEATER TENDER 1974? - ESWL 1985 - TOTAL ABDOM HYSTERECTOMY 1980 Hysterectomy, WILLY Family History FAMILY HISTORY Problem Relation Age of Onset - Cancer Father pancreatic - Cancer Sister lung - Cancer Mother uterine - Heart Brother also alcoholic Patient Allergies ALLERGIES Allergen Reactions - Metal [Other] Hives, Itching such as jewelry Current Medications Current Outpatient Prescriptions on File Prior to Visit: Lovastatin (MEVACOR) 40 mg tablet Take 1 tablet by mouth daily at bedtime. umeclidinium-vilanterol (ANORO ELLIPTA) 62.5-25 mcg/actuation inhaler Inhale 1 Inhalation as instructed once daily. furosemide (LASIX) 20 mg tablet Take 1 tablet by mouth once daily. Cholecalciferol, Vitamin D3, 1,000 unit ORAL Cap Take 1 capsule by mouth once daily. aspirin(ECOTRIN LOW STRENGTH 81 MG TAB) Take one(1) tablet daily. albuterol sulfate/ipratropium(COMBIVENT 18 MCG-103 MCG/ACTUATION AEROSOL INHALER) Take two(2) puffs four(4) times a day as needed for wheezing and shortness of breath. No current facility-administered medications on file prior to visit. 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 Reviewed relevant PMHx, PSHx, Social Hx, current medications and allergies. EXAM: BP 130/80 Pulse 76 Temp 36.7 ?C (98.1 ?F) (Tympanic) Resp 20 Wt 100.2 kg (221 lb) BMI 40.42 kg/m? General Appearance: Well appearing, alert, in no acute distress, well-hydrated, well nourished.. Head: Normocephalic, no masses, lesions, tenderness or abnormalities. Eyes: Anicteric sclera. Pupils are equally round and reactive to light. Extraocular movements are intact. . Ears: External ears normal, canals clear. Nose/Sinuses: Nares normal, septum midline, mucosa normal, no drainage or sinus tenderness. Oropharynx: Lips, mucosa, and tongue normal, teeth and gums normal, oropharynx normal. Lungs: Positive findings: Coarse lung sounds throughout. Heart: RRR without murmur, gallop, or rubs. No ectopy. Extremities: No deformities, trace pitting edema in bilateral lower extremities. Health Maintenance List DTAP,TDAP,TD(2 - Tdap) due on 04/30/2012 COLORECTAL CANCER SCREENING,SEE MODIFIER due on 05/29/2016 INFLUENZA(1) due on 10/31/2017 LIPID SCREEN due on 11/23/2018 DIABETES SCREEN due on 01/16/2019 BONE DENSITY Completed ADULT PREVNAR-13 Completed PNEUMOVAX AGE 65 AND OVER WITH 5YR LOOKBACK Completed Data reviewed Component Latest Ref Rng AND Units 11/23/2013 12/09/2014 12/14/2014 11/13/2015 01/17/2016 Glucose, Urine Neg mg/dL neg Bilirubin, Urine Neg neg Ketones, Urine Neg trace Specific [place], Ur 1.005 - 1.030 1.010 Hemoglobin/Blood,Ur Neg large pH, Urine 4.5 - 8.0 5.0 Protein, Urine Neg mg/dL 100 Urobilinogen, Urine Normal (<1.1) EU 0.2 Nitrites Neg neg Leukocytes Neg small Color/Appearance comment: paul Quality Check yes/no Yes Glucose 74 - 99 mg/dL 135 (H) BUN 7 - 21 mg/dL 18 Creatinine 0.58 - 0.96 mg/dL 0.81 Sodium 136 - 144 mmol/L 144 Potassium 3.7 - 5.1 mmol/L 4.1 Chloride 97 - 105 mmol/L 104 CO2 22 - 30 mmol/L 27 Anion Gap 9 - 18 mmol/L 13 Calcium 8.6 - 10.0 mg/dL 9.4 eGFR- >60 eGFR-All Other Races . >60 Triglyceride 30 - 149 mg/dL 73 Cholesterol, Total 100 - 199 mg/dL 168 HDL Cholesterol >55 mg/dL 51 (L) VLDL Cholesterol 6 - 40 mg/dL 15 LDL Cholesterol 60 - 129 mg/dL 102 Fasting Time hrs FASTING TC:HDL Ratio 1.00 - 5.00 3.29 LDL:HDL Ratio 0.50 - 3.55 2.00 Non HDL Cholesterol 90 - 159 mg/dL 117 Specimen Request Specimen received in preservative Specimen received in preservative Culture 50,000 - <100,000 CFU/ml . . . 10,000 - <50,000 CFU/ml . . . Creatinine, Melonie 0.7 - 1.4 mg/dL 0.9 Vitamin D 25 Hydroxy 31.0 - 80.0 ng/mL 53.2 ASSESSMENT/PLAN: 1. Hyperlipidemia, unspecified hyperlipidemia type - ICD9: 272.4, ICD10: E78.5 (primary diagnosis) - to be determined upon return of lab results - Continue current medication. - Discussed the benefits of regular aerobic exercise and weight loss. - LOVASTATIN 40 MG TABLET - LIPID PANEL BASIC 2. Vitamin D deficiency - ICD9: 268.9, ICD10: E55.9 - Continue current supplements - VITAMIN D 25 HYDROXY 3. BMI 39.0-39.9,adult - ICD9: V85.39, ICD10: Z68.39 - COMP METABOLIC PANEL 4. NELLIE on CPAP - ICD9: 327.23, V46.8, ICD10: G47.33, Z99.89 - Continue current care through Dr. Hobbs. 5. Tobacco use disorder - ICD9: 305.1, ICD10: F17.200 - Cessation encouraged. - Physiologic and physical aspects of tobacco addiction as well as strategies for quitting were discussed. - Counseling was given focusing on the harmful effects of this addiction especially given the patient's medical condition(s) which will be worsened because of the chemicals in tobacco. - Counseling was given 3-4 minutes. F/u as needed. Get labs today, continue with plan to establish with Dr. Clements. Allan Subramanian APRN.[employer]ICE [employer]IC ALLERGIES ALLERGIES DATE TYPE / CODE NAME / CODE REACTION SEVERITY SOURCE 02/12/2018 Drug No Known Unknown [place] Allergy/995900222(S Allergies/F Community NOMED CT) [id number][facility] Repository 02/17/2006 Miscellaneous OTHER HIVES [facility] Allergy/391392578([facility] NOMED CT) Repository ENCOUNTERS ENCOUNTERS ADMIT/DISCHARGE ACCOUNT ADMITTING ENCOUNTER LOCATION SOURCE NUMBER CLASS 02/22/2018/02/25/20 [id number] Ambulatory [address] Repository 02/12/2018/02/16/20 [id number] [place], Inpatient Melonie Mcintyre [facility] ing:[id number]: Repository [id number]: 1 02/12/2018 [id number] [place], Ambulatory BMSBuilding:Samia Mcintyre [facility] Repository 02/12/2018 [id number] [place], Ambulatory BMSBuilding:Samia Mcintyre [facility] Repository 02/12/2018 [id number] [place], Ambulatory BMSBuilding:Samia Mcintyre [facility] Repository 02/12/2018 [id number] [place], Ambulatory BMSBuilding:Samia Mcintyre [facility] Repository 02/12/2018/02/13/20 [id number] Ambulatory [address] Repository 12/17/2017/12/19/19 [id number] Ambulatory [address] Repository 11/19/2017/11/24/19 [id number] Ambulatory [address] Repository 10/27/2017/10/29/[id number] Repository 09/30/2017/10/01/[id number] Repository 09/30/2017/10/02/19 [id number] Ambulatory [address] Repository PAYERS PAYERS ENCOUNTER GUARANTOR PAYER SUBSCRIBER SOURCE 02/12/2018 DWIGHT E Primary DWIGHT E Melonie [id number] TR Insurance:MEDICARE SWEIGERDOB: [place] [id number], [place] olic [id number] [address]Rol: Number: Repository [id number] () Date:2018-02-12 02/12/2018 Secondary DWIGHT E [place] Insurance:[facility] SWEIGERDOB: Community Number: [id number] [id number] Repository Date:7130-19-73[address], [place] [address]ZA: 02/12/2018 Tertiary NOT GIVENUNK [place] Insurance:SELF PAY [facility] Number: Effective Repository Date:2018-02-12 02/12/2018 DWIGHT E Primary DWIGHT E Melonie [id number] TR Insurance:MEDICARE SWEIGERDOB: Community [address] [place] [address], PART A [facility] [id number] [address]Nll: Number: Repository [id number] (HP) Date:2018-02-12 02/12/2018 Secondary DWIGHT E Melonie Insurance:CIGNAPolicy SWEIGERDOB: Community Number: [id number] Hospital [id number] Repository Date:9334-55-22MZ [address], [place] [address]ZX: 02/12/2018 Tertiary NOT GIVENUNK [place] Insurance:SELF PAY [facility] Number: Effective Repository Date:2018-02-12 02/12/2018 DWIGHT E Primary DWIGHT E [place] [id number] TR Insurance:MEDICARE SWEIGERDOB: Community [address] [place] [address], PART A [facility] [id number] [address]Kje: Number: Repository [id number] (HP) Date:2018-02-12 02/12/2018 Secondary DWIGHT E Melonie Insurance:CIGNAPolicy SWEIGERDOB: Community Number: [id number] Hospital [id number] Repository Date:6828-75-32EN [address], [place] [address]MZ: 02/12/2018 Tertiary NOT GIVENUNK [place] Insurance:SELF PAY [facility] Number: Effective Repository Date:2018-02-12 02/12/2018 DWIGHT E Primary DWIGHT E [place] [id number] TR Insurance:MEDICARE SWEIGERDOB: Community [address] [place] [address], PART A [facility] [id number] [facility] Hospital [address]Oeb: Number: Repository [id number] (HP) Date:2018-02-12 02/12/2018 Secondary DWIGHT E Melonie Insurance:CIGNAPolmaryy EUNICEIGERDOB: Community Number: [id number] Hospital [id number] Repository Date:8540-35-84QN [address], [place] [address]LW: 02/12/2018 Tertiary NOT GIVENUNK Mel[place] Insurance:SELF PAY [facility] Number: Effective Repository Date:2018-02-12 02/12/2018 DWIGHT E Primary DWIGHT E [place] [id number] TR Insurance:MEDICARE SWEIGERDOB: [address], PART A [facility] [id number] County Hospital [address]Gdm: Number: Repository [id number] (HP) Date:2018-02-12 02/12/2018 Secondary DWIGHT E Melonie Insurance:CIGNAPolicy SWEIGERDOB: Community Number: [id number] Hospital [id number] Repository Date:7793-45-64[address], [place] [address]OW: 02/12/2018 Tertiary NOT GIVENUNK [place] Insurance:SELF PAY [facility] Number: Effective Repository Date:2018-02-12
== END 2018-02-15 15:38 | disposition home or self-care (01) | DRG 871 ==
LOC: ED 19:01 → MS2 22:35 → MS3 02-13 16:38
PROVIDERS: Internal Medicine; Admitting Provider Hospitalist; Emergency Provider Emergency Medicine; Family Provider Family Medicine; PCP Family Medicine; Referring Provider Hospitalist; Visit Provider Internal Medicine
DX: A40.8 Other streptococcal sepsis (principal); J14 Pneumonia due to Hemophilus influenzae; J96.21 Acute and chronic respiratory failure with hypoxia; G47.33 Obstructive sleep apnea (adult) (pediatric); F17.210 Nicotine dependence, cigarettes, uncomplicated; J06.9 Acute upper respiratory infection, unspecified; B97.89 Other viral agents as the cause of diseases classified elsewhere; Z99.81 Dependence on supplemental oxygen
CPT/HCPCS: 36415; 36600; 71046; 71275; 80048; 80076; 82803; 83605; 83880; 84484; 85025; 85610; 85730; 87040; 87070; 87077; 87149; 87186; 87205; 87449; 87633; 87641; 87804; 93005; 94640; 94667; 94668; 97110; 97162; 97166; 97530; 99251; 99285; 99406; J7030; J7040; J7050; Q9967; A4216; G0463

== ENCOUNTER → 2018-09-13 | Outpatient (CLI) | payer MEDICARE, OTHER, SELFPAY ==
[2018-02-12 23:13] VITALS: BMI 40.6
--- NOTE | 2018-09-13 12:51 | CT_ITS ---
STUDY: CT CHEST WITHOUT CONTRAST REASON FOR EXAM: Female, 78 years old. Pulmonary nodule follow-up RADIATION DOSAGE (If Supplied By Facility): CTDIvol = ( 15.04 ) mGy, DLP = ( 537.53 ) mGycm TECHNIQUE: Transaxial imaging was performed without the administration of intravenous contrast material. Individualized dose optimization techniques were used for this CT. COMPARISON: 16 February 2018 FINDINGS: There are benign scattered scars and focal atelectasis. There are no pulmonary nodules or high-risk focal opacities. There is an incidental pulmonary cyst in the left lower lobe lateral basal segment. There is sxqm-fo-zaeptvrx emphysema. Central airways are patent. Pleural surfaces are intact. Mediastinal contents are normal. There is severe coronary artery disease. There is severe aortic valve stenosis. Cardiac chamber is normal in size and shape. Pericardium is intact. Limited upper abdominal images are unremarkable. 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 CT/Chest without Contrast IMPRESSION: 1. Mild to moderate emphysema with scars and atelectasis. These findings do not require follow-up. 2. Severe coronary artery disease. 3. Severe aortic valve stenosis. 4. Cardiology referral is advised. 5. Osteoporosis. Electronically Signed: Krystle Irwin, at 18:37 EDT Tel , Service support ,
== END | disposition home or self-care (01) ==
LOC: CT 12:48
PROVIDERS: Family Provider Family Medicine; PCP Family Medicine; Referring Provider Internal Medicine Pulmonary Disease; Visit Provider Internal Medicine Pulmonary Disease
DX: R91.1 Solitary pulmonary nodule (principal)
CPT/HCPCS: 71250

== ENCOUNTER → 2018-12-20 06:00 | Outpatient (CLI) | payer MEDICARE, OTHER, SELFPAY ==
[2018-11-24 12:46] VITALS: BMI 42.2
--- NOTE | 2018-12-20 19:21 | STRESSREP ---
Stress Test Report Pharmacologic myocardial perfusion stress test. 78-year-old lady with a history of coronary artery calcification. Stress protocol: Resting EKG demonstrates normal sinus rhythm with a rate of 67 bpm normal intervals are noted resting blood pressures 156/78 mmHg. 0.4 mg of regadenoson was infused per usual protocol followed by rapid intravenous saline flush injection continuous EKG monitoring was performed. The patient maintained sinus rhythm throughout the recording. The maximum heart rate attained was 92 bpm which was noted to be in sinus rhythm. At rest there were no ST or T wave changes noted suggest ischemia at peak infusion nonspecific ST-T wave changes were noted. The resting blood pressures 156/78 final blood pressure 732 over 70 mmHg. Myocardial perfusion protocol. 11.0 mCi of technetium 99m sestamibi was injected at rest. 0.4 mg of regadenoson was infused per usual protocol peak infusion 33.0 mCi of technetium 99m sestamibi was injected stress images were obtained stress and rest images were reconstructed in comparing the short axis vertical and horizontal long axis. Gated images were also obtained Perfusion SPECT analysis: Review of the stress images demonstrate normal uptake of tracer noted in all areas of the myocardium the resting images similar demonstrate normal uptake of tracer noted in all areas of myocardium. No areas of reversibility are noted suggest ischemia no previous infarct is noted. Gated SPECT analysis: The gated ejection fraction is noted to be 81%. Conclusion: Pharmacologic myocardial perfusion stress test with no evidence of ischemia. Preserved ejection fraction.
== END ==
PROVIDERS: Family Provider Family Medicine; PCP Family Medicine; Referring Provider Internal Medicine Cardiovascular Disease; Visit Provider Internal Medicine Cardiovascular Disease
DX: R93.89 Abnormal findings on diagnostic imaging of other specified body structures (principal); I25.10 Atherosclerotic heart disease of native coronary artery without angina pectoris
CPT/HCPCS: 78452; 93017; A9500; A4216; J2785

== ENCOUNTER 2019-02-16 10:02 | Emergency (ER) | payer MEDICARE, OTHER, SELFPAY ==
[2018-11-24 12:46] VITALS: BMI 42.2
[2019-02-16 10:03] VITALS: BP 163/79; PULSE 94; RESP 16; TEMP 36.4; O2SAT 97; BMI 41.1
--- NOTE | 2019-02-16 10:06 | EKG12_ITS ---
Test Reason : Blood Pressure : / mmHG Vent. Rate : 066 BPM Atrial Rate : 066 BPM P-R Int : 160 ms QRS Dur : 080 ms QT Int : 382 ms P-R-T Axes : 067 019 041 degrees QTc Int : 400 ms Normal sinus rhythm Normal ECG Confirmed by DORA CLEMENTE, ARTEM ([id number]), purchasing expeditor CESAR JORDAN ([id number]) on 02/21/2019 11:43:38 AM Referred By: DIEGO Confirmed By:JHON JOHN MD
--- NOTE | 2019-02-16 10:07 | CT_ITS ---
STUDY: CT ABDOMEN AND PELVIS WITHOUT CONTRAST REASON FOR EXAM: Female, 78 years old. One-week history of abdominal pain and constipation. RADIATION DOSAGE (If Supplied By Facility): CTDIvol = ( 22.16 ) mGy, DLP = ( 1013.21 ) mGycm TECHNIQUE: Transaxial images were obtained from the dome of the diaphragm to the symphysis pubis without oral contrast, and without intravenous contrast. Sagittal and coronal images were reconstructed. Individualized dose optimization techniques were used for this CT. COMPARISON: Comparison is made with prior study dated November 13, 2015. FINDINGS: 1.8 cm bulla in the lateral aspect of the left lower lobe. Minimal increased markings at the lung bases suggestive of scarring. The visualized portions of the heart are within normal limits. Normal liver. Calcified granuloma in the inferior medial aspect of the right lobe of the liver. Normal gallbladder and extrahepatic biliary system. Normal spleen. Normal pancreas. Normal bilateral adrenal glands. Normal right kidney. Normal left kidney. There is a small hiatal hernia. Normal small intestine. There are multiple colonic diverticula consistent with diverticulosis. The patient is status post appendectomy. There is diffuse atherosclerotic calcification of the abdominal aorta and its major visceral branches, without a demonstrated aneurysm. Normal inferior vena cava. Normal retroperitoneum. Normal urinary bladder. There is absence of the uterus consistent with a prior hysterectomy. There is a small umbilical hernia containing fat. Mild disc space narrowing and disc degeneration at the L5-S1 CT/Abdomen/Pelvis without Cont IMPRESSION: Scattered sigmoid diverticula. Electronically Signed: Yovanny Doran, at 12:08 EST , Service support ,
[2019-02-16 10:33] LABS: Absolute Lymphocyte Count 2.84 X10^3/uL (0.83-4.51); Absolute Neutrophil Count 4.7 X10^3/uL (2.0-7.7); Basophil# 0.03 X10^3/uL; Basophil% 0.4 % (0-1); Eosinophils% 1.2 % (0-5); Hematocrit 42.9 % (37-47); Hemoglobin 14.3 g/dL (12.0-15.0); Lymphocyte # 2.84 X10^3/ul (4.0); Lymphocyte % 33.2 % (19-41); Mean Corp Hgb Conc 33.3 g/dL (32-36); Mean Platelet Vol. 9.7 fl (6.2-12.0); Monocyte# 0.83 X10^3/uL; Monocyte% 9.7 % (0-10); NRBC Flagged by Analyzer 0 % (0-5); Neutrophil # 4.73 X10^3/uL (2.7-7.7); Neutrophil % 55.3 % (47-70); Platelet Count 199 K/mm3 (150-450); RBC Distribution Width CV 13.2 % (11.6-14.6); RBC Distribution Width SD 47.2 fl (35.1-43.9); Red Blood Count 4.47 M/mm3 (4.2-5.4); White Blood Count 8.6 K/mm3 (4.4-11.0)
[2019-02-16] MEDS: Ondansetron 4 MG/2 ML Vial IV (10:50)
[2019-02-16] MEDS: 0.9% Normal Saline 1,000 ML 125 ML IV (10:50)
[2019-02-16] MEDS: morphine 8 MG/ML Syringe IV (10:52)
[2019-02-16 11:04] LABS: Bacteria 0 SEEN /hpf (None Seen); Mucous, Urine 0 SEEN /hpf (<or=2+); Red Blood Cells-Urine 0 SEEN /hpf (0-5); Squamous Epithelial Cells - UA 0 SEEN /hpf (5-10)
[2019-02-16 11:08] LABS: Color, Urine Yellow (Yellow); Glucose, Dipstick Normal (Normal); Ketone-Dipstick Negative (Negative); Leukocyte Esterase-Dipstick 25 /ul (Negative); Nitrite-Dipstick Negative (Negative); Occult Blood-Urine Negative /ul (Negative); Protein-Dipstick Negative (Negative); Urine Bilirubin Dipstick Negative (Negative); Urine Clarity Sl. Cloudy (Clear); Urine Urobilinogen Normal (Normal); Urine pH 6.5 (5.0 - 8.0)
[2019-02-16 11:14] LABS: ALB/GLOB Ratio 1.2 RATIO (0.9-2.4); AST(SGOT) 11 U/L (15-37); Alanine Aminotransfer ALT/SGPT 17 U/L (13-56); Albumin, Serum 3.7 g/dL (3.2-5.0); Alkaline Phosphatase 83 U/L (45-117); Anion Gap 5 (5-15); BUN 17 mg/dL (7-18); BUN/Creat Ratio 16.5 RATIO (10-20); Calcium,Total 9.1 mg/dL (8.5-10.1); Chloride 104 mmol/L (98-107); Creatinine, Serum 1.03 mg/dL (0.55-1.02); EST Glomerular Filtration Rate 55 mL/min (>60); Est Glom Filt Rate - Afr Amer 66 mL/min (>60); Estimated Creatinine Clearance 34.45 ml/min; Globulin 3.2 g/dL (2.2-4.2); Glucose 92 mg/dL (74-106); Lipase 321 U/L (73-393); Potassium 3.5 mmol/L (3.5-5.1); Protein, Total 6.9 g/dL (6.4-8.2); Sodium Level 141 mmol/L (136-145)
[2019-02-16 11:23] LABS: White Blood Cells 0-5 SEEN /hpf (0-5)
[2019-02-16 12:11] VITALS: BP 113/58
--- NOTE | 2019-02-16 12:40 | US_ITS ---
STUDY: ABDOMINAL ULTRASOUND - RIGHT UPPER QUADRANT REASON FOR VISIT: Female, 78 years old one week history of right-sided abdominal pain. TECHNIQUE: Ultrasound evaluation of the right upper quadrant was performed with real-time and static ariza-scale imaging. TECHNICAL QUALITY: Adequate. COMPARISON: Comparison is made with prior CT scan abdomen and pelvis done earlier in the day. FINDINGS: Liver: The liver is slightly enlarged and measures 18.2 cm. There is increased echogenicity consistent with fatty infiltration. The bile ducts are within normal limits. There is hepatic color flow. The direction of portal flow is hepatopetal. There is no demonstrated mass lesion. Gallbladder: Normal distended gallbladder. The gallbladder wall measures 2.6 mm. There is a negative sonographic Guillaume''s sign. There is no pericholecystic fluid. There are no gallstones. There are 2 tiny polyps secondary to the gallbladder wall. The largest measures 5 mm x 4 mm x 5 mm. Common Bile Duct (C.B.D.): The common bile duct measures 3.9 mm. Pancreas: There is nonvisualization of the pancreas due to overlying bowel gas. Right Kidney: Normal size of the right kidney. The right kidney measures 10.6 cm x 5.4 cm by 5.0 cm. Normal renal cortex. The right cortex measures 1.3 cm. There is no demonstrated renal mass or cyst. There is no right hydronephrosis. US/Abdomen Limited IMPRESSION: Mild hepatomegaly and fatty infiltration of the liver. Electronically Signed: Yovanny Doran, at 13:46 EST , Service support ,
--- NOTE | 2019-02-16 13:59 | ED.VIS.GEN ---
History of Present Illness Chief Complaint: Abd Pain Informant: Patient Onset: Days Maximum Severity: Mild Narrative: Patient's had some abdominal pain mostly to the right flank for some time no improvement no fever no cough no history of any type of GI element eating and drinking well, bowel and bladder habits have been normal no fever fever cough or chest pain she indicates her physicians planning on doing some studies she came in for evaluation Past Medical History - Allergies and Home Meds Allergies/Adverse Reactions: Allergies No Known Allergies Allergy (Verified 11/24/18 12:47) Primary Care Physician: Barry Wooten MD [Primary Care Provider] - Past Medical History: - Surgical History: hysterectomy, - - Tubal ligation; hemorrhoids removal Smoking Status: Current every day smoker Review of Systems ROS: - Clues as above General: Denies: Chills, Fever, Sweats Eyes: Denies: Visual changes - bilaterally, Diplopia ENT: Denies: Rhinorrhea, Sore throat Cardiovascular: Denies: Chest pain, Palpitations Respiratory: Denies: Dyspnea, Cough, Dyspnea on exertion Gastrointestinal: Reports: Abdominal pain. Denies: Nausea, Vomiting, Diarrhea, Melena, Hematochezia Genitourinary: Denies: Dysuria, Hematuria, Frequency Musculoskeletal: Denies: Back pain, Extremity Pain Skin: Denies: Rash, Wounds Neurological: Denies: Headache, Weakness, Numbness Physical Exam Vital Signs/Narrative: Vital Signs Temp Pulse Resp BP Pulse Ox 02/16/19 12:11 113/58 L 02/16/19 10:03 97.6 F L 94 16 163/79 H 97 General: Well nourished, Well developed, No Acute Distress Head: Normocephalic, Atraumatic Eyes: Perrl, EOMI ENT: Moist mucous membranes, No rhinorrhea Neck: Supple, Nontender Cardiovascular: Regular rate, Regular rhythm, No murmurs Respiratory: No distress, CTA bilaterally, Chest nontender Abdomen: Soft, Nontender, Nondistended, Normal bowel sounds, - - Some mild pain to the right side abdomen that seems to go slightly to the flank there is no rebound guarding organomegaly the pain is very nonspecific Back: Nontender, Normal Inspection Extremities: Nontender, No edema Skin: Normal color, No rash Neurological: Alert, Oriented x3, Cranial nerves II-XII grossly intact, Normal Strength, Normal Sensation Psychological: Normal affect, Normal Mood Diagnostic/Tx/Re-eval - Medical Decision Making Given all the above and her age screening labs are obtained UA, abdominal pelvic CT, all of the studies are generally unremarkable to those reports because of the predominance of the pain being to the right side right upper quadrant ultrasound was also done that was negative for all see that report she has seen GI in the distant past had colonoscopies that showed polyps Plan for the exact etiology of the above is unclear she is comfort discharge home she will use Tylenol or Motrin for the pain and follow-up with her outpatient providers for further management and possibly even to be referred to GI Home stable Final impression right-sided abdominal pain etiology unclear ED Disposition - Plan for ED Patient: Diagnosis: Abdominal pain Instructions: ABDOMINAL PAIN, Unknown Cause, (Female) Prescriptions: Naproxen [Naprosyn] 500 mg PO BID PRN #20 tab Prescription Printed Referrals: Barry Wooten MD [Primary Care Provider] -
== END 2019-02-16 14:29 | disposition home or self-care (01) ==
LOC: ED 10:18
PROVIDERS: Emergency Provider Emergency Medicine; Family Provider Family Medicine; PCP Family Medicine
DX: R10.9 Unspecified abdominal pain (principal); F17.200 Nicotine dependence, unspecified, uncomplicated
CPT/HCPCS: 74176; 76705; 80053; 81001; 83690; 84484; 85025; 93005; 96361; 96374; 96375; 99284; J7030; A4216; J2405

== ENCOUNTER 2019-05-02 13:53 | Day surgery (SDC) | payer MEDICARE, OTHER, SELFPAY ==
[2019-03-25 10:33] VITALS: BMI 41.7
--- NOTE | 2019-05-01 10:17 | PCM.HP.BLA ---
History and Physical Date of Admission: 05/02/19 Gloria Gary 1940 ? ? REFERRING PHYSICIAN: Kelin Blakely APRN.C* ? CHIEF COMPLAINT: abdominal pain ? HPI: The patient is a 78 year old female presents with right upper quadrant abdominal pain. She describes this as a sharp pain but most times it is a severe dull ache. It radiates around the right side to the back. She has noted this for about 4 months. When pressure is applied to the area, she notes more pain. Denies nausea and emesis. Denies constipation or diarrhea. Denies fevers. She does have COPD, followed by Dr. Hobbs and wears CPAP at night. She continues to smoke cigarettes. She underwent the following workup - CT scan ? small hiatal hernia, s/p appy, s/p hysterectomy, small UHR US abdomen ? possible two tiny polyps 02/16/19 HIDA scan low EF04/14/2019, EF 19% ?? PAST MEDICAL HISTORY ? Benign neoplasm of colon 03/04/2005 ? hyperplastic ? COPD (chronic obstructive pulmonary disease) (HCC) ? ? Diverticulosis of colon (without mention of hemorrhage) ? ? Internal hemorrhoids without mention of complication ? ? NELLIE (obstructive sleep apnea) ? ? with O2 ? Other and unspecified hyperlipidemia 03/04/2005 ? Tobacco use disorder ? PAST SURGICAL HISTORY ? COLONOSCOP W/ OR W/O [facility] SPEC ? 07/17/2003 ? Colonoscopy ? COLONOSCOPY W/BX ? 05/30/07 ? CYSTOSCOPY ? 11/27/2015 ? w/lithotripsy ? DESTRUCTION HEMORRHOIDS,INT/CATCHER FILTER TIP ? 1974? ? ESWL ? 1985 ? TOTAL ABDOM HYSTERECTOMY ? 1979 ? Hysterectomy, WILLY Current Outpatient Medications ? pantoprazole DR (PROTONIX) 20 mg tablet Take 1 tablet by mouth daily before breakfast. Take on empty stomach, 1/2 hr before ? sucralfate (CARAFATE) 1 gram tablet Take 1 tablet by mouth before meals and at bedtime. ? docusate sodium (STOOL SOFTENER ORAL) Take 1 tablet by mouth twice daily. ? furosemide (LASIX) 20 mg tablet Take 1 tablet by mouth once daily. May increase to 2 tablets once daily for increased ? Lovastatin (MEVACOR) 40 mg tablet Take 1 tablet by mouth daily at bedtime. ? lisinopril (ZESTRIL, PRINIVIL) 20 mg tablet Take 1 tablet by mouth once daily. ? montelukast (SINGULAIR) 10 mg tablet Take 1 tablet by mouth daily at bedtime. ? CHANTIX STARTING MONTH BOX 0.5 mg (11)- 1 mg (42) tablet as directed. ? POTASSIUM-99 ORAL Take by mouth four times a week. ? calcium carbonate 600 mg-cholecalciferol 200 units (CALCIUM 600 + D,3,) 600 mg(1,500mg) -200 unit tab Take 1 tablet ? umeclidinium-vilanterol (ANORO ELLIPTA) 62.5-25 mcg/actuation inhaler Inhale 1 Inhalation as instructed once daily. ? Cholecalciferol, Vitamin D3, 1,000 unit ORAL Cap Take 1 capsule by mouth once daily. ? aspirin(ECOTRIN LOW STRENGTH 81 MG TAB) Take one(1) tablet daily. ? albuterol sulfate/ipratropium(COMBIVENT 18 MCG-103 MCG/ACTUATION AEROSOL INHALER) Take two(2) puffs four(4) ? ? ALLERGIES: Metal [Other] ? PERSONAL HISTORY: Tobacco Use ? Smoking status: Current Every Day Smoker ? ? Packs/day: 0.50 ? ? Years: 52.00 ? ? Pack years: 26.00 ? ? Types: Cigarettes ? Smokeless tobacco: Never Used Substance Use Topics ? Alcohol use: No ? Drug use: No FAMILY HISTORY ? Cancer Mother? uterine ? Cancer Father? pancreatic ? Cancer Brother? pancreas ? Cancer Sister? breast ? Cancer Sister? lung ? Cancer Sister lung ? Heart Brother also alcoholic ?? Nursing Notes: Su Lerma RN 04/21/2019 2:09 PM Signed REVIEW OF SYSTEMS: General: The patient denies fatigue, denies weight loss, denies weight gain, denies feeling hot, and denies feelings of cold. Eyes: The patient denies glaucoma, denies eye injury/surgery, wears glasses or contacts. Ear/Nose/Throat: The patient denies allergies, denies hayfever, denies ear infections, and denies bloody noses. Cardiovascular: The patient denies chest pain, denies heart disease, notes high blood pressure,denies cardiac stent, denies prior heart attack, denies irregular heart beat, notes high cholesterol, denies poor circulation, denies heart failure, other cardiac issues, denies claudication, denies cold feet, denies peripheral arterial stent. Respiratory: The patient denies tuberculosis, denies pneumonia, denies frequent cough, denies pulmonary embolism, notes shortness of breath, and denies coughing up blood. Gastrointestinal: The patient denies difficulty swallowing, denies acid reflux, denies ulcers, denies vomiting, denies jaundice/hepatitis, denies gallbladder problems, denies black or tarry stools, denies hemorrhoids, denies bleeding from rectum, denies diverticulitis, denies constipation, denies diarrhea, denies loss of stool control, and denies hernias. Kidney/Bladder: The patient denies kidney stones, denies urine infections, and denies bloody urine. Skin: The patient denies a history of skin cancer, denies bleeding/changing moles, and denies a history of skin rash. Neurologic: The patient denies a history of epilepsy/convulsions, denies headaches, denies head/spinal injuries, and denies stroke/TIA. Psychiatric: The patient denies psychiatric medications, denies depression, and denies voices, denies substance abuse. Endocrine: The patient denies thyroid disorders, denies diabetes, and denies hormonal problems. Hematologic: The patient denies a history of bruising, denies bleeding, and denies anemia, denies blood clots. Infections: The patient denies a history of measles and mumps, denies rheumatic fever, and denies sexually transmitted diseases. Musculoskeletal: The patient denies back pain/injury, notes back problems, denies sciatica, denies knee/foot trouble, denies arthritis, or denies gout. ? PHYSICAL EXAMINATION: General: The patient is 78 year old female, well nourished, well hydrated in no acute distress. The patient is oriented to time, place, and person. VITALS: Blood pressure 142/72, pulse 111, temperature 36.3 ?C (97.4 ?F), temperature source Temporal Artery, height 158.8 cm (5' 2.5), weight 103.9 kg (229 lb), SpO2 94 %. Body mass index is 41.22 kg/m?. Head ? Normocephalic. EOM intact with sclera clear and no icterus noted. Mouth with mucus membranes moist. Neck - supple with no jugular venous distention noted. Trachea is midline. Lungs ? clear to auscultation. Normal breath sounds. No rales/rhonchi/wheezing noted. No labored breathing noted, such as retractions. No cough heard. Heart ? normal S1 and S2 auscultated. No rubs/clicks/murmurs noted. Regular rate. Abdomen ? soft and benign. Normal bowel sounds. No abdominal bruits noted. Difficult to determine if any masses or organomegaly due to body habitus. Extremities ? no calf tenderness noted. No pitting edema noted. Skin ? normal skin integrity. Neurological ? gait normal, no focal deficits noted. Psych ? calm and appropriate RADIOLOGIC STUDIES: As Noted ?? IMPRESSION: right upper quadrant abdominal pain, morbid obesity ? PLAN: I have discussed the above with the patient. I have offered laparoscopic cholecystectomy, possible cholangiograms, to patient. I have explained the procedure to the patient. I have counseled the patient as to the risks of the procedure, including but not limited to: infection, bleeding, injury to any blood vessels/nerves, scar tissue, injury to any intrabdominal organs, injury to bowel/bladder, injury to the common bile duct/biliary tree, bile leakage, intraabdominal abscess/bleeding, hernias at incisional sites, wound infections, complications of anesthesia, non resolution of symptoms, etc. ? the patient understands. The patient wishes to proceed. I have answered all questions to the patient?s satisfaction and the patient has no further questions. . Return to Clinic: The patient is instructed to follow-up with me after the procedure. ? ? Tatiana Miranda MD
[2019-05-02] VITALS (8 sets, daily range): BP systolic 112–144; BP diastolic 47–105; PULSE 69–94; RESP 16–18; TEMP 36.3–37.1; O2SAT 93–97; BMI 41.3
--- NOTE | 2019-05-02 13:55 | EKG12_ITS ---
Test Reason : PREOP Blood Pressure : / mmHG Vent. Rate : 088 BPM Atrial Rate : 088 BPM P-R Int : 154 ms QRS Dur : 066 ms QT Int : 364 ms P-R-T Axes : 055 006 036 degrees QTc Int : 440 ms Normal sinus rhythm Normal ECG When compared with ECG of 16-FEB-2019 10:31, No significant change was found Confirmed by SHELLEY CLEMENTE, PITO ([id number]), editor farm journal DESMOND PEDROZA ([id number]) on 05/09/2019 4:10:35 PM Referred By: Tatiana Miranda Confirmed By:PITO ROSA MD
--- NOTE | 2019-05-02 14:39 | PCM.DC.GB ---
Discharge Diet: No Restrictions - avoid carbonated beverages for a couple of days drink plenty of fluids, like water Discharge Activity: Return to Normal Activity, May not drive while taking narcotic pain medications. Lifting Restrictions: no lifting greater than 10 pounds for two weeks Call your doctor if your incision/area has: Continuous Slow Oozing, Foul Smelling Discharge Call your doctor if you observe: Fever of 101 or Higher Additional Dressing/Incision Instructions:: Leave dressings in place. May get wet in shower. Do not soak - no tub baths/swimming Additional Instructions: Recommended pain medication regimen - take 650 mg acetaminophen then in 3-4 hours take 600 mg ibuprofen, then in 3-4 hours take 650 mg acetaminophen, then in 3-4 hours take 600 mg ibuprofen and so on for 2-3 days take narcotic prescription pain medication for severe pain (beyond what is controlled by above) and at night Allergies/Adverse Reactions: Allergies No Known Allergies Allergy (Verified 05/02/19 14:16) Medications to take at Discharge Aspirin [Aspirin, Baby] 81 mg PO DAILY@199911/13/15 Calcium Carbonate 600 mg PO DAILY 02/12/18 Lovastatin [Mevacor] 40 mg PO QHS 02/12/18 cholecalciferol (vitamin D3) 25 mcg (1,000 unit) capsule 1,000 unit PO DAILY 11/23/18 potassium gluconate 595 mg (99 mg) tablet 595 mg PO MOWEFR 11/23/18 furosemide 20 mg tablet 20 mg PO DAILY tab 11/24/18 Montelukast [Singulair] 10 mg PO QHS 02/16/19 Pantoprazole Sodium [Protonix] 20 mg PO DAILY 02/16/19 docusate sodium 100 mg capsule 100 mg PO BID 03/25/19 sucralfate 1 gram tablet 1 g PO QACHS PRN 03/25/19 Fluticasone/Umeclidin/Vilanter [Trelegy Ellipta 100-62.5-25] 1 ea IH DAILY 04/29/19 Ipratropium/Albuterol Respimat [Combivent Respimat Inhal [place]] 2 puff INHALATION PRN PRN 04/29/19 Lisinopril 20 mg PO X1 04/29/19 Primary Care Physician: Barry Wooten MD [Primary Care Provider] - Test Results: Test results from this visit will be discussed in further detail at your follow-up appointment, if applicable. Please Follow Up With: Tatiana Miranda MD - call When: to be seen in 7-10 days, please mahesh for date and time, thank you
[2019-05-02] MEDS: Lactated Ringers 1,000 ML 75 ML IV ×2 (14:44→16:20)
--- NOTE | 2019-05-02 15:30 | GALL_PTH ---
PATIENT: DWIGHT MEDEIROS [place] [facility] [place][id number] AGE/SX: 78/F ROOM: RE05/02/[address]: Dr. Tatiana Miranda MD : [id number] BED: DIS: 05/02/2019 SPEC #: [id number] RECD: 05/02/19 16:39 STATUS: LYN VANCE #: [id number] ESHA: 05/02/19 15:[address]: Tatiana Miranda DEPT: SURGICAL PATHOLOGY RECD BY: Farhat Geiger ENTERED: 05/03/19 08:15 SP TYPE: FER BOWENS DR: Dr. Barry Wooten MD Tissues: Gallbladder, NOS Procedures: Surgery Specimen Level III HEADER OPERATION: Laparoscopic cholecystectomy with IOC PRE-OP DIAGNOSIS: Right upper quadrant abdominal pain, biliary dyskinesia TISSUE SUBMITTED: Gallbladder and contents MICROSCOPIC DIAGNOSIS Gallbladder and contents, cholecystectomy: Chronic cholecystitis and focal cholesterolosis. No stones are identified in the container or in the gallbladder. SJ:sandra 05/04/19 MICROSCOPIC DESCRIPTION Slides are reviewed. GROSS DESCRIPTION Received is one container labeled with the patient's name and designated gallbladder and contents. The specimen consists of a gallbladder measuring 6.5 cm in length and 3 cm in diameter. The external surface is pink-españa, smooth and glistening for the most part. Focally it is granular, hemorrhagic and contains cautery artifact. The gallbladder contains green-yellow mucoid bile. No stones are identified in the container or in the gallbladder. The mucosa is bile-stained and without any mass lesions. The gallbladder wall measures up to 0.3 cm in thickness. An increased amount of subserosal fat is noted. Publications Designer sections from the gallbladder and the cystic duct are submitted in one cassette. / KEREN:sandra 05/03/19 TC:3 CPT: 68965
--- NOTE | 2019-05-02 15:50 | RAD_ITS ---
STUDY: INTRAOPERATIVE CHOLANGIOGRAM. REASON FOR EXAM: Female, 78 years old. LAP JEANE -- 7 FLUORO SEC, 2.23mGy, 1 FLUORO IMAGE FLUOROSCOPY TIME (if supplied): ( 7 seconds ) minutes/seconds TECHNIQUE: An intraoperative cholangiogram was performed by the surgeon. A single image was submitted. COMPARISON: None. FINDINGS: The common bile duct is unremarkable. No intraluminal filling defect is seen. RAD/Cholangiogram/ O R,Initial IMPRESSION: The common bile duct is unremarkable. Electronically Signed: Yovanny Doran, at 8:33 EST , Service support ,
[2019-05-02] MEDS: Bupiv/Epi 0.25% 30 ML Vial (16:17)
--- NOTE | 2019-05-02 16:24 | OP.PCM_ITS ---
Report of Operation Date of Procedure: 05/02/19 Pre-Operative Diagnosis: right upper quadrant abdominal pain, abnormal HIDA scan Post-Operative Diagnosis: same as above Surgery/Procedure Performed:: laparoscopic cholecystectomy with cholangiograms Description of Surgical Findings:: no lesions in common bile duct it network architect: Lauri Roman Anesthesiologist: Jurgen Mims Specimen's removed: gallbladder and contents Drains: none Estimated Blood Loss (mL): < 10 ml Fluids Replaced: see anesthesia note Description of Procedure: After informed consent was given, the patient was brought to the Operating Room. Appropriate time out protocol was followed. She was then placed in the supine position. The patient was then placed under general endotracheal anesthesia. The abdomen was then prepped with a sterile surgical skin preparation and sterile surgical drapes were placed. The skin fold euperior to the umbilicus was grasped with penetrating clamps and the skin and subcutaneous tissues were infiltrated with 0.25% marcaine with epinephrine. A skin incision was then made with a 15 blade scalpel. The anterior abdominal wall was elevated and a Veress needle was carefully inserted into the intraabdominal cavity. It was checked to be in the proper position with a normal saline drop test. A CO2 pneumoperitoneum was then created. Once this was achieved, then the Veress needle was removed and an 11mm trocar was placed in its stead. A 10mm laparoscope was then inserted into the trocar and careful attention was directed to the intraabdominal contents. There was no evidence of injury to any intraabdominal organs from insertion of the Veress needle or the trocar. Under direct visualization, a 5mm subxiphoid trocar and two lateral 5mm right subcostal trocars were placed. The skin and subcutaneous tissues at these sites were infiltrated with 0.25% marcaine with epinephrine prior to placement of these trocars. Attention was then directed to the right upper quadrant of the abdomen. Graspers were placed in the lateral trocars to grasp the distal aspect of the gallbladder and direct it cephalad and to grasp the gallbladder at Antony?s pouch and direct it laterally. There was some omental adhesions to the free surface of the gallbladder. These were taken down by electrocautery. Dissection then began on the proximal gallbladder continuing down to the area of the triangle of Calot to bluntly dissect out the cystic duct. The critical angl e was delineated. The neck of the gallbladder was identified and blunt dissection continued to dissect out a segment of the cystic duct. A clip was then placed on the neck of the gallbladder. A small ductotomy was then made. A Ranfac catheter was brought in through a separate skin incision and placed into the cystic duct. An intraoperative cholangiogram was performed under fluoroscopy. The xray revealed no lesions in the common bile duct and flow into the duodenum. The Ranfac catheter was then removed and two clips were placed proximal to the ductotomy and the cystic duct was then transected. The cystic artery was visualized and bluntly isolated and then two clips were placed proximally and one clip distally and then it was transected between the proximal and distal clips. The gallbladder was then from the liver bed using electrocautery. It was thus able to be brought out of the umbilical port in an Endobag. It was then forwarded to pathology for analysis. The liver bed was carefully examined. There was no evidence of bile leakage or bleeding. The cystic duct stump and cystic artery stump had their clips intact and there was no evidence of bile leakage or bleeding. The remainder of the abdomen was grossly normal. The CO2 was released and all trocars removed intact. The periumbilical fascia was approximated with a [id number] 0 vicryl suture. All skin incision were closed with 4-0 monocryl in a subdermal fashion. Cavilol and Steristrips were used to reinforce the skin closure. Sterile dressings were applied to all wounds. The patient was extubated and brought to the Recovery Room in stable condition. - Complications none noted - Admit VTE Documentation VTE Present on Admission: Yes VTE Mechan Device Prophylaxis: SCD's
[2019-05-02] MEDS: Ipratropium/Albuterol Sulfate 3 ML AMPUL.NEB INHALATION (17:10)
== END 2019-05-02 18:27 | disposition home or self-care (01) ==
LOC: SDC 13:54 → AC 13:57
PROVIDERS: PCP Family Medicine; Referring Provider Surgery; Visit Provider Surgery
PROC: (CPT 47610; principal; 2019-05-02 15:10)
DX: K81.1 Chronic cholecystitis (principal); J44.9 Chronic obstructive pulmonary disease, unspecified; I11.0 Hypertensive heart disease with heart failure; I50.9 Heart failure, unspecified; E78.00 Pure hypercholesterolemia, unspecified; K57.30 Diverticulosis of large intestine without perforation or abscess without bleeding; G47.33 Obstructive sleep apnea (adult) (pediatric); Z78.0 Asymptomatic menopausal state; Z87.442 Personal history of urinary calculi; Z79.82 Long term (current) use of aspirin; Z79.899 Other long term (current) drug therapy; F17.210 Nicotine dependence, cigarettes, uncomplicated
CPT/HCPCS: 00790; 47563; 74300; 76000; 88304; 93005; 94640; J7120; J2405

== ENCOUNTER → 2019-11-16 13:51 | Outpatient (CLI) | payer MEDICARE, OTHER, SELFPAY ==
[2019-11-03 11:34] VITALS: BMI 40.6
--- NOTE | 2019-11-16 13:52 | ECHOCS_ITS ---
Reason For Study: Murmur Procedure This was a 2D Doppler, Color Flow transthoracic echocardiogram. Technically difficult study due to patient body habitus. Exam performed in department. Left Ventricle Normal LV size. Left ventricular systolic function is normal. The estimated ejection fraction is 65 %. Stage 1 diastolic dysfunction. No regional wall motion abnormalities noted. Right Ventricle Normal RV size. Normal systolic function. Atria Normal left atrium. Normal right atrium. Mitral Valve Normal mitral valve. Tricuspid Valve Normal tricuspid valve. Aortic Valve The aortic valve is not well visualized. Pulmonic Valve Normal pulmonic valve. Great Vessels Normal aortic root. The pulmonary artery is normal size. Normal inferior vena cava. Pericardium/Pleural No pericardial effusion. Medication 22 gauge I.V. with prn adaptor inserted into left arm. Diluted definity 2ml given slow IV push to enhance endocardial definition. MMode/2D Measurements & Calculations LVIDd: 3.6 cm IVSd: 1.9 cm LVOT diam: 2.0 cm LVIDs: 1.8 cm LVPWd: 1.4 cm FS: 49.3 % LVOT area: 3.1 cm2 Ao root diam: 2.8 cm LAV(MOD-bp): 44.2 ml LA A4 area: 15.4 cm2 LAV(MOD-bp) Indexed: 22.1 ml/m2 LAV(MOD-sp2): 45.9 ml LAV(MOD-sp4): 40.8 ml Time Measurements MV dec time: 0.18 sec Doppler Measurements & Calculations MV E max nishant: 78.2 cm/sec Lat Peak E' Nishant: 2.8 cm/sec Med Peak E' Nishant: 6.3 cm/sec MV A max nishant: 151.5 cm/sec E/E' lat: 28.2 E/E' med: 12.5 MV E/A: 0.52 MV V2 max: 145.7 cm/sec MV P1/2t max nishant: 100.4 cm/sec Ao V2 max: 183.5 cm/sec MV max P.5 mmHg MV P1/2t: 58.9 msec Ao max P.5 mmHg MV V2 mean: 80.6 cm/sec MV dec slope: 499.7 cm/sec2 Ao V2 mean: 119.0 cm/sec MV mean P.1 mmHg Ao mean P.8 mmHg MV V2 VTI: 25.5 cm MVA(P1/2t): 3.7 cm2 Ao V2 VTI: 30.2 cm MVA(VTI): 2.7 cm2 ABBI(I,D): 2.3 cm2 ABBI(V,D): 2.5 cm2 LV V1 max: 150.9 cm/sec SV(LVOT): 69.8 ml PA V2 max: 149.1 cm/sec LV V1 max P.1 mmHg LV V1 mean P.5 mmHg LV V1 mean: 95.4 cm/sec LV V1 VTI: 22.9 cm Interpretation Summary Normal LV size. Left ventricular systolic function is normal. The estimated ejection fraction is 65 %. Stage 1 diastolic dysfunction. Contrast injection was performed. Ordering Physician: Mustapha Contreras Referring Physician: MD Je Barry Performed By: Rodolfo Vitale, [facility] [[email or web address]]
== END ==
PROVIDERS: PCP Family Medicine; Referring Provider Internal Medicine Cardiovascular Disease; Visit Provider Internal Medicine Cardiovascular Disease
DX: I25.10 Atherosclerotic heart disease of native coronary artery without angina pectoris (principal)
CPT/HCPCS: 93306; Q9957; A4216; C8929

== ENCOUNTER 2020-08-23 13:18 | Inpatient (IN) | payer MEDICARE, OTHER, SELFPAY ==
[2020-05-03 11:11] VITALS: BMI 39.6
[2020-08-23] VITALS (13 sets, daily range): BP systolic 103–146; BP diastolic 49–116; PULSE 89–113; RESP 16–26; TEMP 36.8–36.9; O2SAT 81–98; BMI 40.6
--- NOTE | 2020-08-23 13:28 | EKG12_ITS ---
Test Reason : SOB Blood Pressure : / mmHG Vent. Rate : 096 BPM Atrial Rate : 096 BPM P-R Int : 150 ms QRS Dur : 082 ms QT Int : 356 ms P-R-T Axes : 056 011 046 degrees QTc Int : 449 ms Normal sinus rhythm Normal ECG Confirmed by SHELLEY CLEMENTE, PITO ([id number]), editor farm journal CESAR JORDAN ([id number]) on 08/24/2020 1:02:35 PM Referred By: MARTINE Confirmed By:PITO ROSA MD
[2020-08-23] MEDS: Ipratropium/Albuterol Sulfate 3 ML AMPUL.NEB INHALATION ×2 (13:41→20:34)
--- NOTE | 2020-08-23 13:52 | EDS_ITS ---
HPI History of Present Illness Chief Complaint: Shortness of Breath Informant: patient Narrative Narrative: Patient is a 80-year-old female with a past medical history of hypertension, hyperlipidemia, COPD who presents to the emergency department for shortness of breath. She has had a productive cough. She denies any fevers or chills. Her daughter who is at bedside believes she gave her her cold-like symptoms. She only wears oxygen at nighttime. She states she has had pneumonia before in the past and this feels very similar. She has been vaccinated for Covid. She denies any significant increase in the swelling of her legs or any pain in her cast. She has no history of CHF or DVT/PE. She denies any abdominal pain or nausea/vomiting. No change in bowel movements. PFSH PFSH Medical History Chronic respiratory failure with hypoxia COPD (chronic obstructive pulmonary disease) CPAP (continuous positive airway pressure) dependence Essential (primary) hypertension Kidney stones Nicotine dependence Obesity On home oxygen therapy NELLIE on CPAP Osteoporosis Sleep apnea Smoker Home Medications aspirin 81 mg PO DAILY@199911/13/15 [History Last Taken 08/22/20] calcium carbonate 600 mg PO DAILY 02/12/18 [History Last Taken 08/23/20] lovastatin 40 mg PO QHS 02/12/18 [History Last Taken 08/22/20] cholecalciferol (vitamin D3) 25 mcg (1,000 unit) capsule 1,000 unit PO DAILY 11/23/18 [History Last Taken 08/23/20] docusate sodium 100 mg capsule 100 mg PO BID PRN 03/25/19 [History Last Taken 08/22/20] [id number] 1 ea IH DAILY 04/29/19 [History Last Taken 08/23/20] furosemide 20 mg tablet 40 mg PO DAILY tab 11/03/19 [History Last Taken 08/22/20] lisinopril 20 mg tablet 20 mg PO DAILY tab 11/03/19 [History Last Taken 08/22/20] potassium gluconate 595 mg (99 mg) tablet 595 mg PO DAILY tab 11/03/19 [History Last Taken 08/22/20] Allergy/AdvReac Type Severity Reaction Status Date / Time No Known Allergies Allergy Verified 05/03/20 11:09 Family History Father Pancreatic cancer Brother Pancreatic cancer Sister Lung cancer Brother Alcohol abuse Myocardial infarction Sister Cancer lung Surgical History History of cholecystectomy (05/2019) History of hemorrhoidectomy History of hysterectomy History of lithotripsy Social History Smoking Status: Current every day smoker tobacco type: cigarettes Tobacco: How many years used: 52 alcohol intake: never substance use type: does not use caffeine: Yes Type: coffee Number of servings: 2 ROS ROS ED Constitutional Constitutional ED: Denies chills or fever(s) Eyes Eyes: Denies change in vision ENT ENT ED: Denies epistaxis or rhinorrhea Cardiovascular Cardiovascular: Denies chest pain or palpitations Respiratory/Chest Respiratory/Chest: Reports cough, dyspnea and sputum Gastrointestinal Gastrointestinal: Denies abdominal pain, diarrhea, nausea or vomiting Genitourinary Genitourinary ED: Denies dysuria, hematuria or urinary frequency Musculoskeletal Musculoskeletal: Denies back pain or neck pain Integumentary Denies rash Neurologic Neurologic: Denies dizziness, headache(s) or weakness EXAM Physical Exam Const Vital Signs: 08/23/20 13:20 08/23/20 13:42 08/23/20 14:03 Temperature 98.4 F Temperature Source Temporal Pulse Rate 113 H 95 Respiratory Rate 26 H 16 Respiratory Effort Short of Breath Respiratory Depth Normal Respiratory Pattern Normal Normal Blood Pressure 146/116 H Blood Pressure Mean 126 Pulse Ox 81 Oxygen Delivery Method Room Air Oxygen Flow Rate (L/min) 08/23/20 14:42 Temperature 98.4 F Temperature Source Oral Pulse Rate 90 Respiratory Rate 20 H Respiratory Effort Respiratory Depth Respiratory Pattern Blood Pressure 103/90 H Blood Pressure Mean 94 Pulse Ox 98 Oxygen Delivery Method Nasal Cannula Oxygen Flow Rate (L/min) 2 Positive well nourished and well developed General Appearance ED: well developed and NAD HEENT Reports normocephalic, head/scalp atraumatic and moist mucous membranes Eyes PERRL and EOMs intact bilaterally Neck no lymphadenopathy and supple General: Negative for tenderness Chest Wall inspection of chest normal Resp Resp Narrative: Mild increased work of breathing. She does have expiratory wheezes diffusely. Auscultation: Negative for rales or rhonchi Cardio regular rhythm and no murmurs Cardio Narrative: Tachycardic GI normal to inspection, nondistended, normoactive bowel sounds and non-tender Palpation: soft; Negative for guarding or rebound tenderness present Back/Spine no CVA tenderness Extremity normal to inspection Extremity Narrative: Edema bilaterally. No calf tenderness. General Extremety ED: Yes edema; Negative for tenderness General Extremity: edema Neuro oriented x3, CN's II-XII intact bilaterally and no sensory deficits noted Sensorium / Orientation: alert Motor Exam: strength 5/5 throughout Psych mental status grossly normal Skin no rashes or lesions noted MDM MDM MDM Narrative Medical decision making narrative: Patient presents to the emergency department for shortness of breath, cough. Upon arrival to the emerge department she is satting 81% on room air. She is tachycardic and tachypneic. She otherwise is afebrile. She does have wheezing heard on physical exam. She does have increased work of breathing. We will give a DuoNeb breathing treatment, check chest x-ray along with lab work, EKG and Covid swab. Patient's Covid swab was negative. Chest x-ray did not reveal any evidence of pneumonia. She has a normal white blood cell count. She is not anemic. Troponin is within normal limits. BNP within normal limits. Will bring her to the hospitalist for COPD exacerbation given her hypoxia. We will give a dose of azithromycin and Solu-Medrol. She understands and is agreeable with plan. She otherwise has been stable throughout ED stay. Lab Data Labs: Laboratory Results - last 24 hr 08/23/20 08/23/20 08/23/20 13:55 13:55 13:55 WBC 6.8 RBC 4.78 Hgb 14.9 Hct 46.1 MCV 96.4 MCH 31.2 MCHC 32.3 RDW Std Deviation 46.8 H RDW Coeff of [place] 13.0 Plt Count 187 MPV 10.2 Immature Gran % (Auto) 0.400 Neut % (Auto) 65.9 Lymph % (Auto) 24.2 [place] % (Auto) 7.8 Eos % (Auto) 1.3 Baso % (Auto) 0.4 Absolute Neuts (auto) 4.5 Absolute Lymphs (auto) 1.64 Nucleated RBC % 0 Sodium 138 Potassium 4.3 Chloride 106 Carbon Dioxide 28.0 Anion Gap 4 L BUN 13 Creatinine 0.88 Estim Creat Clear Calc 37.19 Est GFR (MDRD) Af Amer 80 Est GFR (MDRD) Non-Af 66 BUN/Creatinine Ratio 14.8 Glucose 100 Lactic Acid 0.9 Calcium 9.7 Troponin I High Sens 6.8 B-Natriuretic Peptide 08/23/20 13:55 WBC RBC Hgb Hct MCV MCH MCHC RDW Std Deviation RDW Coeff of [place] Plt Count MPV Immature Gran % (Auto) Neut % (Auto) Lymph % (Auto) [place] % (Auto) Eos % (Auto) Baso % (Auto) Absolute Neuts (auto) Absolute Lymphs (auto) Nucleated RBC % Sodium Potassium Chloride Carbon Dioxide Anion Gap BUN Creatinine Estim Creat Clear Calc Est GFR (MDRD) Af Amer Est GFR (MDRD) Non-Af BUN/Creatinine Ratio Glucose Lactic Acid Calcium Troponin I High Sens B-Natriuretic Peptide 16.4 Radiography Chest X-Ray - ED: 1 View (Single view portable x-ray interpreted by myself. Clear lung johnson bilaterally. No evidence of acute consolidation. Agree with radiologist interpretation.) Diagnostic Testing: Radiology Impression Chest X-Ray 08/23/20 14:05 IMPRESSION: Normal x-ray examination of the chest. Electronically Signed: Modesto Redding, at 14:22 EDT Tel , Service support , EKG Initial EKG: Attestation: I personally reviewed and interpreted this EKG as follows: (Rate of 96 bpm and normal sinus rhythm. Normal intervals. Normal axis. No significant ST elevations or depressions. No T wave abnormalities.) Discharge Plan Dx/Rx/DC Orders Clinical Impression: COPD exacerbation, Hypoxia Disposition Disposition: Acute Care Hospital [facility] Discharge Date/Time: 08/23/20 16:24
--- NOTE | 2020-08-23 14:05 | RAD_ITS ---
STUDY: X-RAY CHEST REASON FOR EXAM: Female, 80 years old. SOB, cough TECHNIQUE: 1 view COMPARISON: 02/12/2018 FINDINGS: The heart and mediastinum are within normal limits. There is haziness involving the medial aspect of the right base this was present before. There is no evidence arash consolidation. The costophrenic angles are clear. No evidence of pneumothorax or pleural effusion RAD/Chest 1 View (Portable) IMPRESSION: Normal x-ray examination of the chest. Electronically Signed: Modesto Redding, at 14:22 EDT Tel , Service support ,
[2020-08-23 14:15] LABS: Absolute Lymphocyte Count 1.64 X10^3/uL (0.83-4.51); Absolute Neutrophil Count 4.5 X10^3/uL (2.0-7.7); Basophil# 0.03 X10^3/uL; Basophil% 0.4 % (0-1); Eosinophil# 0.09 X10^3/uL; Eosinophils% 1.3 % (0-5); Hematocrit 46.1 % (37-47); Hemoglobin 14.9 g/dL (12.0-15.0); Lymphocyte # 1.64 X10^3/ul (0.83-4.51); Lymphocyte % 24.2 % (19-41); Mean Corp Hgb Conc 32.3 g/dL (32-36); Mean Corpuscular Hgb 31.2 pg (27.0-32.0); Mean Corpuscular Volume 96.4 fL (81-99); Mean Platelet Vol. 10.2 fl (6.2-12.0); Monocyte# 0.53 X10^3/uL; Monocyte% 7.8 % (0-10); NRBC Flagged by Analyzer 0 % (0-5); Neutrophil # 4.46 X10^3/uL (2.7-7.7); Neutrophil % 65.9 % (47-70); Platelet Count 187 K/mm3 (150-450); RBC Distribution Width SD 46.8 fl (35.1-43.9); Red Blood Count 4.78 M/mm3 (4.2-5.4); White Blood Count 6.8 K/mm3 (4.4-11.0)
[2020-08-23 14:32] LABS: Anion Gap 4 (5-15); BUN 13 mg/dL (7-18); BUN/Creat Ratio 14.8 RATIO (10-20); Calcium,Total 9.7 mg/dL (8.5-10.1); Chloride 106 mmol/L (98-107); Creatinine, Serum 0.88 mg/dL (0.55-1.02); EST Glomerular Filtration Rate 66 mL/min (>60); Est Glom Filt Rate - Afr Amer 80 mL/min (>60); Estimated Creatinine Clearance 37.19 ml/min; Glucose 100 mg/dL (74-106); Potassium 4.3 mmol/L (3.5-5.1); Sodium Level 138 mmol/L (136-145); Troponin-I HS 6.8 pg/mL (3.0-53.7)
[2020-08-23 14:34] LABS: BNP,B-Type NATRIURETIC PEPTIDE 16.4 pg/mL (0-100)
[2020-08-23 14:44] LABS: Lactic Acid 0.9 mmol/L (0.4-1.9)
[2020-08-23] MEDS: MethylPREDNISolone 125 MG/2 ML Vial IV (15:49)
--- NOTE | 2020-08-23 16:13 | PCM.HP.STD ---
[facility] - General General Date of Admission: 08/23/20 Date of Service: 08/23/20 Chief Complaint: Shortness of breath. HPI Narrative DWIGHT MEDEIROS, is a 80 F with past medical history as mentioned below presented to the emergency room because of shortness of breath. Patient symptoms started around 3 days ago with exertional shortness of breath, starts with moderate exertion, associated with cough with clear sputum as well as significant wheezing and no aggravating or relieving factors. Patient stated that before onset of her symptoms, she had flulike symptoms for couple of days. She denied fever or chills. She denied chest pain or palpitation. She received her COVID-19 vaccine on April,. At baseline, patient with CPAP machine at night with oxygen of up to 4.5 L. She is not on oxygen during daytime except when she lays flat. In the emergency department, patient was afebrile, heart rate stable, blood pressure stable, pulse ox was 81% on room air, improved to 98% on 2 L. Routine blood work was unremarkable. Lactic acid was normal. EKG revealed normal sinus rhythm without evidence of acute ischemic changes. Troponin and BNP was unremarkable. Chest x-ray showed no acute infiltrate or consolidation. Patient received breathing treatment and IV Solu-Medrol in the ED, remained on oxygen and she is being admitted for COPD exacerbation and acute on chronic hypoxic respiratory insufficiency. [facility] Medical History Chronic respiratory failure with hypoxia COPD (chronic obstructive pulmonary disease) CPAP (continuous positive airway pressure) dependence Essential (primary) hypertension Kidney stones Nicotine dependence Obesity On home oxygen therapy NELLIE on CPAP Osteoporosis Sleep apnea Smoker Home Medications aspirin 81 mg PO DAILY@199911/13/15 [History Last Taken 08/22/20] calcium carbonate 600 mg PO DAILY 02/12/18 [History Last Taken 08/23/20] lovastatin 40 mg PO QHS 02/12/18 [History Last Taken 08/22/20] cholecalciferol (vitamin D3) 25 mcg (1,000 unit) capsule 1,000 unit PO DAILY 11/23/18 [History Last Taken 08/23/20] docusate sodium 100 mg capsule 100 mg PO BID PRN 03/25/19 [History Last Taken 08/22/20] [id number]-[id number] 1 ea IH DAILY 04/29/19 [History Last Taken 08/23/20] furosemide 20 mg tablet 40 mg PO DAILY tab 11/03/19 [History Last Taken 08/22/20] lisinopril 20 mg tablet 20 mg PO DAILY tab 11/03/19 [History Last Taken 08/22/20] potassium gluconate 595 mg (99 mg) tablet 595 mg PO DAILY tab 11/03/19 [History Last Taken 08/22/20] Allergy/AdvReac Type Severity Reaction Status Date / Time No Known Allergies Allergy Verified 05/03/20 11:09 Family History Father Pancreatic cancer Brother Pancreatic cancer Sister Lung cancer Brother Alcohol abuse Myocardial infarction Sister Cancer lung Surgical History History of cholecystectomy (05/2019) History of hemorrhoidectomy History of hysterectomy History of lithotripsy Social History Smoking Status: Current every day smoker tobacco type: cigarettes Tobacco: How many years used: 52 alcohol intake: never substance use type: does not use caffeine: Yes Type: coffee Number of servings: 2 ROS Constitutional Constitutional: Denies anorexia, chills, fatigue, fever(s) or malaise Eyes Eyes: Denies blurry vision, change in eye color, change in vision, double vision or eye pain ENT HEENT: Denies ear discharge, ear pain, epistaxis, headache(s), nasal congestion, post nasal drip or sore throat Cardiovascular Cardiovascular: Denies chest pain, dyspnea on exertion, edema, lightheadedness, orthopnea, palpitations or syncope Respiratory/Chest Respiratory/Chest: Reports cough, productive cough and shortness of breath with exertion; Denies dyspnea, hemoptysis or wheezing Gastrointestinal Gastrointestinal: Denies abdominal pain, constipation, diarrhea, hematemesis, hematochezia, melena, nausea or vomiting Genitourinary Genitourinary: Denies burning urination, dysuria, hematuria, urinary hesitancy or urinary urgency Musculoskeletal Musculoskeletal: Denies arthralgias, back pain, joint pain, joint swelling, myalgias or neck pain Neurologic Neurologic: Denies confusion, dizziness, focal weakness, headache(s), numbness, paresthesias, seizures, tingling, tremor(s) or vertigo Psychiatric Psychiatric: Denies anxiety, depression, hallucinations, homicidal ideation or suicidal ideation Endocrine Endocrinology: Denies change in body appearance, cold intolerance, heat intolerance, polydipsia or polyuria Hematologic/Lymphatic Hematologic/Lymphatic: Denies easy bleeding, easy bruising or lymphadenopathy Allergic/Immunologic Allergic/Immunologic: Denies itchy eyes, rhinitis, throat swelling, tongue swelling, hives, urticaria or wheezing Vital Signs Vital Signs Vital Signs: 08/23/20 13:20 08/23/20 13:42 08/23/20 14:03 Temperature 98.4 F Temperature Source Temporal Pulse Rate 113 H 95 Respiratory Rate 26 H 16 Respiratory Effort Short of Breath Respiratory Depth Normal Respiratory Pattern Normal Normal Blood Pressure 146/116 H Blood Pressure Mean 126 Pulse Ox 81 Oxygen Delivery Method Room Air Oxygen Flow Rate (L/min) 08/23/20 14:42 08/23/20 16:05 Temperature 98.4 F 98.4 F Temperature Source Oral Oral Pulse Rate 90 90 Respiratory Rate 20 H 20 H Respiratory Effort Respiratory Depth Respiratory Pattern Blood Pressure 103/90 H 117/49 L Blood Pressure Mean 94 71 Pulse Ox 98 98 Oxygen Delivery Method Nasal Cannula Nasal Cannula Oxygen Flow Rate (L/min) 2 2 Weight Weight: 215 lb Body Mass Index (BMI) 40.6 Physical Exam Const alert, oriented x3, no apparent distress and no limitations General Appearance: cooperative HEENT normocephalic, head/scalp atraumatic, external ears normal, external nose normal and moist oral mucous membranes Eyes PERRL, EOMs intact bilaterally, conjunctivae normal and no scleral icterus Neck no lymphadenopathy, supple, no meningeal signs, no JVD and no carotid bruits Lymph Lymphatic: no lymphadenopathy noted Resp normal air movement Resp Narrative: Decreased breath sounds bilateral, bilateral expiratory wheezes. Auscultation: wheezes; Negative for crackles, rales or rhonchi Cardio regular rate, regular rhythm, S1 normal heart sound, S2 normal heart sound, no murmurs and no JVD GI normal to inspection, nondistended, normoactive bowel sounds, soft to palpation, non-tender and non-distended; Negative for hepatosplenomegaly Extremity normal to inspection, full ROM and no clubbing, cyanosis or edema Skin no rashes or lesions noted, no wounds and no petechiae Neuro oriented x3, CN's II-XII intact bilaterally and moves all extremities Sensorium / Orientation: alert Speech: speech normal Motor Exam: strength 5/5 throughout Psych mental status grossly normal and affect normal Appearance: appropriate Results Lab / Micro Data Result Diagrams: 08/23/20 13:55 08/23/20 13:55 Labs: Laboratory Results - last 24 hr 08/23/20 08/23/20 08/23/20 13:55 13:55 13:55 WBC 6.8 RBC 4.78 Hgb 14.9 Hct 46.1 MCV 96.4 MCH 31.2 MCHC 32.3 RDW Std Deviation 46.8 H RDW Coeff of [place] 13.0 Plt Count 187 MPV 10.2 Immature Gran % (Auto) 0.400 Neut % (Auto) 65.9 Lymph % (Auto) 24.2 [place] % (Auto) 7.8 Eos % (Auto) 1.3 Baso % (Auto) 0.4 Absolute Neuts (auto) 4.5 Absolute Lymphs (auto) 1.64 Nucleated RBC % 0 Sodium 138 Potassium 4.3 Chloride 106 Carbon Dioxide 28.0 Anion Gap 4 L BUN 13 Creatinine 0.88 Estim Creat Clear Calc 37.19 Est GFR (MDRD) Af Amer 80 Est GFR (MDRD) Non-Af 66 BUN/Creatinine Ratio 14.8 Glucose 100 Lactic Acid 0.9 Calcium 9.7 Troponin I High Sens 6.8 B-Natriuretic Peptide 08/23/20 13:55 WBC RBC Hgb Hct MCV MCH MCHC RDW Std Deviation RDW Coeff of [place] Plt Count MPV Immature Gran % (Auto) Neut % (Auto) Lymph % (Auto) [place] % (Auto) Eos % (Auto) Baso % (Auto) Absolute Neuts (auto) Absolute Lymphs (auto) Nucleated RBC % Sodium Potassium Chloride Carbon Dioxide Anion Gap BUN Creatinine Estim Creat Clear Calc Est GFR (MDRD) Af Amer Est GFR (MDRD) Non-Af BUN/Creatinine Ratio Glucose Lactic Acid Calcium Troponin I High Sens B-Natriuretic Peptide 16.4 Micro: Microbiology 08/23/20 14:00 SARS-CoV-2 Antigen (Rapid) - Final Mucosa - Nose Radiology Impression Chest X-Ray 08/23/20 14:05 IMPRESSION: Normal x-ray examination of the chest. Electronically Signed: Modesto Redding, at 14:22 EDT Tel , Service support , Assessment & Plan Assessment/Plan (1) COPD exacerbation: (2) Hypoxia: (3) Hyperlipidemia: QUALIFIERS: Hyperlipidemia type: unspecified Qualified Code(s): E78.5 - Hyperlipidemia, unspecified (4) Obstructive sleep apnea: (5) Essential (primary) hypertension: (6) COPD (chronic obstructive pulmonary disease): (7) Nicotine dependence: PLAN: This is an 80 years old female patient presented to the emergency room because of shortness of breath, cough and wheezing, found to have acute COPD exacerbation with acute on chronic hypoxic respiratory sufficiency. #1 acute COPD exacerbation: Chest x-ray without acute findings, COVID-19 antigen was negative. No evidence of infection. Plan: Admit to [facility] floor, telemetry monitoring, DuoNeb every 6 hours, albuterol as needed, incentive spirometer, chest pain history, IV Solu-Medrol, IV Zithromax, PT OT evaluation and treatment. #2 acute on chronic hypoxic respiratory insufficiency/hypoxia: Patient on oxygen at night with a CPAP at 4.5 L. Usually, she does not need oxygen during daytime. Currently she is on 2 L. She is not dyspneic or tachypneic. Plan as above, bronchodilators, IV steroids, incentive spirometer. #3 hypertension: Blood pressure stable, continue lisinopril and Lasix. #4 hyperlipidemia: Continue statins. #5 COPD: Plan as above. #6 obstructive sleep apnea: Continue CPAP with home settings. #7 DVT prophylaxis: Subcu Lovenox. This note was generated with [employer] dictation software. It may contain incorrect words, spelling, and punctuation that were not noted in checking the note before signing. Charges/Coding Visit Charges Inpatient E&M: 58320 Init Hosp L2
[2020-08-23] MEDS: Albuterol 2.5 MG/3 ML VIAL.NEB. INHALATION (17:30)
[2020-08-23] MEDS: Aspirin 81 MG TAB.CHEW PO (20:22)
[2020-08-23] MEDS: 0.9% Saline Lock 10 ML Syringe IV (21:58)
[2020-08-23] MEDS: Atorvastatin Calcium 10 MG Tablet PO (21:58)
[2020-08-24] VITALS (16 sets, daily range): BP systolic 113–134; BP diastolic 52–72; PULSE 81–120; RESP 18–20; TEMP 36.6–37.2; O2SAT 92–96
[2020-08-24] MEDS: 0.9% Saline Lock 10 ML Syringe IV ×2 (06:00→13:48)
[2020-08-24] MEDS: Ipratropium/Albuterol Sulfate 3 ML AMPUL.NEB INHALATION ×3 (06:59→15:18)
[2020-08-24] MEDS: Enoxaparin 40 MG/0.4 ML Syringe SC (08:05)
[2020-08-24] MEDS: Furosemide 40 MG Tablet PO (08:06)
[2020-08-24] MEDS: Lisinopril 20 MG Tablet PO (08:06)
--- NOTE | 2020-08-24 09:40 | CASEMGMT ---
ANGIE GOMEZ Assessment: Face to Face with pt for initial transition planning/care coordination assessment. ANGIE GOMEZ introduced self and role at [facility], pt voices understanding and consents to assessment. Pt is A/O x4 and answers all questions appropriately at this time. Pt lying in bed with CPAP on in no distress. Care providers, pharmacy, and demographics verified/updated. Admitting Dx: COPD PCP: Je Specialists: Anjel pulmike; Ben, cardio [facility] Pres[facility] Benefit: yes LW/HPOA: Pt denies having a LW/DPOA LNOK: Amanda Doe dtr Living Arrangements: Pt lives with her granddtr who is a traveling nurse and is not home very often. She lives in a single story house with 2 steps to enter without a rail. Pt states she is I in ADL's and denies concerns at home. Transportation: Pt drives self and denies concerns with transportation. DME/HHC/SNF: [facility] L O2, pulse ox and portable O2. Pt also has a step in shower. Pt denies previous HHC or SNF stays. Discussed HHC with patient for SN to assess for education. Pt denied the need for this. She states that she checks her temp, oxygen level frequently throughout the day. Pt states no concerns with going home at time of dc. Pt states no further concerns/needs. CM to follow. Advised pt to ask CM if any further question/concerns/needs arise, voices understanding. Pt Goal: Home Plan: Home
--- NOTE | 2020-08-24 11:27 | PN.HOSP_ITS ---
Documented by User: Mp DIAZ 08/24/20 11:37 Subjective Subjective Patient is an 80-year-old female comfortably sitting off the side of the bed, alert and orient x3. Patient reports subjective improvement in her shortness of breath from admission. Denies chest pain, shortness of breath, palpitations, purulent sputum production, hemoptysis, fever, chills, N/V/D. Objective Data Objective Data Vital Signs: Vital Signs Temp Pulse Resp BP Pulse Ox 98.7 F 92 18 120/63 94 08/24/20 07:30 08/24/20 11:07 08/24/20 11:07 08/24/20 07:30 08/24/20 11:07 Oxygen Flow Rate (L/min) 7 Oxygen Delivery Method Nasal Cannula Weight: 214 lb 15.917 oz Body Mass Index (BMI) 40.6 Intake & Output: Intake and Output for Last 24 Hours 08/22/20 08/23/20 08/24/20 23:59 23:59 23:59 Intake Total 605 / 605 455 / 455 Output Total 100 / 100 300 / 300 Balance 505 / 505 155 / 155 Lab / Micro Data Result Diagrams: 08/23/20 13:55 08/23/20 13:55 Labs: Laboratory Results - last 24 hr 08/23/20 08/23/20 08/23/20 13:55 13:55 13:55 WBC 6.8 RBC 4.78 Hgb 14.9 Hct 46.1 MCV 96.4 MCH 31.2 MCHC 32.3 RDW Std Deviation 46.8 H RDW Coeff of [place] 13.0 Plt Count 187 MPV 10.2 Immature Gran % (Auto) 0.400 Neut % (Auto) 65.9 Lymph % (Auto) 24.2 [place] % (Auto) 7.8 Eos % (Auto) 1.3 Baso % (Auto) 0.4 Absolute Neuts (auto) 4.5 Absolute Lymphs (auto) 1.64 Nucleated RBC % 0 Sodium 138 Potassium 4.3 Chloride 106 Carbon Dioxide 28.0 Anion Gap 4 L BUN 13 Creatinine 0.88 Estim Creat Clear Calc 37.19 Est GFR (MDRD) Af Amer 80 Est GFR (MDRD) Non-Af 66 BUN/Creatinine Ratio 14.8 Glucose 100 Lactic Acid 0.9 Calcium 9.7 Troponin I High Sens 6.8 B-Natriuretic Peptide 08/23/20 13:55 WBC RBC Hgb Hct MCV MCH MCHC RDW Std Deviation RDW Coeff of [place] Plt Count MPV Immature Gran % (Auto) Neut % (Auto) Lymph % (Auto) [place] % (Auto) Eos % (Auto) Baso % (Auto) Absolute Neuts (auto) Absolute Lymphs (auto) Nucleated RBC % Sodium Potassium Chloride Carbon Dioxide Anion Gap BUN Creatinine Estim Creat Clear Calc Est GFR (MDRD) Af Amer Est GFR (MDRD) Non-Af BUN/Creatinine Ratio Glucose Lactic Acid Calcium Troponin I High Sens B-Natriuretic Peptide 16.4 Micro: Microbiology 08/23/20 14:00 Mucosa - Nose SARS-CoV-2 Antigen (Rapid) - Final Radiography Diagnostic Testing: Radiology Impression Chest X-Ray 08/23/20 14:05 IMPRESSION: Normal x-ray examination of the chest. Electronically Signed: [place], at 14:22 EDT Tel , Service support , Physical Exam Const alert, oriented x3 and average body habitus HEENT head/scalp atraumatic and moist oral mucous membranes Head and Scalp: normocephalic Eyes PERRL and conjunctivae normal Neck no lymphadenopathy, supple and no JVD Resp Effort and Inspection: able to speak in complete sentences Auscultation: rhonchi and diminished lung sounds Cardio regular rate, regular rhythm, no murmurs and no JVD GI normal to inspection, nondistended, normoactive bowel sounds, soft to palpation and non-tender Extremity normal to inspection, full ROM and no clubbing, cyanosis or edema Skin no rashes or lesions noted, no wounds and skin turgor normal Neuro CN's II-XII intact bilaterally Psych affect normal Assessment & Plan Assessment/Plan (1) COPD exacerbation: (2) Hypoxia: (3) Hyperlipidemia: QUALIFIERS: Hyperlipidemia type: unspecified Qualified Code(s): E78.5 - Hyperlipidemia, unspecified (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 transplanted heart: [place] heart Qualified Code(s): I25.10 - Atherosclerotic heart disease of [place] coronary artery without angina pectoris (5) COPD (chronic obstructive pulmonary disease): (6) Obstructive sleep apnea: (7) Essential (primary) hypertension: (8) Nicotine dependence: PLAN: Day 2: See subjective. Discharge planning: Anticipate discharge home tomorrow pending ambulatory and resting pulse ox and patient's ability to return to her baseline. 1) acute on chronic hypoxic respiratory failure secondary to acute COPD exacerbation Currently satting above 92% on 3 to 4 L via nasal cannula at rest. Chest x-ray demonstrates no acute cardiopulmonary findings, only hyperinflated lungs consistent with emphysematous change. No evidence of acute infection: CBC and BMP unremarkable, vital signs stable and patient is afebrile. Plan; remain admitted overnight to [facility] floor, continue duo nebs, continue albuterol as needed, continue incentive spirometry, continue IV Solu-Medrol, continue Zithro max, ambulatory pulse ox in a.m. 2) HTN Stable, continue lisinopril and Lasix. 3) hyperlipidemia Continue home statin regimen. 5) NELLIE Continue CPAP while sleeping at home settings. DVT prophylaxis - Lovenox Patient seen by Mp Castro PA-C, under the supervision of Dr. Bull. Documented by User: Dr. Reza Bull MD 08/24/20 17:46 Objective Data Lab / Micro Data Result Diagrams: 08/23/20 13:55 08/23/20 13:55 Charges/Coding Addendum Addendum: Dr. Bull: I personally reviewed the chart and examined the patient, and agree with the above findings. 80-year-old female with a history of COPD presents with a COPD exacerbation. She normally wears oxygen at night with CPAP or whenever she lays down but does not wear oxygen during the day. Chest x-ray was unremarkable and she appears to be improving with the breathing treatments and steroids. Visit Charges Inpatient E&M: 06710 Subs Hosp L2
--- NOTE | 2020-08-24 12:01 | CASEMGMT ---
TC to [facility], [place] to verify pt Rx for O2. Per Babs, pt uses 4.5 L bleed through CPAP and 2L continuous. RN CM in to pt room. Pt states she does not use O2 other than with her CPAP. Pt states she did a few years ago but then had pt stop. Green sheet on chart in case pt dc's over weekend with need for O2.
[2020-08-24] MEDS: Atorvastatin Calcium 10 MG Tablet PO (20:20)
[2020-08-24] MEDS: Aspirin 81 MG TAB.CHEW PO (20:20)
[2020-08-25] VITALS (9 sets, daily range): BP systolic 117–129; BP diastolic 49–80; PULSE 71–100; RESP 16–19; TEMP 36.8–37.2; O2SAT 87–94
[2020-08-25] MEDS: 0.9% Saline Lock 10 ML Syringe IV (05:36)
[2020-08-25 06:54] LABS: Absolute Lymphocyte Count 0.86 X10^3/uL (0.83-4.51); Absolute Neutrophil Count 12.3 X10^3/uL (2.0-7.7); Basophil# 0.01 X10^3/uL; Basophil% 0.1 % (0-1); Hematocrit 43.6 % (37-47); Hemoglobin 14.1 g/dL (12.0-15.0); Lymphocyte # 0.86 X10^3/ul (0.83-4.51); Lymphocyte % 6.2 % (19-41); Mean Corp Hgb Conc 32.3 g/dL (32-36); Mean Corpuscular Hgb 31.2 pg (27.0-32.0); Mean Corpuscular Volume 96.5 fL (81-99); Mean Platelet Vol. 10.7 fl (6.2-12.0); Monocyte# 0.49 X10^3/uL; Monocyte% 3.6 % (0-10); NRBC Flagged by Analyzer 0 % (0-5); Neutrophil # 12.32 X10^3/uL (2.7-7.7); Neutrophil % 89.4 % (47-70); Platelet Count 221 K/mm3 (150-450); RBC Distribution Width CV 12.8 % (11.6-14.6); RBC Distribution Width SD 45.6 fl (35.1-43.9); Red Blood Count 4.52 M/mm3 (4.2-5.4); White Blood Count 13.8 K/mm3 (4.4-11.0)
[2020-08-25] MEDS: Ipratropium/Albuterol Sulfate 3 ML AMPUL.NEB INHALATION ×2 (07:07→10:16)
[2020-08-25 07:19] LABS: Anion Gap 7 (5-15); BUN 22 mg/dL (7-18); BUN/Creat Ratio 22.3 RATIO (10-20); Calcium,Total 9.2 mg/dL (8.5-10.1); Chloride 104 mmol/L (98-107); Creatinine, Serum 0.99 mg/dL (0.55-1.02); EST Glomerular Filtration Rate 57 mL/min (>60); Est Glom Filt Rate - Afr Amer 69 mL/min (>60); Estimated Creatinine Clearance 33.06 ml/min; Glucose 131 mg/dL (74-106); Potassium 4.6 mmol/L (3.5-5.1); Sodium Level 138 mmol/L (136-145)
--- NOTE | 2020-08-25 09:19 | PCM.DC ---
Discharge Instructions Diet Discharge Diet: No restrictions Activity Discharge Activity: Return to Normal Activity Follow Up Care Test Results: Test results from this visit will be discussed in further detail at your follow-up appointment, if applicable. Discharge Plan Admission Admit Date/Time: 08/23/20 16:01 Primary Reason for Your Visit: COPD Exacerbtation Attending Provider: Reza Bull Primary Care Provider: Barry Wooten Discharge Orders/Prescriptions Prescriptions: New albuterol sulfate 2.5 mg/0.5 mL solution for nebulization 2.5 mg inhalation Q4H Qty: 30 RF: 0 prednisone 20 mg tablet 40 mg PO DAILY Qty: 14 RF: 0 Continued cholecalciferol (vitamin D3) 1,000 unit capsule 1,000 unit PO DAILY RF: 0 potassium gluconate 595 mg (99 mg) tablet 595 mg PO DAILY RF: 0 docusate sodium [Dulcolax Stool Softener (dss)] 100 mg capsule 100 mg PO BID PRN (Reason: Constipation) RF: 0 aspirin 81 MG tablet,chewable 81 mg PO DAILY@2000 RF: 0 furosemide 20 mg tablet 40 mg PO DAILY RF: 0 lovastatin 40 MG tablet 40 mg PO QHS RF: 0 calcium carbonate 600 MG tablet 600 mg PO DAILY RF: 0 [id number]-eciqortf 1 EACH blister with device 1 ea IH DAILY RF: 0 lisinopril 20 mg tablet 20 mg PO DAILY RF: 0 Referrals / Follow Up: Barry Wooten MD [Primary Care Provider] - Within 2 Weeks Disposition Disposition (needs filled in before D/C Order can be placed): Home, Self Care
[2020-08-25] MEDS: Furosemide 40 MG Tablet PO (09:52)
--- NOTE | 2020-08-25 10:12 | DS.PCM_ITS ---
Documented by User: Mp DIAZ 08/25/20 10:23 Providers Date of Admission: 08/23/20 Reason For Visit: COPD Diagnosis Discharge Diagnosis (1) COPD exacerbation: Status: Chronic Code(s): J44.1 - Chronic obstructive pulmonary disease with (acute) exacerbation (2) Hypoxia: Status: Acute Code(s): R09.02 - Hypoxemia (3) Hyperlipidemia: Status: Chronic Code(s): E78.5 - Hyperlipidemia, unspecified Qualifiers: Hyperlipidemia type: unspecified Qualified Code(s): E78.5 - Hyperlipidemia, unspecified (4) Atherosclerotic heart disease of [place] coronary artery without angina pectoris: Status: Chronic Code(s): I25.10 - Atherosclerotic heart disease of [place] coronary artery without angina pectoris Qualifiers: [place] vs. transplanted heart: [place] heart Qualified Code(s): I25.10 - Atherosclerotic heart disease of [place] coronary artery without angina pectoris (5) COPD (chronic obstructive pulmonary disease): Status: Chronic Code(s): J44.9 - Chronic obstructive pulmonary disease, unspecified (6) Obstructive sleep apnea: Status: Chronic Code(s): G47.33 - Obstructive sleep apnea (adult) (pediatric) (7) Essential (primary) hypertension: Status: Chronic Code(s): I10 - Essential (primary) hypertension (8) Nicotine dependence: Status: Chronic Code(s): F17.200 - Nicotine dependence, unspecified, uncomplicated Medications at Discharge Home Medications aspirin 81 mg PO DAILY@199911/13/15 calcium carbonate 600 mg PO DAILY 02/12/18 lovastatin 40 mg PO QHS 02/12/18 cholecalciferol (vitamin D3) 25 mcg (1,000 unit) capsule 1,000 unit PO DAILY 11/23/18 docusate sodium 100 mg capsule 100 mg PO BID PRN 03/25/19 [id number]-eidigpxse-zatmecwv 1 ea IH DAILY 04/29/19 furosemide 20 mg tablet 40 mg PO DAILY tab 11/03/19 lisinopril 20 mg tablet 20 mg PO DAILY tab 11/03/19 potassium gluconate 595 mg (99 mg) tablet 595 mg PO DAILY tab 11/03/19 albuterol sulfate 2.5 mg INHALATION Q4H #30 ea 08/25/20 prednisone 40 mg PO DAILY #14 tab 08/25/20 Hospital Course Summary of Care Provided Minutes Spent on Discharge: 35 Hospital Course: Disposition: Discharge home. Patient does not require a new oxygen prescription as she already has one in place. 1) acute on chronic hypoxic respiratory failure secondary to acute COPD exacerbation Currently satting above 92% on 3 to 4 L via nasal cannula at rest. With ambulation pateints oxygen saturation drops to 88% on room air. Patient reports that when this happens at home, she rests and recovers her breath and then resumes her daily activities. Patient identifies her daughter and granddaughter as her social support at home, and reports that she can rely on them if need be. Although ambulatory pulse ox is on the lower end of normal, patient seems to have many ways of mitigating her disease and is safe to return home. Risks/benefits of discharge today vs. tommorow were discussed and patient still wished to proceed with discharge today. Chest x-ray demonstrates no acute cardiopulmonary findings, only hyperinflated lungs consistent with emphysematous change. No evidence of acute infection: CBC and BMP unremarkable, vital signs stable and patient is afebrile. Plan; Albuterol inahler [id number] for 2-3 days, Prednisone 40 mg x 7 days initiated at discharge, follow-up with primary care provider within the next 2 to 3 days. 2) HTN Stable, continue lisinopril and Lasix. 3) hyperlipidemia Continue home statin regimen. 5) NELLIE Continue CPAP while sleeping at home settings. Patient seen by Mp Castro PA-C, under the supervision of Dr. Bull. Physical Exam Narrative Patient is an 80-year-old female comfortably resting in bed and eating breakfast, alert and orient x3. Patient reports continued improvement of her shortness of breath from admission. Denies chest pain, shortness of breath, palpitations, hemoptysis, sputum production, fever, chills, N/V/D. Const alert, oriented x3 and no apparent distress HEENT normocephalic, head/scalp atraumatic and hearing grossly normal bilaterally Eyes EOMs intact bilaterally and conjunctivae normal Neck no lymphadenopathy, supple and no JVD Resp normal respiratory effort, no retractions and no use of accessory muscles Cardio regular rate, regular rhythm, no murmurs and no JVD GI normal to inspection, nondistended, normoactive bowel sounds, soft to palpation and non-tender Extremity normal to inspection, full ROM and no clubbing, cyanosis or edema Skin no rashes or lesions noted, no wounds and skin turgor normal Neuro CN's II-XII intact bilaterally Psych affect normal Weight / BMI Weight Weight: 214 lb 15.917 oz Body Mass Index (BMI) 40.6 ABG / Lab / Microbiology Data Result Diagrams: 08/25/20 06:15 08/25/20 06:15 Laboratory: Laboratory Results - last 24 hr 08/25/20 08/25/20 06:15 06:15 WBC 13.8 H RBC 4.52 Hgb 14.1 Hct 43.6 MCV 96.5 MCH 31.2 MCHC 32.3 RDW Std Deviation 45.6 H RDW Coeff of [place] 12.8 Plt Count 221 MPV 10.7 Immature Gran % (Auto) 0.700 Neut % (Auto) 89.4 H Lymph % (Auto) 6.2 L [place] % (Auto) 3.6 Eos % (Auto) 0.0 Baso % (Auto) 0.1 Absolute Neuts (auto) 12.3 H Absolute Lymphs (auto) 0.86 Nucleated RBC % 0 Sodium 138 Potassium 4.6 Chloride 104 Carbon Dioxide 27.0 Anion Gap 7 BUN 22 H Creatinine 0.99 Estim Creat Clear Calc 33.06 Est GFR (MDRD) Af Amer 69 Est GFR (MDRD) Non-Af 57 L BUN/Creatinine Ratio 22.3 H Glucose 131 H Calcium 9.2 Microbiology: Microbiology 08/23/20 14:00 Mucosa - Nose SARS-CoV-2 Antigen (Rapid) - Final D/C Instructions Discharge Diet: No restrictions Meaningful Use Info Meaningful Use Diagnoses (Choose all that apply): None applicable Discharge Plan Admission Admit Date/Time: 08/23/20 16:01 Primary Reason for Your Visit: COPD Exacerbtation Attending Provider: Reza Bull Primary Care Provider: Barry Wooten Discharge Orders/Prescriptions Prescriptions: New albuterol sulfate 2.5 mg/0.5 mL solution for nebulization 2.5 mg inhalation Q4H Qty: 30 RF: 0 prednisone 20 mg tablet 40 mg PO DAILY Qty: 14 RF: 0 Continued cholecalciferol (vitamin D3) 1,000 unit capsule 1,000 unit PO DAILY RF: 0 potassium gluconate 595 mg (99 mg) tablet 595 mg PO DAILY RF: 0 docusate sodium [Dulcolax Stool Softener (dss)] 100 mg capsule 100 mg PO BID PRN (Reason: Constipation) RF: 0 aspirin 81 MG tablet,chewable 81 mg PO DAILY@1999 RF: 0 furosemide 20 mg tablet 40 mg PO DAILY RF: 0 lovastatin 40 MG tablet 40 mg PO QHS RF: 0 calcium carbonate 600 MG tablet 600 mg PO DAILY RF: 0 [id number]-gdgfskxsh-ozlfyvdw 1 EACH blister with device 1 ea IH DAILY RF: 0 lisinopril 20 mg tablet 20 mg PO DAILY RF: 0 Referrals / Follow Up: Barry Wooten MD [Primary Care Provider] - Within 2 Weeks Disposition Disposition (needs filled in before D/C Order can be placed): Home, Self Care Documented by User: Dr. Reza Bull MD 08/25/20 12:18 Providers Date of Admission: 08/23/20 Reason For Visit: COPD Medications at Discharge Home Medications aspirin 81 mg PO DAILY@199911/13/15 calcium carbonate 600 mg PO DAILY 02/12/18 lovastatin 40 mg PO QHS 02/12/18 cholecalciferol (vitamin D3) 25 mcg (1,000 unit) capsule 1,000 unit PO DAILY docusate sodium 100 mg capsule 100 mg PO BID PRN 03/25/19 lgwxbfqadvs-zrxahuqoo-ogwyostc 1 ea IH DAILY 04/29/19 furosemide 20 mg tablet 40 mg PO DAILY tab 11/03/19 lisinopril 20 mg tablet 20 mg PO DAILY tab 11/03/19 potassium gluconate 595 mg (99 mg) tablet 595 mg PO DAILY tab 11/03/19 albuterol sulfate 2.5 mg INHALATION Q4H #30 ea 08/25/20 prednisone 40 mg PO DAILY #14 tab 08/25/20 ABG / Lab / Microbiology Data Result Diagrams: 08/25/20 06:15 08/25/20 06:15 Discharge Plan Admission Admit Date/Time: 08/23/20 16:01 Primary Reason for Your Visit: COPD Exacerbtation Attending Provider: Reza Bull Primary Care Provider: Barry Wooten Discharge Orders/Prescriptions Prescriptions: New albuterol sulfate 2.5 mg/0.5 mL solution for nebulization 2.5 mg inhalation Q4H Qty: 30 RF: 0 prednisone 20 mg tablet 40 mg PO DAILY Qty: 14 RF: 0 Continued cholecalciferol (vitamin D3) 1,000 unit capsule 1,000 unit PO DAILY RF: 0 potassium gluconate 595 mg (99 mg) tablet 595 mg PO DAILY RF: 0 docusate sodium [Dulcolax Stool Softener (dss)] 100 mg capsule 100 mg PO BID PRN (Reason: Constipation) RF: 0 aspirin 81 MG tablet,chewable 81 mg PO DAILY@1999 RF: 0 furosemide 20 mg tablet 40 mg PO DAILY RF: 0 lovastatin 40 MG tablet 40 mg PO QHS RF: 0 calcium carbonate 600 MG tablet 600 mg PO DAILY RF: 0 jmudtyhjreu-lthhsyxto-vdgjgtrw 1 EACH blister with device 1 ea IH DAILY RF: 0 lisinopril 20 mg tablet 20 mg PO DAILY RF: 0 Referrals / Follow Up: Barry Wooten MD [Primary Care Provider] - Within 2 Weeks Disposition Disposition (needs filled in before D/C Order can be placed): Home, Self Care Charges/Coding Addendum Addendum: Dr. Bull: I personally reviewed the chart and examined the patient, and agree with the above findings. 80-year-old female with a history of COPD presents with a COPD exacerbation. She normally wears oxygen at night with CPAP or whenever she lays down but does not wear oxygen during the day. Chest x-ray was unremarkable and she appears to be improving with the breathing treatments and steroids. 08/25/2020: She is doing well still needing around 3 L of oxygen at rest and 3- 1/2 with ambulation, she does have a concentrator at home and she is requesting to go home. I did discuss with her that it might be best to keep her 1 more day in the hospital to see if we can wean her oxygen anymore since she is normally on room air during the day while awake however she would prefer to go home. She did express understanding of the risks and benefits of going home and understands that if her breathing does not improve that she is to come back to the hospital. She will be discharged with 7 days of oral prednisone and I have instructed her to use her albuterol inhaler scheduled every 4 hours for the next few days and follow-up with her corporate technical recruiter as an outpatient. Visit Charges Inpatient E&M: 30098 Disch Hosp
--- NOTE | 2020-08-27 16:08 | CASEMGMT ---
ANGIE GOMEZ Discharge Follow Up Phone Call: GEREMIAS: Nadege Strata: 3 Call Date: 08/27/20 Discharge Date: 08/25/20 Time of Call:1605 Duration:3 min Admitting Dx: COPD ANGIE GOMEZ completed follow up phone call after recent hospitalization. Pt states she is a little short of breath still but she is using her O2 as ordered. She states she was able to cloth picker her rx without difficulty and has not set up her follow up appt yet. She states she may do so yet today or tomorrow. Pt denies questions regarding her dc instructions or medications. Pt has no further questions or concerns at this time.
== END 2020-08-25 12:05 | disposition home or self-care (01) | DRG 190 ==
LOC: ED 13:59 → MS3 16:15
PROVIDERS: Physician Assistant; Admitting Provider Hospitalist; Emergency Provider Emergency Medicine; PCP Family Medicine; Visit Provider Family Medicine
DX: J44.1 Chronic obstructive pulmonary disease with (acute) exacerbation (principal); J96.21 Acute and chronic respiratory failure with hypoxia; Z68.41 Body mass index [BMI] 40.0-44.9, adult; E66.9 Obesity, unspecified; E78.5 Hyperlipidemia, unspecified; G47.33 Obstructive sleep apnea (adult) (pediatric); I10 Essential (primary) hypertension; I25.10 Atherosclerotic heart disease of native coronary artery without angina pectoris; I25.2 Old myocardial infarction; M81.0 Age-related osteoporosis without current pathological fracture; Z79.82 Long term (current) use of aspirin; Z87.01 Personal history of pneumonia (recurrent); Z87.442 Personal history of urinary calculi; F17.210 Nicotine dependence, cigarettes, uncomplicated; Z79.899 Other long term (current) drug therapy
CPT/HCPCS: 36415; 71045; 80048; 83605; 83880; 84484; 85025; 87040; 87426; 93005; 94640; 94667; 94668; 97110; 97162; 97165; 97530; 99251; 99285; A4216; G0463

== ENCOUNTER 2021-05-10 18:00 | Emergency (ER) | payer MEDICARE, OTHER, SELFPAY ==
[2021-05-10 18:01] VITALS: BP 160/77; PULSE 90; RESP 16; TEMP 36.6; O2SAT 94; BMI 41.1
--- NOTE | 2021-05-10 18:11 | EX.ED.DYSGE1 ---
HPI <JOE Segal - Last Filed: 05/10/21 19:30> History of Present Illness Chief Complaint: Lower Extremity Injury Narrative Narrative: 80-year-old female presents with right knee pain. Today she was turning while in the bathroom and felt a tearing sensation on the inner part of her knee. She was unable to bear weight. She states she kind to hold onto the carranza and hop to her bed and then called her daughter and was brought in by the paramedics. She denies weakness, numbness, or tingling of the extremity. There was no fall or direct trauma. She has been having pain in this knee over the last 6 months or so and was trialed on NSAIDs with minimal relief. She states her PCP did x-rays that were unremarkable. PFSH <JOE Segal - Last Filed: 05/10/21 19:30> PFSH Medical History Chronic respiratory failure with hypoxia COPD (chronic obstructive pulmonary disease) Coronary artery calcification seen on CAT scan (2019) CPAP (continuous positive airway pressure) dependence Essential (primary) hypertension Kidney stones Nicotine dependence Obesity On home oxygen therapy NELLIE on CPAP Osteoporosis Sleep apnea Smoker Home Medications aspirin 81 mg PO DAILY@199911/13/15 [History Last Taken 08/22/20] calcium carbonate 600 mg PO DAILY 02/12/18 [History Last Taken 08/23/20] lovastatin 40 mg PO QHS 02/12/18 [History Last Taken 08/22/20] cholecalciferol (vitamin D3) 25 mcg (1,000 unit) capsule 1,000 unit PO DAILY 11/23/18 [History Last Taken 08/23/20] docusate sodium 100 mg capsule 100 mg PO BID PRN 03/25/19 [History Last Taken 08/22/20] oznejestpdj-fpushwssk-mvxbefck 1 ea IH DAILY 04/29/19 [History Last Taken 08/23/20] furosemide 20 mg tablet 40 mg PO DAILY tab 11/03/19 [History Last Taken 08/22/20] lisinopril 20 mg tablet 20 mg PO DAILY tab 11/03/19 [History Last Taken 08/22/20] potassium gluconate 595 mg (99 mg) tablet 595 mg PO DAILY tab 11/03/19 [History Last Taken 08/22/20] albuterol sulfate 2.5 mg INHALATION Q4H #30 ea 08/25/20 [Rx Last Taken Unknown] prednisone 40 mg PO DAILY #14 tab 08/25/20 [Rx Last Taken Unknown] naproxen 500 mg PO BID PRN #20 tab 05/10/21 [Rx Last Taken Unknown] Allergy/AdvReac Type Severity Reaction Status Date / Time metal Allergy Other Uncoded 05/10/21 18:04 Family History Father Pancreatic cancer Brother Pancreatic cancer Sister Lung cancer Brother Alcohol abuse Myocardial infarction Sister Cancer lung Surgical History History of cholecystectomy (05/2019) History of hemorrhoidectomy History of hysterectomy History of lithotripsy Social History Smoking Status: Current every day smoker tobacco type: cigarettes Tobacco: How many years used: 52 alcohol intake: never substance use type: does not use caffeine: Yes Type: coffee Number of servings: 2 ROS <JOE Segal - Last Filed: 05/10/21 19:30> ROS ED ROS Narrative Constitutional: Negative for fever, chills, malaise. Eyes: Negative for visual change. ENT: Negative for sore throat, ear pain, rhinorrhea. CVS: Negative for palpitations, chest pain, syncope. Respiratory: Negative for shortness of breath, cough. GI: Negative for abdominal pain, nausea, vomiting. : Negative for dysuria, hematuria or frequency. Neuro: Negative for headache, motor/sensory dysfunction. Skin: Negative for rash, abscess, or wound. Musc: Positive for knee pain. No trauma. Heme: Negative for easy bruising, bleeding, lymphadenopathy. EXAM <JOE Segal - Last Filed: 05/10/21 19:30> Physical Exam Narrative Exam Narrative: CONST: Patient sitting in no acute distress. EYES: Normal inspection. NECK: Normal inspection. RESP: No respiratory distress, CTAB. CVS: Regular rate and rhythm, no murmur, no gallop. SKIN: Color normal, no rash, warm, dry, intact. EXTREMITIES: Normal appearance of bilateral lower extremities. Tender to palpation over the medial knee. No palpable defect of the quadriceps or patellar tendons. Pain with valgus stress. While I was holding her leg she was able to partially extend the knee. Distal strength and sensation intact. 2+ DP pulses. NEURO: Oriented x4. PSYCH: Normal affect. Const Vital Signs: 05/10/21 18:01 Temperature 97.9 F Temperature Source Temporal Pulse Rate 90 Respiratory Rate 16 Blood Pressure 160/77 H Blood Pressure Mean 104 Pulse Ox 94 Oxygen Delivery Method Room Air <Dr. Lauro Gaffney, DO - Last Filed: 05/10/21 19:36> Physical Exam Const Vital Signs: 05/10/21 18:01 Temperature 97.9 F Temperature Source Temporal Pulse Rate 90 Respiratory Rate 16 Blood Pressure 160/77 H Blood Pressure Mean 104 Pulse Ox 94 Oxygen Delivery Method Room Air MDM <JOE Segal - Last Filed: 05/10/21 19:30> [facility] Narrative Medical decision making narrative: Patient twisted and felt a tearing in her right medial knee and presents with pain. She appears well nontoxic. Vital signs within normal limits. On inspection her lower extremities appear normal with no obvious deformity or trauma to the knee. She is tender over the medial aspect and has pain with valgus stress but no significant laxity. Knee extensor mechanism is intact. 2+ distal pulse. ED attending interpretation of the left knee film shows no acute fracture dislocation. We discussed she may have a sprain versus underlying ligamentous or meniscal injury. She was placed in a knee immobilizer and was able to ambulate with a walker. She feels comfortable going home and her daughter will stay with her this weekend. She was given orthopedic follow-up and requested a naproxen prescription as she has been on this recently but hers is . She was discharged in stable condition. 1. Right knee sprain Radiography Diagnostic Testing: Clinical Impression(s) from Imaging Studies Knee X-Ray 05/10/21 18:20 IMPRESSION: Normal x-ray examination of the knee. Electronically Signed: Bimal Zaragoza MD at 19:10 EST , <Dr. Lauro Gaffney, DO - Last Filed: 05/10/21 19:36> [facility] Narrative Medical decision making narrative: Patient was seen with me. I did a [id number] examination with the patient. I agree with the history and physical examination. Patient presents with right knee pain that began few weeks ago. Patient states that today she was sitting and twisted. Patient states she felt something tear in her right knee. Patient states it was worse over the medial aspect of her right knee. Patient states that her knee feels unstable since this injury today. Patient denies any paresthesias or weakness. Patient denies any other injuries. Vital signs are stable. Patient is afebrile. Patient is in no acute distress. Musculoskeletal exam reveals tenderness over the medial aspect of the right knee. There is no effusion. Range of motion was limited in all motions of the right knee secondary to pain. There is some mild laxity with valgus testing. There is some voluntary guarding on examination. I do not appreciate any laxity with Bautista testing. Pedal pulses are equal bilaterally. Sensation was intact to light touch bilaterally lower extremities. Capillary refill was less than 2 seconds in all digits. X-rays of the right knee were obtained. There are 2 views. On my interpretation, there is no acute fracture or loose body. There is no effusion. There is no soft tissue swelling. Radiologist also interpreted the x-rays and agrees. Patient was ordered a knee immobilizer. Patient was given a walker. Patient was instructed to ice and elevate the right knee. Patient was instructed to follow-up with her primary care physician in 5 to 7 days for reevaluation. Patient understood and was agreeable with the plan. All questions were answered. Radiography Diagnostic Testing: Clinical Impression(s) from Imaging Studies Knee X-Ray 05/10/21 18:20 IMPRESSION: Normal x-ray examination of the knee. Electronically Signed: Bimal Zaragoza MD at 19:10 EST , Discharge Plan Triage Chief Complaint: Lower Extremity Injury ED Provider: Cristin Palomares Dx/Rx/DC Orders Clinical Impression: Right knee sprain Instructions: ED Knee Sprain Prescriptions: New naproxen 500 mg tablet 500 mg PO BID PRN Qty: 20 RF: 0 No Action cholecalciferol (vitamin D3) 1,000 unit capsule 1,000 unit PO DAILY RF: 0 potassium gluconate 595 mg (99 mg) tablet 595 mg PO DAILY RF: 0 docusate sodium [Dulcolax Stool Softener (dss)] 100 mg capsule 100 mg PO BID PRN (Reason: Constipation) RF: 0 aspirin 81 MG tablet,chewable 81 mg PO DAILY@1999 RF: 0 furosemide 20 mg tablet 40 mg PO DAILY RF: 0 lovastatin 40 MG tablet 40 mg PO QHS RF: 0 calcium carbonate 600 MG tablet 600 mg PO DAILY RF: 0 igcbaijjkxe-xwcgxcgnb-qucavizk 1 EACH blister with device 1 ea IH DAILY RF: 0 lisinopril 20 mg tablet 20 mg PO DAILY RF: 0 albuterol sulfate 2.5 mg/0.5 mL solution for nebulization 2.5 mg inhalation Q4H Qty: 30 RF: 0 prednisone 20 mg tablet 40 mg PO DAILY Qty: 14 RF: 0 Primary Care Provider: Barry Wooten Referrals: Barry Wooten MD [Primary Care Provider] - Activity Restrictions/Additional Instructions: Please wear the knee immobilizer and use the walker provided. Rest, ice, and take Tylenol as needed. I also prescribed naproxen. Call the orthopedic doctor on Thursday for a follow-up appointment. Disposition Disposition: Home, Self Care
--- NOTE | 2021-05-10 18:20 | RAD_ITS ---
STUDY: X-RAY - RIGHT KNEE REASON FOR EXAM: Female, 80 years old. Injury/Pain TECHNIQUE: 2 view(s) of the knee. COMPARISON: None. FINDINGS: Normal visualized distal femur. Normal visualized proximal tibia and fibula. Normal proximal tibiofibular articulation. There is no demonstrated fracture. Normal medial femorotibial compartment. Normal lateral femorotibial compartment. Normal patellofemoral articulation. There is no demonstrated joint effusion. The soft tissue structures are unremarkable. RAD/Knee 1 or 2 Views IMPRESSION: Normal x-ray examination of the knee. Electronically Signed: Bimal Zaragoza MD at 19:10 EST ,
[2021-05-10 19:40] VITALS: BP 112/60; PULSE 105; RESP 18; O2SAT 92
== END 2021-05-10 19:47 | disposition home or self-care (01) ==
PROVIDERS: Emergency Provider Physician Assistant; PCP Family Medicine; Visit Provider Physician Assistant
DX: S83.91XA Sprain of unspecified site of right knee, initial encounter (principal); J44.9 Chronic obstructive pulmonary disease, unspecified; Z68.41 Body mass index [BMI] 40.0-44.9, adult; F17.210 Nicotine dependence, cigarettes, uncomplicated; I25.10 Atherosclerotic heart disease of native coronary artery without angina pectoris; I10 Essential (primary) hypertension; Z87.442 Personal history of urinary calculi; G47.33 Obstructive sleep apnea (adult) (pediatric); M81.0 Age-related osteoporosis without current pathological fracture; E66.9 Obesity, unspecified; Z79.82 Long term (current) use of aspirin; Z79.899 Other long term (current) drug therapy
CPT/HCPCS: 73560; 99284

== ENCOUNTER → 2021-09-13 | Outpatient (CLI) | payer MEDICARE, OTHER, SELFPAY ==
--- NOTE | 2021-09-13 13:44 | MRI_ITS ---
STUDY: MRI RIGHT KNEE REASON FOR EXAM: Female, 81 years old. Pain. TECHNIQUE: Standardized fat and water weighted pulse sequences were obtained in all 3 orthogonal planes. COMPARISON: None. FINDINGS: There is medial meniscus tear the posterior horn and body, series 3 images 30/42 through 34/42. There is diffuse, greater than 50% thickness articular cartilage loss of the medial femorotibial compartment. There is mild osteoarthritic spur formation of the medial knee compartment. Normal medial collateral ligamentous complex (MCL). Normal distal semimembranosus, gracilis and semitendinosus tendons. Normal lateral meniscus. Normal hyaline cartilage of the lateral femorotibial compartment. Normal lateral femoral condyle and tibial plateau. Normal proximal tibiofibular articulation. Normal lateral collateral (fibular) ligament. Normal popliteus tendon. Normal biceps femoris tendon. Normal anterior cruciate ligament (ACL). Normal posterior cruciate ligament (PCL). There is arthrosis of the patellofemoral articulation. There is diffuse, less than 50% thickness articular cartilage loss of the patellofemoral compartment. Normal medial and lateral patellar retinaculum. Normal quadriceps tendon. Normal patellar tendon. Normal Hoffa''s fat pad. There is a moderate volume joint effusion. The soft tissues are unremarkable. The otherwise visualized osseous structures are unremarkable. MRI/Lower Ext Joint Only (Routine) IMPRESSION: Medial meniscus tear Degenerative change. Joint effusion. Electronically Signed: Ajay Wells MD at 15:08 EDT Reading Location ID and State: [facility] / [place] , Service support ,
== END | disposition home or self-care (01) ==
LOC: MRI 13:44
PROVIDERS: PCP Family Medicine
DX: M17.11 Unilateral primary osteoarthritis, right knee (principal)
CPT/HCPCS: 73721

== ENCOUNTER → 2023-04-22 | Outpatient (CLI) | payer MEDICARE, OTHER, SELFPAY ==
--- NOTE | 2023-04-22 13:47 | ECHOCS_ITS ---
Reason For Study: SOB Procedure This was a 2D Doppler, Color Flow transthoracic echocardiogram. Contrast injection was performed. The study was technically difficult. Unable to perform RV Strain due to image quality. Exam performed in department. Left Ventricle Normal LV size. Mild concentric left ventricular hypertrophy. Left ventricular systolic function is normal. The estimated ejection fraction is 70 %. No regional wall motion abnormalities noted. Right Ventricle Normal RV size. Normal systolic function. Atria Normal left atrium. Normal right atrium. Mitral Valve Mitral valve not well visualized. Tricuspid Valve Normal tricuspid valve. Unable to estimate RV systolic pressure due to inadequate jet, pulmonary artery pressure probably normal. Pulmonic Valve The pulmonic valve is not well visualized. Great Vessels Normal aortic root. Pericardium/Pleural No pericardial effusion. Medication Diluted definity 2ml given slow IV push to enhance endocardial definition. MMode/2D Measurements & Calculations LVIDd: 4.3 cm IVSd: 1.2 cm Ao root diam: 2.9 cm LVIDs: 2.4 cm LVPWd: 1.2 cm RVDd: 2.9 cm FS: 44.4 % LAV(MOD-bp): 40.2 ml LVAd ap4: 25.7 cm2 SV(MOD-sp4): 50.2 ml LAV(MOD-bp) Indexed: 19.1 ml/m2 LVLd ap4: 7.5 cm LAV(MOD-sp2): 37.9 ml EDV(MOD-sp4): 74.3 ml LAV(MOD-sp4): 38.6 ml EDV(sp4-el): 75.0 ml LVAs ap4: 12.8 cm2 LVLs ap4: 5.8 cm ESV(MOD-sp4): 24.1 ml ESV(sp4-el): 23.9 ml EF(MOD-sp4): 67.6 % EF(sp4-el): 68.1 % SV(sp4-el): 51.1 ml LA A4 area: 16.0 cm2 LA dimension(2D): 4.2 cm RA A4 area: 8.5 cm2 TAPSE: 2.4 cm Time Measurements MV dec time: 0.31 sec Doppler Measurements & Calculations MV E max nishant: 89.5 cm/sec Lat Peak E' Nishant: 6.9 cm/sec Med Peak E' Nishant: 5.5 cm/sec MV A max nishant: 125.1 cm/sec E/E' lat: 12.9 E/E' med: 16.1 MV E/A: 0.72 Ao V2 max: 173.3 cm/sec LV V1 max: 120.2 cm/sec MV dec slope: 289.1 cm/sec2 Ao max P.0 mmHg LV V1 max P.8 mmHg Ao V2 mean: 129.3 cm/sec LV V1 mean P.1 mmHg Ao mean P.1 mmHg LV V1 mean: 81.8 cm/sec Ao V2 VTI: 34.9 cm LV V1 VTI: 27.3 cm AV (velocity ratio): 0.78 PA V2 max: 92.9 cm/sec ECHO/Echo Complete W/ Contrast Interpretation Summary Normal LV size. Left ventricular systolic function is normal. The estimated ejection fraction is 70 %. The study was technically difficult. Contrast injection was performed. Ordering Physician: Maurizio Hobbs V Referring Physician: Barry Wooten Performed By: Ingrid Ronquillo, BOY, RVT
--- OUTSIDE RECORDS SUMMARY | 2023-04-22 17:31 | XMS RPT_ITS | CCD ---
Author Name Unknown Address [address] [place] [address] Organization [facility] Care Team Providers Care Nuclear Officer Name Role Phone Jose Clements MD Primary Care Provider JOSE CLEMENTS Primary Care Unavailable KATINA WILSON Referring Unavailable JOSE CLEMENTS Primary Care Unavailable KATINA WILSON Attending Unavailable JOSE CLEMENTS Primary Care Unavailable KATINA WILSON Referring Unavailable JOSE CLEMENTS Primary Care Unavailable KATINA WILSON Attending Unavailable Allergies Allergy Classification Reported Allergen(s) Allergy Type Date of Onset Reaction(s) Facility (7 sources) metal [Other] Propensity to adverse reactions 6 Hives, Itching [facility] (1 source) OTHER; Translations: [OTHER] Propensity to adverse reactions (disorder) 6 [facility] Repository Medications Completed/Discontinued Medications Medication Drug Class(es) Dates Sig (Normalized) Sig (Original) sensor 200 actuat albuterol 0.09 mg/actuat dry powder inhaler (7 sources) beta2-Adrenergic Agonist albuterol sulfate 90 mcg/actuation aebs Inhale 2 Puffs as instructed as needed. 0 Active Problems Active Problems Problem Classification Problem Date Documented Date Episodic/Chronic Chronic obstructive pulmonary disease and bronchiectasis (1 source) Chronic obstructive pulmonary disease, unspecified; Translations: [Chronic obstructive pulmonary disease, unspecified COPD type (HCC)] Onset: 03-16-2023 Chronic Disorders of lipid metabolism (10 sources) Hyperlipidemia; Translations: [Hyperlipidemia, unspecified] Onset: 03-04-2005 Chronic Diverticulosis and diverticulitis (7 sources) Diverticulosis of colon; Translations: [Diverticulosis of large intestine without perforation or abscess without bleeding] Onset: 03-04-2005 03-04-2005 Chronic Essential hypertension (2 sources) Essential hypertension; Translations: [Essential (primary) hypertension] Onset: 03-16-2023 Chronic Heart valve disorders (7 sources) Rheumatic mitral valve disease, unspecified; Translations: [Mitral valve disorders] Onset: 04-01-2007 04-01-2007 Chronic Nutritional deficiencies (7 sources) Vitamin D deficiency; Translations: [Vitamin D deficiency, unspecified] Onset: 10-30-2009 10-30-2009 Chronic Other connective tissue disease (1 source) Swelling of lower leg; Translations: [Other specified soft tissue disorders] Episodic Other connective tissue disease (1 source) Other specified soft tissue disorders; Translations: [Swelling of lower leg] Onset: 03-16-2023 Episodic Other connective tissue disease (1 source) Pain in right foot; Translations: [Pain of both heels] Onset: 03-16-2023 Episodic Other connective tissue disease (1 source) Pain in left foot; Translations: [Pain of both heels] Onset: 03-16-2023 Episodic Other diseases of veins and lymphatics (1 source) Vascular insufficiency; Translations: [Venous insufficiency (chronic) (peripheral)] Episodic Other lower respiratory disease (1 source) Dyspnea; Translations: [Dyspnea, unspecified] Episodic Other nervous system disorders (1 source) Other chronic pain; Translations: [Chronic pain of right knee] Onset: 03-16-2023 Chronic Other non-traumatic joint disorders (2 sources) Pain in right knee; Translations: [Pain in joint, lower leg] Onset: 03-16-2023 Episodic Other nutritional; endocrine; and metabolic disorders (7 sources) Body mass index 30+ - obesity; Translations: [Body mass index (BMI) 39.0-39.9, adult] Onset: 11-23-2013 11-23-2013 Chronic Other upper respiratory disease (7 sources) Chronic rhinitis; Translations: [Chronic rhinitis] Onset: 04-01-2007 04-01-2007 Chronic Residual codes; unclassified (9 sources) Obstructive sleep apnea syndrome; Translations: [Obstructive sleep apnea (adult) (pediatric)] Onset: 11-23-2013 11-23-2013 Chronic Residual codes; unclassified (1 source) Obstructive sleep apnea (adult) (pediatric); Translations: [NELLIE on CPAP] Onset: 11-23-2013 Chronic Residual codes; unclassified (1 source) Dependence on other enabling machines and devices; Translations: [NELLIE on CPAP] Onset: 11-23-2013 Chronic Respiratory failure; insufficiency; arrest (adult) (9 sources) Chronic hypoxemic respiratory failure; Translations: [Chronic respiratory failure with hypoxia] Onset: 11-05-2018 11-05-2018 Chronic Substance-related disorders (7 sources) Tobacco user; Translations: [Nicotine dependence, unspecified, uncomplicated] Onset: 07-08-2010 07-08-2010 Chronic Past or Other Problems Problem Classification Problem Date Documented Da te Episodic/Chronic Hemorrhoids (7 sources) Internal hemorrhoids; Translations: [Other hemorrhoids] Onset: 03-04-2005 03-04-2005 Episodic Other and unspecified benign neoplasm (7 sources) Benign neoplasm of colon; Translations: [Benign neoplasm of colon, unspecified] Onset: 03-04-2005 03-04-2005 Episodic Other and unspecified benign neoplasm (7 sources) History of polyp of colon; Translations: [Personal history of colonic polyps] Onset: 05-29-2006 05-29-2006 Episodic Other lower respiratory disease (1 source) Dyspnea, unspecified; Translations: [Dyspnea, unspecified] Onset: 08-27-2022 Episodic Results Test Name Value Interpretation Reference Range Facil ity Vital Signs Date Time Vital Sign Value Performing Clinician Mulugeta hooper 08-27-2022 10:22-0400 Body weight 114.31 kg Katina Wilson APRN.CNP Work Phone: [facility] 08-27-2022 10:22-0400 Diastolic blood pressure 64 mm[Hg] Katina Wilson APRN.CNP Work Phone: [facility] 08-27-2022 10:22-0400 Heart rate 92 /min Katina Wilson APRN.CNP Work Phone: [facility] 08-27-2022 10:22-0400 Respiratory rate 20 /min Katina Wilson APRN.CNP Work Phone: [facility] 08-27-2022 10:22-0400 SaO2% (BldA) [Mass fraction] 95 % Katina Wilson APRN.CNP Work Phone: [facility] 08-27-2022 10:22-0400 Systolic blood pressure 110 mm[Hg] Katina Wilson 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[employer] Work Phone: [facility] Encounters Encounter Date Encounter Type Care Provider Facility Start: 03-16-2023 End: 03-17-2023 ambulatory JOSE CLEMENTS Facility:[facility] Start: 08-28-2022 Telephone encounter Katina Frankie morales 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[employer] Work Phone: [facility] Plan of Treatment Date Care Activity Detail Author Start: 08-27-2025 DIABETES SCREEN DIABETES SCREEN [facility] Start: 08-28-2023 COVID-19 VACCINE (5 - Booster for Pfizer series) COVID-19 VACCINE (5 - Booster for Pfizer series) [facility] Immunizations Immunization Date Immunization Notes Care Provider Fa cili 12-01-2020 influenza, high-dose , quadrivalent vaccine (FLUZONE HIGH DOSE QUADRIVALENT) Jose Clements MD Work Phone: [facility] 04-26-2020 COVID-19 vaccine, ag e 12+ yr (PFIZER-BIONTECH - PURPLE TOP) Jose Clements MD Work Phone: [facility] Work Phone: 04-05-2020 COVID-19 vaccine, ag e 12+ yr (PFIZER-BIONTECH - PURPLE TOP) Jose Clements MD Work Phone: [facility] Work Phone: 01-05-2020 zoster vaccine recombinant Jose Clements MD Work Phone: [facility] 10-30-2019 zoster vaccine recombinant Jose Clements MD Work Phone: [facility] 10-27-2019 influenza, high-dose , quadrivalent vaccine (FLUZONE HIGH DOSE QUADRIVALENT) Jose Clements MD Work Phone: [facility] 12-24-2018 influenza, high dose seasonal, preservative-free Jose Clements MD Work Phone: [facility] 11-19-2017 influenza, high dose seasonal, preservative-free Jose Clements MD Work Phone: [facility] 11-21-2016 influenza, injectabl e, quadrivalent, contains preservative Jose Clements MD Work Phone: [facility] 11-21-2016 pneumococcal conjuga te vaccine, 13 valent Jose Clements MD Work Phone: [facility] 01-17-2016 influenza, injectabl e, quadrivalent, contains preservative Jose Clements MD Work Phone: [facility] 01-20-2015 influenza, high dose seasonal, preservative-free Jose Clements MD Work Phone: [facility] 01-20-2015 pneumococcal conjuga te vaccine, 13 valent Jose Clements MD Work Phone: [facility] 11-23-2013 influenza, seasonal, injectable Jose Clements MD Work Phone: [facility] 11-23-2013 pneumococcal polysaccharide vaccine, 23 valent Jose Clements MD Work Phone: [facility] 01-21-2013 influenza virus vacc ine, unspecified formulation Jose Clements MD Work Phone: [facility] 01-13-2008 influenza virus vacc ine, unspecified formulation Jose Clements MD Work Phone: [facility] Work Phone: 04-30-2002 diphtheria and tetan us toxoids, adsorbed for pediatric use Jose Clements MD Work Phone: [facility] Work Phone: 10-31-2000 pneumococcal polysaccharide vaccine, 23 valent Jose Clements MD Work Phone: [facility] Work Phone: Payers Date Payer Category Payer Private Health Insurance C[employer] C IGNA PPO [id number] 2005-Present [phone] [facility] [id number] [place] [address] PPO [id number] 2005 Private Health Insurance [employer] C IGNA PPO [id number] 2005-Present [phone] [address] [place] [address] PPO [id number] 2005 Private Health Insurance [id number] 2003 Medicare MEDICARE MEDICAR E A AND B [id number] 2003-Present [phone] [place] [address] Medicare [id number] 2003 Medicare MEDICARE MEDICAR E A AND B [id number] 2003-Present [phone] [place] [address] Medicare [id number] 2003 Medicare [id number] Social History Date Type Detail Facility Start: [facility]-19-[facility] Work Phone: End: 12-09-2021 History of tobacco use Cigarette Smoker [facility] Work Phone: Start: 04-17-2021 End: 08-27-2022 Alcohol intake Current non-drinker of alcohol (finding) [facility] Start: 1940 Sex Assigned At Not on file [facility] Start: 12-19-2019 End: 08-27-2022 Cigarettes smoked current (pack per day) - Reported 1 [facility] Start: 12-19-2019 End: 08-27-2022 Tobacco use and exposure Smokeless tobacco non-user [facility] Work Phone: Start: 08-27-2022 [facility] End: 12-09-2021 History of tobacco use Current smoker [facility] Clinical Notes 03-02-2007 to 03-16-2023 Telephone Encounter - Karo Sanches LPN - 08/28/2022 3:54 PM EDTTelephone Encounter - Katina Wilson APRN.[employer]OR - 08/28/2022 2:53 PM EDTPatient Abelino Delgado RN - 03/11/2022 12:04 PM EST Note Date & Type Note Facility 03-16-2023 Note HNO ID: [id number] Author: KATINA WILSON APRN.[employer]OR Service: ? Author Type: Nurse Practitioner Type: Progress Notes Filed: 03/16/2023 11:16 Note Text: This is a 82 year old female who presents today with: Patient presents with: 6 Month Exam HISTORY OF PRESENT ILLNESS: Gloria Medeiros is a 82 year old female. Patient presents with: 6 Month Exam 6 month follow up HTN: Taking lisinopril 20 mg and Lasix 20-40 mg daily. Not currently checking blood pressure at home. Denies chest pain, palpitations, dizziness. Refers that she has swelling in legs bilaterally. Difficulty elevating the legs at home. Gets SOB when laying back, has difficulty getting out of chair. Not currently following with cardiology. Has seen Dr. Contreras in the past for cardiac testing. Lipids: Taking lovastatin 40 mg daily. Watching diet. NELLIE: Using CPAP. Right Knee Pain: Has torn meniscus, refers that Ortho does not want to operate if they dont have to. COPD: Following with Dr. Hobbs. Follow up Thursday. Taking Trelegy Ellipta daily, and albuterol inhaler as needed. Has follow up in the next 2 weeks. Checks SPO2 at home. Getting SOB with activity or AD's. Will have to rest. Would like to get a lift chair to help with mobility. Difficulty getting out of the chairs. Heel Pain: Noticed heel pain while sleeping seems to be random. Feels like an Ache will wake her up, takes 3-4 minutes to resolve. No numbness/tingling or residual pain. Has noticed bilateral calf pain with walking. No cramps. Smoking. Quit smoking in November, still having SOB with walking. Vaccines: Due Tdap PAST MEDICAL HISTORY: PAST MEDICAL HISTORY Diagnosis Date Benign neoplasm of colon 03/04/2005 hyperplastic Cholelithiasis without obstruction 05/2019 COPD (chronic obstructive pulmonary disease) (HCC) Diverticulosis of colon (without mention of hemorrhage) Internal hemorrhoids without mention of complication NELLIE (obstructive sleep apnea) with O2 uses C-PAP Other and unspecified hyperlipidemia 03/04/2005 Tobacco use disorder PAST SURGICAL HISTORY Procedure Laterality Date COLONOSCOPY FLX DX W/COLLJ SPEC WHEN PFRMD 07/17/2003 Colonoscopy COLONOSCOPY W/BIOPSY SINGLE/MULTIPLE 05/30/07 CYSTOSCOPY 11/27/2015 w/lithotripsy DESTRUCTION HEMORRHOIDS,INT/PAD TUFTER 1975? LAPS SURG CHOLECYSTECTOMY W/CHOLANGIOGRAPHY 05/02/2019 LITHOTRIPSY XTRCORP SHOCK WAVE 1985 TOTAL ABDOMINAL HYSTERECT W/WO RMVL TUBE OVARY 1979 Hysterectomy, WILLY ALLERGIES Metal [Other] MEDICATIONS Current Outpatient Medications Medication Sig CPAP/BIPAP/OTHER Type .CPAPSettings into a note to see current settings/supplies/DME information. lisinopril (ZESTRIL) 20 mg tablet Take 1 tablet by mouth once daily. lovastatin (MEVACOR) 40 mg tablet Take 1 tablet by mouth daily at bedtime. furosemide (LASIX) 20 mg tablet Take 1 tablet by mouth once daily. May increase to 2 tablets once daily for increased leg swelling. meloxicam (MOBIC) 15 mg tablet Take 1 tablet by mouth once daily. Take with food. (Patient not taking: Reported on 08/27/2022) buPROPion SR (ZYBAN SR; WELLBUTRIN SR) 150 mg 12 hr tablet Take 1 tablet by mouth twice daily. (Patient not taking: Reported on 08/27/2022) edbnohjwaxo-ilpkitnlk-qejfzdhz (TRELEGY ELLIPTA) 100-62.5-25 mcg Inhale 1 Puff as instructed once daily. albuterol sulfate 90 mcg/actuation aebs Inhale 2 Puffs as instructed as needed. docusate sodium (STOOL SOFTENER ORAL) Take 1 tablet by mouth twice daily. (Patient not taking: Reported on 08/27/2022) POTASSIUM-99 ORAL Take by mouth four times a week. COMPOUNDED PRESCRIPTION Portable oxygen concentrator, light weight @ 2 L NC continuous, ICD-10 J96.21, J15.9 (Patient taking differently: 4.5 L. Portable oxygen concentrator, light weight @ 2 L NC continuous, ICD-10 J96.21, J15.9 ) COMPOUNDED PRESCRIPTION 1 Portable Oxygen unit and contents. 2 L NC continuous ICD-10 J96.11 (Patient taking differently: 4.5 L. 1 Portable Oxygen unit and contents. 2 L NC continuous ICD-10 J96.11) calcium carbonate 600 mg-cholecalciferol 200 units 600 mg-5 mcg (200 unit) tab Take 1 tablet po once daily Cholecalciferol, Vitamin D3, 1,000 unit ORAL Cap Take 1 capsule by mouth once daily. aspirin(ECOTRIN LOW STRENGTH 81 MG TAB) Take one(1) tablet daily. No current facility-administered medications for this visit. FAMILY HISTORY Problem Relation Age of Onset Cancer Mother uterine Stroke Mother Cancer Father pancreatic Cancer Brother pancreas Cancer Sister breast Cancer Sister lung Cancer Sister lung Heart Brother also alcoholic Social History Tobacco Use Smoking status: Former Packs/day: 1.00 Years: 52.00 Additional pack years: 0.00 Total pack years: 52.00 Types: Cigarettes Quit date: 12/09/2021 Years since quittin.2 Smokeless tobacco: Never Vaping Use Vaping Use: Never used Substance Use Topics Alcohol use: No Drug use: No REVIEW OF SYS (more content not included)... [facility] 08-28-2022 Miscellaneous Notes Patient notified of results, verbalizes understanding of instructions. Karo Sanches LPN Can you please call the patient and let her know that I reviewed her lab results. LDL cholesterol was just mildly elevated. Recommend that she continue taking lovastatin. Mild decreased kidney function was noted. I would recommend that she be mindful with how much Lasix she is using as well as staying well-hydrated throughout the day. BNP was normal, no signs of CHF. I would recommend that she elevate the legs when possible to help with swelling. May use compression socks during the day. Try to be mindful of processed foods and salt in the diet. Please let me know if she has any questions. Thank you. Katina Wilson APRN.BARBARA documented in this encounter [facility] 08-27-2022 Note HNO ID: [id number] Author: Katina Wilson APRN.BARBARA Service: ? Author Type: Nurse Practitioner Type: Progress Notes Filed: 08/27/2022 12:24 PM Note Text: This is a 82 year old female who presents today with: Patient presents with: Follow Up HISTORY OF PRESENT ILLNESS: Gloria Medeiros is a 82 year old female. Patient presents with: Follow Up Here in the office for follow-up. HTN: Taking lisinopril 20 mg and Lasix 20-40 mg daily. Not currently checking blood pressure at home. Denies chest pain, palpitations, dizziness. Refers that she has noticed increased swelling in lower legs that is constant and does not resolve with elevation. Not currently following with cardiology. Has seen Dr. Contreras in the past for cardiac testing. Lipids: Taking lovastatin 40 mg daily. Watching diet. NELLIE: Using CPAP Right Knee Pain: Has torn meniscus, refers that Ortho does not want to operate if they dont have to. COPD: Following with Dr. Hobbs. Taking Trelegy Ellipta daily, and albuterol inhaler as needed. Has follow up in the next 2 weeks. Smoking. Quit smoking in November, still having SOB with walking. Vaccines: Decline Tdap PAST MEDICAL HISTORY: PAST MEDICAL HISTORY Diagnosis Date Benign neoplasm of colon 03/04/2005 hyperplastic Cholelithiasis without obstruction 05/2019 COPD (chronic obstructive pulmonary disease) (HCC) Diverticulosis of colon (without mention of hemorrhage) Internal hemorrhoids without mention of complication NELLIE (obstructive sleep apnea) with O2 uses C-PAP Other and unspecified hyperlipidemia 03/04/2005 Tobacco use disorder PAST SURGICAL HISTORY Procedure Laterality Date COLONOSCOPY FLX DX W/COLLJ SPEC WHEN PFRMD 07/17/2003 Colonoscopy COLONOSCOPY W/BIOPSY SINGLE/MULTIPLE 05/30/07 CYSTOSCOPY 11/27/2015 w/lithotripsy DESTRUCTION HEMORRHOIDS,INT/PAD TUFTER 1975? LAPS SURG CHOLECYSTECTOMY W/CHOLANGIOGRAPHY 05/02/2019 LITHOTRIPSY XTRCORP SHOCK WAVE 1985 TOTAL ABDOMINAL HYSTERECT W/WO RMVL TUBE OVARY 1979 Hysterectomy, [facility] ALLERGIES Metal [Other] MEDICATIONS Current Outpatient Medications Medication Sig CPAP/BIPAP/OTHER Type .CPAPSettings into a note to see current settings/supplies/DME information. lisinopril (ZESTRIL) 20 mg tablet Take 1 tablet by mouth once daily. furosemide (LASIX) 20 mg tablet Take 1 tablet by mouth once daily. May increase to 2 tablets once daily for increased leg swelling. lovastatin (MEVACOR) 40 mg tablet Take 1 tablet by mouth daily at bedtime. tikmrpaszxv-iodedspkb-nlljokak (TRELEGY ELLIPTA) 100-62.5-25 mcg Inhale 1 Puff as instructed once daily. albuterol sulfate 90 mcg/actuation aebs Inhale 2 Puffs as instructed as needed. POTASSIUM-99 ORAL Take by mouth four times a week. COMPOUNDED PRESCRIPTION 1 Portable Oxygen unit and contents. 2 L NC continuous ICD-10 J96.11 (Patient taking differently: 4.5 L. 1 Portable Oxygen unit and contents. 2 L NC continuous ICD-10 J96.11) calcium carbonate 600 mg-cholecalciferol 200 units 600 mg-5 mcg (200 unit) tab Take 1 tablet po once daily Cholecalciferol, Vitamin D3, 1,000 unit ORAL Cap Take 1 capsule by mouth once daily. aspirin(ECOTRIN LOW STRENGTH 81 MG TAB) Take one(1) tablet daily. meloxicam (MOBIC) 15 mg tablet Take 1 tablet by mouth once daily. Take with food. (Patient not taking: Reported on 08/27/2022) buPROPion SR (ZYBAN SR; WELLBUTRIN SR) 150 mg 12 hr tablet Take 1 tablet by mouth twice daily. (Patient not taking: Reported on 08/27/2022) docusate sodium (STOOL SOFTENER ORAL) Take 1 tablet by mouth twice daily. (Patient not taking: Reported on 08/27/2022) COMPOUNDED PRESCRIPTION Portable oxygen concentrator, light weight @ 2 L NC continuous, ICD-10 J96.21, J15.9 (Patient taking differently: 4.5 L. Portable oxygen concentrator, light weight @ 2 L NC continuous, ICD-10 J96.21, J15.9 ) No current facility-administered medications for this visit. FAMILY HISTORY Problem Relation Age of Onset Cancer Mother uterine Stroke Mother Cancer Father pancreatic Cancer Brother pancreas Cancer Sister breast Cancer Sister lung Cancer Sister lung Heart Brother also alcoholic Social History Tobacco Use Smoking status: Former Packs/day: 1.00 Years: 52.00 Pack years: 52.00 Types: Cigarettes Quit date: 12/09/2021 Years since quittin.7 Smokeless tobacco: Never Vaping Use Vaping Use: Never used Substance Use Topics Alcohol use: No Drug use: No REVIEW OF SYSTEMS GENERAL: No weight loss, malaise or fevers/chills HEENT: Negative for frequent or significant headaches, No changes in hearing or vision. NECK: Negative for lumps, goiter, pain and significant neck swelling RESPIRATORY: Negative for cough, hemoptysis, wheezing, dyspnea or shortness of breath CARDIOVASCULAR: Negative for chest pain,orthopnea, or palpitations +lower leg swelling GI: No nausea, vomiting, or diarrhea/constipation. No hematochezia/melena. N (more content not included)... [facility] 08-27-2022 Instructions Nora Loera - 08/27/2022 10:41 AM EDT Get labs completed today Keep scheduled appointments with specialists Continue to take all medication as prescribed. You can use Lasix 20 mg, 2 tablets as needed for leg swelling. Recommend watching salt/processed food in the diet. Elevate the legs when possible. Follow up in 6 months if needed. documented in this encounter [facility] 08-27-2022 History of Presen t illness Narrative This is a 82 year old female who presents today with: Patient presents with: Follow Up HISTORY OF PRESENT ILLNESS: Gloria Medeirso is a 82 year old female. Patient presents with: Follow Up Here in the office for follow-up. HTN: Taking lisinopril 20 mg and Lasix 20-40 mg daily. Not currently checking blood pressure at home. Denies chest pain, palpitations, dizziness. Refers that she has noticed increased swelling in lower legs that is constant and does not resolve with elevation. Not currently following with cardiology. Has seen Dr. Contreras in the past for cardiac testing. Lipids: Taking lovastatin 40 mg daily. Watching diet. NELLIE: Using CPAP Right Knee Pain: Has torn meniscus, refers that Ortho does not want to operate if they dont have to. COPD: Following with Dr. Hobbs. Taking Trelegy Ellipta daily, and albuterol inhaler as needed. Has follow up in the next 2 weeks. Smoking. Quit smoking in November, still having SOB with walking. Vaccines: Decline Tdap PAST MEDICAL HISTORY: PAST MEDICAL HISTORY Diagnosis Date Benign neoplasm of colon 03/04/2005 hyperplastic Cholelithiasis without obstruction 05/2019 COPD (chronic obstructive pulmonary disease) (HCC) Diverticulosis of colon (without mention of hemorrhage) Internal hemorrhoids without mention of complication NELLIE (obstructive sleep apnea) with O2 uses C-PAP Other and unspecified hyperlipidemia 03/04/2005 Tobacco use disorder PAST SURGICAL HISTORY Procedure Laterality Date COLONOSCOPY FLX DX W/COLLJ SPEC WHEN PFRMD 07/17/2003 Colonoscopy COLONOSCOPY W/BIOPSY SINGLE/MULTIPLE 05/30/07 CYSTOSCOPY 11/27/2015 w/lithotripsy DESTRUCTION HEMORRHOIDS,INT/PAD TUFTER 1975? LAPS SURG CHOLECYSTECTOMY W/CHOLANGIOGRAPHY 05/02/2019 LITHOTRIPSY XTRCORP SHOCK WAVE 1985 TOTAL ABDOMINAL HYSTERECT W/WO RMVL TUBE OVARY 1979 Hysterectomy, [facility]Y ALLERGIES Metal [Other] MEDICATIONS Current Outpatient Medications Medication Sig CPAP/BIPAP/OTHER Type .CPAPSettings into a note to see current settings/supplies/DME information. lisinopril (ZESTRIL) 20 mg tablet Take 1 tablet by mouth once daily. furosemide (LASIX) 20 mg tablet Take 1 tablet by mouth once daily. May increase to 2 tablets once daily for increased leg swelling. lovastatin (MEVACOR) 40 mg tablet Take 1 tablet by mouth daily at bedtime. ycbvmppggda-habooywcd-qfzcfhtf (TRELEGY ELLIPTA) 100-62.5-25 mcg Inhale 1 Puff as instructed once daily. albuterol sulfate 90 mcg/actuation aebs Inhale 2 Puffs as instructed as needed. POTASSIUM-99 ORAL Take by mouth four times a week. COMPOUNDED PRESCRIPTION 1 Portable Oxygen unit and contents. 2 L NC continuous ICD-10 J96.11 (Patient taking differently: 4.5 L. 1 Portable Oxygen unit and contents. 2 L NC continuous ICD-10 J96.11) calcium carbonate 600 mg-cholecalciferol 200 units 600 mg-5 mcg (200 unit) tab Take 1 tablet po once daily Cholecalciferol, Vitamin D3, 1,000 unit ORAL Cap Take 1 capsule by mouth once daily. aspirin(ECOTRIN LOW STRENGTH 81 MG TAB) Take one(1) tablet daily. meloxicam (MOBIC) 15 mg tablet Take 1 tablet by mouth once daily. Take with food. (Patient not taking: Reported on 08/27/2022) buPROPion SR (ZYBAN SR; WELLBUTRIN SR) 150 mg 12 hr tablet Take 1 tablet by mouth twice daily. (Patient not taking: Reported on 08/27/2022) docusate sodium (STOOL SOFTENER ORAL) Take 1 tablet by mouth twice daily. (Patient not taking: Reported on 08/27/2022) COMPOUNDED PRESCRIPTION Portable oxygen concentrator, light weight @ 2 L NC continuous, ICD-10 J96.21, J15.9 (Patient taking differently: 4.5 L. Portable oxygen concentrator, light weight @ 2 L NC continuous, ICD-10 J96.21, J15.9 ) No current facility-administered medications for this visit. FAMILY HISTORY Problem Relation Age of Onset Cancer Mother uterine Stroke Mother Cancer Father pancreatic Cancer Brother pancreas Cancer Sister breast Cancer Sister lung Cancer Sister lung Heart Brother also alcoholic Social History Tobacco Use Smoking status: Former Packs/day: 1.00 Years: 52.00 Pack years: 52.00 Types: Cigarettes Quit date: 12/09/2021 Years since quittin.7 Smokeless tobacco: Never Vaping Use Vaping Use: Never used Substance Use Topics Alcohol use: No Drug use: No REVIEW OF SYSTEMS GENERAL: No weight loss, malaise or fevers/chills HEENT: Negative for frequent or significant headaches, No changes in hearing or vision. NECK: Negative for lumps, goiter, pain and significant neck swelling RESPIRATORY: Negative for cough, hemoptysis, wheezing, dyspnea or shortness of breath CARDIOVASCULAR: Negative for chest pain,orthopnea, or palpitations +lower leg swelling GI: No nausea, vomiting, or diarrhea/constipation. No hematochezia/melena. No heartburn or reflux symptoms. : No history of dysuria, frequency or incontinence MUSCULOSKELETAL: +right knee pain SKIN: Negative for lesions, rash, and itching ENDOCRINE: Negative for cold or heat intolerance, polyuria, polydipsia and goiter NEURO: No history of headaches, syncope, paralysis, seizures or tremors MOOD: Negative for depression, anxiety, or suicidal ideation. EXAM: BP 110/64 Pulse 92 Resp 20 Wt 114.3 kg (252 lb) SpO2 95% BMI 45.36 kg/m PHYSICAL EXAM: General Appearance: Well appearing, alert, in no acute distress, well-hydrated, well nourished. Skin: Skin color, texture, turgor normal, no suspicious rashes or lesions. Head: Normocephalic, no masses, lesions, tenderness or abnormalities. Eyes: Anicteric sclera. Extraocular movements are intact. Lungs: Lungs clear to auscultation. No wheezing, rhonchi, rales. Heart: RRR without murmur, gallop, or rubs. No ectopy. Extremities: No deformities, skin discoloration, clubbing or cyanosis. Good capillary refill. , Edema: 1+ right lower leg. Peripheral Pulses: Normal, Capillary refill <2secs, strong peripheral pulses, Pulses palpable. Neurologic: Gait normal. ASSESSMENT/PLAN: 1. Hypertension, essential - ICD9: 401.9, ICD10: I10 (primary diagnosis) - Controlled - Continue current medications - Recommend home blood pressure monitoring, to bring results to next visit - Encouraged sodium restriction, DASH or Mediterranean diet - Recommend regular aerobic exercise 2. Hyperlipidemia, unspecified hyperlipidemia type - ICD9: 272.4, ICD10: E78.5 - Control undetermined, due for labs - Continue current medications - Counseled on healthy diet and regular exercise - LOVASTATIN 40 MG TABLET - COMP METABOLIC PANEL - LIPID PANEL BASIC 3. Chronic pain of right knee - ICD9: 719.46, 338.29, ICD10: M25.561, G89.29 - Recommend follow up with orthopedics with no improvement 4. Chronic respiratory failure with hypoxia (HCC) - ICD9: 518.83, 799.02, ICD10: J96.11 - Continue current medication - Keep scheduled appointments with specialist 5. NELLIE on CPAP - ICD9: 327.23, V46.8, ICD10: G47.33, Z99.89 - Stable, continue with CPAP 6. Swelling of lower leg - ICD9: 729.81, ICD10: M79.89 - Continue to take Lasix as prescribed - Recommended elevating legs, watching salt in the diet, wear compression socks - NT PRO BNP 7. Dyspnea, unspecified - ICD9: 786.09, ICD10: R06.00 Weight increasing - NT PRO BNP Follow up in 6 months or sooner as needed Discussed treatment plan and patient voices understanding. Patient's questions answered appropriately. Medications and potential side effects were discussed and patient voices understanding. Katinaangela Wilson APRN.CNP This note was partially generated using [employer] voice recognition system. Note was reviewed for accuracy. There may be minor misspellings or grammar miscues with [employer] voice recognition. documented in this encounter [facility] 08-22-2022 Miscellaneous Notes 3 month sent, keep appointment. The following approved medication requests have been transmitted electronically. Requested Prescriptions Pending Prescriptions Disp Refills lisinopril (ZESTRIL) 20 mg tablet 90 tablet 0 Sig: Take 1 tablet by mouth once daily. Allan Malagon APRN.CNP Patient has been identified by name and date of : Yes Requested Prescriptions Pending Prescriptions Disp Refills lisinopril (ZESTRIL) 20 mg tablet 90 tablet 3 Sig: Take 1 tablet by mouth once daily. JESSY-04/17/21 Labs-12/25/20 NOV-none RX INSTRUCTIONS: Patient aware RX will be sent to pharmacy. No need to notify patient. Tosin Dominguez Pss documented in this encounter [facility] 06-30-2022 Note HNO ID: [id number] Author: Ekaterina Tellez MA Service: ? Author Type: Senior Applications Developer Type: Progress Notes Filed: 06/30/2022 2:34 PM Note Text: OPENED IN ERROR [facility] 06-30-2022 Note HNO ID: [id number] Author: Ekaterina Tellez MA Service: ? Author Type: Senior Applications Developer Type: Progress Notes Filed: 06/30/2022 2:32 PM Note Text: OPENED IN ERROR [facility] 06-30-2022 History of Presen t illness Narrative OPENED IN ERROR OPENED IN ERROR documented in this encounter [facility] 06-30-2022 Note Patient Outreach (NE TNAV) GLORIA MEDEIROS ([id number]) 1940 F Date Time Provider Department 06/30/22 EKATERINA TELLEZ During your visit today, we recorded the following information about you: Ekaterina Tellez MA 06/30/2022 2:31 PM Signed POPULATION HEALTH NAVIGATION OUTREACH Action/FY INVALID NUMBER [employer] MESSAGE SENT HCC GAP J96.11 - Chronic respiratory failure with hypoxia (HCC) - [id number] Last Billed 04/17/2021 CARE GAPS ANNUAL MEDICARE WELLNESS EXAM ADVANCE DIRECTIVE DISCUSSION Never done Patient Identified by Name and : NO Outreach Outcome/Action Unable to reach patient: Phone number not valid / voicemail full [employer] message sent Did you use a PCP flex slot to schedule this appointment? N/A Reason for Outreach HCC or suspected condition Payer: Payor: MEDICARE / Plan: MEDICARE A AND B / Product Type: Medicare / Care Gap Reviewed:: Annual Wellness visit Reminder: Reminder note to check Health Maintenance for items below Health Maintenance items due: DTAP,TDAP,TD(2 - Tdap) due on 04/30/2012 COVID-19 VACCINE(4 - Booster for Pfizer series) due on 01/20/2021 ADVANCE DIRECTIVE DISCUSSION Never done DEPRESSION ASSESSMENT Never done DIABETES SCREEN due on 05/04/2022 Navigation Signature: Ekaterina Tellez MA June 30, 2022 8:37 AM Allergies As of Date: 06/30/2022 Noted Allergy Reaction metal [Other] 02/17/2006 4 - Hives 9 - Itching Comments: such as jewelry Date Reviewed: 04/17/2021 Reviewed by: Gail Grace Ma - Fully Assessed Reason for Visit: Population Health Navigation Outreach [3910] Cmt: HCC GAPS Prescriptions as of 06/30/2022 - furosemide (LASIX) 20 mg tablet Take 1 tablet by mouth once daily. May increase to 2 tablets once daily for increased leg swelling. - lisinopril (ZESTRIL, PRINIVIL) 20 mg tablet Take 1 tablet by mouth once daily. - lovastatin (MEVACOR) 40 mg tablet Take 1 tablet by mouth daily at bedtime. - meloxicam (MOBIC) 15 mg tablet Take 1 tablet by mouth once daily. Take with food. - buPROPion SR (ZYBAN SR; WELLBUTRIN SR) 150 mg 12 hr tablet Take 1 tablet by mouth twice daily. - znfsxzjxjwj-ylauluiwa-nrtktqrk (TRELEGY ELLIPTA) 100-62.5-25 mcg Inhale 1 Puff as instructed once daily. - albuterol sulfate 90 mcg/actuation aebs Inhale 2 Puffs as instructed as needed. - docusate sodium (STOOL SOFTENER ORAL) Take 1 tablet by mouth twice daily. - POTASSIUM-99 ORAL Take by mouth four times a week. - COMPOUNDED PRESCRIPTION Portable oxygen concentrator, light weight @ 2 L NC continuous, ICD-10 J96.21, J15.9 - COMPOUNDED PRESCRIPTION 1 Portable Oxygen unit and contents. 2 L NC continuous ICD-10 J96.11 - calcium carbonate 600 mg-cholecalciferol 200 units (CALCIUM 600 + D,3,) 600 mg(1,500mg) -200 unit tab Take 1 tablet po once daily - Cholecalciferol, Vitamin D3, 1,000 unit ORAL Cap Take 1 capsule by mouth once daily. - aspirin(ECOTRIN LOW STRENGTH 81 MG TAB) Take one(1) tablet daily. Problem List As Of Date 06/30/2022 Noted Resolved Hyperlipidemia [E78.5] 03/04/2005 BENIGN NEOPLASM LG BOWEL [D12.6] 03/04/2005 INT HEMORRHOID W/O COMPL [K64.8] 03/04/2005 DIVERTICULOSIS OF COLON W/O BLEED [K57.30] 03/04/2005 PERS HX COLONIC POLYPS [Z86.010] 05/29/2006 MITRAL INSUFFICIENCY [I05.9] 04/01/2007 RHINITIS CHRONIC [J31.0] 04/01/2007 TOBACCO USE DISORDER, quit Mar 02, 2007 [F17.200]04/01/2007 07/08/2010 Vitamin D Deficiency [E55.9] 10/30/2009 Tobacco use disorder [F17.200] 07/08/2010 NELLIE on CPAP [G47.33, Z99.89] 11/23/2013 BMI 39.0-39.9,adult [Z68.39] 11/23/2013 Chronic respiratory failure with hypoxia (HCC) *11/05/2018 Encounter Status:Closed by EKATERINA TELLEZ on 06/30/22 [facility] 06-30-2022 Note Patient Outreach (DARIUS TNAV) GLORIA MEDEIROS ([id number]) 1940 F Date Time Provider Department 06/30/22 EKATERINA TELLEZ NETNAV During your visit today, we recorded the following information about you: Ekaterina Tellez MA 06/30/2022 2:32 PM Signed OPENED IN ERROR Ekaterina Tellez MA 06/30/2022 2:34 PM Signed OPENED IN ERROR Allergies As of Date: 06/30/2022 Noted Allergy Reaction metal [Other] 02/17/2006 4 - Hives 9 - Itching Comments: such as jewelry Date Reviewed: 04/17/2021 Reviewed by: Gail Grace Ma - Fully Assessed Reason for Visit: Population Health Navigation Outreach [3910] Cmt: OPENED IN ERROR Prescriptions as of 06/30/2022 - furosemide (LASIX) 20 mg tablet Take 1 tablet by mouth once daily. May increase to 2 tablets once daily for increased leg swelling. - lisinopril (ZESTRIL, PRINIVIL) 20 mg tablet Take 1 tablet by mouth once daily. - lovastatin (MEVACOR) 40 mg tablet Take 1 tablet by mouth daily at bedtime. - meloxicam (MOBIC) 15 mg tablet Take 1 tablet by mouth once daily. Take with food. - buPROPion SR (ZYBAN SR; WELLBUTRIN SR) 150 mg 12 hr tablet Take 1 tablet by mouth twice daily. - mxsmjmfivob-dwhxaxsnb-ccposkoo (TRELEGY ELLIPTA) 100-62.5-25 mcg Inhale 1 Puff as instructed once daily. - albuterol sulfate 90 mcg/actuation aebs Inhale 2 Puffs as instructed as needed. - docusate sodium (STOOL SOFTENER ORAL) Take 1 tablet by mouth twice daily. - POTASSIUM-99 ORAL Take by mouth four times a week. - COMPOUNDED PRESCRIPTION Portable oxygen concentrator, light weight @ 2 L NC continuous, ICD-10 J96.21, J15.9 - COMPOUNDED PRESCRIPTION 1 Portable Oxygen unit and contents. 2 L NC continuous ICD-10 J96.11 - calcium carbonate 600 mg-cholecalciferol 200 units (CALCIUM 600 + D,3,) 600 mg(1,500mg) -200 unit tab Take 1 tablet po once daily - Cholecalciferol, Vitamin D3, 1,000 unit ORAL Cap Take 1 capsule by mouth once daily. - aspirin(ECOTRIN LOW STRENGTH 81 MG TAB) Take one(1) tablet daily. Problem List As Of Date 06/30/2022 Noted Resolved Hyperlipidemia [E78.5] 03/04/2005 BENIGN NEOPLASM LG BOWEL [D12.6] 03/04/2005 INT HEMORRHOID W/O COMPL [K64.8] 03/04/2005 DIVERTICULOSIS OF COLON W/O BLEED [K57.30] 03/04/2005 PERS HX COLONIC POLYPS [Z86.010] 05/29/2006 MITRAL INSUFFICIENCY [I05.9] 04/01/2007 RHINITIS CHRONIC [J31.0] 04/01/2007 TOBACCO USE DISORDER, quit Mar 02, 2007 [F17.200]04/01/2007 07/08/2010 Vitamin D Deficiency [E55.9] 10/30/2009 Tobacco use disorder [F17.200] 07/08/2010 NELLIE on CPAP [G47.33, Z99.89] 11/23/2013 BMI 39.0-39.9,adult [Z68.39] 11/23/2013 Chronic respiratory failure with hypoxia (HCC) *11/05/2018 Encounter Status:Closed by EKATERINA TELLEZ on 06/30/22 [facility] 06-30-2022 Note HNO ID: [id number] Author: Ekaterina Tellez MA Service: ? Author Type: Senior Applications Developer Type: Progress Notes Filed: 06/30/2022 2:31 PM Note Text: POPULATION HEALTH NAVIGATION OUTREACH Action/FY INVALID NUMBER [employer] MESSAGE SENT HCC GAP J96.11 - Chronic respiratory failure with hypoxia (HCC) - [id number] Last Billed 04/17/2021 CARE GAPS ANNUAL MEDICARE WELLNESS EXAM ADVANCE DIRECTIVE DISCUSSION Never done Patient Identified by Name and : NO Outreach Outcome/Action Unable to reach patient: Phone number not valid / voicemail full MyChart message sent Did you use a PCP flex slot to schedule this appointment? N/A Reason for Outreach HCC or suspected condition Payer: Payor: MEDICARE / Plan: MEDICARE A AND B / Product Type: Medicare / Care Gap Reviewed:: Annual Wellness visit Reminder: Reminder note to check Health Maintenance for items below Health Maintenance items due: DTAP,TDAP,TD(2 - Tdap) due on 04/30/2012 COVID-19 VACCINE(4 - Booster for Pfizer series) due on 01/20/2021 ADVANCE DIRECTIVE DISCUSSION Never done DEPRESSION ASSESSMENT Never done DIABETES SCREEN due on 05/04/2022 Navigation Signature: Ekaterina Tellez MA June 30, 2022 8:37 AM [facility] 04-07-2022 Miscellaneous Notes The following approved medication requests have been transmitted electronically. Requested Prescriptions Pending Prescriptions Disp Refills furosemide (LASIX) 20 mg tablet 180 tablet 3 Sig: Take 1 tablet by mouth once daily. May increase to 2 tablets once daily for increased leg swelling. Allan Malagon APRN.CNP Patient has been identified by name and date of : Yes Requested Prescriptions Pending Prescriptions Disp Refills furosemide (LASIX) 20 mg tablet 180 tablet 3 Sig: Take 1 tablet by mouth once daily. May increase to 2 tablets once daily for increased leg swelling. RX INSTRUCTIONS: Patient aware RX will be sent to pharmacy. No need to notify patient. Ingrid Sauer Pss documented in this encounter [facility] 03-11-2022 History of Presen t illness Narrative [facility] Enrollment Provider Action/FYI: Patient referred by: [facility] Igor Contact made with patient: No - 2nd attempt to reach patient, left another message: Hi my name is Silvia Delgado RN and I am calling from the [facility] on behalf of your PCP, Jose Clements MD. We are excited to share with you a new program to help you manage your health. Please call me back at [phone]. I hope you can take the time to speak with me. (Keep encounter open for additional two business days in case patient calls back. Close encounter if no response by end of second business day) Closing: Could not reach the patient after two attempted outreaches. Supervisor Crack Off to retry patient in one week. END OUTREACH [employer] [facility] Enrollment Provider Action/FYI: Patient referred by: [facility] Igor Contact made with patient: No - Left Message: Hi my name is Silvia Delgado RN and I am calling from the [facility] on behalf of your PCP, Jose Clements MD. We are excited to share with you a new program to help you manage your health. Please call me back at [phone] between the hours of 8am-5pm Thursday-Thursday. You will receive another phone call from me within the next two business days. I hope you can take the time to speak with me. (Keep encounter open and attempt 2nd outreach in two business days from today) END OUTREACH documented in this encounter [facility] 09-11-2021 Miscellaneous Notes The following approved medication requests have been transmitted electronically. Pending Prescriptions Disp Refills LISINOPRIL 20 MG TABLET 90 tablet 3 Sig: Take 1 tablet by mouth once daily. DOUG: No LOVASTATIN 40 MG TABLET 90 tablet 3 Sig: Take 1 tablet by mouth daily at bedtime. DOUG: No Allan Malagon APRN.[employer] JESSY 04/17/21 NOV no upcoming appt Patient has been identified by name and date of : Yes Pending Prescriptions Disp Refills LISINOPRIL 20 MG TABLET 90 tablet 3 Sig: Take 1 tablet by mouth once daily. DOUG: No LOVASTATIN 40 MG TABLET 90 tablet 3 Sig: Take 1 tablet by mouth daily at bedtime. DOUG: No RX INSTRUCTIONS: Patient aware RX will be sent to pharmacy. No need to notify patient. Dinora Villareal Pss documented in this encounter [facility] documented as of this encounter (statuses as of 09/11/2021) [facility] History of Past illness Narrative* Problem Noted Date Resolved Date TOBACCO USE DISORDER, quit Mar 02, 2007 8 07/08/2010 documented as of this encounter (statuses as of 03/11/2022) [facility] of Past illness Narrative* Problem Noted Date Resolved Date TOBACCO USE DISORDER, quit Mar 02, 2007 8 07/08/2010 documented as of this encounter (statuses as of 04/07/2022) [facility] of [facility] Narrative* Problem Noted Date Resolved Date TOBACCO USE DISORDER, quit Mar 02, 2007 8 07/08/2010 documented as of this encounter (statuses as of 07/01/2022) [facility] of Past illness Narrative* Problem Noted Date Resolved Date TOBACCO USE DISORDER, quit Mar 02, 2007 8 07/08/2010 documented as of this encounter (statuses as of 08/22/2022) [facility] of [facility] Narrative* Problem Noted Date Resolved Date TOBACCO USE DISORDER, quit Mar 02, 2007 8 07/08/2010 documented as of this encounter (statuses as of 08/27/2022) [facility] of Past illness Narrative* Problem Noted Date Resolved Date TOBACCO USE DISORDER, quit Mar 02, 2007 8 07/08/2010 documented as of this encounter (statuses as of 08/29/2022) [facility] Diagnosis Hyperlipidemia, unspecified hyperlipidemia type [facility] Diagnosis NELLIE on CPAP- Primary Obstructive sleep apnea (adult) (pediatric) [facility] Diagnosis Venous insufficiency Unspecified venous (peripheral) insufficiency [facility] Diagnosis Hypertension, essential- Primary Unspecified essential hypertension Hyperlipidemia, unspecified hyperlipidemia type Chronic pain of right knee Chronic respiratory failure with hypoxia (HCC) Chronic respiratory failure NELLIE on CPAP Obstructive sleep apnea (adult) (pediatric) Swelling of lower leg Dyspnea, unspecified documented in this encounter [facility] Summary Purpose Family History No Family History Records FoundNo Family History Records Found Advance Directives No Advanced Directives Records FoundDocuments on File Type Date Recorded 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 Advance Directive(s) 01/19/2020 1:51 PM Advance Directive(s) 01/12/2020 3:21 PM Advance Directive(s) 03/28/2019 2:53 PM Advance Directive(s) 03/25/2019 11:40 AM Advance Directive(s) 07/10/2010 12:00 AM Advance Directive(s) 02/17/2008 12:00 AM Documents on File Type Date Recorded 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 Advance Directive(s) 07/10/2010 Advance Directive(s) 02/17/2008 Additional Source Comments INFORMATION SOURCE (unrecogn ized section and content) DATE CREATED AUTHOR AUTHOR'S ORGANIZ ATION 03/20/2023 [facility] Source Comments (unrecognize d section and content) In the event this informatio n is protected by the Federal Confidentiality of Alcohol and Drug Abuse Patient Records regulations: The Federal rules restrict any use of the information to criminally investigate or prosecute any alcohol or drug abuse patient.[facility] the event this information is protected by the Federal Confidentiality of Alcohol and Drug Abuse Patient Records regulations: The Federal rules restrict any use of the information to criminally investigate or prosecute any alcohol or drug abuse patient.[facility] the event this information is protected by the Federal Confidentiality of Alcohol and Drug Abuse Patient Records regulations: The Federal rules restrict any use of the information to criminally investigate or prosecute any alcohol or drug abuse patient.[facility] the event this information is protected by the Federal Confidentiality of Alcohol and Drug Abuse Patient Records regulations: The Federal rules restrict any use of the information to criminally investigate or prosecute any alcohol or drug abuse patient.[facility] the event this information is protected by the Federal Confidentiality of Alcohol and Drug Abuse Patient Records regulations: The Federal rules restrict any use of the information to criminally investigate or prosecute any alcohol or drug abuse patient.[facility] the event this information is protected by the Federal Confidentiality of Alcohol and Drug Abuse Patient Records regulations: The Federal rules restrict any use of the information to criminally investigate or prosecute any alcohol or drug abuse patient.[facility] the event this information is protected by the Federal Confidentiality of Alcohol and Drug Abuse Patient Records regulations: The Federal rules restrict any use of the information to criminally investigate or prosecute any alcohol or drug abuse patient.[facility] Reason for Visit (unrecogniz ed section and content) Reason Onset Date Comments 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 03/05/2022 enrollment Reason Onset Date Comments Refill Request 04/07/2022 Reason Onset Date Comments Population Health Navigation Outreach 06/30/2022 OPENED IN ERROR Reason Onset Date Comments Refill Request 08/22/2022 Reason Comments Follow Up Reason Comments Results Labs Care Teams (unrecognized sec tion and content) Nuclear Officer Relationship Specialty Start Date End Date Jose Clements MD [address] [place], [place] [id number] PCP - General Family Medicine 11/19/17 Nuclear Officer Relationship Specialty Start Date End Date Jose Clements MD [address] [place] [address] PCP - General Family Medicine 11/19/17 Nuclear Officer Relationship Specialty Start Date End Date Jose Clements MD [address] [place] [address] PCP - General Family [facility] 11/19/17 Nuclear Officer Relationship Specialty Start Date End Date Jose Clements MD [address] [place] [address] PCP - General Family [facility] 11/19/17 Nuclear Officer Relationship Specialty Start Date End Date Jose Clements MD [address] [place] [address] PCP - General Family [facility] 11/19/17 FOR RECORDS PERTAINING TO PATIENTS WHO ARE OR HAVE BEEN ENROLLED IN A CHEMICAL DEPENDENCY/SUBSTANCEABUSE PROGRAM, SOME INFORMATION MAY BE OMITTED. This clinical summary was aggregated from multiple sources. Caution should be exercised in using it in the provision of clinical care. This summary normalizes information from multiple sources, and as a consequence, information in this document may materially change the coding, format and clinical context of patient data. In addition, data may be omitted in some cases. CLINICAL DECISIONS SHOULD BE BASED ON THE PRIMARY CLINICAL RECORDS. [facility] [employer], [facility]. provides no warranty or guarantee of the accuracy or completeness of information in this document.
== END | disposition home or self-care (01) ==
LOC: CVS 13:43
PROVIDERS: PCP Family Medicine; Referring Provider Internal Medicine Pulmonary Disease; Visit Provider Internal Medicine Pulmonary Disease
DX: R06.02 Shortness of breath (principal)
CPT/HCPCS: 93306; Q9957; A4216; C8929

== ENCOUNTER → 2023-06-17 | Outpatient (CLI) | payer MEDICARE, OTHER, SELFPAY ==
[2023-06-17 12:28] LABS: BNP,B-Type NATRIURETIC PEPTIDE 43.3 pg/mL (0-100)
[2023-06-17 12:30] LABS: Anion Gap 2 (5-15); BUN 23 mg/dL (7-18); BUN/Creat Ratio 20.9 RATIO (10-20); Calcium,Total 10.5 mg/dL (8.5-10.1); Chloride 105 mmol/L (98-107); EST Glomerular Filtration Rate 50 mL/min (>60); Est Glom Filt Rate - Afr Amer 61 mL/min (>60); Glucose 98 mg/dL (74-106); Potassium 4.3 mmol/L (3.5-5.1); Sodium Level 138 mmol/L (136-145)
== END | disposition home or self-care (01) ==
LOC: LAB 11:18
PROVIDERS: PCP Family Medicine; Referring Provider Internal Medicine Cardiovascular Disease; Visit Provider Internal Medicine Cardiovascular Disease
DX: R06.02 Shortness of breath (principal)
CPT/HCPCS: 36415; 80048; 83880

== ENCOUNTER → 2023-10-01 | Outpatient (CLI) | payer MEDICARE, OTHER, SELFPAY ==
--- NOTE | 2023-10-01 12:07 | RAD_ITS ---
INDICATION: SOB EXAMINATION/TECHNIQUE: X-RAY - XR Chest 2 Views COMPARISON: 08/23/2020 FINDINGS: LINES/DEVICES: None. LUNGS: No consolidation. Reticular opacities in the lung bases unchanged, likely scarring. No pneumothorax. MEDIASTINUM: Aorta is atherosclerotic. CARDIAC SILHOUETTE: Not enlarged. BONES AND SOFT TISSUES: No acute abnormalities. Multiple thoracic compression abnormalities most likely nonacute, with kyphosis. RAD/Chest PA and Lateral IMPRESSION: No evidence of active intrathoracic disease. Electronically Signed: Roseanne Rose MD at 22:41 EDT ,
[2023-10-01 12:42] LABS: Absolute Lymphocyte Count 0.98 X10^3/uL (0.83-4.51); Absolute Neutrophil Count 4.8 X10^3/uL (2.0-7.7); Basophil# 0.04 X10^3/uL; Basophil% 0.6 % (0-1); Eosinophil# 0.13 X10^3/uL; Hematocrit 35.2 % (37-47); Hemoglobin 11.4 g/dL (12.0-15.0); Lymphocyte # 0.98 X10^3/ul (0.83-4.51); Lymphocyte % 14.8 % (19-41); Mean Corp Hgb Conc 32.4 g/dL (32-36); Mean Corpuscular Hgb 31.5 pg (27.0-32.0); Mean Corpuscular Volume 97.2 fL (81-99); Mean Platelet Vol. 9.9 fl (6.2-12.0); Monocyte# 0.65 X10^3/uL; Monocyte% 9.8 % (0-10); NRBC Flagged by Analyzer 0 % (0-5); Neutrophil # 4.76 X10^3/uL (2.7-7.7); Neutrophil % 72.2 % (47-70); Platelet Count 211 K/mm3 (150-450); RBC Distribution Width CV 13.2 % (11.6-14.6); RBC Distribution Width SD 47.1 fl (35.1-43.9); Red Blood Count 3.62 M/mm3 (4.2-5.4); White Blood Count 6.6 K/mm3 (4.4-11.0)
[2023-10-01 13:10] LABS: Anion Gap 1 (5-15); BUN 20 mg/dL (7-18); BUN/Creat Ratio 13.8 RATIO (10-20); Chloride 109 mmol/L (98-107); Creatinine, Serum 1.45 mg/dL (0.55-1.02); EST Glomerular Filtration Rate 36 mL/min (>60); Est Glom Filt Rate - Afr Amer 44 mL/min (>60); Glucose 96 mg/dL (74-106); Potassium 4.5 mmol/L (3.5-5.1); Sodium Level 138 mmol/L (136-145)
== END | disposition home or self-care (01) ==
LOC: RAD 12:07
PROVIDERS: PCP Family Medicine; Referring Provider Nurse Practitioner Gerontology; Visit Provider Nurse Practitioner Gerontology
DX: R06.02 Shortness of breath (principal); I25.10 Atherosclerotic heart disease of native coronary artery without angina pectoris
CPT/HCPCS: 36415; 71046; 80048; 85025

== ENCOUNTER 2023-10-06 06:45 | Day surgery (SDC) | payer MEDICARE, OTHER, SELFPAY ==
[2023-10-06 06:55] VITALS: BMI 47.2
--- NOTE | 2023-10-06 08:55 | CL.D_ITS ---
Patient Name: DWIGHT MEDEIROS Study Date: 10/06/2023 Performing: Mustapha Contreras MD Ht: 62.5 inches 158.75 cm : 1940 Wt: 262.24 lbs 118.95 kg Age: 83 Gender: female BSA: 2.16 PROCEDURE(S) PERFORMED DC01-(44052)LHC/COR/LV CLINICAL PROFILE AND INDICATIONS Indications: Suspected CAD Heart Failure: None CONCLUSIONS Non obstructive coronary arteries RECOMMENDATIONS Medical therapy DESCRIPTION OF PROCEDURE The patient arrived to the procedure lab. The risks and benefits of the procedure as well as a full description of our services here and current unavailability of surgical backup were fully explained to the patient and/or their significant other prior to the catheterization. The Timeout was completed, verifying the correct patient and procedure. The patient's procedural site was prepped and draped in the usual fashion. Local anesthetic was given subcutaneously to right radial region with Lidocaine 2%. Using a modified Seldinger technique, arterial access was obtained via the right radial artery, a 6Fr sheath was inserted. Right Coronary Artery selective angiography was then performed in multiple views using a 5 Fr. 4.0 Harwood catheter. Left Coronary Artery selective angiography was performed in multiple views using a 5 Fr. 4.0 Harwood catheter. Left Ventriculography was performed in HUNTLEY projection using a 5 Fr. Pigtail catheter. LV to AO pullback pressures were then recorded.The arterial sheath was pulled and a TR Band was applied for hemostasis 12 air CORONARY ANGIOGRAPHY DOMINANCE: Left Dominant LEFT HEART ASSESSMENT Left Ventricular Ejection Fraction: by LV Gram 65 % Normal LV wall motion Normal Left Ventricular systolic function LEFT MAIN: Angiographically normal LEFT ANTERIOR DESCENDING ARTERY: Mild luminal irregularities less than 30% SEPTAL: Subtotal occlusion noted mid segment CIRCUMFLEX ARTERY: Mild luminal irregularities less than 30% RIGHT CORONARY ARTERY: Mild luminal irregularities COMPLICATIONS No Complications PROCEDURE MEDICATIONS Fentanyl 50 mcg IV Versed 1 mg IV Oxygen: 2 L/min via nasal cannula Baby Aspirin (81mg) 1 Tabs PO @ 10/06/2023 07:23:15 Heparin given IA 10/06/2023 08:17:09 Verapamil 2.5mg, Ntg 100mcgs, 3000 units of Heparin given IA 10/06/2023 08:17:09 IV Fluids: .9 NaCl IV started @ 50 ml/hr 10/06/2023 07:25:09 SUMMARY OF HEMODYNAMIC DATA Time AIR REST ECG 07:21:41 Art 97/50 (69) 08:17:43 AO 114/56 (79) SA 08:21:15 LV 131/8, 18 08:26:39 LV 131/7, 21 08:26:46 LV 131/12, 22 08:27:23 LVp 131/8, 20 08:27:27 AOp 110/57 (79) 08:27:34 Signed By Mustapha Contreras MD On 10/06/2023 08:54:33 Mustapha Contreras MD
== END 2023-10-06 10:15 | disposition home or self-care (01) ==
PROVIDERS: PCP Family Medicine; Referring Provider Internal Medicine Cardiovascular Disease; Visit Provider Internal Medicine Cardiovascular Disease
DX: I25.10 Atherosclerotic heart disease of native coronary artery without angina pectoris (principal); J44.9 Chronic obstructive pulmonary disease, unspecified; Z79.82 Long term (current) use of aspirin; I10 Essential (primary) hypertension; G47.33 Obstructive sleep apnea (adult) (pediatric); E78.5 Hyperlipidemia, unspecified; F17.210 Nicotine dependence, cigarettes, uncomplicated; R09.89 Other specified symptoms and signs involving the circulatory and respiratory systems; Z79.51 Long term (current) use of inhaled steroids; Z79.899 Other long term (current) drug therapy
CPT/HCPCS: 93458; 99152; 99153; J7040; Q9967; C1769; C1894

== ENCOUNTER → 2023-10-15 | Outpatient (CLI) | payer MEDICARE, OTHER, SELFPAY ==
[2023-10-05 10:45] VITALS: BMI 48.1
--- NOTE | 2023-10-15 09:42 | CDU_ITS ---
Reason For Study: Carotid bruit Rt. Velocities/BP Lt. Velocities/BP Prox CCA 65.5/14.5 cm/sec. Prox CCA 112.6/11.6 cm/sec. Mid CCA 69.2/14.5 cm/sec. Mid CCA 114.8/11.6 cm/sec. Dist CCA 107.2/18.8 cm/sec. Dist CCA 97.2/16 cm/sec. Prox ICA 106/24.9 cm/sec. Prox ICA 79/12.6 cm/sec. Mid ICA 54.4/20 cm/sec. Mid ICA 93.7/21.2 cm/sec. Dist ICA 59.3/18.8 cm/sec. Dist ICA 72.8/16.3 cm/sec. Rt. ICA/CCA = 1.53. Lt. ICA/CCA = 0.82. Prox ECA 124.4/9 cm/sec. Prox ECA 189.4/2.9 cm/sec. Rt. Vert. 42.1/12.4 cm/sec. Lt. Vert. 39/6.9 cm/sec. Right Extracranial There is intimal thickening but no significant atherosclerotic plaque noted in the right common carotid artery. There is heterogeneous, irregular atherosclerotic plaque noted in the right internal carotid artery. There is intimal thickening but no significant atherosclerotic plaque noted in the right external carotid artery. Antegrade flow is noted in the right vertebral artery. Left Extracranial There is intimal thickening but no significant atherosclerotic plaque noted in the left common carotid artery. There is heterogeneous, irregular atherosclerotic plaque noted in the left internal carotid artery. There is heterogeneous, irregular atherosclerotic plaque noted in the left external carotid artery. Antegrade flow is noted in the left vertebral artery. Procedure Carotid Duplex 30534. This is a Carotid Duplex examination using B-mode, color flow and specral Doppler. Exam performed in department. VL/Carotid Duplex Ultrasound Interpretation Summary Mild (<50%) stenosis right extracranial internal carotid. Mild (<50%) stenosis left extracranial internal carotid. Patent and antegrade vertebrals bilaterally. Ordering Physician: Kelly Walsh Referring Physician: MD Je Barry Performed By: Milvia Colin RVT
== END | disposition home or self-care (01) ==
LOC: CVS 09:38
PROVIDERS: PCP Family Medicine; Referring Provider Nurse Practitioner Gerontology; Visit Provider Nurse Practitioner Gerontology
DX: R09.89 Other specified symptoms and signs involving the circulatory and respiratory systems (principal)
CPT/HCPCS: 93880

== ENCOUNTER 2024-10-14 12:00 | Emergency (ER) | payer MEDICARE, OTHER, SELFPAY ==
[2024-10-14 12:01] VITALS: BP 114/56; PULSE 90; RESP 16; TEMP 36.9; O2SAT 98
[2024-10-14 12:03] VITALS: BMI 42.5
--- NOTE | 2024-10-14 12:38 | VDLE_ITS ---
Reason For Study Reason For Study: Elevated D Dimer RIGHT LEFT GSV is normal. CFV is compressible, spontaneous, phasic, competent, CFV is compressible, spontaneous, phasic, competent and demonstrates normal augmentation. and demonstrates normal augmentation. FV is compressible, spontaneous, phasic, competent and demonstrates normal augmentation. POP V is compressible, spontaneous, phasic, competent and demonstrates normal augmentation. T/P Trunk is compressible. PTV is compressible. RT PerV is compressible. Procedure This is a venous duplex using B-mode, color flow and spectral Doppler. Exam performed portable in ED. The exam was diagnostic. A preliminary report was called and/or faxed to Cristin DIAZ. VL/Venous Duplex US, Unilateral Interpretation Summary Deep veins of the right lower extremity are patent and compressible segmentally . There is no evidence of right lower extremity deep vein thrombosis. Valvular competence appears intact within the p roximal deep venous system on the right . The right great saphenous vein appears patent and compressible segmentally. The left common femoral vein is patent and compressible . Ordering Physician: Cristin Palomares Referring Physician: Barry Wooten Performed By: Jurgen Dunne, RVT
--- NOTE | 2024-10-14 12:40 | EX.ED.DYSGE1 ---
HPI <JOE Segal - Last Filed: 10/14/24 15:36> History of Present Illness Chief Complaint: Abn Labs Narrative Narrative: 84-year-old female PMH HTN, HLD, COPD, NELLIE on CPAP developed redness, warmth, and swelling of her right turner a month ago. Urgent care prescribed 10 days of antibiotics for cellulitis but it did not change. She followed up with her PCP who prescribed a second antibiotic and increased her Lasix. She states the warmth has gone away but the redness has not changed she still having discomfort on the side of her legs. She had an outpatient D-dimer which was elevated so was sent in for an ultrasound. She has no history of DVT/PE and no recent risk factors. She denies chest pain. She has had exertional shortness of breath for about a month which she attributed to weight gain because she used to have it when she was overweight. [facility] <JOE Segal - Last Filed: 10/14/24 15:36> [facility] Medical History Primary osteoarthritis of right knee Coronary artery calcification seen on CAT scan (2019) Osteoporosis Kidney stones Sleep apnea On home oxygen therapy Obstructive sleep apnea COPD (chronic obstructive pulmonary disease) Essential (primary) hypertension NELLIE on CPAP Obesity Nicotine dependence Chronic respiratory failure with hypoxia Hyperlipidemia Home Medications ?Medication ?Instructions ?Recorded ?Last Taken ?Type aspirin 81 mg chewable tablet 81 mg PO DAILY@199911/13/15 10/06/23 History lovastatin 40 mg tablet 40 mg PO QHS 02/12/18 08/22/20 History albuterol sulfate 90 mcg/actuation 2 puff inhalation Q6H PRN 05/18/23 Unknown History aerosol inhaler shortness of breath or wheezing furosemide 20 mg tablet 20 mg PO Q OTHER DAY Shortness Of 10/01/23 Unknown History Breath fluticasone fur. 100 mcg-umeclid 1 inh inhalation Q24H 01/07/24 Unknown History 62.5 mcg-vilant 25 mcg inhalat.powder (Trelegy Ellipta) amoxicillin 875 mg-potassium 1 tab PO BID 09/06/24 Unknown History clavulanate 125 mg tablet lisinopril 10 mg tablet 10 mg PO QDAY Dose increased back 09/12/24 Unknown Rx up d/t elevated BP #90 tabs Allergy/AdvReac Type Severity Reaction Status Date / Time Environmental Allergies: AdvReac Mild blisters Verified 09/06/24 10:48 Uncoded (metal) Family History Father Pancreatic cancer Brother Pancreatic cancer Sister Lung cancer Brother Alcohol abuse Myocardial infarction Sister Cancer lung Surgical History History of cholecystectomy (05/2019) History of hemorrhoidectomy History of hysterectomy History of lithotripsy Social History Smoking Status: Former smoker Tobacco: How many years used: 52 alcohol intake: never substance use type: does not use caffeine: Yes Type: coffee Number of servings: 2 ROS <JOE Segal - Last Filed: 10/14/24 15:36> ROS ED ROS Narrative Constitutional: Negative for fever, chills, malaise. CVS: Negative for chest pain, syncope. Respiratory: Negative for shortness of breath, cough. GI: Negative for abdominal pain, nausea, vomiting. EXAM <JOE Segal - Last Filed: 10/14/24 15:36> Physical Exam Narrative Exam Narrative: CONST: Patient sitting in no acute distress. EYES: Normal inspection. NECK: Normal inspection. RESP: No respiratory distress, CTAB. CVS: Regular rate and rhythm, no murmur, no gallop. SKIN: Color normal, no rash, warm, dry, intact. EXTREMITIES: Slight erythema of right anterior turner without warmth or tenderness. Both ankles have indentations from her socks, the right calf is slightly more swollen than the left. No palpable cords or tenderness over the deep venous system. Full range of motion of all joints, 5/5 strength in dorsiflexion and plantarflexion, sensation intact, 2+ DP pulses. NEURO: Alert and answering questions appropriately. PSYCH: Normal affect. Const Vital Signs: 10/14/24 12:01 10/14/24 13:49 10/14/24 13:50 Temperature 98.4 F 98.2 F Temperature Source Oral Pulse Rate 90 75 83 Respiratory Rate 16 18 20 H Respiratory Effort Respiratory Pattern Blood Pressure 114/56 L 127/45 H 127/45 H Blood Pressure Mean 75 72 72 Pulse Ox 98 97 95 Oxygen Delivery Method Room Air Room Air 10/14/24 13:50 Temperature Temperature Source Pulse Rate Respiratory Rate Respiratory Effort Normal Non-Labored Respiratory Pattern Normal Blood Pressure Blood Pressure Mean Pulse Ox Oxygen Delivery Method <Dr. Raghav Cadet MD - Last Filed: 10/14/24 16:32> Physical Exam Const Vital Signs: 10/14/24 12:01 10/14/24 13:49 10/14/24 13:50 Temperature 98.4 F 98.2 F Temperature Source Oral Pulse Rate 90 75 83 Respiratory Rate 16 18 20 H Respiratory Effort Respiratory Pattern Blood Pressure 114/56 L 127/45 H 127/45 H Blood Pressure Mean 75 72 72 Pulse Ox 98 97 95 Oxygen Delivery Method Room Air Room Air 10/14/24 13:50 Temperature Temperature Source Pulse Rate Respiratory Rate Respiratory Effort Normal Non-Labored Respiratory Pattern Normal Blood Pressure Blood Pressure Mean Pulse Ox Oxygen Delivery Method MDM <JOE Segal - Last Filed: 10/14/24 15:36> [facility] Narrative Medical decision making narrative: History gathered from: Patient and daughter Differential includes but not limited to DVT, cellulitis, venous stasis dermatitis 84-year-old female has had 1 month of redness and discomfort on the right anterior turner that did not improve on 2 courses of outpatient antibiotics. She had an elevated outpatient D-dimer and was sent to rule out DVT. She appears well and nontoxic with stable vital signs. Heart is regular and lungs are clear. The erythema is predominantly on the anterior right turner. She has no tenderness over the venous system. Lower extremities are neurovascularly intact. RLE duplex ultrasound Is negative for DVT. I doubt that this is cellulitis based on the exam as it is very mild redness and she states it has not changed 2 rounds of antibiotics but it really has not worsened either. It is most likely venous stasis dermatitis. I recommended compression, elevation, and follow-up with her primary care doctor. She was discharged in stable condition. I have personally performed a face to face assessment of the patient and have reviewed the [facility]ON[facility] Note. I performed a substantive portion of the visit including all aspects of the following. My portillo findings include: History is remarkable for swelling pain slight redness right leg that started a month ago. She had an outpatient D-dimer that was elevated. She was sent in for DVT rule out. She denies any new dyspnea or dyspnea on exertion. She denies orthopnea. There is no history of heart failure. Review of records indicate she has a history of chronic shortness of breath. She also has history of hypertension and nicotine dependency and COPD. Her respiratory symptoms are not new. Exam is the right leg is swollen. There is tenderness more so left medial than posterior. There is no leg vein distention or palpable cords. There is some discoloration. Discoloration is predominantly anterior, however. There is no neurovascular findings to the right lower extremity. Medical Decision Making will obtain venous duplex study to rule out DVT in light of the elevated D-dimer. Her respiratory symptoms in my opinion are chronic due to her COPD. Other additions or changes: [None] <Dr. Raghav Cadet MD - Last Filed: 10/14/24 16:32> [facility] Narrative Medical decision making narrative: I have personally performed a face to face assessment of the patient and have reviewed the [facility]ON[facility] Note. I performed a substantive portion of the visit including all aspects of the following. My portillo findings include: History is remarkable for swelling pain slight redness right leg that started a month ago. She had an outpatient D-dimer that was elevated. She was sent in for DVT rule out. She denies any new dyspnea or dyspnea on exertion. She denies orthopnea. There is no history of heart failure. Review of records indicate she has a history of chronic shortness of breath. She also has history of hypertension and nicotine dependency and COPD. Her respiratory symptoms are not new. Exam is the right leg is swollen. There is tenderness more so left medial than posterior. There is no leg vein distention or palpable cords. There is some discoloration. Discoloration is predominantly anterior, however. There is no neurovascular findings to the right lower extremity. Medical Decision Making will obtain venous duplex study to rule out DVT in light of the elevated D-dimer. Her respiratory symptoms in my opinion are chronic due to her COPD. Other additions or changes: [None] History & Record Review Additional record(s) reviewed:: Prior outpatient record (Outpatient records from Dr. Maurizio Hobbs. Office records were reviewed. This was from May 2023. She also was seen by orthopedics for primary osteoarthritis of the right knee. She has had multiple visits for this. She was seen April 2021 in the ED for knee pain.) and Prior ED visit Discharge Plan Triage Chief Complaint: Abn Labs ED Midlevel Provider: Cristin Palomares ED Provider: Raghav Cadet Dx/Rx/DC Orders Clinical Impression: Edema of right lower extremity, Essential (primary) hypertension, COPD (chronic obstructive pulmonary disease), Obstructive sleep apnea, Hyperlipidemia, Erythema of lower extremity Instructions: ED Peripheral Edema, Unilateral Prescriptions: No Action albuterol sulfate 90 mcg/actuation HFA aerosol inhaler 2 puff inhalation Q6H PRN (Reason: shortness of breath or wheezing) Patient Comments: INHALE 2 PUFFS BY MOUTH UP TO 4 TIMES DAILY NEEDED Trelegy Ellipta 100-62.5-25 mcg blister with device 1 inh inhalation Q24H amoxicillin-pot clavulanate 875-125 mg tablet 1 tab PO BID aspirin 81 MG tablet,chewable 81 mg PO DAILY@1999 Patient Comments: heart health furosemide 20 mg tablet 20 mg PO Q OTHER DAY Patient Comments: shortness of breath lovastatin 40 MG tablet 40 mg PO QHS lisinopril 10 mg tablet 10 mg PO QDAY Qty: 90 3RF Primary Care Provider: Barry Wooten Referrals: Barry Wooten MD [Primary Care Provider] - Activity Restrictions/Additional Instructions: The ultrasound is negative for a blood clot. I do not think this looks infectious like cellulitis. I do not think any more antibiotics are needed. I recommend you elevate your legs and follow-up with your primary care doctor. Print Language: Montenegrin Disposition Disposition: Home, Self Care Discharge Date/Time: 10/14/24 13:53
[2024-10-14 13:49] VITALS: BP 127/45; PULSE 75; RESP 18; O2SAT 97
[2024-10-14 13:50] VITALS: BP 127/45; PULSE 83; RESP 20; TEMP 36.8; O2SAT 95
== END 2024-10-14 13:53 | disposition home or self-care (01) ==
PROVIDERS: Emergency Provider Emergency Medicine; PCP Family Medicine; Visit Provider Emergency Medicine
DX: R79.1 Abnormal coagulation profile (principal); J44.9 Chronic obstructive pulmonary disease, unspecified; G47.33 Obstructive sleep apnea (adult) (pediatric); R60.0 Localized edema; E78.5 Hyperlipidemia, unspecified; I10 Essential (primary) hypertension; Z87.891 Personal history of nicotine dependence; Z90.710 Acquired absence of both cervix and uterus; I25.10 Atherosclerotic heart disease of native coronary artery without angina pectoris; L53.9 Erythematous condition, unspecified; Z99.89 Dependence on other enabling machines and devices; Z79.899 Other long term (current) drug therapy; Z79.82 Long term (current) use of aspirin; Z79.51 Long term (current) use of inhaled steroids; Z90.49 Acquired absence of other specified parts of digestive tract
CPT/HCPCS: 93971; 99282